=== PATIENT | male | born 1945 | race Caucasian/White ===

== ENCOUNTER → 2017-01-04 | Outpatient (CLI) | payer MEDICARE, OTHER ==
[~2017-01-04] MED LIST: ACLI400A IH; ALBU17AE3 IH; ALBU2.5V52 INH; ALBU5SOL10 IH; ALBU8.5H2 IH; ALFU10TA11 PO; ALFU10TA6 PO; AMLO10TA82 PO; ARFO15VI3 IH; ASP81CT PO; ASPI-587 PO; ASPI-875 PO; ASPI81TA19 GT; ATEN50TA PO; BUDE0.5A2 IH; BUDE0.5A5 IH; BUDE0.5A7 IH; BUPR150T20 PO; CETI10TA17 PO; CLOP75TA PO; FLUT1DIS26 IH; GABA-488 PO; GUAI400T51 PO; HYDR-3714 PO; HYDR1CAP2 PO; HYDR1TAB66 PO; IPRA3AMP IH; LEVO500T69 PO; LRT10T PO; METO-270 PO; MNTL10T PO; NF-ESOM40C PO; NITR0.4T SL; OFLO5DRO2 OD; OXYC-12 PO; PNT40TEC PO; PRD10T PO; PRD20T PO; PRED10TA PO; PRED5DRO2I OD; ROFL500T3 PO; ROSU10TA12 PO; RT-ALBUINH IH; SUCR1TAB36 PO; TIOT18CA IH; [UNRECOGNIZED DRUG - OTHER] OD
--- NOTE | 2017-01-04 15:45 | Diagnostic Imaging Report ---
PROCEDURE: US Carotid Duplex Bilateral. TECHNIQUE: Multiple real-time grayscale images were obtained over the carotid arteries in various projections bilaterally. Additional duplex Doppler and color Doppler images were also obtained. INDICATION: Hypertension. COMPARISON: There are no prior studies available for comparison. FINDINGS: There is fairly heavy hard and soft plaque formation in both carotid bifurcations. The flow velocities failed to show any sign of a hemodynamically significant stenosis. The flow velocities are as follows: Mid CCA right 63.9, left 79.7 Proximal ICA right 75, left 66.3 Mid ICA right 65.1, left 83.8 Distal ICA right 51.6, left 59.8. IC/CC ratio right 1.2, left 1.1 Both vertebral arteries were identified and there was antegrade flow bilaterally. IMPRESSION: There is fairly severe atherosclerotic disease involving both carotid bifurcations but there is no sign of a hemodynamically significant stenosis of the common or internal carotid arteries. Dictated by: Dictated on workstation # [id number]
== END ==
LOC: RAD 14:07
PROVIDERS: ATTEND Nurse Practitioner
DX: I10 Essential (primary) hypertension (principal); R42 Dizziness and giddiness; R51 Headache
CPT/HCPCS: 93880

== ENCOUNTER 2017-01-27 13:00 | Outpatient (RCR) | payer MEDICARE, OTHER | END 2017-02-06 | disposition home or self-care (01) | LOC: PULM 13:00 | PROVIDERS: ATTEND Internal Medicine Critical Care Medicine | DX: J96.20 Acute and chronic respiratory failure, unspecified whether with hypoxia or hypercapnia (principal); J43.8 Other emphysema | CPT/HCPCS: 99211 ==

== ENCOUNTER 2017-03-31 13:00 | Outpatient (RCR) | payer MEDICARE, OTHER | END 2017-05-11 | disposition home or self-care (01) | LOC: PULM 13:00 | PROVIDERS: ATTEND Internal Medicine Critical Care Medicine | DX: J96.20 Acute and chronic respiratory failure, unspecified whether with hypoxia or hypercapnia (principal); J43.8 Other emphysema ==

== ENCOUNTER → 2017-07-04 | Outpatient (CLI) | payer MEDICARE, OTHER ==
[2017-07-04 09:14] LABS: BASOPHILS % (AUTO) 1 % (0-10); EOSINOPHILS # (AUTO) 0.2 10^3/uL (0.0-0.3); EOSINOPHILS % (AUTO) 3 % (0-10); LYMPHOCYTES # (AUTO) 1.5 X 10^3 (1.0-4.0); LYMPHOCYTES % (AUTO) 19 % (12-44); MEAN CORPUSCULAR HEMOGLOBIN 31 PG (25-34); MEAN CORPUSCULAR HGB CONC 32 G/DL (32-36); MEAN CORPUSCULAR VOLUME 96 FL (80-99); MEAN PLATELET VOLUME 10.3 FL (7.4-10.4); MONOCYTES # (AUTO) 0.7 X 10^3 (0.0-1.0); MONOCYTES % (AUTO) 9 % (0-12); NEUTROPHILS # (AUTO) 5.7 X 10^3 (1.8-7.8); NEUTROPHILS % (AUTO) 69 % (42-75); PLATELET COUNT 191 10^3/uL (130-400); RED BLOOD COUNT 4.25 10^6/uL (4.35-5.85); RED CELL DISTRIBUTION WIDTH 13.3 % (10.0-14.5); WHITE BLOOD COUNT 8.2 10^3/uL (4.3-11.0)
[2017-07-04 09:36] LABS: ALANINE AMINOTRANSFERASE 17 U/L (0-55); ALBUMIN 3.8 GM/DL (3.2-4.5); ANION GAP 10 MMOL/L (5-14); ASPARTATE AMINO TRANSFERASE 14 U/L (5-34); BILIRUBIN,TOTAL 0.3 MG/DL (0.1-1.0); BLOOD UREA NITROGEN 18 MG/DL (7-18); BUN/CREATININE RATIO 22; CALCIUM 9.1 MG/DL (8.5-10.1); CARBON DIOXIDE 27 MMOL/L (21-32); CHLORIDE 105 MMOL/L (98-107); CHOLESTEROL 135 MG/DL (< 200); CREATININE SERUM 0.83 MG/DL (0.60-1.30); DIRECT LDL 54 MG/DL (1-129); GFR ESTIMATED > 60; GLUCOSE 93 MG/DL (70-105); POTASSIUM 4.2 MMOL/L (3.6-5.0); SODIUM 142 MMOL/L (135-145); TOTAL PROTEIN 6.3 GM/DL (6.4-8.2); TRIGLYCERIDES 102 MG/DL (<150); VLDL CHOLESTEROL 20 MG/DL (5-40)
[2017-07-04 09:58] LABS: THYROID STIMULATING HORMONE 0.92 UIU/ML (0.35-4.94)
== END ==
LOC: LAB 08:39
PROVIDERS: ATTEND Family Medicine
DX: R53.83 Other fatigue (principal); E78.5 Hyperlipidemia, unspecified; Z83.3 Family history of diabetes mellitus
CPT/HCPCS: 36415; 80053; 80061; 83036; 84439; 84443; 85025

== ENCOUNTER 2017-08-18 13:10 | Inpatient (IN) | payer MEDICARE, OTHER ==
[~2017-08-18] VITALS: Ht 170.2 cm; Wt 66.6 kg
[~2017-08-18 13:10] MED LIST changes: -ARFO15VI3 IH; +ARFO15VI3 NEB; -METO-270 PO; +METO-387 PO
[2017-08-18] MEDS ORDERED: RT-ALBUTEROL SULF 2.5 MG/3 ML PRE-MIX VIAL INH STA ×2 (13:23→13:47)
[2017-08-18] MEDS ORDERED: RT-ALBUTEROL/IPRATROPIUM 3 ML (DUONEB) VIAL INH ONE (13:30)
[2017-08-18 13:35] LABS: BASOPHILS % (AUTO) 0 % (0-10); EOSINOPHILS % (AUTO) 0 % (0-10); LYMPHOCYTES # (AUTO) 0.5 X 10^3 (1.0-4.0); LYMPHOCYTES % (AUTO) 3 % (12-44); MEAN CORPUSCULAR HEMOGLOBIN 31 PG (25-34); MEAN CORPUSCULAR HGB CONC 33 G/DL (32-36); MEAN CORPUSCULAR VOLUME 94 FL (80-99); MEAN PLATELET VOLUME 10.8 FL (7.4-10.4); MONOCYTES # (AUTO) 1.4 X 10^3 (0.0-1.0); MONOCYTES % (AUTO) 8 % (0-12); NEUTROPHILS # (AUTO) 15.9 X 10^3 (1.8-7.8); NEUTROPHILS % (AUTO) 89 % (42-75); PLATELET COUNT 195 10^3/uL (130-400); RED BLOOD COUNT 4.16 10^6/uL (4.35-5.85); RED CELL DISTRIBUTION WIDTH 13.2 % (10.0-14.5); WHITE BLOOD COUNT 17.8 10^3/uL (4.3-11.0)
--- NOTE | 2017-08-18 13:46 | Diagnostic Imaging Report ---
INDICATION: Shortness of breath EXAMINATION: Portable chest at 1:25 PM There are emphysematous changes in the lungs with large bullae at the left apex. There are no infiltrates, effusions or pneumothoraces. IMPRESSION: Severe COPD. No acute abnormalities and no change since 03/11/2016. Dictated by: Dictated on workstation # [id number]
--- NOTE | 2017-08-18 13:55 | ED Respiratory ---
General Chief Complaint: Respiratory Problems Stated Complaint: SOA Nursing Triage Note: PT REPORTS INCREASED SOA X A COUPLE OF DAYS. HE REPORTS HE HAS HAD PAIN TO HIS L LUNG. Source: patient Exam Limitations: no limitations History of Present Illness Time seen by provider: 13:14 Initial Comments Here with report of significant shortness of air that has worsened over the last 2-3 days. Complains of pain to the area of the left lung. Has significant COPD and has had to increase his oxygen. O2 sats 88 percent on 5 L on arrival. States that she has had similar episode several years ago of something like this and required hospitalization for COPD and pneumonia. Denies fevers chills or vomiting. Left chest is described as aching and tightness. Timing/Duration: getting worse, other (to 3 days) Severity: moderate, severe Prior Episodes/Possible Cause: occasional episodes Associated Symptoms: chest pain/soreness, cough, No fever/chills, shortness of breath, wheezing Allergies and Home Medications Allergies Coded Allergies: atorvastatin calcium (Verified Allergy, Mild, RASH, 11/27/12) Home Medications Albuterol Sulfate 8.5 Gm Aer.w.adap, 2 PUFF IH QID PRN for SHORTNESS OF BREATH, (Reported) Alfuzosin Hcl 10 Mg Tab.sr.24h, 10 MG PO DAILY, (Reported) Arformoterol Tartrate 15 Mcg/2 Ml Vial.neb, 15 MCG IH BID, (Reported) Aspirin 81 Mg Tablet.dr, 81 MG PO DAILY, (Reported) Budesonide 0.5 Mg/2 Ml Ampul.neb, 0.5 MG IH BID, (Reported) Bupropion Hcl 150 Mg Tablet.sa, 150 MG PO BID, (Reported) Cetirizine HCl 10 Mg Tablet, 10 MG PO DAILY, (Reported) Gabapentin 300 Mg Capsule, 300 MG PO TID, (Reported) Hydrocodone Bit/Acetaminophen 1 Tab Tablet, 1 TAB PO Q8H PRN for PAIN, (Reported ) Ipratropium/Albuterol Sulfate 3 Ml Ampul.neb, 3 ML IH Q4H PRN for WHEEZING, ( Reported) Metoprolol Succinate 25 Mg Tab.er.24h, 12.5 MG PO DAILY, (Reported) TAKES 1/2 OF A (25 MG) TABLET Montelukast Sodium 10 Mg Tablet, 10 MG PO HS, (Reported) Nitroglycerin 0.4 Mg Tab.subl, 0.4 MG SL UD PRN for CHEST PAIN, (Reported) PLACE 1 TABLET UNDER TONGUE EVERY 5 MINUTES X 3 DOSES NEEDED FOR CHEST PAIN Pantoprazole Sodium 40 Mg Tablet.dr, 40 MG PO DAILY, (Reported) Prednisone 10 Mg Tablet, 10 MG PO DAILY, (Reported) Rosuvastatin Calcium 10 Mg Tablet, 10 MG PO HS, (Reported) Constitutional: see HPI, chills, diaphoresis (sweaty on arrival), No fever EENTM: no symptoms reported Respiratory: see HPI, cough, short of breath Cardiovascular: see HPI, No palpitations Gastrointestinal: abdominal pain (chronic upper but not worse today.), No nausea, No vomiting Genitourinary: no symptoms reported Musculoskeletal: see HPI, muscle pain, No neck pain Skin: no symptoms reported Psychiatric/Neurological: No Symptoms Reported All Other Systems Reviewed Negative Unless Noted: Yes Past Iqamrfn-Jtwvny-Hjqwkh Hx Patient Social History Alcohol Use: Denies Use Recreational Drug Use: No Smoking Status: Former Smoker Type Used: Cigarettes 2nd Hand Smoke Exposure: No Recent Foreign Travel: No Contact w/Someone Who Travel: No Recent Infectious Disease Expo: No Physical Abuse: No Sexual Abuse: No Immunizations Up To Date Date of Pneumonia Vaccine: Sep 17, 2015 Date of Influenza Vaccine: Aug 06, 2016 Surgeries History of Surgeries: Yes (hernia) Respiratory History of Respiratory Disorde: Yes (oxygen dependent) Respiratory Disorders: Asthma, COPD Cardiovascular History of Cardiac Disorders: Yes (STENTS X2, HEART CATH IN JANUARY 2015) Cardiac Disorders: Hypertension Neurological History of Neurological Disord: No Reproductive System Hx Reproductive Disorders: No Gastrointestinal History of Gastrointestinal Di: Yes Gastrointestinal Disorders: Gastroesophageal Reflux Musculoskeletal History of Musculoskeletal Dis: No Musculoskeletal Disorders: Arthritis Endocrine History of Endocrine Disorders: No HEENT HEENT Disorders: Cataract Hearing Impairment: Hard of Hearing Cancer History of Cancer: No Psychosocial History of Psychiatric Problem: No Suicide Risk Score: 0 Integumentary History of Skin or Integumenta: No Blood Transfusions History of Blood Disorders: No Reviewed Nursing Assessment Reviewed/Agree w Nursing PMH: Yes Family Medical History Significant Family History: No Pertinent Family Hx Family Medial History: Congestive heart failure 03 MOTHER Family history: Cardiovascular disease 03 MOTHER History of - respiratory disease 03 FATHER (EMPHYSEMA) Kidney disease 03 MOTHER Physical Exam Vital Signs Vital Sign - Last 12Hours Capillary Refill : Less Than 3 Seconds General Appearance: WD/WN, no apparent distress HEENT: PERRL/EOMI, pharynx normal Neck: full range of motion, supple Respiratory: accessory muscle use, other (hyperresonant lung sounds on the left ) Cardiovascular: no murmur, tachycardia Gastrointestinal: non tender, soft Extremities: non-tender, normal inspection Neurologic/Psychiatric: alert, oriented x 3 Skin: normal color, warm/dry Focused Exam Evaluation Lactate Level Laboratory Tests 08/18/17 13:20: Lactic Acid Level 3.03*H Lactic Acid Level Laboratory Tests Test 08/18/17 13:20 Lactic Acid Level 3.03 MMOL/L (0.50-2.00) *H Progress/Results/Core Measures Suspected Sepsis Recent Fever Within 48 Hours: No Infection Criteria Present: Suspected New Infection New/Unexplained Altered Menta: No Sepsis Screen: Possible Sepsis Risk Sepsis Diagnosis: SIRS Temperature:97.8 Pulse: 108 Respiratory Rate: 30 Laboratory Tests 08/18/17 13:20: White Blood Count 17.8H Blood Pressure 153 /101 Mean: 118 Laboratory Tests 08/18/17 13:20: Lactic Acid Level 3.03*H Laboratory Tests 08/18/17 13:20: Creatinine 0.77, Platelet Count 195, Total Bilirubin 0.9 Results/Orders Lab Results Laboratory Tests Test 08/18/17 13:20 Range/Units White Blood Count 17.8 H 4.3-11.0 10^3/uL Red Blood Count 4.16 L 4.35-5.85 10^6/uL Hemoglobin 12.9 L 13.3-17.7 G/DL Hematocrit 39 L 40-54 % Mean Corpuscular Volume 94 80-99 FL Mean Corpuscular Hemoglobin 31 25-34 PG Mean Corpuscular Hemoglobin Concent 33 32-36 G/DL Red Cell Distribution Width 13.2 10.0-14.5 % Platelet Count 195 130-400 10^3/uL Mean Platelet Volume 10.8 H 7.4-10.4 FL Neutrophils (%) (Auto) 89 H 42-75 % Lymphocytes (%) (Auto) 3 L 12-44 % Monocytes (%) (Auto) 8 0-12 % Eosinophils (%) (Auto) 0 0-10 % Basophils (%) (Auto) 0 0-10 % Neutrophils # (Auto) 15.9 H 1.8-7.8 X 10^3 Lymphocytes # (Auto) 0.5 L 1.0-4.0 X 10^3 Monocytes # (Auto) 1.4 H 0.0-1.0 X 10^3 Eosinophils # (Auto) 0.0 0.0-0.3 10^3/uL Basophils # (Auto) 0.0 0.0-0.1 10^3/uL Neutrophils % (Manual) 88 % Lymphocytes % (Manual) 2 % Monocytes % (Manual) 9 % Band Neutrophils 1 % Toxic Granulation 1+ Blood Morphology Comment NORMAL Sodium Level 134 L 135-145 MMOL/L Potassium Level 3.8 3.6-5.0 MMOL/L Chloride Level 100 98-107 MMOL/L Carbon Dioxide Level 21 21-32 MMOL/L Anion Gap 13 5-14 MMOL/L Blood Urea Nitrogen 20 H 7-18 MG/DL Creatinine 0.77 0.60-1.30 MG/DL Estimat Glomerular Filtration Rate > 60 BUN/Creatinine Ratio 26 Glucose Level 160 H 70-105 MG/DL Lactic Acid Level 3.03 *H 0.50-2.00 MMOL/L Calcium Level 9.9 8.5-10.1 MG/DL Magnesium Level 2.0 1.8-2.4 MG/DL Total Bilirubin 0.9 0.1-1.0 MG/DL Aspartate Amino Transf (AST/SGOT) 12 5-34 U/L Alanine Aminotransferase (ALT/SGPT) 12 0-55 U/L Alkaline Phosphatase 92 40-136 U/L Troponin I < 0.30 <0.30 NG/ML C-Reactive Protein High Sensitivity 39.94 H 0.00-0.50 MG/DL Total Protein 7.0 6.4-8.2 GM/DL Albumin 3.6 3.2-4.5 GM/DL My Orders Orders - FANNIE ADEN MD Chest 1 View, Ap/Pa Only (08/18/17 13:17) Saline Lock/Iv-Start (08/18/17 13:17) Ekg Tracing (08/18/17 13:17) O2 (08/18/17 13:17) Monitor-Rhythm Ecg Trace Only (08/18/17 13:17) Cbc With Automated Diff (08/18/17 13:17) Comprehensive Metabolic Panel (08/18/17 13:17) Hs C Reactive Protein (08/18/17 13:17) Lactic Acid Analyzer (08/18/17 13:17) Magnesium (08/18/17 13:17) Troponin I (08/18/17 13:17) Blood Culture (08/18/17 13:17) Albuterol Pre-Mix Nebs (Rt) (Proventil P (08/18/17 13:23) Albuterol/Ipra Inhalation Soln (Duoneb I (08/18/17 13:30) Svn Sm Volume Nebulizer Rt-Rfs (08/18/17 13:23) Svn Sm Volume Nebulizer Rt-Rfs (08/18/17 13:23) Manual Differential (08/18/17 13:20) Albuterol Pre-Mix Nebs (Rt) (Proventil P (08/18/17 13:47) Svn Sm Volume Nebulizer Rt-Rfs (08/18/17 13:47) Methylprednisolone Sod Succ (Solu-Medrol (08/18/17 13:57) Ns Iv 1000 Ml (Sodium Chloride 0.9%) (08/18/17 14:14) Ceftriaxone Injection (Rocephin Injectio (08/18/17 14:15) Medications Given in ED Current Medications Medications Dose Ordered Sig/Ivana Route Start Time Stop Time Status Last Admin Dose Admin Albuterol/ Ipratropium 3 ml ONCE ONCE INH 08/18/17 13:30 08/18/17 13:31 DC 08/18/17 13:36 3 ML Vital Signs/I&O Vital Sign - Last 12Hours 08/18/17 08/18/17 08/18/17 08/18/17 13:15 13:15 13:36 13:53 Temp 97.8 Pulse 108 Resp 30 B/P (MAP) 153/101 Pulse Ox 87 98 98 98 O2 Delivery Nasal Cannula OxyMask OxyMask OxyMask O2 Flow Rate 2.00 10.00 10.00 10.00 Capillary Refill : Less Than 3 Seconds Blood Pressure Mean: 118 Progress Note : Progress Note Seen and evaluated. IV, labs, EKG, chest x-ray, blood cultures and lactic acid ordered. DuoNeb and albuterol nebulizer treatment ordered. This was repeated with 2 albuterol neb treatments. This did ultimately began to help out his breathing and he was able to be switched off a mask to his typical 5 L via nasal cannula with O2 sats remaining in the upper 90s and patient feeling much more comfortable. Lactic acid is elevated which I believe is related to the hypoxia and respiratory distress that he has been experiencing over the last 2 days. White count and CRP are also elevated. Patient does have chronic lung disease and there may be hidden pneumonia in the lungs on the left especially that is not noted on chest x-ray. We will treat subjectively and clinically as pneumonia. While patient does meet sepsis criteria, he does not meet requirement for high volume fluid resuscitation at this time. I did discuss the case with Dr. Izquierdo at 1411 and she accepts patient for admission, inpatient status. I will consult Dr. Cardenas. Solu-Medrol 125 mg IV initiated as well as Rocephin 1 g IV. ECG Initial ECG Impression Date: Aug 18, 2017 Initial ECG Impression Time: 14:07 Initial ECG Rate: 108 Initial ECG Rhythm: S.Tach Comment Sinus tachycardia with nonspecific intraventricular conduction delay. No evidence of ST elevation DC. Right axis deviation. Similar to previous of 09 December 2015 except rate is increased today. Interpreted by me. Diagnostic Imaging Diagonstic Imaging: Xray Plain Films/CT/US/NM/MRI: chest Comments NAME: YAYO DINH [facility] REC#: [id number] PT STATUS: REG ER : 1945 PHYSICIAN: FANNIE ADEN MD ADMIT DATE: 08/18/17/ER Draft Date of Exam:08/18/17 CHEST 1 VIEW, AP/PA ONLY INDICATION: Shortness of breath EXAMINATION: Portable chest at 1:25 PM There are emphysematous changes in the lungs with large bullae at the left apex. There are no infiltrates, effusions or pneumothoraces. IMPRESSION: Severe COPD. No acute abnormalities and no change since 03/11/2016. Dictated on workstation # [id number] Dict: 08/18/17 1343 Trans: 08/18/17 1346 [facility] [id number] Interpreted by: FANNIE BARNETT MD Electronically signed by: Departure Communication (Admissions) Time/Spoke to Admitting Phy: 14:11 Time/Spoke to Consulting Phy: 14:23 Impression Impression: Primary Impression: COPD with acute exacerbation Additional Impression: Pneumonia involving left lung Qualified Codes: J18.9 - Pneumonia, unspecified organism Disposition: ADMITTED INPATIENT Condition: Stable Admissions Decision to Admit Reason: Admit from ER (General) Decision to Admit/Date: Aug 18, 2017 Time/Decision to Admit Time: 14:11 Departure-Patient Inst. Referrals: VICKI IZQUIERDO DO (PCP/Family) Primary Care Physician FANNIE ADEN MD Aug 18, 2017 13:55
[2017-08-18 13:57] LABS: BAND NEUTROPHILS 1 %; NEUTROPHILS % (MANUAL) 88 %
[2017-08-18] MEDS ORDERED: methylPREDNISolone 125 MG (Solu-MEDROL) VIAL IV STA (13:57)
[2017-08-18 13:58] LABS: LYMPHOCYTES % (MANUAL) 2 %
[2017-08-18 14:05] LABS: ALANINE AMINOTRANSFERASE 12 U/L (0-55); ALBUMIN 3.6 GM/DL (3.2-4.5); ANION GAP 13 MMOL/L (5-14); ASPARTATE AMINO TRANSFERASE 12 U/L (5-34); BILIRUBIN,TOTAL 0.9 MG/DL (0.1-1.0); BLOOD UREA NITROGEN 20 MG/DL (7-18); BUN/CREATININE RATIO 26; CALCIUM 9.9 MG/DL (8.5-10.1); CARBON DIOXIDE 21 MMOL/L (21-32); CHLORIDE 100 MMOL/L (98-107); CREATININE SERUM 0.77 MG/DL (0.60-1.30); GFR ESTIMATED > 60; GLUCOSE 160 MG/DL (70-105); POTASSIUM 3.8 MMOL/L (3.6-5.0); SODIUM 134 MMOL/L (135-145); hs C REACTIVE PROTEIN 39.94 MG/DL (0.00-0.50)
[2017-08-18 14:07] LABS: TROPONIN I < 0.30 NG/ML (<0.30)
[2017-08-18] MEDS ORDERED: NS IV 1000 ML 1,000 ML IV ONE (14:14)
[2017-08-18] MEDS ORDERED: cefTRIAXone INJECTION 1,000 MG in NS (IVPB) 50 ML IV ONE (14:15)
[2017-08-18 15:39] VITALS: BP 170/85
[2017-08-18] MEDS ORDERED: ONDANSETRON 4 MG/2 ML (SDV) Z0FRAN IV PRN (15:45)
[2017-08-18] MEDS ORDERED: NS IV PRN (15:45)
[2017-08-18] MEDS ORDERED: CATHETER FLUSH 10 ML SYR IV PRN (15:45)
[2017-08-18] MEDS ORDERED: PRD10T PO (16:03)
[2017-08-18] MEDS ORDERED: HYDR-3816 PO (16:03)
[2017-08-18] MEDS ORDERED: AMLO10TA2 PO (16:03)
[2017-08-18] MEDS ORDERED: MONT10TA24 PO (16:09)
[2017-08-18] MEDS ORDERED: ALFU10TA11 PO (16:09)
[2017-08-18] MEDS ORDERED: NITR0.4T39 SL (16:09)
[2017-08-18] MEDS ORDERED: FEXO-46 PO (16:09)
[2017-08-18] MEDS ORDERED: ASPI-983 PO (16:09)
[2017-08-18] MEDS ORDERED: ALBU18HF2 IH (16:09)
[2017-08-18] MEDS ORDERED: ROSU10TA24 PO (16:09)
[2017-08-18] MEDS ORDERED: PANT40TA3 PO (16:09)
[2017-08-18] MEDS: NS IV 1000 ML 1,000 ML IV SCH ×2 (16:14→20:26)
[2017-08-18] MEDS: AZITHROMYCIN 500 MG/NS 250 ML IVPB IV SCH ×2 (16:14)
[2017-08-18 16:21] VITALS: BP 170/85
[2017-08-18] MEDS ORDERED: ATEN50TA PO (16:22)
[2017-08-18] MEDS ORDERED: ALBU2.5V4 NEB (16:22)
[2017-08-18] MEDS ORDERED: RT-ALBUTEROL SULF 2.5 MG/3 ML PRE-MIX VIAL IH PRN (16:30)
[2017-08-18] MEDS: HYDROcodone/APAP 5 MG/325 MG (LORTAB) TAB PO PRN (16:56)
[2017-08-18] MEDS: methylPREDNISolone 40 MG/ML (Solu-MEDROL) VIAL IV SCH (18:14)
[2017-08-18] MEDS: RT-ALBUTEROL SULF 2.5 MG/3 ML PRE-MIX VIAL IH SCH ×2 (18:39→22:17)
--- NOTE | 2017-08-18 19:11 | History & Physicial ---
History of Present Illness History of Present Illness Reason for visit/HPI This is a 71 year old male with severe oxygen requiring COPD who presented to the emergency room with worsening shortness of air and left lung pain for the past 3 days. He had also had sweats for the past 2 days. He had increased his oxygen to 5liters and his oxygen saturation was at 88% upon arrival in the emergency room. He was given back to back nebulizer treatments as well as IV solumedrol in the emergency room. His WBC count was elevated at 17.8 and his lactic acid was elevated at 3.03 with an elevated CRP of 39. His CXR has chronic changes but no obvious infiltrate was noted. He will be admitted for presumptive pneumonia with sepsis and exacerbation of COPD. Date of Admission Aug 18, 2017 at 14:25 Date Seen by Provider: Aug 18, 2017 Time Seen by Provider: 19:06 I consulted on this patient on 08/18/17 19:06 Attending Physician Dalia Izquierdo DO Admitting Physician Dalia Izquierdo DO Consult Allergies and Home Medications Allergies Coded Allergies: atorvastatin calcium (Verified Allergy, Mild, RASH, 11/27/12) Home Medications Albuterol Sulfate 18 Gm Hfa.aer.ad, 2 PUFF IH Q4H PRN for SHORTNESS OF BREATH, ( Reported) Albuterol Sulfate 2.5 Mg/3 Ml Vial.neb, 2.5 MG NEB Q4H PRN for SHORTNESS OF BREATH, (Reported) Alfuzosin HCl 10 Mg Tab.er.24h, 10 MG PO HS, (Reported) Amlodipine Besylate 10 Mg Tablet, 10 MG PO DAILY, (Reported) Arformoterol Tartrate 15 Mcg/2 Ml Vial.neb, 15 MCG NEB BID, (Reported) Aspirin 81 Mg Tablet.dr, 81 MG PO DAILY, (Reported) Atenolol 50 Mg Tablet, 50 MG PO DAILY PRN for BLOOD PRESSURE, (Reported) LAST FILLED #60 02-24-17 Fexofenadine HCl 180 Mg Tablet, 180 MG PO DAILY, (Reported) Hydrocodone/Acetaminophen 1 Each Tablet, 1 TAB PO TID PRN for PAIN-MODERATE, ( Reported) Montelukast Sodium 10 Mg Tablet, 10 MG PO HS, (Reported) Nitroglycerin 0.4 Mg Tab.subl, 0.4 MG SL UD PRN for CHEST PAIN, (Reported) Pantoprazole Sodium 40 Mg Tablet.dr, 40 MG PO DAILY, (Reported) Prednisone 10 Mg Tab, 10 MG PO DAILY, (Reported) Rosuvastatin Calcium 10 Mg Tablet, 10 MG PO HS, (Reported) Past Fxqfbom-Swoeka-Wtaspp Hx Patient Social History Alcohol Use: Denies Use Recreational Drug Use: No Smoking Status: Former Smoker Former Smoker, Quit: Aug 18, 2012 Type Used: Cigarettes 2nd Hand Smoke Exposure: No Physical Abuse Screen: No Sexual Abuse: No Recent Foreign Travel: No Contact w/other who traveled: No Recent Hopitalizations: No Recent Infectious Disease Expo: No Immunizations Up To Date Pediatric: Yes Date of Pneumonia Vaccine: Sep 17, 2015 Date of Influenza Vaccine: Aug 03, 2017 Seasonal Allergies Seasonal Allergies: No Surgeries Yes (hernia) Respiratory Yes (oxygen dependent) Currently Using CPAP: No Cardiovascular Yes (STENTS X2, HEART CATH IN JANUARY 2015) Hypertension Neurological No Reproductive System Hx Reproductive Disorders: No Genitourinary Yes Prostate Problems Gastrointestinal Yes Gastroesophageal Reflux Musculoskeletal No Arthritis Endocrine History of Endocrine Disorders: No HEENT HEENT Disorders: Cataract Hearing Impairment: Hard of Hearing Cancer No Psychosocial History of Psychiatric Problem: No Integumentary History of Skin or Integumenta: No Blood Transfusions History of Blood Disorders: No Reviewed Nursing Assessment Reviewed/Agree w Nursing PMH: Yes Family Medical History Significant Family History: No Pertinent Family Hx Family Hx: Congestive heart failure 03 MOTHER Family history: Cardiovascular disease 03 MOTHER History of - respiratory disease 03 FATHER (EMPHYSEMA) Kidney disease 03 MOTHER Constitutional: diaphoresis, weakness EENTM: No see HPI, No no symptoms reported, No ear discharge, No hearing loss, No ear pain, No blurred vision, No double vision, No eye pain, No tearing, No vision loss, No dental problems, No hoarseness, No mouth pain, No mouth swelling , No epistaxis, No nose congestion, No nose pain, No throat pain, No throat swelling, No other Respiratory: cough, dyspnea on exertion, short of breath, wheezing Cardiovascular: chest pain (left lung pain) Gastrointestinal: No RUQ, No LUQ, No RLQ, No LLQ, No no symptoms reported, No see HPI, No abdominal pain, No constipation, No diarrhea, No dysphagia, No hematemesis, No heartburn, No jaundice, No loss of appetite, No melena, No nausea, No vomiting, No other Genitourinary: No no symptoms reported, No see HPI, No decreased output, No discharge, No dysuria, No frequency, No hematuria, No hesitancy, No incontinence , No nocturia, No pain, No other Musculoskeletal: back pain, muscle weakness Skin: No no symptoms reported, No see HPI, No change in color, No change in hair/nails, No dryness, No hx of skin cancer, No lesions, No lumps, No pruritus , No rash, No other Psychiatric/Neurological: Weakness Physical Exam Vital Signs Vital Sign - Last 12Hours 08/18/17 16:21 FiO2 40 Capillary Refill : Less Than 3 Seconds General Appearance: Mild Distress (respiratory) HEENT: Pharyngeal Erythema Neck: Supple Respiratory: Accessory Muscle Use, Decreased Breath Sounds Cardiovascular: Systolic Murmur, Gallop/S4, Tachycardia Gastrointestinal: Normal Bowel Sounds, Non Tender, Soft Rectal: Deferred Back: No CVA Tenderness Extremity: Non Tender, No Calf Tenderness, No Pedal Edema Neurologic/Psychiatric: Alert, Oriented x3 Skin: Normal Color, Warm/Dry Lymphatic: No Adenopathy Comments Laboratory Tests 08/18/17 13:20: White Blood Count 17.8H, Red Blood Count 4.16L, Hemoglobin 12.9L, Hematocrit 39L , Mean Corpuscular Volume 94, Mean Corpuscular Hemoglobin 31, Mean Corpuscular Hemoglobin Concent 33, Red Cell Distribution Width 13.2, Platelet Count 195, Mean Platelet Volume 10.8H, Neutrophils (%) (Auto) 89H, Lymphocytes (%) (Auto) 3L, Monocytes (%) (Auto) 8, Eosinophils (%) (Auto) 0, Basophils (%) (Auto) 0, Neutrophils # (Auto) 15.9H, Lymphocytes # (Auto) 0.5L, Monocytes # (Auto) 1.4H, Eosinophils # (Auto) 0.0, Basophils # (Auto) 0.0, Neutrophils % (Manual) 88, Lymphocytes % (Manual) 2, Monocytes % (Manual) 9, Band Neutrophils 1, Toxic Granulation 1+, Blood Morphology Comment NORMAL, Sodium Level 134L, Potassium Level 3.8, Chloride Level 100, Carbon Dioxide Level 21, Anion Gap 13, Blood Urea Nitrogen 20H, Creatinine 0.77, Estimat Glomerular Filtration Rate > 60, BUN /Creatinine Ratio 26, Glucose Level 160H, Lactic Acid Level 3.03*H, Calcium Level 9.9, Magnesium Level 2.0, Total Bilirubin 0.9, Aspartate Amino Transf (AST /SGOT) 12, Alanine Aminotransferase (ALT/SGPT) 12, Alkaline Phosphatase 92, Troponin I < 0.30, C-Reactive Protein High Sensitivity 39.94H, Total Protein 7.0 , Albumin 3.6 08/18/17 15:35: Lactic Acid Level 3.33*H Microbiology 08/18/17 Blood Culture - Preliminary, Resulted No growth Assessment/Plan Assessment and Plan 1. Pneumonia with Sepsis--admit and start sepsis and pneumonia protocol 2. Exacerbation of COPD--oxygen, IV solumedrol and SVNS with duoneb 3. Hypertension--resume home meds 4. GERD--resume protonix 5. Elevated CRP--will check CT scan to rule out mass Problems: Clinical Quality Measures DVT/VTE Risk/Contraindication: Risk Factor Score Per Nursin RFS Level Per Nursing on Admit: 4+=Very High DALIA IZQUIERDO DO Aug 18, 2017 19:11
[2017-08-18 19:28] VITALS: BP 142/65
[2017-08-18] MEDS: ALFUZOSIN HCL 10 MG TAB (UROXATRAL) PO SCH (20:21)
[2017-08-18] MEDS: ROSUVASTATIN 5 MG (CRESTOR) TABLET PO SCH (20:21)
[2017-08-18] MEDS: MONTELUKAST 10 MG (SINGULAIR) TAB PO SCH (20:22)
[2017-08-18] MEDS: ENOXAPARIN 40 MG/0.4 ML (LOVENOX) SYR SC SCH (20:25)
[2017-08-18] MEDS: HYDROcodone/APAP 7.5 MG/325 MG (LORTAB, LORCET PLUS) TABLET PO PRN (22:23)
[2017-08-19] MEDS: NS IV 1000 ML 1,000 ML IV SCH ×4 (00:47→17:21)
[2017-08-19] MEDS: methylPREDNISolone 40 MG/ML (Solu-MEDROL) VIAL IV SCH ×5 (00:50→23:48)
[2017-08-19 00:55] VITALS: BP 135/63
[2017-08-19] MEDS: RT-ALBUTEROL SULF 2.5 MG/3 ML PRE-MIX VIAL IH SCH ×6 (02:42→21:40)
[2017-08-19 04:30] VITALS: BP 130/64
[2017-08-19 05:53] LABS: BASOPHILS % (AUTO) 0 % (0-10); EOSINOPHILS % (AUTO) 0 % (0-10); LYMPHOCYTES # (AUTO) 0.1 X 10^3 (1.0-4.0); LYMPHOCYTES % (AUTO) 2 % (12-44); MEAN CORPUSCULAR HEMOGLOBIN 31 PG (25-34); MEAN CORPUSCULAR HGB CONC 33 G/DL (32-36); MEAN CORPUSCULAR VOLUME 95 FL (80-99); MEAN PLATELET VOLUME 10.4 FL (7.4-10.4); MONOCYTES # (AUTO) 0.3 X 10^3 (0.0-1.0); MONOCYTES % (AUTO) 5 % (0-12); NEUTROPHILS # (AUTO) 5.3 X 10^3 (1.8-7.8); NEUTROPHILS % (AUTO) 93 % (42-75); PLATELET COUNT 165 10^3/uL (130-400); RED BLOOD COUNT 3.04 10^6/uL (4.35-5.85); RED CELL DISTRIBUTION WIDTH 12.8 % (10.0-14.5); WHITE BLOOD COUNT 5.7 10^3/uL (4.3-11.0)
[2017-08-19 06:14] LABS: ALANINE AMINOTRANSFERASE 13 U/L (0-55); ALBUMIN 2.7 GM/DL (3.2-4.5); ANION GAP 7 MMOL/L (5-14); ASPARTATE AMINO TRANSFERASE 14 U/L (5-34); BILIRUBIN,TOTAL 0.3 MG/DL (0.1-1.0); BLOOD UREA NITROGEN 16 MG/DL (7-18); BUN/CREATININE RATIO 25; CALCIUM 8.2 MG/DL (8.5-10.1); CARBON DIOXIDE 20 MMOL/L (21-32); CHLORIDE 109 MMOL/L (98-107); CREATININE SERUM 0.63 MG/DL (0.60-1.30); GFR ESTIMATED > 60; GLUCOSE 156 MG/DL (70-105); POTASSIUM 4.1 MMOL/L (3.6-5.0); SODIUM 136 MMOL/L (135-145); TOTAL PROTEIN 5.1 GM/DL (6.4-8.2)
[2017-08-19] MEDS: PANTOPRAZOLE 40 MG (PROTONIX) TAB PO SCH (06:14)
[2017-08-19] MEDS: HYDROcodone/APAP 7.5 MG/325 MG (LORTAB, LORCET PLUS) TABLET PO PRN ×2 (06:52→20:10)
--- NOTE | 2017-08-19 07:13 | Diagnostic Imaging Report ---
PROCEDURE: CT chest without contrast. TECHNIQUE: Multiple contiguous axial images were obtained through the chest without the use of intravenous contrast. INDICATION: Shortness of breath, cough, elevated CRP, COPD. FINDINGS: There are emphysematous changes in the lungs. There is some linear scarring in the left upper lobe. There are no consolidating alveolar infiltrates. There are no effusions or pneumothoraces. There is no hilar or mediastinal lymphadenopathy. There is coronary atherosclerosis. IMPRESSION: COPD with left upper lobe parenchymal scarring. No interval change since prior exam dated 04/16/2016. Dictated by: Dictated on workstation # [id number]
--- NOTE | 2017-08-19 07:27 | Pulmonary Consultation ---
History of Present Illness History of Present Illness Date of Consultation 08/19/17 07:21 Time Seen by Provider: 07:21 Date of Admission History of Present Illness 71yo with hx of severe oxygen dependent COPD known to my office presented to ED secondary to worsening SOB and left chest pain worsening over the last 3 days. He increased his oxygen to 5 liters and his SP02 was still 88%. He was given SVN txs and solumedrol in the ED which did help. CT scan shows chronic changes no acute infiltration. Allergies and Home Medications Allergies Coded Allergies: atorvastatin calcium (Verified Allergy, Mild, RASH, 11/27/12) Home Medications Albuterol Sulfate 18 Gm Hfa.aer.ad, 2 PUFF IH Q4H PRN for SHORTNESS OF BREATH, ( Reported) Albuterol Sulfate 2.5 Mg/3 Ml Vial.neb, 2.5 MG NEB Q4H PRN for SHORTNESS OF BREATH, (Reported) Alfuzosin HCl 10 Mg Tab.er.24h, 10 MG PO HS, (Reported) Amlodipine Besylate 10 Mg Tablet, 10 MG PO DAILY, (Reported) Arformoterol Tartrate 15 Mcg/2 Ml Vial.neb, 15 MCG NEB BID, (Reported) Aspirin 81 Mg Tablet.dr, 81 MG PO DAILY, (Reported) Atenolol 50 Mg Tablet, 50 MG PO DAILY PRN for BLOOD PRESSURE, (Reported) LAST FILLED #60 -- Fexofenadine HCl 180 Mg Tablet, 180 MG PO DAILY, (Reported) Hydrocodone/Acetaminophen 1 Each Tablet, 1 TAB PO TID PRN for PAIN-MODERATE, ( Reported) Montelukast Sodium 10 Mg Tablet, 10 MG PO HS, (Reported) Nitroglycerin 0.4 Mg Tab.subl, 0.4 MG SL UD PRN for CHEST PAIN, (Reported) Pantoprazole Sodium 40 Mg Tablet.dr, 40 MG PO DAILY, (Reported) Prednisone 10 Mg Tab, 10 MG PO DAILY, (Reported) Rosuvastatin Calcium 10 Mg Tablet, 10 MG PO HS, (Reported) Past Cbdchvr-Gdaspg-Huaalv Hx Patient Social History Alcohol Use: Denies Use Recreational Drug Use: No Smoking Status: Former Smoker Type Used: Cigarettes Former Smoker, Quit: Aug 18, 2012 2nd Hand Smoke Exposure: No Recent Foreign Travel: No Contact w/Someone Who Travel: No Recent Infectious Disease Expo: No Recent Hopitalizations: No Physical Abuse: No Sexual Abuse: No Immunizations Up To Date PED Vaccines UTD: Yes Date of Pneumonia Vaccine: Sep 17, 2015 Date of Influenza Vaccine: Aug 03, 2017 Seasonal Allergies Seasonal Allergies: No Surgeries History of Surgeries: Yes (hernia) Respiratory History of Respiratory Disorde: Yes (oxygen dependent) Respiratory Disorders: Asthma, COPD Currently Using CPAP: No Cardiovascular History of Cardiac Disorders: Yes (STENTS X2, HEART CATH IN JANUARY 2015) Cardiac Disorders: Hypertension Neurological History of Neurological Disord: No Reproductive System Hx Reproductive Disorders: No Genitourinary History of Genitourinary Disor: Yes Genitourinary Disorders: Prostate Problems Gastrointestinal History of Gastrointestinal Di: Yes Gastrointestinal Disorders: Gastroesophageal Reflux Musculoskeletal History of Musculoskeletal Dis: No Musculoskeletal Disorders: Arthritis Endocrine History of Endocrine Disorders: No HEENT HEENT Disorders: Cataract Hearing Impairment: Hard of Hearing Cancer History of Cancer: No Psychosocial History of Psychiatric Problem: No Suicide Risk Score: 0 Integumentary History of Skin or Integumenta: No Blood Transfusions History of Blood Disorders: No Reviewed Nursing Assessment Reviewed/Agree w Nursing PMH: Yes Family Medical History Significant Family History: No Pertinent Family Hx Family Medial History: Congestive heart failure 03 MOTHER Family history: Cardiovascular disease 03 MOTHER History of - respiratory disease 03 FATHER (EMPHYSEMA) Kidney disease 03 MOTHER Exam Exam Vital Signs Date Time Temp Pulse Resp B/P (MAP) Pulse Ox O2 Delivery O2 Flow Rate FiO2 08/19/17 06:46 94 Nasal Cannula 5.00 08/19/17 04:30 98.1 91 18 130/64 98 Nasal Cannula 5.00 08/19/17 02:42 94 Nasal Cannula 5.00 08/19/17 01:00 95 08/19/17 00:55 98.5 101 22 135/63 96 Nasal Cannula 5.00 08/18/17 22:18 95 Nasal Cannula 5.00 08/18/17 20:15 96 Nasal Cannula 5.00 08/18/17 19:28 98.6 96 22 142/65 98 Nasal Cannula 5.00 08/18/17 19:00 99 08/18/17 18:39 96 Nasal Cannula 5.00 08/18/17 17:25 95 08/18/17 16:21 109 99 40 08/18/17 15:39 99.1 109 30 170/85 99 Nasal Cannula 5.00 11/16/17 15:35 Nasal Cannula 5.00 08/18/17 15:20 98.9 122 25 98 Nasal Cannula 5.00 08/18/17 13:53 98 OxyMask 10.00 08/18/17 13:36 98 OxyMask 10.00 08/18/17 13:15 98 OxyMask 10.00 08/18/17 13:15 97.8 108 30 153/101 87 Nasal Cannula 2.00 General Appearance: Mild Distress (respiratory) HEENT: Pharyngeal Erythema Neck: Supple Respiratory: Accessory Muscle Use, Decreased Breath Sounds Cardiovascular: Systolic Murmur, Gallop/S4, Tachycardia Capillary Refill: Less Than 3 Seconds Gastrointestinal: non tender, soft Extremity: Non Tender, No Calf Tenderness, No Pedal Edema Neurologic/Psychiatric: Alert, Oriented x3 Skin: Normal Color, Warm/Dry Lymphatic: No Adenopathy Results Lab Laboratory Tests 08/18/17 13:20 08/19/17 05:40 Assessment/Plan Assessment/Plan Acute on chronic respiratory failure - doubt PNA -Check ABG to evaluate for vent to mask Severe COPD with AE -Solumedrol 40 IV Q6 -SVN txs -Titrate oxygen as tolerated. 254 Clinical Quality Measures DVT/VTE Risk/Contraindication: Risk Factor Score Per Nursin RFS Level Per Nursing on Admit: 4+=Very High LYNN AVILA DO Aug 19, 2017 07:26
[2017-08-19 08:00] VITALS: BP 144/81
[2017-08-19 08:13] LABS: ABG BASE EXCESS -5.2 MMOL/L (-2.5-2.5); ABG HCO3 20 MMOL/L (23-27); ABG OXYGEN SATURATION 97 % (94-100); ABG PCO2 36 MMHG (35-45); ABG PH 7.35 (7.37-7.43); ABG PO2 72 MMHG (79-93); ABG TCO2 20.9 MMOL/L (21.0-31.0); ALLENS TEST POSITIVE
[2017-08-19 08:14] LABS: PATIENT TEMP 96.4
[2017-08-19] MEDS: cefTRIAXone INJECTION 1,000 MG in NS (IVPB) 50 ML IV SCH (08:30)
[2017-08-19] MEDS: LORATADINE (CLARITIN) 10 MG TAB PO SCH (08:32)
[2017-08-19] MEDS: ASPIRIN E.C. 81 MG (ECOTRIN) TAB PO SCH (08:32)
[2017-08-19] MEDS: amLODIPine 10 MG (NORVASC) TAB PO SCH (08:32)
[2017-08-19] MEDS: AZITHROMYCIN 500 MG/NS 250 ML IVPB IV SCH ×2 (09:14)
[2017-08-19] MEDS: HYDROcodone/APAP 5 MG/325 MG (LORTAB) TAB PO PRN (10:54)
[2017-08-19] MEDS ORDERED: CARVEDILOL 3.125 MG (COREG) TABLET PO NR (11:15)
--- NOTE | 2017-08-19 11:25 | Progress Note (SOAP) ---
Subjective Date Seen by Provider: Aug 19, 2017 Time Seen by Provider: 11:20 Subjective/Events-last exam Fwup acute on chronic respiratory failure, sepsis, exacerbation of COPD, Hypertension. Nursing reports decrease in oxygen saturation and tachycardia when gets up. Had discussion with patient about DNR status and he does not want to be put on a ventilator or resuscitated if it comes to that--states just let me go. Objective Exam Vital Signs Date Time Temp Pulse Resp B/P (MAP) Pulse Ox O2 Delivery O2 Flow Rate FiO2 08/19/17 10:29 86 Nasal Cannula 5.00 08/19/17 08:00 98.6 90 22 144/81 97 Nasal Cannula 5.00 08/19/17 06:46 94 Nasal Cannula 5.00 08/19/17 04:30 98.1 91 18 130/64 98 Nasal Cannula 5.00 08/19/17 02:42 94 Nasal Cannula 5.00 08/19/17 01:00 95 08/19/17 00:55 98.5 101 22 135/63 96 Nasal Cannula 5.00 08/18/17 22:18 95 Nasal Cannula 5.00 08/18/17 20:15 96 Nasal Cannula 5.00 08/18/17 19:28 98.6 96 22 142/65 98 Nasal Cannula 5.00 08/18/17 19:00 99 08/18/17 18:39 96 Nasal Cannula 5.00 08/18/17 17:25 95 08/18/17 16:21 109 99 40 08/18/17 15:39 99.1 109 30 170/85 99 Nasal Cannula 5.00 08/18/17 15:35 Nasal Cannula 5.00 08/18/17 15:20 98.9 122 25 98 Nasal Cannula 5.00 08/18/17 13:53 98 OxyMask 10.00 08/18/17 13:36 98 OxyMask 10.00 08/18/17 13:15 98 OxyMask 10.00 08/18/17 13:15 97.8 108 30 153/101 87 Nasal Cannula 2.00 I & O 08/20/17 07:00 Intake Total 300 ml Balance 300 ml Capillary Refill : Less Than 3 Seconds General Appearance: Mild Distress (respiratory) Respiratory: Decreased Breath Sounds Cardiovascular: Gallop/S4, Tachycardia Gastrointestinal: normal bowel sounds, non tender, soft Extremity: Non Tender, No Calf Tenderness, No Pedal Edema Neurologic/Psychiatric: Alert, Oriented x3 Results Lab Laboratory Tests 08/18/17 13:20: White Blood Count 17.8H, Red Blood Count 4.16L, Hemoglobin 12.9L, Hematocrit 39L , Mean Corpuscular Volume 94, Mean Corpuscular Hemoglobin 31, Mean Corpuscular Hemoglobin Concent 33, Red Cell Distribution Width 13.2, Platelet Count 195, Mean Platelet Volume 10.8H, Neutrophils (%) (Auto) 89H, Lymphocytes (%) (Auto) 3L, Monocytes (%) (Auto) 8, Eosinophils (%) (Auto) 0, Basophils (%) (Auto) 0, Neutrophils # (Auto) 15.9H, Lymphocytes # (Auto) 0.5L, Monocytes # (Auto) 1.4H, Eosinophils # (Auto) 0.0, Basophils # (Auto) 0.0, Neutrophils % (Manual) 88, Lymphocytes % (Manual) 2, Monocytes % (Manual) 9, Band Neutrophils 1, Toxic Granulation 1+, Blood Morphology Comment NORMAL, Sodium Level 134L, Potassium Level 3.8, Chloride Level 100, Carbon Dioxide Level 21, Anion Gap 13, Blood Urea Nitrogen 20H, Creatinine 0.77, Estimat Glomerular Filtration Rate > 60, BUN /Creatinine Ratio 26, Glucose Level 160H, Lactic Acid Level 3.03*H, Calcium Level 9.9, Magnesium Level 2.0, Total Bilirubin 0.9, Aspartate Amino Transf (AST /SGOT) 12, Alanine Aminotransferase (ALT/SGPT) 12, Alkaline Phosphatase 92, Troponin I < 0.30, C-Reactive Protein High Sensitivity 39.94H, Total Protein 7.0 , Albumin 3.6 08/18/17 15:35: Lactic Acid Level 3.33*H 08/19/17 05:40: White Blood Count 5.7, Red Blood Count 3.04L, Hemoglobin 9.4#L, Hematocrit 29L, Mean Corpuscular Volume 95, Mean Corpuscular Hemoglobin 31, Mean Corpuscular Hemoglobin Concent 33, Red Cell Distribution Width 12.8, Platelet Count 165, Mean Platelet Volume 10.4, Neutrophils (%) (Auto) 93H, Lymphocytes (%) (Auto) 2L , Monocytes (%) (Auto) 5, Eosinophils (%) (Auto) 0, Basophils (%) (Auto) 0, Neutrophils # (Auto) 5.3, Lymphocytes # (Auto) 0.1L, Monocytes # (Auto) 0.3, Eosinophils # (Auto) 0.0, Basophils # (Auto) 0.0, Sodium Level 136, Potassium Level 4.1, Chloride Level 109H, Carbon Dioxide Level 20L, Anion Gap 7, Blood Urea Nitrogen 16, Creatinine 0.63, Estimat Glomerular Filtration Rate > 60, BUN/ Creatinine Ratio 25, Glucose Level 156H, Calcium Level 8.2L, Total Bilirubin 0.3 , Aspartate Amino Transf (AST/SGOT) 14, Alanine Aminotransferase (ALT/SGPT) 13, Alkaline Phosphatase 67, Total Protein 5.1L, Albumin 2.7L 08/19/17 08:05: Blood Gas Puncture Site LEFT BRACHIAL, Blood Gas Patient Temperature 96.4, Arterial Blood pH 7.35L, Arterial Blood Partial Pressure CO2 36, Arterial Blood Partial Pressure O2 72L, Arterial Blood HCO3 20L, Arterial Blood Total CO2 20.9L , Arterial Blood Oxygen Saturation 97, Arterial Blood Base Excess -5.2L, Oleg Test POSITIVE, Blood Gas Ventilator Setting NO, Blood Gas Inspired Oxygen 5 L Microbiology 08/18/17 Blood Culture - Preliminary, Resulted No growth Assessment/Plan Assessment/Plan Assess & Plan/Chief Complaint 1. Acute on Chronic Respiratory Failure--pulmonary checking ABG, patient wants DNR 2. Exacerbation of COPD--continue SVNS, solumedrol 3. Hypertension with Tachycardia--add low dose coreg 4. Sepsis--currently no source but will continue antibiotics until finals come back on cultures 5. Elevated CRP--could be from infection but also worry about underlying cancer --CT chest negative, will repeat CRP Clinical Quality Measures DVT/VTE Risk/Contraindication: Risk Factor Score Per Nursin RFS Level Per Nursing on Admit: 4+=Very High VICKI SOTO DO Aug 19, 2017 11:25
[2017-08-19] MEDS ORDERED: LORazepam INJ 2 MG/ML (ATIVAN) VIAL IVP PRN (11:30)
[2017-08-19 12:00] VITALS: BP 171/78
[2017-08-19 16:00] VITALS: BP 159/74
[2017-08-19] MEDS: ENOXAPARIN 40 MG/0.4 ML (LOVENOX) SYR SC SCH (19:24)
[2017-08-19] MEDS: ROSUVASTATIN 5 MG (CRESTOR) TABLET PO SCH (20:10)
[2017-08-19] MEDS: MONTELUKAST 10 MG (SINGULAIR) TAB PO SCH (20:10)
[2017-08-19] MEDS: CARVEDILOL 3.125 MG (COREG) TABLET PO SCH (20:10)
[2017-08-19] MEDS: ALFUZOSIN HCL 10 MG TAB (UROXATRAL) PO SCH (20:10)
[2017-08-19 20:11] VITALS: BP 173/84
[2017-08-20] VITALS: BP 152/67
[2017-08-20] MEDS: RT-ALBUTEROL SULF 2.5 MG/3 ML PRE-MIX VIAL IH SCH ×6 (01:56→22:34)
[2017-08-20 04:00] VITALS: BP 120/64
[2017-08-20 05:31] LABS: BASOPHILS % (AUTO) 0 % (0-10); EOSINOPHILS % (AUTO) 0 % (0-10); LYMPHOCYTES # (AUTO) 0.2 X 10^3 (1.0-4.0); LYMPHOCYTES % (AUTO) 2 % (12-44); MEAN CORPUSCULAR HEMOGLOBIN 31 PG (25-34); MEAN CORPUSCULAR HGB CONC 32 G/DL (32-36); MEAN CORPUSCULAR VOLUME 95 FL (80-99); MEAN PLATELET VOLUME 10.1 FL (7.4-10.4); MONOCYTES # (AUTO) 0.5 X 10^3 (0.0-1.0); MONOCYTES % (AUTO) 5 % (0-12); NEUTROPHILS # (AUTO) 10.2 X 10^3 (1.8-7.8); NEUTROPHILS % (AUTO) 93 % (42-75); PLATELET COUNT 198 10^3/uL (130-400); RED CELL DISTRIBUTION WIDTH 12.8 % (10.0-14.5); WHITE BLOOD COUNT 10.9 10^3/uL (4.3-11.0)
[2017-08-20 05:48] LABS: ALANINE AMINOTRANSFERASE 18 U/L (0-55); ALBUMIN 2.9 GM/DL (3.2-4.5); ANION GAP 10 MMOL/L (5-14); ASPARTATE AMINO TRANSFERASE 21 U/L (5-34); BILIRUBIN,TOTAL 0.3 MG/DL (0.1-1.0); BLOOD UREA NITROGEN 19 MG/DL (7-18); BUN/CREATININE RATIO 29; CALCIUM 8.6 MG/DL (8.5-10.1); CARBON DIOXIDE 23 MMOL/L (21-32); CHLORIDE 106 MMOL/L (98-107); CREATININE SERUM 0.66 MG/DL (0.60-1.30); GFR ESTIMATED > 60; GLUCOSE 111 MG/DL (70-105); POTASSIUM 4.2 MMOL/L (3.6-5.0); SODIUM 139 MMOL/L (135-145); TOTAL PROTEIN 5.5 GM/DL (6.4-8.2); hs C REACTIVE PROTEIN 12.73 MG/DL (0.00-0.50)
[2017-08-20] MEDS: methylPREDNISolone 40 MG/ML (Solu-MEDROL) VIAL IV SCH ×4 (06:14→23:48)
[2017-08-20] MEDS: NS IV 1000 ML 1,000 ML IV SCH ×2 (06:14→21:38)
[2017-08-20] MEDS: PANTOPRAZOLE 40 MG (PROTONIX) TAB PO SCH (06:14)
[2017-08-20 08:00] VITALS: BP 129/71
[2017-08-20] MEDS: cefTRIAXone INJECTION 1,000 MG in NS (IVPB) 50 ML IV SCH (08:53)
[2017-08-20] MEDS: LORATADINE (CLARITIN) 10 MG TAB PO SCH (08:54)
[2017-08-20] MEDS: CARVEDILOL 3.125 MG (COREG) TABLET PO SCH ×2 (08:54→20:38)
[2017-08-20] MEDS: ASPIRIN E.C. 81 MG (ECOTRIN) TAB PO SCH (08:54)
[2017-08-20] MEDS: amLODIPine 10 MG (NORVASC) TAB PO SCH (08:54)
[2017-08-20] MEDS: HYDROcodone/APAP 5 MG/325 MG (LORTAB) TAB PO PRN (08:54)
[2017-08-20] MEDS: AZITHROMYCIN 500 MG/NS 250 ML IVPB IV SCH ×2 (09:55)
[2017-08-20 12:00] VITALS: BP 149/78
--- NOTE | 2017-08-20 12:20 | Progress Note-Hospitalist ---
Standard Progress Note Progress Notes/Assess & Plan Date Seen 08/20/17 Time Seen by Provider: 12:16 Diagnosis The patient is a 71-year-old white male admitted for progressive respiratory insufficiency. He is in a rather grumpy mood. He complained of abdominal pain which is both pelvic and periumbilical. He reports that this has been present for some time. He had a small bowel movement yesterday. A Aguilar had to be placed last night because he was so too short of breath to get up repeatedly to the commode. Physical exam: He was dyspneic at rest. He was able to speak in short sentences. He was observed to use his abdomen extensively and the effort of respiration. Lungs were distant but clear. CV showed a rate in the low 100s. Abdomen was soft and protuberant. No masses or guarding were noted. The position and effort of lying on his back seemed to make him more short of breath. After completing my exam he was allowed to roll back on his side which he found to be more comfortable. Impression: End-stage respiratory disease with little improvement with hospitalization. Note: He finds the telemetry to be annoying and he will be discontinued. He has appropriately chosen a DO NOT RESUSCITATE/DO NOT INTUBATE status. Labs Laboratory Tests 08/18/17 13:20 08/19/17 05:40 08/20/17 04:56 JANIS DE JESUS MD Aug 20, 2017 12:20
[2017-08-20] MEDS: HYDROcodone/APAP 7.5 MG/325 MG (LORTAB, LORCET PLUS) TABLET PO PRN ×2 (12:21→21:38)
[2017-08-20 16:42] VITALS: BP 145/64
[2017-08-20] MEDS: ENOXAPARIN 40 MG/0.4 ML (LOVENOX) SYR SC SCH (18:47)
[2017-08-20 19:50] VITALS: BP 157/70
[2017-08-20] MEDS: POLYETHYLENE GLYCOL 17 GM (MIRALAX) PACK PO SCH (20:36)
[2017-08-20] MEDS: MONTELUKAST 10 MG (SINGULAIR) TAB PO SCH (20:38)
[2017-08-20] MEDS: ROSUVASTATIN 5 MG (CRESTOR) TABLET PO SCH (20:38)
[2017-08-20] MEDS: ALFUZOSIN HCL 10 MG TAB (UROXATRAL) PO SCH (20:38)
[2017-08-21] VITALS: BP 163/74
[2017-08-21] MEDS: RT-ALBUTEROL SULF 2.5 MG/3 ML PRE-MIX VIAL IH SCH ×2 (02:16→06:48)
[2017-08-21] MEDS: methylPREDNISolone 40 MG/ML (Solu-MEDROL) VIAL IV SCH ×4 (05:37→23:36)
[2017-08-21] MEDS: PANTOPRAZOLE 40 MG (PROTONIX) TAB PO SCH (05:37)
[2017-08-21] MEDS: HYDROcodone/APAP 7.5 MG/325 MG (LORTAB, LORCET PLUS) TABLET PO PRN ×2 (05:38→13:26)
[2017-08-21 08:00] VITALS: BP 159/74
[2017-08-21] MEDS: amLODIPine 10 MG (NORVASC) TAB PO SCH (08:48)
[2017-08-21] MEDS: CARVEDILOL 3.125 MG (COREG) TABLET PO SCH ×2 (08:48→21:16)
[2017-08-21] MEDS: ASPIRIN E.C. 81 MG (ECOTRIN) TAB PO SCH (08:48)
[2017-08-21] MEDS: cefTRIAXone INJECTION 1,000 MG in NS (IVPB) 50 ML IV SCH (08:48)
[2017-08-21] MEDS: LORATADINE (CLARITIN) 10 MG TAB PO SCH (08:48)
[2017-08-21] MEDS: AZITHROMYCIN 500 MG/NS 250 ML IVPB IV SCH ×2 (09:43)
[2017-08-21] MEDS: RT-ALBUTEROL/IPRATROPIUM 3 ML (DUONEB) VIAL INH SCH ×4 (10:27→22:08)
--- NOTE | 2017-08-21 12:27 | Progress Note-Hospitalist ---
Standard Progress Note Progress Notes/Assess & Plan Date Seen 08/21/17 Time Seen by Provider: 12:22 Assess & Plan/Chief Complaint The patient is sitting in a chair at bedside. His mood is not improved. He reports that had the reduction of his O2 from 5 L to 3 L lead to his dropping his O2 into the 80s.. He was informed that from a scientific principal O2 sat for him greater than 95 which his were could well lead to hypopnea and CO2 retention. He was unimpressed. He also states he cannot eat because he is too short of breath. Physical exam: Color is adequate. He speaks in full sentences. Lungs show distant breath sounds. The abdomen is employed in the effort of respiration. Impression: End-stage COPD with chronic O2 requirements Plan: Continue as at present Labs Laboratory Tests 08/20/17 04:56 JANIS DE JESUS MD Aug 21, 2017 12:27
[2017-08-21] MEDS: NS IV 1000 ML 1,000 ML IV SCH (12:55)
[2017-08-21 16:00] VITALS: BP 159/92
[2017-08-21] MEDS: ENOXAPARIN 40 MG/0.4 ML (LOVENOX) SYR SC SCH (17:26)
[2017-08-21] MEDS: ALFUZOSIN HCL 10 MG TAB (UROXATRAL) PO SCH (21:16)
[2017-08-21] MEDS: ROSUVASTATIN 5 MG (CRESTOR) TABLET PO SCH (21:16)
[2017-08-21] MEDS: MONTELUKAST 10 MG (SINGULAIR) TAB PO SCH (21:16)
[2017-08-21] MEDS: POLYETHYLENE GLYCOL 17 GM (MIRALAX) PACK PO SCH (21:17)
[2017-08-22] VITALS: BP 135/63
[2017-08-22] MEDS: RT-ALBUTEROL/IPRATROPIUM 3 ML (DUONEB) VIAL INH SCH ×3 (02:06→11:31)
[2017-08-22] MEDS: NS IV 1000 ML 1,000 ML IV SCH (02:21)
[2017-08-22] MEDS: methylPREDNISolone 40 MG/ML (Solu-MEDROL) VIAL IV SCH (05:27)
--- NOTE | 2017-08-22 05:33 | Pulmonary Progress Note ---
Subjective Time Seen by Provider: 05:43 Subjective/Events-last exam pt wants to go home. He is feeling better. No complications noted. Exam Exam Vital Signs Date Time Temp Pulse Resp B/P (MAP) Pulse Ox O2 Delivery O2 Flow Rate FiO2 08/22/17 02:06 97 Nasal Cannula 5.00 08/22/17 00:00 98.6 63 20 135/63 96 Nasal Cannula 3.00 08/21/17 22:09 97 Nasal Cannula 5.00 08/21/17 21:30 Nasal Cannula 5.00 08/21/17 18:52 96 Nasal Cannula 5.00 08/21/17 16:00 99.3 87 18 159/92 95 Nasal Cannula 3.00 08/21/17 14:36 98 Nasal Cannula 5.00 08/21/17 14:00 96.8 08/21/17 13:26 96.8 08/21/17 10:28 98 Nasal Cannula 5.00 08/21/17 08:00 96.8 91 18 159/74 90 Nasal Cannula 3.00 08/21/17 07:33 Nasal Cannula 3.00 08/21/17 06:48 94 Nasal Cannula 2.00 General Appearance: No Apparent Distress, Anxious HEENT: Pharyngeal Erythema Neck: Supple Respiratory: Decreased Breath Sounds Cardiovascular: Gallop/S4, Tachycardia Capillary Refill: Less Than 3 Seconds Gastrointestinal: normal bowel sounds, non tender, soft Extremity: Non Tender, No Calf Tenderness, No Pedal Edema Neurologic/Psychiatric: Alert, Oriented x3 Skin: Normal Color, Warm/Dry Lymphatic: No Adenopathy Assessment/Plan Assessment/Plan Acute on chronic respiratory failure - doubt PNA -D/C Abx Severe COPD with AE -Solumedrol 40 IV Q6-- change to prednisone -SVN txs -Titrate oxygen as tolerated. If repeat labs appear stable pt is ok for discharge from pulmonary standpoint. I will f/u with him in my office in 2-3 wks. 254 Clinical Quality Measures DVT/VTE Risk/Contraindication: Risk Factor Score Per Nursin RFS Level Per Nursing on Admit: 4+=Very High LYNN AVILA DO Aug 22, 2017 05:33
[2017-08-22] MEDS: PANTOPRAZOLE 40 MG (PROTONIX) TAB PO SCH (05:41)
[2017-08-22] MEDS: HYDROcodone/APAP 7.5 MG/325 MG (LORTAB, LORCET PLUS) TABLET PO PRN (05:45)
[2017-08-22 08:00] VITALS: BP 147/87
[2017-08-22] MEDS: CARVEDILOL 3.125 MG (COREG) TABLET PO SCH (08:41)
[2017-08-22] MEDS: ASPIRIN E.C. 81 MG (ECOTRIN) TAB PO SCH (08:41)
[2017-08-22] MEDS: amLODIPine 10 MG (NORVASC) TAB PO SCH (08:42)
[2017-08-22] MEDS: LORATADINE (CLARITIN) 10 MG TAB PO SCH (08:42)
--- NOTE | 2017-08-22 11:54 | Diagnostic Imaging Report ---
EXAMINATION: PA and lateral views of the chest. INDICATION: Shortness of breath. COMPARISON: 08/19/2017. FINDINGS: Emphysematous changes in the upper lobes are seen. The heart size is normal. No effusion or pneumothorax. The mediastinum and denzel appear unremarkable. There is a small right pleural effusion. The small right effusion has increased from the prior exam of 08/18/2017. IMPRESSION: Small right pleural effusion with minimal right basilar infiltrate or atelectasis. Dictated by: Dictated on workstation # [id number]
[2017-08-22] MEDS ORDERED: predniSONE 10 MG TAB PO SCH (12:00)
[2017-08-22] MEDS ORDERED: PRD10T PO ×2 (12:37)
--- NOTE | 2017-08-22 12:38 | Discharge Inst-Simple/Standard ---
Discharge Inst-Standard Discharge Medications New, Converted or Re-Newed RX: Transmitted to Pharmacy Patient Instructions/Follow Up Plan of Care/Instructions/FU: Fwup with Dr. Cardenas in 2 weeks and with me as scheduled Activity as Tolerated: Yes Discharge Diet: Cardiac Diet VICKI SOTO DO Aug 22, 2017 12:38
[2017-08-22 13:38] VITALS: BP 147/87
--- NOTE | 2017-08-23 11:05 | Physician Query-Sepsis ---
Physician Query-Sepsis Query to Physician: The documentation in this patient's medical record requires additional clarification to accurately capture the patient's diagnosis (es), treatment, acuity, and/or severity of illness per CMS guidelines. Criteria, any TWO of the following with an infectious OR noninfectious etiology: * Temp= <96.8 or >100.4 * HR= >90 bpm * RR= >20/min or PaCO2<32 mmHG * WBC= <4000 or >12,000; or >10% bands * * * * * H&P AND 08/19 PN STATE SEPSIS WITH NO FURTHER MENTION IN RECORD. PATIENT DATA: DATE/TIME: 08/18 1320 TEMP: 97.8 PULSE: 108 RESP: 30 B/P: 153/101 WBC: 17.8 LACTIC ACID: 3.03 OTHER: Blood Culture Organism: (Negative or inconclusive blood cultures do not preclude a diagnosis of septicemia or Sepsis in patients with clinical evidence of the condition.) Choose one of the below Dx: Sepsis=2 or more SIRS criteria with an identified source or suspected source of infection Severe Sepsis=Sepsis associated with organ dysfunction, hypoperfusion or hypotension. (Manifestations may include lactic acidosis, oliguria, and acute alteration in mental status.) Septic Shock=Acute circulatory failure unexplained by other cause: SBP <90 or MAP <65 or reduction in SBP 40 mmHg from baseline despite adequate volume resuscitation or Lactate Level >=4 mmol/L. Patients who require inotropic or vasopressor support despite adequate fluid replacement are in septic shock. Septicemia=Systemic disease associated with the presence of pathological microorganisms or toxins in the blood. Bacteremia=Per ICD-9 guidelines, Bacteremia indicates the presence of bacteria in the blood, but DOES NOT infer the bacterium are pathological or has resulted in any systemic illness needing treatment Please indicate if no sepsis, none of the above, not correct physician/provider. PHYSICIAN RESPONSE: Choose one of the diagnosis: Sepsis SIRS (systemic response to): Process: unknown/process Physician Note: If you have questions please contact: Vegetable Vendor: Ext: Thank you for your time and cooperation. Clinical Database Management Specialist/Vegetable Vendor This is a permanent part of the medical record HERACLIO TIDWELL Aug 23, 2017 11:04 VICKI SOTO DO Aug 31, 2017 17:42
--- NOTE | 2017-08-23 11:22 | Physician Query Clarification ---
PQ-Uncertain Diagnosis Admission/Discharge Admission Date: Aug 18, 2017 at 14:25 Discharge Date: Aug 22, 2017 at 13:49 The medical record reflects the following clinical scenario: History/Risk Factors: COPD, SOB Clinical Findings: WBC 17.8, SOB Treatment: ANTIBIOTICS Question: Is [PNEUMONIA] a clinically valid diagnosis? [PNEUMONIA] was documented in the [ED AND H&P] with no further documentation in the medical record. Please document a response below. PHYSICIAN RESPONSE Diagnosis clinically valid: Undetermined In responding to this query, please exercise your independent professional judgment. The purpose of this communication is to more accurately reflect the complexity of your patients condition. The fact that a question is asked does not imply that any particular answer is desired or expected. Thank you for your timely response to this clarification. Requestors name: [ ] Phone # [ ] THIS PHYSICIAN QUERY FORM IS A PERMANENT PART OF THE MEDICAL RECORD HERACLIO TIDWELL Aug 23, 2017 11:22 VICKI SOOT DO Aug 31, 2017 17:43
== END 2017-08-22 13:49 | disposition home or self-care (01) | DRG 871 ==
LOC: EDUNIT# 13:10 → ER 13:13 → 4TH 14:25
PROVIDERS: ADMIT Family Medicine; ATTEND Family Medicine
DX: A41.9 Sepsis, unspecified organism (principal); J96.20 Acute and chronic respiratory failure, unspecified whether with hypoxia or hypercapnia; J44.1 Chronic obstructive pulmonary disease with (acute) exacerbation; I10 Essential (primary) hypertension; K21.9 Gastro-esophageal reflux disease without esophagitis; Z87.891 Personal history of nicotine dependence; Z66 Do not resuscitate; Z99.81 Dependence on supplemental oxygen; Z95.5 Presence of coronary angioplasty implant and graft
CPT/HCPCS: 36415; 71010; 71020; 71250; 80053; 82805; 83605; 83735; 84484; 85007; 85025; 85027; 86141; 87040; 93005; 93041; 94640; 94664; 94760; 96361; 96365; 96375

== ENCOUNTER → 2017-11-08 | Outpatient (CLI) | payer MEDICARE, OTHER ==
[~2017-11-08] MED LIST changes: +ALBU18HF2 IH; +ALBU2.5V4 NEB; +AMLO10TA2 PO; +ASPI-983 PO; +FEXO-46 PO; +HYDR-34 PO; +MONT10TA24 PO; +NITR0.4T39 SL; +PANT40TA3 PO; +ROSU10TA26 PO
[2017-11-08 11:54] LABS: BASOPHILS % (AUTO) 0 % (0-10); EOSINOPHILS # (AUTO) 0.3 10^3/uL (0.0-0.3); EOSINOPHILS % (AUTO) 3 % (0-10); HEMATOCRIT 39 % (40-54); HEMOGLOBIN 13.2 G/DL (13.3-17.7); LYMPHOCYTES # (AUTO) 1.7 X 10^3 (1.0-4.0); LYMPHOCYTES % (AUTO) 15 % (12-44); MEAN CORPUSCULAR HEMOGLOBIN 32 PG (25-34); MEAN CORPUSCULAR HGB CONC 34 G/DL (32-36); MEAN CORPUSCULAR VOLUME 94 FL (80-99); MEAN PLATELET VOLUME 10.1 FL (7.4-10.4); MONOCYTES % (AUTO) 9 % (0-12); NEUTROPHILS # (AUTO) 8.1 X 10^3 (1.8-7.8); NEUTROPHILS % (AUTO) 73 % (42-75); PLATELET COUNT 192 10^3/uL (130-400); RED BLOOD COUNT 4.16 10^6/uL (4.35-5.85); RED CELL DISTRIBUTION WIDTH 14.1 % (10.0-14.5); WHITE BLOOD COUNT 11.1 10^3/uL (4.3-11.0)
[2017-11-08 12:18] LABS: ALANINE AMINOTRANSFERASE 16 U/L (0-55); ALKALINE PHOSPHATASE 67 U/L (40-136); BILIRUBIN,TOTAL 0.4 MG/DL (0.1-1.0); BUN/CREATININE RATIO 13; CALCIUM 9.2 MG/DL (8.5-10.1); CARBON DIOXIDE 25 MMOL/L (21-32); CHLORIDE 103 MMOL/L (98-107); CREATININE SERUM 0.78 MG/DL (0.60-1.30); GFR ESTIMATED > 60; GLUCOSE 82 MG/DL (70-105); POTASSIUM 3.8 MMOL/L (3.6-5.0); SODIUM 137 MMOL/L (135-145); TOTAL PROTEIN 6.4 GM/DL (6.4-8.2)
[2017-11-08 12:19] LABS: SMEAR SCAN COMMENT YES
== END ==
LOC: LAB 10:14
PROVIDERS: ATTEND Family Medicine
DX: I10 Essential (primary) hypertension (principal); D64.9 Anemia, unspecified; J44.9 Chronic obstructive pulmonary disease, unspecified; R53.83 Other fatigue; R79.82 Elevated C-reactive protein (CRP)
CPT/HCPCS: 36415; 80053; 85025; 86141

== ENCOUNTER → 2018-04-03 | Outpatient (CLI) | payer MEDICARE, OTHER ==
[~2018-04-03] MED LIST changes: +IPRA3AMP31 IH; -ROSU10TA26 PO; +ROSU10TA27 PO
== END ==
LOC: CARD 07:33
PROVIDERS: ATTEND Nurse Practitioner Family
DX: R07.89 Other chest pain (principal); I25.10 Atherosclerotic heart disease of native coronary artery without angina pectoris; I10 Essential (primary) hypertension; E78.5 Hyperlipidemia, unspecified; R00.2 Palpitations; R06.02 Shortness of breath
CPT/HCPCS: 93225; 93226

== ENCOUNTER → 2018-06-02 | Outpatient (CLI) | payer MEDICARE, OTHER ==
[~2018-06-02] MED LIST changes: -AMLO10TA2 PO; +AMLO10TA6 PO
[2018-06-02 09:04] LABS: BASOPHILS % (AUTO) 0 % (0-10); EOSINOPHILS # (AUTO) 0.1 10^3/uL (0.0-0.3); EOSINOPHILS % (AUTO) 1 % (0-10); HEMATOCRIT 38 % (40-54); HEMOGLOBIN 12.6 G/DL (13.3-17.7); LYMPHOCYTES % (AUTO) 12 % (12-44); MEAN CORPUSCULAR HEMOGLOBIN 32 PG (25-34); MEAN CORPUSCULAR HGB CONC 34 G/DL (32-36); MEAN CORPUSCULAR VOLUME 94 FL (80-99); MEAN PLATELET VOLUME 9.1 FL (7.4-10.4); MONOCYTES # (AUTO) 0.8 X 10^3 (0.0-1.0); MONOCYTES % (AUTO) 10 % (0-12); NEUTROPHILS # (AUTO) 6.6 X 10^3 (1.8-7.8); NEUTROPHILS % (AUTO) 77 % (42-75); PLATELET COUNT 181 10^3/uL (130-400); RED CELL DISTRIBUTION WIDTH 13.3 % (10.0-14.5); WHITE BLOOD COUNT 8.6 10^3/uL (4.3-11.0)
[2018-06-02 09:18] LABS: ALANINE AMINOTRANSFERASE 15 U/L (0-55); ALBUMIN 3.9 GM/DL (3.2-4.5); ALKALINE PHOSPHATASE 67 U/L (40-136); BILIRUBIN,TOTAL 0.3 MG/DL (0.1-1.0); BUN/CREATININE RATIO 15; CALCIUM 9.2 MG/DL (8.5-10.1); CARBON DIOXIDE 28 MMOL/L (21-32); CHLORIDE 102 MMOL/L (98-107); CHOLESTEROL 133 MG/DL (< 200); CREATININE SERUM 0.75 MG/DL (0.60-1.30); GFR ESTIMATED > 60; GLUCOSE 109 MG/DL (70-105); HDL CHOLESTEROL 60 MG/DL (40-60); POTASSIUM 4.3 MMOL/L (3.6-5.0); SODIUM 137 MMOL/L (135-145); TOTAL PROTEIN 6.2 GM/DL (6.4-8.2); TRIGLYCERIDES 102 MG/DL (<150); VLDL CHOLESTEROL 20 MG/DL (5-40)
[2018-06-02 09:38] LABS: FREE T4 (FREE THYROXINE) 1.18 NG/DL (0.70-1.48)
== END ==
LOC: LAB 08:44
PROVIDERS: ATTEND Family Medicine
DX: E78.5 Hyperlipidemia, unspecified (principal); R53.83 Other fatigue
CPT/HCPCS: 36415; 80053; 80061; 84439; 84443; 85025

== ENCOUNTER → 2018-06-13 | Outpatient (CLI) | payer MEDICARE, OTHER ==
[~2018-06-13] VITALS: Ht 170.2 cm; Wt 65.8 kg
[~2018-06-13] MED LIST changes: +CATHETER FLUSH 10 ML SYR IV PRN; +REGADENOSON 0.4 MG/5 ML SYR (LEXISCAN) IV ONE
[2018-06-13 12:36] VITALS: BP 113/69
[2018-06-13] MEDS: REGADENOSON 0.4 MG/5 ML SYR (LEXISCAN) IV ONE ×2 (12:36→12:47)
[2018-06-13 12:40] VITALS: BP 150/79
[2018-06-13 12:49] VITALS: BP 164/100
[2018-06-13 12:53] VITALS: BP 157/91
--- NOTE | 2018-06-15 10:25 | STRESS TEST ---
DATE OF SERVICE: 06/13/2018 RESTING AND POST REGADENOSON TECHNETIUM-99M TETROFOSMIN SPECT CT IMAGING ORDERING PHYSICIAN: Sylvie Obrien APRN. PRIMARY PHYSICIAN: Dalia Izquierdo DO. CLINICAL DIAGNOSIS: Chest discomfort. Baseline images were carried out after injection of 10.8 mCi of technetium-99m Tetrofosmin. This was followed by 0.4 mg regadenoson and 30.2 mCi of technetium-99m Tetrofosmin for stress imaging. The electrocardiogram showed sinus rhythm with isolated premature ventricular contractions and subtle nonspecific ST abnormality. The electrocardiogram did not change significantly with the regadenoson infusion. He noted some chest pressure and shortness of breath following regadenoson infusion, which resolved shortly thereafter. Overall, he tolerated the procedure well. Review of images at rest and following stress does not indicate any distinct perfusion defects consistent with significant myocardial ischemia or infarction. Gated images show normal global left ventricular systolic function and normal regional wall motion. Left ventricular ejection fraction is calculated to be 67%. Left ventricular end-diastolic volume is 48 mL. TID is absent (0.97). CONCLUSIONS: 1. No evidence of any significant myocardial ischemia or infarction on this study. 2. Normal regional wall motion. 3. Normal global left ventricular systolic function with a calculated ejection fraction of 67%. Job ID: [id number] DocumentID: [id number] Dictated Date: 06/15/2018 09:58:41 Tool Keeper Date: 06/15/2018 10:24:35 Dictated By: MATT FERREIRA MD, MA, FACP, FACC,
== END ==
LOC: CARD 11:00
PROVIDERS: ATTEND Nurse Practitioner Family
DX: R07.9 Chest pain, unspecified (principal); I10 Essential (primary) hypertension; I25.10 Atherosclerotic heart disease of native coronary artery without angina pectoris
CPT/HCPCS: 78452; 93017

== ENCOUNTER → 2018-09-27 | Outpatient (CLI) | payer MEDICARE, OTHER ==
[~2018-09-27] MED LIST changes: -CATHETER FLUSH 10 ML SYR IV PRN; -REGADENOSON 0.4 MG/5 ML SYR (LEXISCAN) IV ONE
--- NOTE | 2018-09-27 15:15 | Diagnostic Imaging Report ---
INDICATION: Respiratory failure. PA and lateral chest. FINDINGS: There are severe bullous emphysematous changes in the lungs. These are unchanged compared to 01/31/2018. There are no infiltrates, effusions or pneumothoraces. There is some scarring in the left lung that appear stable from prior studies. IMPRESSION: Severe COPD. No acute abnormality is seen. Dictated by: Dictated on workstation # [id number]
== END ==
LOC: RAD 14:28
PROVIDERS: ATTEND Nurse Practitioner Family
DX: J96.20 Acute and chronic respiratory failure, unspecified whether with hypoxia or hypercapnia (principal); J44.9 Chronic obstructive pulmonary disease, unspecified; J30.2 Other seasonal allergic rhinitis; J96.11 Chronic respiratory failure with hypoxia
CPT/HCPCS: 71046

== ENCOUNTER 2018-12-07 10:27 | Inpatient (IN) | payer MEDICARE, OTHER ==
[~2018-12-07] VITALS: Ht 157.5 cm; Wt 64.0 kg
[~2018-12-07 10:27] MED LIST changes: -AMLO10TA6 PO; +AMLO10TA7 PO; +PIPERACILLIN/TAZO 4.5 GM/NS 100 ML IV SCH
[2018-12-07] MEDS ORDERED: RT-ALBUTEROL/IPRATROPIUM 3 ML (DUONEB) VIAL ONE (11:08)
--- NOTE | 2018-12-07 11:12 | Diagnostic Imaging Report ---
INDICATION: Dyspnea. PA and lateral views of the chest are obtained with comparison made study of 09/27/2018. FINDINGS: Extensive bullous emphysema is again seen with an upper lobe predominance. There has been increase in interstitial markings particularly in the left upper lobe. No pneumothorax is identified. There is no significant pleural fluid. IMPRESSION: Increasing density left upper lobe may be related to developing pneumonitis or possible superinfection of prominent bulla. Dictated by: Dictated on workstation # [id number]
[2018-12-07] MEDS ORDERED: RT-ALBUTEROL/IPRATROPIUM 3 ML (DUONEB) VIAL INH ONE (11:15)
[2018-12-07] MEDS ORDERED: RT-ALBUTEROL SULF 2.5 MG/3 ML PRE-MIX VIAL INH STA (11:23)
[2018-12-07 11:31] LABS: BASOPHILS % (AUTO) 0 % (0-10); EOSINOPHILS % (AUTO) 0 % (0-10); HEMATOCRIT 39 % (40-54); HEMOGLOBIN 12.4 G/DL (13.3-17.7); LYMPHOCYTES # (AUTO) 0.4 X 10^3 (1.0-4.0); LYMPHOCYTES % (AUTO) 3 % (12-44); MEAN CORPUSCULAR HEMOGLOBIN 31 PG (25-34); MEAN CORPUSCULAR HGB CONC 32 G/DL (32-36); MEAN CORPUSCULAR VOLUME 97 FL (80-99); MEAN PLATELET VOLUME 9.1 FL (7.4-10.4); MONOCYTES # (AUTO) 0.7 X 10^3 (0.0-1.0); MONOCYTES % (AUTO) 4 % (0-12); NEUTROPHILS # (AUTO) 14.7 X 10^3 (1.8-7.8); NEUTROPHILS % (AUTO) 93 % (42-75); PLATELET COUNT 317 10^3/uL (130-400); RED CELL DISTRIBUTION WIDTH 13.5 % (10.0-14.5); WHITE BLOOD COUNT 15.8 10^3/uL (4.3-11.0)
[2018-12-07 11:41] LABS: ABG BASE EXCESS 7.2 MMOL/L (-2.5-2.5); ABG OXYGEN SATURATION 100 % (94-100); ABG PCO2 45 MMHG (35-45); ABG PH 7.46 (7.37-7.43); ABG PO2 139 MMHG (79-93); ABG TCO2 32.8 MMOL/L (21.0-31.0)
[2018-12-07 11:43] LABS: ALLENS TEST POSITIVE; INSPIRED O2 40%; PATIENT TEMP 97.7; VENTILATOR NO
[2018-12-07 11:49] LABS: ALANINE AMINOTRANSFERASE 48 U/L (0-55); ALBUMIN 3.6 GM/DL (3.2-4.5); ALKALINE PHOSPHATASE 114 U/L (40-136); BILIRUBIN,TOTAL 0.4 MG/DL (0.1-1.0); BUN/CREATININE RATIO 26; CALCIUM 9.4 MG/DL (8.5-10.1); CARBON DIOXIDE 30 MMOL/L (21-32); CHLORIDE 95 MMOL/L (98-107); CREATININE SERUM 0.74 MG/DL (0.60-1.30); GFR ESTIMATED > 60; GLUCOSE 140 MG/DL (70-105); POTASSIUM 4.5 MMOL/L (3.6-5.0); SODIUM 136 MMOL/L (135-145); TOTAL PROTEIN 7.1 GM/DL (6.4-8.2)
[2018-12-07 11:52] VITALS: BP 130/74
[2018-12-07 12:13] LABS: BASOPHILS % (MANUAL) 0 %; EOSINOPHILS % (MANUAL) 0 %; LYMPHOCYTES % (MANUAL) 2 %; MONOCYTES % (MANUAL) 4 %; NEUTROPHILS % (MANUAL) 94 %
[2018-12-07 12:14] LABS: RBC MORPH NORMAL
[2018-12-07 12:23] LABS: PROTHROMBIN TIME PATIENT 13.4 SEC (12.2-14.7)
[2018-12-07] MEDS ORDERED: methylPREDNISolone 40 MG/ML (Solu-MEDROL) VIAL IV ONE (12:45)
[2018-12-07] MEDS ORDERED: VANCOMYCIN INJECTION 1,000 MG in NS (IVPB) 250 ML IV SCH (12:45)
[2018-12-07] MEDS ORDERED: PIPERACILLIN/TAZOBACTAM (BULK) 4.5 GM in NS (IVPB) 100 ML IV ONE (12:45)
[2018-12-07] MEDS ORDERED: LORazepam INJ 2 MG/ML (ATIVAN) VIAL IVP ONE (13:15)
--- NOTE | 2018-12-07 13:22 | ED Respiratory ---
General Chief Complaint: Respiratory Problems Stated Complaint: TROUBLE BREATHING;CONGESTION Nursing Triage Note: PT AMB TO RM 3 WITH COMPLAINT OF CONGESTION AND SOA FOR THE LAST WEEK. PT STATES HE WEARS 5L NC O2 ALL TIME. Source: patient, family Exam Limitations: no limitations History of Present Illness Date Seen by Provider: Dec 07, 2018 Time Seen by Provider: 11:00 Initial Comments This 73-year-old gentleman presents to the emergency room with significant dyspnea to the extent that he can barely talk. He has severe COPD and has been on long-term steroid treatment. About one month ago Dr. Cardenas increased his prednisone dose to 20 mg daily and he has been tapering down since then. Patient also finished a course of antibiotics about one month ago. He has been ill now for more than a week. states he has been resistant to seeing a doctor. He has had subjective fever at home for 3 or 4 days. On exam he has deep subcostal and intercostal retractions. Allergies and Home Medications Allergies Coded Allergies: atorvastatin calcium (Verified Allergy, Mild, RASH, 11/27/12) Home Medications Albuterol Sulfate 2.5 Mg/3 Ml Vial.neb, 2.5 MG NEB Q4H PRN for SHORTNESS OF BREATH, (Reported) UNKNOWN LAST FILL DATE Albuterol Sulfate 1 Puff Puff, 2 PUFF INH Q4H PRN for SHORTNESS OF BREATH, ( Reported) Alfuzosin HCl 10 Mg Tab.er.24h, 10 MG PO HS, (Reported) LAST FILLED #90 18 Arformoterol Tartrate 15 Mcg/2 Ml Vial.neb, 15 MCG NEB BID, (Reported) LAST FILLED #360 18 Aspirin 81 Mg Tablet.dr, 81 MG PO DAILY, (Reported) Bupropion HCl 150 Mg Tablet.er, 150 MG PO BID, (Reported) Cetirizine HCl 10 Mg Tablet, 10 MG PO DAILY, (Reported) Doxazosin Mesylate 2 Mg Tablet, 2 MG PO DAILY, (Reported) Hydrocodone/Acetaminophen 1 Each Tablet, 1 TAB PO TID PRN for PAIN-MODERATE, ( Reported) Metoprolol Succinate 200 Mg Tab, 200 MG PO DAILY, (Reported) Montelukast Sodium 10 Mg Tablet, 10 MG PO HS, (Reported) Nitroglycerin 0.4 Mg Tab.subl, 0.4 MG SL UD PRN for CHEST PAIN, (Reported) Pantoprazole Sodium 40 Mg Tablet.dr, 40 MG PO DAILY PRN for HEARTBURN, (Reported ) Prednisone 10 Mg Tab, 10 MG PO DAILY, (Reported) Rosuvastatin Calcium 10 Mg Tablet, 10 MG PO HS, (Reported) LAST FILLED #90 03-17-18 Patient Home Medication List Home Medication List Reviewed: Yes Review of Systems Review of Systems Constitutional: no symptoms reported EENTM: no symptoms reported Respiratory: see HPI Cardiovascular: no symptoms reported Gastrointestinal: no symptoms reported Genitourinary: no symptoms reported Musculoskeletal: no symptoms reported Skin: no symptoms reported Psychiatric/Neurological: No Symptoms Reported Hematologic/Lymphatic: No Symptoms Reported Immunological/Allergic: no symptoms reported Past Kjpshtj-Cfknwl-Bgjigz Hx Past Med/Social Hx: Reviewed Nursing Past Med/Soc Hx Patient Social History Alcohol Use: Denies Use Recreational Drug Use: No Smoking Status: Former Smoker Type Used: Cigarettes Former Smoker, Quit: Aug 18, 2012 2nd Hand Smoke Exposure: No Recent Foreign Travel: No Contact w/Someone Who Travel: No Recent Infectious Disease Expo: No Recent Hopitalizations: No Immunizations Up To Date PED Vaccines UTD: Yes Date of Pneumonia Vaccine: Sep 17, 2015 Date of Influenza Vaccine: Aug 03, 2017 Seasonal Allergies Seasonal Allergies: No Past Medical History Surgeries: Yes (hernia) Respiratory: Yes (oxygen dependent) Asthma, COPD Currently Using CPAP: No Cardiac: Yes (STENTS X2, HEART CATH IN JANUARY 2015) Hypertension Neurological: No Reproductive Disorders: No Genitourinary: Yes Prostate Problems Gastrointestinal: Yes Gastroesophageal Reflux Musculoskeletal: No Arthritis Endocrine: No Cataract Hearing Impairment: Hard of Hearing Cancer: No Psychosocial: No Integumentary: No Blood Disorders: No Family Medical History Congestive heart failure 03 MOTHER Family history: Cardiovascular disease 03 MOTHER History of - respiratory disease 03 FATHER (EMPHYSEMA) Kidney disease 03 MOTHER No Pertinent Family Hx Physical Exam Vital Signs - First Documented 12/07/18 10:38 Temp 97.7 Pulse 90 Resp 20 B/P (MAP) 177/92 (120) Pulse Ox 92 O2 Delivery Nasal Cannula O2 Flow Rate 5.00 Capillary Refill : Less Than 3 Seconds Height: 5'7.00" Weight: 145lbs. 0.0oz. 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, no motor/sensory deficits, alert, normal mood/affect, oriented x 3 Skin: normal color, warm/dry Focused Exam Lactate Level 12/07/18 11:21: Lactic Acid Level 2.00 Lactic Acid Level Laboratory Tests Test 12/07/18 11:21 Lactic Acid Level 2.00 MMOL/L (0.50-2.00) Progress/Results/Core Measures Suspected Sepsis Recent Fever Within 48 Hours: No Infection Criteria Present: None New/Unexplained Altered Menta: No Sepsis Screen: No Definite Risk SIRS Temperature:97.7 Pulse: 72 Respiratory Rate: 16 Laboratory Tests 12/07/18 11:21: White Blood Count 15.8H Blood Pressure 130 /74 Mean: 120 12/07/18 11:21: Lactic Acid Level 2.00 Laboratory Tests 12/07/18 11:21: Creatinine 0.74, Platelet Count 317, Total Bilirubin 0.4 12/07/18 12:04: INR Comment 1.0 Results/Orders Lab Results Laboratory Tests Test 12/07/18 11:21 12/07/18 11:34 12/07/18 12:04 Range/Units White Blood Count 15.8 H 4.3-11.0 10^3/uL Red Blood Count 4.03 L 4.35-5.85 10^6/uL Hemoglobin 12.4 L 13.3-17.7 G/DL Hematocrit 39 L 40-54 % Mean Corpuscular Volume 97 80-99 FL Mean Corpuscular Hemoglobin 31 25-34 PG Mean Corpuscular Hemoglobin Concent 32 32-36 G/DL Red Cell Distribution Width 13.5 10.0-14.5 % Platelet Count 317 130-400 10^3/uL Mean Platelet Volume 9.1 7.4-10.4 FL Neutrophils (%) (Auto) 93 H 42-75 % Lymphocytes (%) (Auto) 3 L 12-44 % Monocytes (%) (Auto) 4 0-12 % Eosinophils (%) (Auto) 0 0-10 % Basophils (%) (Auto) 0 0-10 % Neutrophils # (Auto) 14.7 H 1.8-7.8 X 10^3 Lymphocytes # (Auto) 0.4 L 1.0-4.0 X 10^3 Monocytes # (Auto) 0.7 0.0-1.0 X 10^3 Eosinophils # (Auto) 0.0 0.0-0.3 10^3/uL Basophils # (Auto) 0.0 0.0-0.1 10^3/uL Neutrophils % (Manual) 94 % Lymphocytes % (Manual) 2 % Monocytes % (Manual) 4 % Eosinophils % (Manual) 0 % Basophils % (Manual) 0 % Blood Morphology Comment NORMAL Sodium Level 136 135-145 MMOL/L Potassium Level 4.5 3.6-5.0 MMOL/L Chloride Level 95 L 98-107 MMOL/L Carbon Dioxide Level 30 21-32 MMOL/L Anion Gap 11 5-14 MMOL/L Blood Urea Nitrogen 19 H 7-18 MG/DL Creatinine 0.74 0.60-1.30 MG/DL Estimat Glomerular Filtration Rate > 60 BUN/Creatinine Ratio 26 Glucose Level 140 H 70-105 MG/DL Lactic Acid Level 2.00 0.50-2.00 MMOL/L Calcium Level 9.4 8.5-10.1 MG/DL Corrected Calcium 9.7 8.5-10.1 MG/DL Total Bilirubin 0.4 0.1-1.0 MG/DL Aspartate Amino Transf (AST/SGOT) 23 5-34 U/L Alanine Aminotransferase (ALT/SGPT) 48 0-55 U/L Alkaline Phosphatase 114 40-136 U/L C-Reactive Protein High Sensitivity 3.22 H 0.00-0.50 MG/DL B-Type Natriuretic Peptide 212.8 H <100.0 PG/ML Total Protein 7.1 6.4-8.2 GM/DL Albumin 3.6 3.2-4.5 GM/DL Blood Gas Puncture Site LEFT RADIAL Blood Gas Patient Temperature 97.7 Arterial Blood pH 7.46 H 7.37-7.43 Arterial Blood Partial Pressure CO2 45 35-45 MMHG Arterial Blood Partial Pressure O2 139 H 79-93 MMHG Arterial Blood HCO3 31 H 23-27 MMOL/L Arterial Blood Total CO2 32.8 H 21.0-31.0 MMOL/L Arterial Blood Oxygen Saturation 100 94-100 % Arterial Blood Base Excess 7.2 H -2.5-2.5 MMOL/L Oleg Test POSITIVE Blood Gas Ventilator Setting NO Blood Gas Inspired Oxygen 40% Prothrombin Time 13.4 12.2-14.7 SEC INR Comment 1.0 0.8-1.4 Activated Partial Thromboplast Time 25 24-35 SEC Micro Results Microbiology 12/07/18 Influenza Types A,B Antigen (NEETU) - Final, Complete My Orders Orders - JEAN CLAUDE COHN MD Cbc With Automated Diff (12/07/18 10:37) Comprehensive Metabolic Panel (12/07/18 10:37) Hs C Reactive Protein (12/07/18 10:37) Influenza A And B Antigens (12/07/18 10:37) Chest Pa/Lat (2 View) (12/07/18 10:37) Albuterol/Ipra Inhalation Soln (Duoneb I (12/07/18 11:15) Svn Small Volume Nebulizer (12/07/18 11:07) Albuterol/Ipra Inhalation Soln (Duoneb I (12/07/18 11:08) Blood Culture (12/07/18 11:11) Sputum Culture (12/07/18 11:11) Urinalysis (12/07/18 11:11) Urine Culture (12/07/18 11:11) Protime With Inr (12/07/18 11:11) Partial Thromboplastin Time (12/07/18 11:11) Vital Signs Adult Sepsis Patie Q15M (12/07/18 11:11) O2 (12/07/18 11:11) Remove Rings In Anticipation O (12/07/18 11:11) Lactic Acid Analyzer (12/07/18 11:11) BNP (12/07/18 11:11) Albuterol Pre-Mix Nebs (Rt) (Proventil (12/07/18 11:23) Svn Small Volume Nebulizer (12/07/18 11:23) Arterial Blood Gas (12/07/18 11:23) Bipap (Bilevel) Set Up (12/07/18 11:25) Manual Differential (12/07/18 11:21) Methylprednisolone Sod Succ (Solu-Medrol (12/07/18 12:45) Vancomycin Injection (Vancomycin Injecti (12/07/18 12:45) Piperacillin/Tazobactam (Bulk) (Zosyn In (12/07/18 12:45) Arterial Blood Draw (12/07/18 ) Lorazepam Injection (Ativan Injection) (12/07/18 13:15) Medications Given in ED Current Medications Medications Dose Ordered Sig/Ivana Route Start Time Stop Time Status Last Admin Dose Admin Albuterol/ Ipratropium 3 ml ONCE ONCE INH 12/07/18 11:15 12/07/18 11:16 DC 12/07/18 11:09 3 ML Methylprednisolone Sodium Succinate 40 mg ONCE ONCE IV 12/07/18 12:45 12/07/18 12:46 DC 12/07/18 13:04 40 MG Piperacillin Sod/ Tazobactam Sod 4.5 gm/Sodium Chloride 120 ml @ 240 mls/hr ONCE ONCE IV 12/07/18 12:45 12/07/18 13:14 DC 12/07/18 13:04 240 MLS/HR Vital Signs/I&O 12/07/18 12/07/18 12/07/18 10:38 11:09 11:52 Temp 97.7 Pulse 90 72 Resp 20 16 B/P (MAP) 177/92 (120) Pulse Ox 92 100 99 O2 Delivery Nasal Cannula Nasal Cannula O2 Flow Rate 5.00 5.00 50.00 Capillary Refill : Less Than 3 Seconds Blood Pressure Mean: 120 Progress Note : Progress Note Patient was given an hour-long nebulizer treatment along with BiPAP therapy. Respiratory distress resolved with BiPAP therapy. Patient felt agitated with the BiPAP mask on and was given Ativan to help him relax. Influenza screen was negative. There was question of possible infectious etiology seen on chest x- ray. Anabiotic therapy was initiated as a result a discussion with Dr. Cardenas. Septic workup was pursued. Influenza screen was negative. Scheduled Solu- Medrol and nebulizer treatments were also ordered at admission. Diagnostic Imaging Diagonstic Imaging: Xray Plain Films/CT/US/NM/MRI: chest Comments Chest x-ray viewed by me and report reviewed. See report below: NAME: YAYO DINH [facility] REC#: [id number] PT STATUS: ADM IN : 1945 PHYSICIAN: JEAN CLAUDE COHN MD ADMIT DATE: 12/07/18/ Signed Date of Exam: 12/07/18 CHEST PA/LAT (2 VIEW) INDICATION: Dyspnea. PA and lateral views of the chest are obtained with comparison made study of 09/27/2018. FINDINGS: Extensive bullous emphysema is again seen with an upper lobe predominance. There has been increase in interstitial markings particularly in the left upper lobe. No pneumothorax is identified. There is no significant pleural fluid. IMPRESSION: Increasing density left upper lobe may be related to developing pneumonitis or possible superinfection of prominent bulla. Dictated by: Dictated on workstation # [id number] Dict: 12/07/18 1107 Trans: 12/07/18 1346 Interpreted by: FORREST ORTEZ MD Electronically signed by: FORREST ORTEZ MD 12/07/18 1346 Departure Communication (Admissions) Time/Spoke to Admitting Phy: 12:25 Dr. SOTO Time/Spoke to Consulting Phy: 12:25 Dr. Cardenas Impression Primary Impression: Respiratory distress Additional Impressions: COPD exacerbation Pneumonitis Disposition: ADMITTED INPATIENT Condition: Improved Admissions Decision to Admit Reason: Admit from ER (General) Decision to Admit/Date: Dec 07, 2018 Time/Decision to Admit Time: 11:00 Departure-Patient Inst. Referrals: VICKI SOTO DO (PCP/Family) Primary Care Physician JEAN CLAUDE COHN MD Dec 07, 2018 13:22
--- OUTSIDE RECORDS SUMMARY | 2018-12-07 13:45 | XMS REPORT | Continuity of Care Document ---
Author Author [facility] Organization [facility] Address Unknown Phone Unavailable Allergies Active Description Code Type Severity Reaction Onset Reported/Identified Relationship to Patient Clinical Status Yes atorvastatin calcium [id number] Drug Allergy Mild RASH 11/27/2012 Medications There is no data. Problems Date Dx Coded Attending Type Code Diagnosis Diagnosed By 11/28/2012 Ot 305.1 TOBACCO USE DISORDER 11/28/2012 Ot 401.9 HYPERTENSION NOS 11/28/2012 Ot 414.01 CORONARY ATHEROSCLEROSIS OF [place] CORON 11/28/2012 Ot 424.0 MITRAL VALVE DISORDER 11/28/2012 Ot 440.20 ATHEROSCLEROSIS [place] ARTERIES EXTREMIT 11/28/2012 Ot 496 CHR AIRWAY OBSTRUCT NEC 11/28/2012 Ot 786.50 CHEST PAIN NOS 11/28/2012 Ot V45.82 PERCUTANEOUS TRANSLUM CORON ANGIOPLASTY 11/28/2012 Ot V46.2 SUPPLEMENTAL OXYGEN 11/28/2012 Ot V58.66 LONG-TERM ( CURRENT) USE OF ASPIRIN 11/28/2012 Ot V58.69 OTH MED,LT, CURRENT USE 11/30/2012 Ot 272.4 HYPERLIPIDEMIA NEC/NOS 11/30/2012 Ot 305.1 TOBACCO USE DISORDER 11/30/2012 Ot 414.01 CORONARY ATHEROSCLEROSIS OF [place] CORON 11/30/2012 Ot 491.21 OBSTR CHRONIC BRONCHITIS, W (ACUTE) EXAC 11/30/2012 Ot 530.81 ESOPHAGEAL REFLUX 11/30/2012 Ot 785.1 PALPITATIONS 11/30/2012 Ot 786.59 CHEST PAIN NEC 11/30/2012 Ot V45.82 PERCUTANEOUS TRANSLUM CORON ANGIOPLASTY 11/30/2012 Ot V58.63 LONG-TERM( CURRENT)USE OF ANTIPLATELET/AN 11/30/2012 Ot V58.69 OTH MED,LT, CURRENT USE 02/09/2013 DONG SHI MD Ot V45.82 PERCUTANEOUS TRANSLUM CORON ANGIOPLASTY 02/09/2013 DONG SHI MD Ot V57.89 REHABILITATION PROC NEC 05/08/2013 JHON COREAS FACC, ALI FACP CCDS Ot 272.4 HYPERLIPIDEMIA NEC/NOS 05/08/2013 JHON REYES, ALI FACP CCDS Ot 414.01 CORONARY ATHEROSCLEROSIS OF [place] CORON 05/08/2013 JHON COREAS FACC, ALI FACP CCDS Ot 414.4 CORONARY ATHEROSCLEROSIS DUE TO [place] 05/08/2013 JHON COREAS FACC, ALI FACP CCDS Ot 440.20 ATHEROSCLEROSIS [place] ARTERIES EXTREMIT 05/08/2013 JHON COREAS FACC, ALI FACP CCDS Ot 496 CHR AIRWAY OBSTRUCT NEC 05/08/2013 JHON REYESC, ALI FACP CCDS Ot 530.81 ESOPHAGEAL REFLUX 05/08/2013 JHON REYESC, ALI FACP CCDS Ot 786.59 CHEST PAIN NEC 05/08/2013 JHON COREAS FACC, ALI FACP CCDS Ot V15.82 HISTORY OF TOBACCO USE 05/08/2013 JHON COREAS FACC, ALI FACP CCDS Ot V45.82 PERCUTANEOUS TRANSLUM CORON ANGIOPLASTY 05/08/2013 JHON COREAS FACC, ALI FACP CCDS Ot V58.63 LONG-TERM(CURRENT)USE OF ANTIPLATELET/AN 05/08/2013 JHON REYES, ALI FACP CCDS Ot V58.66 LONG-TERM (CURRENT) USE OF ASPIRIN 05/08/2013 JHON REYES, ALI FACP CCDS Ot V58.69 OT MED,LT,CURRENT USE 08/01/2013 JENNIFER COREAS, IMANI A Ot 496 CHR AIRWAY OBSTRUCT NEC 08/01/2013 JENNIFER COREAS, IMANI A Ot 510.9 EMPYEMA W/O FISTULA 08/01/2013 JENNIFER COREAS, IMANI A Ot 519.11 ACUTE BRONCHOSPASM 11/12/2013 JENNIFER COREAS, IMANI A Ot 496 CHR AIRWAY OBSTRUCT NEC 11/12/2013 JENNIFER COREAS, IMANI A Ot 510.9 EMPYEMA W/O FISTULA 11/12/2013 JENNIFER COREAS, IMANI A Ot 519.11 ACUTE BRONCHOSPASM 11/12/2013 JENNIFER COREAS, IMANI A Ot 496 CHR AIRWAY OBSTRUCT NEC 11/12/2013 JENINFER COREAS, IMANI A Ot 519.11 ACUTE BRONCHOSPASM 01/11/2014 LYNN AVILA DO Ot 038.9 SEPTICEMIA NOS 01/11/2014 LYNN AVILA DO Ot 276.51 DEHYDRATION 01/11/2014 LYNN AVILA DO Ot 285.9 ANEMIA NOS 01/11/2014 LYNN AVILA DO Ot 389.9 HEARING LOSS NOS 01/11/2014 LYNN AVILA DO Ot 414.00 CORON ATHEROSCLER NOS TYPE VESSEL, NATIV 01/11/2014 LYNN AVILA DO Ot 486 PNEUMONIA, ORGANISM NOS 01/11/2014 LYNN AVILA DO Ot 493.20 CHRONIC OBSTRUCTIVE ASTHMA, NOS 01/11/2014 LYNN AVILA DO Ot 530.81 ESOPHAGEAL REFLUX 01/11/2014 LYNN AVILA DO Ot 716.90 ARTHROPATHY NOS-UNSPEC 01/11/2014 LYNN AVILA DO Ot 788.20 RETENTION OF URINE NOS 01/11/2014 LYNN AVILA DO Ot 995.91 SEPSIS 01/11/2014 LYNN AVILA DO Ot V15.82 HISTORY OF TOBACCO USE 01/11/2014 LYNN AVILA DO Ot V45.81 AORTOCORONARY BYPASS 01/11/2014 LYNN AVILA DO Ot V45.82 PERCUTANEOUS TRANSLUM CORON ANGIOPLASTY 01/11/2014 LYNN AVILA DO Ot V46.2 SUPPLEMENTAL OXYGEN 01/16/2014 LYNN AVILA DO Ot 515 POSTINFLAM PULM FIBROSIS 01/16/2014 LYNN AVILA DO Ot 788.20 RETENTION OF URINE NOS 05/23/2014 JOE MAYS GEOGRAPHY FACULTY MEMBER Ot 272.4 HYPERLIPIDEMIA NEC/NOS 05/23/2014 JOE MAYS L GEOGRAPHY FACULTY MEMBER Ot 414.00 CORON ATHEROSCLER NOS TYPE VESSEL, NATIV 05/23/2014 BERLIN MAYSHER L GEOGRAPHY FACULTY MEMBER Ot 496 CHR AIRWAY OBSTRUCT NEC 05/23/2014 JOE MAYS L GEOGRAPHY FACULTY MEMBER Ot 785.1 PALPITATIONS 10/02/2014 LYNN AVILA DO Ot 486 10/02/2014 LYNN AVILA DO Ot 496 10/02/2014 LYNN AVILA DO Ot 518.83 10/11/2014 LYNN AVILA DO Ot 486 10/11/2014 LYNN AVILA DO Ot 496 10/11/2014 LYNN AVILA DO Ot 518.83 10/31/2014 Ot 496 10/31/2014 Ot 786.09 10/31/2014 Ot 786.2 10/31/2014 JHON COREAS FAC, [facility] CCDS Ot 424.1 10/31/2014 JHON COREAS FAC, ALI [facility] CCDS Ot 786.09 10/31/2014 BISHOP MANUEL Ot 496 10/31/2014 BISHOP MANUEL Ot 786.50 10/31/2014 Ot 496 10/31/2014 Ot 510.9 10/31/2014 Ot 519.11 10/31/2014 Ot 496 10/31/2014 Ot 519.11 10/31/2014 AUSTIN DO, LYNN M Ot V72.84 10/31/2014 AUSTIN DO, LYNN M Ot 272.4 10/31/2014 AUSTIN DO, LYNN M Ot 414.00 10/31/2014 AUSTIN DO, LYNN M Ot 492.8 10/31/2014 AUSTIN DO, LYNN M Ot 530.81 10/31/2014 AUSTIN DO, LYNN M Ot 793.11 10/31/2014 BISHOP MANUEL Ot 496 10/31/2014 BISHOP MANUEL Ot 715.90 10/31/2014 BISHOP MANUEL Ot 786.50 10/31/2014 BISHOP MANUEL Ot V04.81 10/31/2014 AUSTIN DO, LYNN M Ot 486 10/31/2014 AUSTIN DO, LYNN M Ot 496 10/31/2014 AUSTIN DO, LYNN M Ot 518.83 10/31/2014 Ot 272.4 10/31/2014 Ot 414.00 10/31/2014 Ot 496 10/31/2014 Ot 785.1 11/01/2014 AUSTIN DO, LYNN M Ot V72.84 11/01/2014 AUSTIN DO, LYNN M Ot 272.4 11/01/2014 AUSTIN DO, LYNN M Ot 414.00 11/01/2014 AUSTIN DO, LYNN M Ot 492.8 11/01/2014 AUSTIN DO, LYNN M Ot 530.81 11/01/2014 AUSTIN DO, LYNN M Ot 793.11 11/01/2014 BISHOP MANUEL Ot 496 11/01/2014 ANA VALADEZ, BISHOP K Ot 715.90 11/01/2014 ANA VALADEZ, BISHOP K Ot 786.50 11/01/2014 ANA VALADEZ, BISHOP K Ot V04.81 11/01/2014 LYNN AVILA DO M Ot 486 11/01/2014 AUSTIN DOLYNN M Ot 496 11/01/2014 AUSTIN DO, LYNN M Ot 518.83 11/01/2014 Ot 272.4 11/01/2014 Ot 414.00 11/01/2014 Ot 496 11/01/2014 Ot 785.1 11/01/2014 LYNN AVILA DO M Ot 486 11/01/2014 AUSTIN HEATON, LYNN M Ot 496 11/01/2014 AUSTIN HEATON, LYNN M Ot 486 11/01/2014 AUSTIN DO, LYNN M Ot 496 11/21/2014 AUSTIN DO, LYNN M Ot 486 11/21/2014 LYNN AVILA DO M Ot 496 01/07/2015 JHON COREAS FAC, ALI FACP CCDS Ot 305.1 TOBACCO USE DISORDER 01/07/2015 JHON COREAS FACC, ALI FACP CCDS Ot 996.72 OTH COMPLICATIONS DUE TO OTH CARD DEVICE 02/21/2015 ANA VALADEZ, BISHOP Sherif Ot 272.4 02/21/2015 ANA VALADEZ, BISHOP Sherif Ot 305.1 02/21/2015 ANA VALADZE, BISHOP K Ot 414.00 02/21/2015 ANA VALADEZ, BISHOP K Ot 477.9 02/21/2015 ANA VALADEZ, BISHOP K Ot 496 02/21/2015 ANA VALADEZ, BISHOP K Ot 530.81 02/21/2015 ANA VALADEZ, BISHOP K Ot 535.50 02/21/2015 ANA VALADEZ, BISHOP K Ot 553.3 02/21/2015 ANA VALADEZ, BISHOP K Ot 600.00 02/21/2015 ANA VALADEZ, BISHOP K Ot 715.90 02/21/2015 ANA VALADEZ, BISHOP K Ot 789.00 03/20/2015 BERTA COREAS, LAMONT Ot 553.21 03/20/2015 BERTA COREAS, LAMONT Ot V72.63 03/20/2015 BERTA COERAS, LAMONT Ot V74.8 03/22/2015 BERTA COREAS, LAMONT Ot 272.0 PURE HYPERCHOLESTEROLEM 03/22/2015 BERTA COREAS, LAMONT Ot 401.9 HYPERTENSION NOS 03/22/2015 BERTA COREAS, LAMONT Ot 414.01 CORONARY ATHEROSCLEROSIS OF [place] CORON 03/22/2015 BERTA COREAS, LAMONT Ot 530.81 ESOPHAGEAL REFLUX 03/22/2015 BERTA COREAS, LAMONT Ot 553.21 INCISIONAL HERNIA 03/22/2015 BERTA COREAS, LAMONT Ot V45.82 PERCUTANEOUS TRANSLUM CORON ANGIOPLASTY 03/27/2015 BAIMA, JOE L GEOGRAPHY FACULTY MEMBER Ot 272.4 03/27/2015 BAIMA, JOE L GEOGRAPHY FACULTY MEMBER Ot 305.1 03/27/2015 BAIMA, JOE L GEOGRAPHY FACULTY MEMBER Ot 414.9 03/27/2015 BAIMA, JOE L GEOGRAPHY FACULTY MEMBER Ot 447.9 03/27/2015 BAIMA, JOE L GEOGRAPHY FACULTY MEMBER Ot 496 03/27/2015 BAIMA, JOE L GEOGRAPHY FACULTY MEMBER Ot 789.09 03/29/2015 BAIMA, JOE L GEOGRAPHY FACULTY MEMBER Ot 272.4 03/29/2015 BAIMA, JOE L GEOGRAPHY FACULTY MEMBER Ot 305.1 03/29/2015 BAIMA, JOE L GEOGRAPHY FACULTY MEMBER Ot 414.9 03/29/2015 BAIMA, JOE L GEOGRAPHY FACULTY MEMBER Ot 447.9 03/29/2015 BAIMA, JOE L GEOGRAPHY FACULTY MEMBER Ot 496 03/29/2015 BAIMA, JOE L GEOGRAPHY FACULTY MEMBER Ot 789.09 04/07/2015 BERTA COREAS, LAMONT Ot 553.21 04/07/2015 BERTA COREAS, LAMONT Ot V72.63 04/07/2015 BERTA COREAS, LAMONT Ot V74.8 05/23/2015 AUSTIN DO, LYNN M Ot 486 05/23/2015 AUSTIN DO, LYNN M Ot 496 06/12/2015 AUSTIN DO, LYNN M Ot 486 06/12/2015 AUSTIN DO, LYNN M Ot 496 08/11/2015 AUSTIN DO, LYNN M Ot 486 08/11/2015 AUSTIN HEATON, LYNN M Ot 496 08/11/2015 BERTA COREAS, LAMONT Ot 553.21 08/11/2015 BERTA COREAS, LAMONT Ot V72.63 08/11/2015 LAMONT HAMPTON MD Ot V74.8 08/11/2015 BAIJOE HOWELL GEOGRAPHY FACULTY MEMBER Ot E78.5 08/11/2015 BAIJOE HOWELL GEOGRAPHY FACULTY MEMBER Ot I25.10 08/11/2015 BAIJOE HOWELL GEOGRAPHY FACULTY MEMBER Ot I77.9 08/11/2015 BAIJOE HOWELL GEOGRAPHY FACULTY MEMBER Ot J44.9 08/14/2015 LUCIUS HERR CLINICAL STUDIES SPECIALIST Ot J18.9 08/14/2015 CARMENZALUCIUS MERLOS CLINICAL STUDIES SPECIALIST Ot J44.9 08/14/2015 LUCIUS HERR CLINICAL STUDIES SPECIALIST Ot J96.11 09/01/2015 BAIJOE HOWELL GEOGRAPHY FACULTY MEMBER Ot E78.5 09/01/2015 BAIJOE HOWELL GEOGRAPHY FACULTY MEMBER Ot I25.10 09/01/2015 BAIJOE HOWELL GEOGRAPHY FACULTY MEMBER Ot I77.9 09/01/2015 BAIJOE HOWELL GEOGRAPHY FACULTY MEMBER Ot J44.9 09/03/2015 LUCIUS HERR CLINICAL STUDIES SPECIALIST Ot J18.9 09/03/2015 LUCIUS HERR CLINICAL STUDIES SPECIALIST Ot J44.9 09/03/2015 LUCIUS HERR CLINICAL STUDIES SPECIALIST Ot J96.11 09/12/2015 Ot 496 09/12/2015 Ot 786.09 09/12/2015 Ot 786.2 09/12/2015 JHON COREAS FAC, [facility] CCDS Ot 424.1 09/12/2015 JHON COREAS FAC, [facility] FACP CCDS Ot 786.09 09/12/2015 BISHOP MANUEL Ot 496 09/12/2015 BISHOP MANUEL Ot 786.50 09/12/2015 Ot 496 09/12/2015 Ot 510.9 09/12/2015 Ot 519.11 09/12/2015 Ot 496 09/12/2015 Ot 519.11 09/12/2015 LYNN AVILA DO Ot V72.84 09/12/2015 LYNN AVILA DO Ot 272.4 09/12/2015 LYNN AVILA DO Ot 414.00 09/12/2015 LYNN AVILA DO Ot 492.8 09/12/2015 LYNN AVILA DO Ot 530.81 09/12/2015 LYNN AVILA DO Ot 793.11 09/12/2015 ANA VALADEZ, BISHOP K Ot 496 09/12/2015 ANA VALADEZ, BISHOP K Ot 715.90 09/12/2015 ANA VALADEZ, BISHOP K Ot 786.50 09/12/2015 ANA VALADEZ, BISHOP K Ot V04.81 09/12/2015 AUSTIN DO, LYNN M Ot 486 09/12/2015 AUSTIN DO, LYNN M Ot 496 09/12/2015 AUSTIN DO, LYNN M Ot 518.83 09/12/2015 Ot 272.4 09/12/2015 Ot 414.00 09/12/2015 Ot 496 09/12/2015 Ot 785.1 09/12/2015 AUSTIN DO, LYNN M Ot 486 09/12/2015 AUSTIN DO, LYNN M Ot 496 09/12/2015 AUSTIN DO, LYNN M Ot 486 09/12/2015 AUSTIN DO, LYNN M Ot 496 09/12/2015 ANA VALADEZ, BISHOP K Ot 272.4 09/12/2015 ANA VALADEZ, BISHOP K Ot 305.1 09/12/2015 ANA VALADEZ, BISHOP K Ot 414.00 09/12/2015 ANA VALADEZ, BISHOP K Ot 477.9 09/12/2015 ANA VALADEZ, BISHOP K Ot 496 09/12/2015 ANA VALADEZ, BISHOP K Ot 530.81 09/12/2015 ANA VALADEZ, BISHOP K Ot 535.50 09/12/2015 ANA VALADEZ, BISHOP K Ot 553.3 09/12/2015 ANA VALADEZ, BISHOP K Ot 600.00 09/12/2015 ANA VALADEZ, BISHOP K Ot 715.90 09/12/2015 ANA VALADEZ, BISHOP K Ot 789.00 09/12/2015 NAVARROMA, JOE L GEOGRAPHY FACULTY MEMBER Ot 272.4 09/12/2015 BAIMA, JOE L GEOGRAPHY FACULTY MEMBER Ot 305.1 09/12/2015 BAIMA, JOE L GEOGRAPHY FACULTY MEMBER Ot 414.9 09/12/2015 BAIMA, JOE L GEOGRAPHY FACULTY MEMBER Ot 447.9 09/12/2015 BAIMA, JOE L GEOGRAPHY FACULTY MEMBER Ot 496 09/12/2015 BAIMA, JOE L GEOGRAPHY FACULTY MEMBER Ot 789.09 09/12/2015 LAMONT HAMPTON MD Ot 553.21 09/12/2015 BERTA COREAS, LAMONT Ot V72.63 09/12/2015 BERTA COREAS, LAMONT Ot V74.8 09/12/2015 JOE MAYS GEOGRAPHY FACULTY MEMBER Ot E78.5 09/12/2015 JOE MAYS GEOGRAPHY FACULTY MEMBER Ot I25.10 09/12/2015 JOE MAYS GEOGRAPHY FACULTY MEMBER Ot I77.9 09/12/2015 NAVARROJOE HOWELL GEOGRAPHY FACULTY MEMBER Ot J44.9 09/12/2015 LUCIUS HERR CLINICAL STUDIES SPECIALIST Ot J18.9 09/12/2015 LUCIUS HERR CLINICAL STUDIES SPECIALIST Ot J44.9 09/12/2015 LUCIUS HERR CLINICAL STUDIES SPECIALIST Ot J96.11 09/12/2015 BRANDEE BOSS DO Ot K21.9 09/12/2015 BRANDEE BOSS DO Ot Z01.818 09/12/2015 BRANDEE BOSS DO Ot K21.0 GASTRO-ESOPHAGEAL REFLUX DISEASE WITH ES 09/12/2015 BRANDEE BOSS DO Ot K29.70 GASTRITIS, UNSPECIFIED, WITHOUT BLEEDING 09/12/2015 BRANDEE BOSS DO Ot K44.9 DIAPHRAGMATIC HERNIA WITHOUT OBSTRUCTION 09/16/2015 LUCIUS HERR CLINICAL STUDIES SPECIALIST Ot J18.9 09/16/2015 LUCIUS HERR CLINICAL STUDIES SPECIALIST Ot J44.9 09/16/2015 LUCIUS HERR CLINICAL STUDIES SPECIALIST Ot J96.11 11/11/2015 LUCIUS HERR CLINICAL STUDIES SPECIALIST Ot J39.9 11/11/2015 LUCIUS HERR CLINICAL STUDIES SPECIALIST Ot J43.8 11/11/2015 LUCIUS HERR CLINICAL STUDIES SPECIALIST Ot J96.11 12/05/2015 LUCIUS HERR CLINICAL STUDIES SPECIALIST Ot J30.2 12/05/2015 LUCIUS HERR CLINICAL STUDIES SPECIALIST Ot J43.8 12/05/2015 LUCIUS HERR CLINICAL STUDIES SPECIALIST Ot J96.11 12/05/2015 LUCIUS HERR CLINICAL STUDIES SPECIALIST Ot J96.20 12/05/2015 LUCIUS HERR CLINICAL STUDIES SPECIALIST Ot Z72.0 12/05/2015 LUCIUS HERR CLINICAL STUDIES SPECIALIST Ot Z99.81 12/09/2015 JHON COREAS FAC, ALI FACP CCDS Ot D64.9 ANEMIA, UNSPECIFIED 12/09/2015 JHON REYESC, ALI FACP CCDS Ot E78.5 HYPERLIPIDEMIA, UNSPECIFIED 12/09/2015 JHON COREAS FACC, ALI FACP CCDS Ot E87.1 HYPO-OSMOLALITY AND HYPONATREMIA 12/09/2015 JHON COREAS FACC, ALI FACP CCDS Ot I25.10 ATHSCL HEART DISEASE OF [place] CORONARY 12/09/2015 JHON COREAS FACC, ALI FACP CCDS Ot I25.84 CORONARY ATHEROSCLEROSIS DUE TO CALCIFIE 12/09/2015 JHON COREAS FACC, ALI FACP CCDS Ot I70.201 UNSP ATHSCL [place] ARTERIES OF EXTREMITI 12/09/2015 JHON COREAS FACC, MATT FACP CCDS Ot J44.9 CHRONIC OBSTRUCTIVE PULMONARY DISEASE, U 12/09/2015 JHON COREAS FACC, ALI FACP CCDS Ot R00.0 TACHYCARDIA, UNSPECIFIED 12/09/2015 JHON COREAS FACC, ALI FACP CCDS Ot R07.89 OTHER CHEST PAIN 12/09/2015 JHON COREAS FACC, ALI FACP CCDS Ot Z79.899 OTHER SENIOR LIVING (CURRENT) DRUG THERAPY 12/09/2015 JHON COREAS FACC, ALI FACP CCDS Ot Z87.891 PERSONAL HISTORY OF NICOTINE DEPENDENCE 12/09/2015 JHON COREAS FACC, ALI FACP CCDS Ot Z95.5 PRESENCE OF CORONARY ANGIOPLASTY IMPLANT 12/15/2015 JHON COREAS FACC, ALI FACP CCDS Ot E78.4 12/15/2015 JHON COREAS FACC, ALI FACP CCDS Ot I25.10 12/15/2015 JHON COREAS FACC, ALI FACP CCDS Ot I65.23 12/15/2015 JHON COREAS FACC, ALI FACP CCDS Ot K21.9 12/15/2015 JHON COREAS FACC, ALI FACP CCDS Ot R00.2 12/15/2015 JHON COREAS FACC, ALI FACP CCDS Ot R06.02 12/15/2015 JHON COREAS FACC, ALI FACP CCDS Ot Z72.0 12/17/2015 JOE MAYS GEOGRAPHY FACULTY MEMBER Ot I47.2 12/17/2015 JOE MAYS GEOGRAPHY FACULTY MEMBER Ot R00.1 12/23/2015 JHON COREAS FACC, ALI FACP CCDS Ot E78.4 12/23/2015 JHON MD [facility], ALI FACP CCDS Ot I25.10 12/23/2015 JHON MD [facility], ALI FACP CCDS Ot I65.23 12/23/2015 JHON MD [facility], ALI FACP CCDS Ot K21.9 12/23/2015 [facility], ALI FACP CCDS Ot R00.2 12/23/2015 [facility], ALI FACP CCDS Ot R06.02 12/23/2015 [facility], ALI FACP CCDS Ot Z72.0 12/23/2015 LUCIUS HERR CLINICAL STUDIES SPECIALIST Ot J30.2 12/23/2015 LUCIUS HERR CLINICAL STUDIES SPECIALIST Ot J43.8 12/23/2015 LUCIUS HERR CLINICAL STUDIES SPECIALIST Ot J96.11 12/23/2015 LUCIUS HERR CLINICAL STUDIES SPECIALIST Ot J96.20 12/23/2015 LUCIUS HERR CLINICAL STUDIES SPECIALIST Ot Z72.0 12/23/2015 LUCIUS HERR CLINICAL STUDIES SPECIALIST Ot Z99.81 01/06/2016 JOE MAYS L GEOGRAPHY FACULTY MEMBER Ot I47.2 01/06/2016 JOE MAYS GEOGRAPHY FACULTY MEMBER Ot R00.1 01/21/2016 LUCIUS HERR CLINICAL STUDIES SPECIALIST Ot J39.9 DISEASE OF UPPER RESPIRATORY TRACT, [facility] 01/21/2016 LUCIUS HERR CLINICAL STUDIES SPECIALIST Ot J43.8 OTHER EMPHYSEMA 01/21/2016 LUCIUS HERR CLINICAL STUDIES SPECIALIST Ot J96.11 CHRONIC RESPIRATORY FAILURE WITH HYPOXIA 01/21/2016 BAIMAJOE GEOGRAPHY FACULTY MEMBER Ot I47.2 VENTRICULAR TACHYCARDIA 01/21/2016 JOE MAYS GEOGRAPHY FACULTY MEMBER Ot R00.1 BRADYCARDIA, UNSPECIFIED 01/29/2016 LUCIUS HERR CLINICAL STUDIES SPECIALIST Ot J39.9 DISEASE OF UPPER RESPIRATORY TRACT, [facility] 01/29/2016 LUCIUS HERR CLINICAL STUDIES SPECIALIST Ot J43.8 OTHER EMPHYSEMA 01/29/2016 LUCIUS HERR CLINICAL STUDIES SPECIALIST Ot J96.11 CHRONIC RESPIRATORY FAILURE WITH HYPOXIA 01/30/2016 LUCIUS HERR CLINICAL STUDIES SPECIALIST Ot J39.9 DISEASE OF UPPER RESPIRATORY TRACT, [facility] 01/30/2016 LUCIUS HERR CLINICAL STUDIES SPECIALIST Ot J43.8 OTHER EMPHYSEMA 01/30/2016 LUCIUS HERR CLINICAL STUDIES SPECIALIST Ot J96.11 CHRONIC RESPIRATORY FAILURE WITH HYPOXIA 03/11/2016 Ot 496 CHR AIRWAY OBSTRUCT NEC 03/11/2016 Ot 786.09 RESPIRATORY ABNORM NEC 03/11/2016 Ot 786.2 COUGH 03/11/2016 JHON COREAS FACC, ALI [facility] CCDS Ot 424.1 AORTIC VALVE DISORDER 03/11/2016 JHON COREAS FACC, ALI [facility] CCDS Ot 786.09 RESPIRATORY ABNORM NEC 03/11/2016 BISHOP MANUEL Ot 496 CHR AIRWAY OBSTRUCT NEC 03/11/2016 BISHOP MANUEL Ot 786.50 CHEST PAIN NOS 03/11/2016 Ot 496 CHR AIRWAY OBSTRUCT NEC 03/11/2016 Ot 510.9 EMPYEMA W/O FISTULA 03/11/2016 Ot 519.11 ACUTE BRONCHOSPASM 03/11/2016 Ot 496 CHR AIRWAY OBSTRUCT NEC 03/11/2016 Ot 519.11 ACUTE BRONCHOSPASM 03/11/2016 LYNN AVILA DO Ot V72.84 EXAM PRE-OPERATIVE NOS 03/11/2016 LYNN AVILA DO Ot 272.4 HYPERLIPIDEMIA NEC/NOS 03/11/2016 LYNN AVILA DO Ot 414.00 CORON ATHEROSCLER NOS TYPE VESSEL, NATIV 03/11/2016 LYNN AVILA DO Ot 492.8 EMPHYSEMA NEC 03/11/2016 LYNN AVILA DO Ot 530.81 ESOPHAGEAL REFLUX 03/11/2016 LYNN AVILA DO Ot 793.11 SOLITARY PULMONARY NODULE 03/11/2016 BISHOP MANUEL Ot 496 CHR AIRWAY OBSTRUCT NEC 03/11/2016 BISHOP MANUEL Ot 715.90 OSTEOARTHROS NOS-UNSPEC 03/11/2016 BISHOP MANUEL Ot 786.50 CHEST PAIN NOS 03/11/2016 BISHOP MANUEL Ot V04.81 ND FOR PROPHYLACTIC VACCIN AND INOCULATI 03/11/2016 LYNN AVILA DO Ot 486 PNEUMONIA, ORGANISM NOS 03/11/2016 LYNN AVILA DO Ot 496 CHR AIRWAY OBSTRUCT NEC 03/11/2016 LYNN AVILA DO Ot 518.83 CHRONIC RESPIRATORY FAILURE 03/11/2016 Ot 272.4 HYPERLIPIDEMIA NEC/NOS 03/11/2016 Ot 414.00 CORON ATHEROSCLER NOS TYPE VESSEL, NATIV 03/11/2016 Ot 496 CHR AIRWAY OBSTRUCT NEC 03/11/2016 Ot 785.1 PALPITATIONS 03/11/2016 AUSTINLYNN QUIROZ DO Ot 486 PNEUMONIA, ORGANISM NOS 03/11/2016 LYNN AVILA DO Ot 496 CHR AIRWAY OBSTRUCT NEC 03/11/2016 LYNN AVILA DO Ot 486 PNEUMONIA, ORGANISM NOS 03/11/2016 AUSTINLYNN QUIROZ DO Ot 496 CHR AIRWAY OBSTRUCT NEC 03/11/2016 BISHOP MANUEL Ot 272.4 HYPERLIPIDEMIA NEC/NOS 03/11/2016 BISHOP MANUEL Ot 305.1 TOBACCO USE DISORDER 03/11/2016 BISHOP MANUEL Ot 414.00 CORON ATHEROSCLER NOS TYPE VESSEL, NATIV 03/11/2016 BISHOP MANUEL Ot 477.9 ALLERGIC RHINITIS NOS 03/11/2016 BISHOP MANUEL Ot 496 CHR AIRWAY OBSTRUCT NEC 03/11/2016 BISHOP MANUEL Ot 530.81 ESOPHAGEAL REFLUX 03/11/2016 BISHOP MANUEL Ot 535.50 UNSP GASTRITIS GASTRODUODENITIS W/O ME 03/11/2016 BISHOP MANUEL Ot 553.3 DIAPHRAGMATIC HERNIA 03/11/2016 BISHOP MANUEL Ot 600.00 HYPERTROPHY (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 URI 03/11/2016 BISHOP MANUEL Ot 715.90 OSTEOARTHROS NOS-UNSPEC 03/11/2016 BISHOP MANUEL Ot 789.00 ABDOMINAL PAIN, UNSPECIFIED SITE 03/11/2016 JOE MAYS GEOGRAPHY FACULTY MEMBER Ot 272.4 HYPERLIPIDEMIA NEC/NOS 03/11/2016 JOE MAYS L GEOGRAPHY FACULTY MEMBER Ot 305.1 TOBACCO USE DISORDER 03/11/2016 BAIJOE HOWELL L GEOGRAPHY FACULTY MEMBER Ot 414.9 CHR ISCHEMIC HRT DIS NOS 03/11/2016 TABATHA JOE L GEOGRAPHY FACULTY MEMBER Ot 447.9 ARTERIAL DISEASE NOS 03/11/2016 BAIMA JOE L GEOGRAPHY FACULTY MEMBER Ot 496 CHR AIRWAY OBSTRUCT NEC 03/11/2016 BERLIN MAYSHER L GEOGRAPHY FACULTY MEMBER Ot 789.09 ABDOMINAL PAIN, OTHER SPECIFIED SITE 03/11/2016 BERTA COREAS, LAMONT Ot 553.21 INCISIONAL HERNIA 03/11/2016 BERTA COREAS, LAMONT Ot V72.63 PRE-PROCEDURAL LABORATORY EXAMINATION 03/11/2016 BERTA COREAS, LAMONT Ot V74.8 SCREEN-BACTERIAL DIS NEC 03/11/2016 TABATHA JOE Becky GEOGRAPHY FACULTY MEMBER Ot E78.5 HYPERLIPIDEMIA, UNSPECIFIED 03/11/2016 TABATHA JOE L GEOGRAPHY FACULTY MEMBER Ot I25.10 ATHSCL HEART DISEASE OF [place] CORONARY 03/11/2016 JOE MAYS GEOGRAPHY FACULTY MEMBER Ot I77.9 DISORDER OF ARTERIES AND ARTERIOLES, UNS 03/11/2016 JOE MAYS GEOGRAPHY FACULTY MEMBER Ot J44.9 CHRONIC OBSTRUCTIVE PULMONARY DISEASE, U 03/11/2016 LUCIUS HERR APRN Ot J18.9 PNEUMONIA, UNSPECIFIED ORGANISM 03/11/2016 LUCIUS HERR APRN Ot J44.9 CHRONIC OBSTRUCTIVE PULMONARY DISEASE, U 03/11/2016 LUCIUS HERR APRN Ot J96.11 CHRONIC RESPIRATORY FAILURE WITH HYPOXIA 03/11/2016 BRANDEE BOSS DO Ot K21.9 GASTRO-ESOPHAGEAL REFLUX DISEASE WITHOUT 03/11/2016 BRANDEE BOSS DO Ot Z01.818 ENCOUNTER FOR OTHER PREPROCEDURAL EXAMIN 03/11/2016 JHON COREAS FACC, MATT FACP CCDS Ot E78.4 OTHER HYPERLIPIDEMIA 03/11/2016 JHON COREAS FACC, MATT FACP CCDS Ot I25.10 ATHSCL HEART DISEASE OF [place] CORONARY 03/11/2016 JHON COREAS FACC, MATT FACP CCDS Ot I65.23 OCCLUSION AND STENOSIS OF BILATERAL [place] 03/11/2016 JHON COREAS FACC, MATT FACP CCDS Ot K21.9 GASTRO-ESOPHAGEAL REFLUX DISEASE WITHOUT 03/11/2016 JHON COREAS FACC, MATT FACP CCDS Ot R00.2 PALPITATIONS 03/11/2016 JHON COREAS FACC, MATT REYESP CCDS Ot R06.02 SHORTNESS OF BREATH 03/11/2016 MATT FERREIRA MD, FACC FACP CCDS Ot Z72.0 TOBACCO USE 03/11/2016 LUCIUS HERR APRN Ot J30.2 OTHER SEASONAL ALLERGIC RHINITIS 03/11/2016 LUCIUS HERR APRN Ot J43.8 OTHER EMPHYSEMA 03/11/2016 CARMENZA, LUCIUS E CLINICAL STUDIES SPECIALIST Ot J96.11 CHRONIC RESPIRATORY FAILURE WITH HYPOXIA 03/11/2016 EVELINA HERRINE Kenneth CLINICAL STUDIES SPECIALIST Ot J96.20 ACUTE AND CHR RESP FAILURE, [facility] W HYPOX 03/11/2016 LUCIUS HERR CLINICAL STUDIES SPECIALIST Ot Z72.0 TOBACCO USE 03/11/2016 LUCIUS HERR CLINICAL STUDIES SPECIALIST Ot Z99.81 DEPENDENCE ON SUPPLEMENTAL OXYGEN 03/11/2016 JOE MAYS GEOGRAPHY FACULTY MEMBER Ot I47.2 VENTRICULAR TACHYCARDIA 03/11/2016 BAIJOE HOWELL GEOGRAPHY FACULTY MEMBER Ot R00.1 BRADYCARDIA, UNSPECIFIED 03/11/2016 LUCIUS HERR CLINICAL STUDIES SPECIALIST Ot J39.9 DISEASE OF UPPER RESPIRATORY TRACT, [facility] 03/11/2016 LUCIUS HERR CLINICAL STUDIES SPECIALIST Ot J43.8 OTHER EMPHYSEMA 03/11/2016 CARMENZAEVELINA MERLOSINE Kenneth CLINICAL STUDIES SPECIALIST Ot J96.11 CHRONIC RESPIRATORY FAILURE WITH HYPOXIA 03/17/2016 LUCIUS HERR CLINICAL STUDIES SPECIALIST Ot J43.8 OTHER EMPHYSEMA 03/17/2016 LUCIUS HERR CLINICAL STUDIES SPECIALIST Ot J96.11 CHRONIC RESPIRATORY FAILURE WITH HYPOXIA 03/17/2016 LUCIUS HERR CLINICAL STUDIES SPECIALIST Ot J96.20 ACUTE AND CHR RESP FAILURE, [facility] W HYPOX 03/17/2016 LUCIUS HERR CLINICAL STUDIES SPECIALIST Ot R06.02 SHORTNESS OF BREATH 04/07/2016 LUCIUS HERR CLINICAL STUDIES SPECIALIST Ot J43.8 OTHER EMPHYSEMA 04/07/2016 EVELINA HERRINE Kenneth CLINICAL STUDIES SPECIALIST Ot J96.11 CHRONIC RESPIRATORY FAILURE WITH HYPOXIA 04/07/2016 LUCIUS HERR CLINICAL STUDIES SPECIALIST Ot J96.20 ACUTE AND CHR RESP FAILURE, [facility] W HYPOX 04/07/2016 LUCIUS HERR CLINICAL STUDIES SPECIALIST Ot R06.02 SHORTNESS OF BREATH 04/16/2016 LUCIUS HERR CLINICAL STUDIES SPECIALIST Ot J18.9 PNEUMONIA, UNSPECIFIED ORGANISM 04/19/2016 LUCIUS HERR CLINICAL STUDIES SPECIALIST Ot J18.9 PNEUMONIA, UNSPECIFIED ORGANISM 04/19/2016 LUCIUS HERR CLINICAL STUDIES SPECIALIST Ot J43.8 OTHER EMPHYSEMA 05/07/2016 CARMENZAEVELINA MERLOSINE Kenneth CLINICAL STUDIES SPECIALIST Ot J43.8 OTHER EMPHYSEMA 05/07/2016 CARMENZAEVELINA MERLOSINE Kenneth CLINICAL STUDIES SPECIALIST Ot J96.11 CHRONIC RESPIRATORY FAILURE WITH HYPOXIA 05/07/2016 EVELINA HERRINE E CLINICAL STUDIES SPECIALIST Ot J96.20 ACUTE AND CHR RESP FAILURE, UNSP W HYPOX 05/07/2016 LUCIUS HERR CLINICAL STUDIES SPECIALIST Ot R06.02 SHORTNESS OF BREATH 05/13/2016 LUCIUS HERR CLINICAL STUDIES SPECIALIST Ot J18.9 PNEUMONIA, UNSPECIFIED ORGANISM 05/13/2016 LUCIUS HERR CLINICAL STUDIES SPECIALIST Ot J43.8 OTHER EMPHYSEMA 06/04/2016 LUCUIS HERR CLINICAL STUDIES SPECIALIST Ot J18.9 PNEUMONIA, UNSPECIFIED ORGANISM 06/04/2016 LUCIUS HERR CLINICAL STUDIES SPECIALIST Ot J43.8 OTHER EMPHYSEMA 09/28/2016 Ot 496 CHR AIRWAY OBSTRUCT NEC 09/28/2016 Ot 786.09 RESPIRATORY ABNORM NEC 09/28/2016 Ot 786.2 COUGH 09/28/2016 JHON COREAS FAC, ALI FACP CCDS Ot 424.1 AORTIC VALVE DISORDER 09/28/2016 JHON COREAS FAC, ALI FACP CCDS Ot 786.09 RESPIRATORY ABNORM NEC 09/28/2016 BISHOP MANUEL Ot 496 CHR AIRWAY OBSTRUCT NEC 09/28/2016 BISHOP MANUEL Ot 786.50 CHEST PAIN NOS 09/28/2016 Ot 496 CHR AIRWAY OBSTRUCT NEC 09/28/2016 Ot 510.9 EMPYEMA W/O FISTULA 09/28/2016 Ot 519.11 ACUTE BRONCHOSPASM 09/28/2016 Ot 496 CHR AIRWAY OBSTRUCT NEC 09/28/2016 Ot 519.11 ACUTE BRONCHOSPASM 09/28/2016 LYNN AVILA DO Ot V72.84 EXAM PRE-OPERATIVE NOS 09/28/2016 LYNN AVILA DO Ot 272.4 HYPERLIPIDEMIA NEC/NOS 09/28/2016 LYNN AVILA DO Ot 414.00 CORON ATHEROSCLER NOS TYPE VESSEL, NATIV 09/28/2016 LYNN AVILA DO Ot 492.8 EMPHYSEMA NEC 09/28/2016 LYNN AVILA DO Ot 530.81 ESOPHAGEAL REFLUX 09/28/2016 LYNN AVILA DO Ot 793.11 SOLITARY PULMONARY NODULE 09/28/2016 BISHOP MANUEL Ot 496 CHR AIRWAY OBSTRUCT NEC 09/28/2016 BISHOP MANUEL Ot 715.90 OSTEOARTHROS NOS-UNSPEC 09/28/2016 BISHOP MANUEL Ot 786.50 CHEST PAIN NOS 09/28/2016 BISHOP MANUEL Ot V04.81 ND FOR PROPHYLACTIC VACCIN AND INOCULATI 09/28/2016 AUSTIN LYNN HEATON Ot 486 PNEUMONIA, ORGANISM NOS 09/28/2016 AUSTINLYNN QUIROZ DO Ot 496 CHR AIRWAY OBSTRUCT NEC 09/28/2016 AUSTINLYNN QUIROZ DO Ot 518.83 CHRONIC RESPIRATORY FAILURE 09/28/2016 Ot 272.4 HYPERLIPIDEMIA NEC/NOS 09/28/2016 Ot 414.00 CORON ATHEROSCLER NOS TYPE VESSEL, NATIV 09/28/2016 Ot 496 CHR AIRWAY OBSTRUCT NEC 09/28/2016 Ot 785.1 PALPITATIONS 09/28/2016 AUSTIN HEATONLYNN Ot 486 PNEUMONIA, ORGANISM NOS 09/28/2016 AUSTIN LYNN HEATON Ot 496 CHR AIRWAY OBSTRUCT NEC 09/28/2016 AUSTIN HEATONLYNN Ot 486 PNEUMONIA, ORGANISM NOS 09/28/2016 AUSTIN HEATONLYNN Ot 496 CHR AIRWAY OBSTRUCT NEC 09/28/2016 BISHOP MANUEL Ot 272.4 HYPERLIPIDEMIA NEC/NOS 09/28/2016 BISHOP MANUEL Ot 305.1 TOBACCO USE DISORDER 09/28/2016 BISHOP MANUEL Ot 414.00 CORON ATHEROSCLER NOS TYPE VESSEL, NATIV 09/28/2016 BISHOP MANUEL Ot 477.9 ALLERGIC RHINITIS NOS 09/28/2016 BISHOP MANUEL Ot 496 CHR AIRWAY OBSTRUCT NEC 09/28/2016 BISHOP MANUEL Ot 530.81 ESOPHAGEAL REFLUX 09/28/2016 BISHOP MANUEL Ot 535.50 UNSP GASTRITIS GASTRODUODENITIS W/O ME 09/28/2016 BISHOP MANUEL Ot 553.3 DIAPHRAGMATIC HERNIA 09/28/2016 BISHOP MANUEL Ot 600.00 HYPERTROPHY (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 URI 09/28/2016 BISHOP MANUEL Ot 715.90 OSTEOARTHROS NOS-UNSPEC 09/28/2016 BISHOP MANUEL Ot 789.00 ABDOMINAL PAIN, UNSPECIFIED SITE 09/28/2016 JOE MAYS GEOGRAPHY FACULTY MEMBER Ot 272.4 HYPERLIPIDEMIA NEC/NOS 09/28/2016 JOE MAYS GEOGRAPHY FACULTY MEMBER Ot 305.1 TOBACCO USE DISORDER 09/28/2016 JOE MAYS GEOGRAPHY FACULTY MEMBER Ot 414.9 CHR ISCHEMIC HRT DIS NOS 09/28/2016 NAVARROJOE HOWELL GEOGRAPHY FACULTY MEMBER Ot 447.9 ARTERIAL DISEASE NOS 09/28/2016 JOE MAYS GEOGRAPHY FACULTY MEMBER Ot 496 CHR AIRWAY OBSTRUCT NEC 09/28/2016 JOE MAYS GEOGRAPHY FACULTY MEMBER Ot 789.09 ABDOMINAL PAIN, OTHER SPECIFIED SITE 09/28/2016 LAMONT HAMPTON MD Ot 553.21 INCISIONAL HERNIA 09/28/2016 LAMONT HAMPTON MD Ot V72.63 PRE-PROCEDURAL LABORATORY EXAMINATION 09/28/2016 LAMONT HAMPTON MD Ot V74.8 SCREEN-BACTERIAL DIS NEC 09/28/2016 NAVARROJOE HOWELL Becky GEOGRAPHY FACULTY MEMBER Ot E78.5 HYPERLIPIDEMIA, UNSPECIFIED 09/28/2016 JOE MAYS GEOGRAPHY FACULTY MEMBER Ot I25.10 ATHSCL HEART DISEASE OF [place] CORONARY 09/28/2016 TABATHAJOE Becky GEOGRAPHY FACULTY MEMBER Ot I77.9 DISORDER OF ARTERIES AND ARTERIOLES, UNS 09/28/2016 TABATHA JOE Becky GEOGRAPHY FACULTY MEMBER Ot J44.9 CHRONIC OBSTRUCTIVE PULMONARY DISEASE, U 09/28/2016 LUCIUS HERR APRN Ot J18.9 PNEUMONIA, UNSPECIFIED ORGANISM 09/28/2016 LUCIUS HERR APRN Ot J44.9 CHRONIC OBSTRUCTIVE PULMONARY DISEASE, U 09/28/2016 LUCIUS HERR APRN Ot J96.11 CHRONIC RESPIRATORY FAILURE WITH HYPOXIA 09/28/2016 BRANDEE BOSS DO Ot K21.9 GASTRO-ESOPHAGEAL REFLUX DISEASE WITHOUT 09/28/2016 BRANDEE BOSS DO Ot Z01.818 ENCOUNTER FOR OTHER PREPROCEDURAL EXAMIN 09/28/2016 JHON COREAS FACC, MATT FACP CCDS Ot E78.4 OTHER HYPERLIPIDEMIA 09/28/2016 JHON COREAS FACC, MATT FACP CCDS Ot I25.10 ATHSCL HEART DISEASE OF [place] CORONARY 09/28/2016 JHON COREAS FACC, MATT FACP CCDS Ot I65.23 OCCLUSION AND STENOSIS OF BILATERAL [place]AK[place] 09/28/2016 JHON COREAS FACC, MATT FACP CCDS Ot K21.9 GASTRO-ESOPHAGEAL REFLUX DISEASE WITHOUT 09/28/2016 JHON COREAS FACC, MATT FACP CCDS Ot R00.2 PALPITATIONS 09/28/2016 JHON COREAS FACC, ALI FACP CCDS Ot R06.02 SHORTNESS OF BREATH 09/28/2016 JHON REYES, ALI FACP CCDS Ot Z72.0 TOBACCO USE 09/28/2016 LUCIUS HERR CLINICAL STUDIES SPECIALIST Ot J30.2 OTHER SEASONAL ALLERGIC RHINITIS 09/28/2016 LUCIUS HERR CLINICAL STUDIES SPECIALIST Ot J43.8 OTHER EMPHYSEMA 09/28/2016 CARMENZALUCIUS MERLOS CLINICAL STUDIES SPECIALIST Ot J96.11 CHRONIC RESPIRATORY FAILURE WITH HYPOXIA 09/28/2016 LUCIUS HERR CLINICAL STUDIES SPECIALIST Ot J96.20 ACUTE AND CHR RESP FAILURE, UNSP W HYPOX 09/28/2016 LUCIUS HERR CLINICAL STUDIES SPECIALIST Ot Z72.0 TOBACCO USE 09/28/2016 LUCIUS HERR CLINICAL STUDIES SPECIALIST Ot Z99.81 DEPENDENCE ON SUPPLEMENTAL OXYGEN 09/28/2016 JOE MAYS GEOGRAPHY FACULTY MEMBER Ot I47.2 VENTRICULAR TACHYCARDIA 09/28/2016 JOE MAYS GEOGRAPHY FACULTY MEMBER Ot R00.1 BRADYCARDIA, UNSPECIFIED 09/28/2016 LUCIUS HERR CLINICAL STUDIES SPECIALIST Ot J39.9 DISEASE OF UPPER RESPIRATORY TRACT, UNSP 09/28/2016 LUCIUS HERR CLINICAL STUDIES SPECIALIST Ot J43.8 OTHER EMPHYSEMA 09/28/2016 LUCIUS HERR CLINICAL STUDIES SPECIALIST Ot J96.11 CHRONIC RESPIRATORY FAILURE WITH HYPOXIA 09/28/2016 LUCIUS HERR CLINICAL STUDIES SPECIALIST Ot J43.8 OTHER EMPHYSEMA 09/28/2016 LUCIUS HERR CLINICAL STUDIES SPECIALIST Ot J96.11 CHRONIC RESPIRATORY FAILURE WITH HYPOXIA 09/28/2016 LUCIUS HERR CLINICAL STUDIES SPECIALIST Ot J96.20 ACUTE AND CHR RESP FAILURE, UNSP W HYPOX 09/28/2016 LUCIUS HERR CLINICAL STUDIES SPECIALIST Ot R06.02 SHORTNESS OF BREATH 09/28/2016 LUCIUS HERR CLINICAL STUDIES SPECIALIST Ot J18.9 PNEUMONIA, UNSPECIFIED ORGANISM 09/28/2016 LUCIUS HERR CLINICAL STUDIES SPECIALIST Ot J43.8 OTHER EMPHYSEMA 09/28/2016 JHON COREAS FACC, MATT FACP CCDS Ot I77.1 STRICTURE OF ARTERY 09/28/2016 JHON COREAS FACC, MATT FACP CCDS Ot I77.1 STRICTURE OF ARTERY 09/28/2016 JHON COREAS FACC, MATT FACP CCDS Ot I77.1 STRICTURE OF ARTERY 09/28/2016 JHON MD FACC, ALI FACP CCDS Ot I77.1 STRICTURE OF ARTERY 09/28/2016 JHON COREAS FACC, ALI FACP CCDS Ot I77.1 STRICTURE OF ARTERY 09/29/2016 JHON COREAS FACC, ALI FACP CCDS Ot I77.1 STRICTURE OF ARTERY 09/29/2016 JHON COREAS FACC, ALI FACP CCDS Ot E78.4 OTHER HYPERLIPIDEMIA 09/29/2016 JHON COREAS FACC, ALI FACP CCDS Ot I10 ESSENTIAL (PRIMARY) HYPERTENSION 09/29/2016 JHON REYESC, ALI FACP CCDS Ot I25.10 ATHSCL HEART DISEASE OF [place] CORONARY 09/29/2016 JHON COREAS FACC, ALI FACP CCDS Ot I73.9 PERIPHERAL VASCULAR DISEASE, UNSPECIFIED 09/29/2016 JHON COREAS FACC, ALI FACP CCDS Ot I77.1 STRICTURE OF ARTERY 10/22/2016 JHON COREAS FACC, ALI FACP CCDS Ot E78.4 OTHER HYPERLIPIDEMIA 10/22/2016 JHON COREAS FACC, ALI FACP CCDS Ot I10 ESSENTIAL (PRIMARY) HYPERTENSION 10/22/2016 JHON REYES, ALI FACP CCDS Ot I25.10 ATHSCL HEART DISEASE OF [place] CORONARY 10/22/2016 JHON COREAS FACC, ALI FACP CCDS Ot I73.9 PERIPHERAL VASCULAR DISEASE, UNSPECIFIED 10/22/2016 JHON COREAS FACC, ALI FACP CCDS Ot I77.1 STRICTURE OF ARTERY 11/02/2016 JHON COREAS FACC, ALI FACP CCDS Ot E78.4 OTHER HYPERLIPIDEMIA 11/02/2016 JHON COREAS FACC, ALI FACP CCDS Ot I10 ESSENTIAL (PRIMARY) HYPERTENSION 11/02/2016 JHON REYES, ALI FACP CCDS Ot I25.10 ATHSCL HEART DISEASE OF [place] CORONARY 11/02/2016 JHON REYES, ALI FACP CCDS Ot I73.9 PERIPHERAL VASCULAR DISEASE, UNSPECIFIED 11/02/2016 JHON COREAS FACC, ALI FACP CCDS Ot I77.1 STRICTURE OF ARTERY 12/23/2016 LYNN AVILA DO Ot J43.8 OTHER EMPHYSEMA 12/23/2016 LYNN AVILA DO Ot J96.20 ACUTE AND CHR RESP FAILURE, UNSP W HYPOX 01/04/2017 EVERT, OMAR N CLINICAL STUDIES SPECIALIST Ot R42 DIZZINESS AND GIDDINESS 01/04/2017 OMAR LOYD CLINICAL STUDIES SPECIALIST Ot R42 DIZZINESS AND GIDDINESS 01/04/2017 OMAR LOYD CLINICAL STUDIES SPECIALIST Ot R42 DIZZINESS AND GIDDINESS 01/05/2017 OMAR LOYD CLINICAL STUDIES SPECIALIST Ot I10 ESSENTIAL (PRIMARY) HYPERTENSION 01/05/2017 OMAR LOYD CLINICAL STUDIES SPECIALIST Ot R42 DIZZINESS AND GIDDINESS 01/05/2017 OMAR LOYD CLINICAL STUDIES SPECIALIST Ot R51 HEADACHE 01/10/2017 OMAR LOYD CLINICAL STUDIES SPECIALIST Ot I10 ESSENTIAL (PRIMARY) HYPERTENSION 01/10/2017 OMAR LOYD CLINICAL STUDIES SPECIALIST Ot R42 DIZZINESS AND GIDDINESS 01/10/2017 OMAR LOYD CLINICAL STUDIES SPECIALIST Ot R51 HEADACHE 01/13/2017 LYNN AVILA DO Ot J43.8 OTHER EMPHYSEMA 01/13/2017 LYNN AVILA DO Ot J96.20 ACUTE AND CHR RESP FAILURE, UNSP W HYPOX 02/06/2017 LYNN AVILA DO Ot J43.8 OTHER EMPHYSEMA 02/06/2017 AUSTINLYNN QUIROZ DO Ot J96.20 ACUTE AND CHR RESP FAILURE, UNSP W HYPOX 02/07/2017 OMAR LOYD CLINICAL STUDIES SPECIALIST Ot I10 ESSENTIAL (PRIMARY) HYPERTENSION 02/07/2017 OMAR LOYD CLINICAL STUDIES SPECIALIST Ot R42 DIZZINESS AND GIDDINESS 02/07/2017 OMAR LOYD CLINICAL STUDIES SPECIALIST Ot R51 HEADACHE 02/10/2017 LYNN AVILA DO M Ot J43.8 OTHER EMPHYSEMA 02/10/2017 LYNN AVILA DO Ot J96.20 ACUTE AND CHR RESP FAILURE, UNSP W HYPOX 02/11/2017 LYNN AVILA DO M Ot J43.8 OTHER EMPHYSEMA 02/11/2017 AUSTINKIRIT QUIROZ DOSON M Ot J96.20 ACUTE AND CHR RESP FAILURE, UNSP W HYPOX 02/11/2017 LYNN AVILA DO M Ot J43.8 OTHER EMPHYSEMA 02/11/2017 AUSTINKIRIT QUIROZ DOSON M Ot J96.20 ACUTE AND CHR RESP FAILURE, UNSP W HYPOX 02/12/2017 LYNN AVILA DO M Ot J43.8 OTHER EMPHYSEMA 02/12/2017 AUSTINLYNN QUIROZ DO M Ot J96.20 ACUTE AND CHR RESP FAILURE, UNSP W HYPOX 02/23/2017 OMAR LOYD CLINICAL STUDIES SPECIALIST Ot I10 ESSENTIAL (PRIMARY) HYPERTENSION 02/23/2017 OMAR LOYD CLINICAL STUDIES SPECIALIST Ot R42 DIZZINESS AND GIDDINESS 02/23/2017 OMAR LOYD CLINICAL STUDIES SPECIALIST Ot R51 HEADACHE 04/19/2017 LYNN AVILA DO Ot J43.8 OTHER EMPHYSEMA 04/19/2017 LYNN AVILA DO Ot J96.20 ACUTE AND CHR RESP FAILURE, UNSP W HYPOX 04/25/2017 LYNN AVILA DO Ot J43.8 OTHER EMPHYSEMA 04/25/2017 LYNN AVILA DO Ot J96.20 ACUTE AND CHR RESP FAILURE, UNSP W HYPOX 05/11/2017 LYNN AVILA DO Ot J43.8 OTHER EMPHYSEMA 05/11/2017 LYNN AVILA DO Ot J96.20 ACUTE AND CHR RESP FAILURE, UNSP W HYPOX 07/27/2017 DALIA IZQUIERDO DO S Ot E78.5 HYPERLIPIDEMIA, UNSPECIFIED 07/27/2017 DALIA IZQUIERDO DO S Ot R53.83 OTHER FATIGUE 07/27/2017 XI IZQUIERDO DOLINE S Ot Z83.3 FAMILY HISTORY OF DIABETES MELLITUS 08/18/2017 Ot 496 CHR AIRWAY OBSTRUCT NEC 08/18/2017 Ot 786.09 RESPIRATORY ABNORM NEC 08/18/2017 Ot 786.2 COUGH 08/18/2017 JHON COREAS FAC, ALI FACP CCDS Ot 424.1 AORTIC VALVE DISORDER 08/18/2017 JHON COREAS FAC, ALI FACP CCDS Ot 786.09 RESPIRATORY ABNORM NEC 08/18/2017 BISHOP MANUEL Ot 496 CHR AIRWAY OBSTRUCT NEC 08/18/2017 BISHOP MANUEL Ot 786.50 CHEST PAIN NOS 08/18/2017 Ot 496 CHR AIRWAY OBSTRUCT NEC 08/18/2017 Ot 510.9 EMPYEMA W/O FISTULA 08/18/2017 Ot 519.11 ACUTE BRONCHOSPASM 08/18/2017 Ot 496 CHR AIRWAY OBSTRUCT NEC 08/18/2017 Ot 519.11 ACUTE BRONCHOSPASM 08/18/2017 LYNN AVILA DO Ot V72.84 EXAM PRE-OPERATIVE NOS 08/18/2017 LYNN AVILA DO Ot 272.4 HYPERLIPIDEMIA NEC/NOS 08/18/2017 LYNN AVILA DO Ot 414.00 CORON ATHEROSCLER NOS TYPE VESSEL, NATIV 08/18/2017 LYNN AVILA DO Ot 492.8 EMPHYSEMA NEC 08/18/2017 LYNN AVILA DO Ot 530.81 ESOPHAGEAL REFLUX 08/18/2017 LYNN AVILA DO Ot 793.11 SOLITARY PULMONARY NODULE 08/18/2017 BISHOP MANUEL Ot 496 CHR AIRWAY OBSTRUCT NEC 08/18/2017 BISHOP MANUEL Ot 715.90 OSTEOARTHROS NOS-UNSPEC 08/18/2017 BISHOP MANUEL Ot 786.50 CHEST PAIN NOS 08/18/2017 BISHOP MANUEL Ot V04.81 ND FOR PROPHYLACTIC VACCIN AND INOCULATI 08/18/2017 LYNN AVILA DO Ot 486 PNEUMONIA, ORGANISM NOS 08/18/2017 LYNN AVILA DO Ot 496 CHR AIRWAY OBSTRUCT NEC 08/18/2017 LYNN AVILA DO Ot 518.83 CHRONIC RESPIRATORY FAILURE 08/18/2017 Ot 272.4 HYPERLIPIDEMIA NEC/NOS 08/18/2017 Ot 414.00 CORON ATHEROSCLER NOS TYPE VESSEL, NATIV 08/18/2017 Ot 496 CHR AIRWAY OBSTRUCT NEC 08/18/2017 Ot 785.1 PALPITATIONS 08/18/2017 LYNN AVILA DO Ot 486 PNEUMONIA, ORGANISM NOS 08/18/2017 LYNN AVILA DO Ot 496 CHR AIRWAY OBSTRUCT NEC 08/18/2017 LYNN AVILA DO Ot 486 PNEUMONIA, ORGANISM NOS 08/18/2017 LYNN AVILA DO Ot 496 CHR AIRWAY OBSTRUCT NEC 08/18/2017 BISHOP MANUEL Ot 272.4 HYPERLIPIDEMIA NEC/NOS 08/18/2017 BISHOP MANUEL Ot 305.1 TOBACCO USE DISORDER 08/18/2017 BISHOP MANUEL Ot 414.00 CORON ATHEROSCLER NOS TYPE VESSEL, NATIV 08/18/2017 BISHOP MANUEL Ot 477.9 ALLERGIC RHINITIS NOS 08/18/2017 BISHOP MANUEL Ot 496 CHR AIRWAY OBSTRUCT NEC 08/18/2017 BISHOP MANUEL Ot 530.81 ESOPHAGEAL REFLUX 08/18/2017 BISHOP MANUEL Ot 535.50 UNSP GASTRITIS GASTRODUODENITIS W/O ME 08/18/2017 BISHOP MANUEL Ot 553.3 DIAPHRAGMATIC HERNIA 08/18/2017 BISHOP MANUEL Ot 600.00 HYPERTROPHY (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 URI 08/18/2017 BISHOP MANUEL Ot 715.90 OSTEOARTHROS NOS-UNSPEC 08/18/2017 BISHOP MANUEL Ot 789.00 ABDOMINAL PAIN, UNSPECIFIED SITE 08/18/2017 JOE MAYS GEOGRAPHY FACULTY MEMBER Ot 272.4 HYPERLIPIDEMIA NEC/NOS 08/18/2017 TABATHA JOE L GEOGRAPHY FACULTY MEMBER Ot 305.1 TOBACCO USE DISORDER 08/18/2017 JOE MAYS L GEOGRAPHY FACULTY MEMBER Ot 414.9 CHR ISCHEMIC HRT DIS NOS 08/18/2017 JOE MAYS L GEOGRAPHY FACULTY MEMBER Ot 447.9 ARTERIAL DISEASE NOS 08/18/2017 JOE MAYS L GEOGRAPHY FACULTY MEMBER Ot 496 CHR AIRWAY OBSTRUCT NEC 08/18/2017 BERLIN MAYSHER L GEOGRAPHY FACULTY MEMBER Ot 789.09 ABDOMINAL PAIN, OTHER SPECIFIED SITE 08/18/2017 BERTA COREAS, LAMONT Ot 553.21 INCISIONAL HERNIA 08/18/2017 BERTA COREAS, LAMONT Ot V72.63 PRE-PROCEDURAL LABORATORY EXAMINATION 08/18/2017 LAMONT HAMPTON MD Ot V74.8 SCREEN-BACTERIAL DIS NEC 08/18/2017 JOE MAYS GEOGRAPHY FACULTY MEMBER Ot E78.5 HYPERLIPIDEMIA, UNSPECIFIED 08/18/2017 JOE MAYS L GEOGRAPHY FACULTY MEMBER Ot I25.10 ATHSCL HEART DISEASE OF [place] CORONARY 08/18/2017 JOE MAYS GEOGRAPHY FACULTY MEMBER Ot I77.9 DISORDER OF ARTERIES AND ARTERIOLES, UNS 08/18/2017 JOE MAYS GEOGRAPHY FACULTY MEMBER Ot J44.9 CHRONIC OBSTRUCTIVE PULMONARY DISEASE, U 08/18/2017 LUCIUS HERR APRN Ot J18.9 PNEUMONIA, UNSPECIFIED ORGANISM 08/18/2017 LUCIUS HERR APRN Ot J44.9 CHRONIC OBSTRUCTIVE PULMONARY DISEASE, U 08/18/2017 LUCIUS HERR APRN Ot J96.11 CHRONIC RESPIRATORY FAILURE WITH HYPOXIA 08/18/2017 BRANDEE BOSS DO Ot K21.9 GASTRO-ESOPHAGEAL REFLUX DISEASE WITHOUT 08/18/2017 BRANDEE BOSS DO Ot Z01.818 ENCOUNTER FOR OTHER PREPROCEDURAL EXAMIN 08/18/2017 JHON COREAS FACC, ALI FACP CCDS Ot E78.4 OTHER HYPERLIPIDEMIA 08/18/2017 JHON COREAS FACC, ALI FACP CCDS Ot I25.10 ATHSCL HEART DISEASE OF [place] CORONARY 08/18/2017 JHON COREAS FACC, ALI FACP CCDS Ot I65.23 OCCLUSION AND STENOSIS OF BILATERAL [place] 08/18/2017 JHON COREAS FACC, ALI FACP CCDS Ot K21.9 GASTRO-ESOPHAGEAL REFLUX DISEASE WITHOUT 08/18/2017 JHON REYES, ALI FACP CCDS Ot R00.2 PALPITATIONS 08/18/2017 JHON REYES, ALI FACP CCDS Ot R06.02 SHORTNESS OF BREATH 08/18/2017 JHON COREAS FACC, ALI FACP CCDS Ot Z72.0 TOBACCO USE 08/18/2017 LUCIUS HERR CLINICAL STUDIES SPECIALIST Ot J30.2 OTHER SEASONAL ALLERGIC RHINITIS 08/18/2017 LUCIUS HERR CLINICAL STUDIES SPECIALIST Ot J43.8 OTHER EMPHYSEMA 08/18/2017 LUCIUS HERR CLINICAL STUDIES SPECIALIST Ot J96.11 CHRONIC RESPIRATORY FAILURE WITH HYPOXIA 08/18/2017 LUCIUS HERR CLINICAL STUDIES SPECIALIST Ot J96.20 ACUTE AND CHR RESP FAILURE, UNSP W HYPOX 08/18/2017 LUCIUS HERR CLINICAL STUDIES SPECIALIST Ot Z72.0 TOBACCO USE 08/18/2017 LUCIUS HERR CLINICAL STUDIES SPECIALIST Ot Z99.81 DEPENDENCE ON SUPPLEMENTAL OXYGEN 08/18/2017 JOE MAYS L GEOGRAPHY FACULTY MEMBER Ot I47.2 VENTRICULAR TACHYCARDIA 08/18/2017 JOE MAYS L GEOGRAPHY FACULTY MEMBER Ot R00.1 BRADYCARDIA, UNSPECIFIED 08/18/2017 LUCIUS HERR CLINICAL STUDIES SPECIALIST Ot J39.9 DISEASE OF UPPER RESPIRATORY TRACT, UNSP 08/18/2017 LUCIUS HERR CLINICAL STUDIES SPECIALIST Ot J43.8 OTHER EMPHYSEMA 08/18/2017 LUCIUS HERR CLINICAL STUDIES SPECIALIST Ot J96.11 CHRONIC RESPIRATORY FAILURE WITH HYPOXIA 08/18/2017 LUCIUS HERR CLINICAL STUDIES SPECIALIST Ot J43.8 OTHER EMPHYSEMA 08/18/2017 LUCIUS HERR CLINICAL STUDIES SPECIALIST Ot J96.11 CHRONIC RESPIRATORY FAILURE WITH HYPOXIA 08/18/2017 LUCIUS HERR CLINICAL STUDIES SPECIALIST Ot J96.20 ACUTE AND CHR RESP FAILURE, UNSP W HYPOX 08/18/2017 LUCIUS HERR CLINICAL STUDIES SPECIALIST Ot R06.02 SHORTNESS OF BREATH 08/18/2017 LUCIUS HERR CLINICAL STUDIES SPECIALIST Ot J18.9 PNEUMONIA, UNSPECIFIED ORGANISM 08/18/2017 LUCIUS HERR CLINICAL STUDIES SPECIALIST Ot J43.8 OTHER EMPHYSEMA 08/18/2017 JHON COREAS FACC, ALI FACP CCDS Ot E78.4 OTHER HYPERLIPIDEMIA 08/18/2017 JHON COREAS FACC, ALI FACP CCDS Ot I10 ESSENTIAL (PRIMARY) HYPERTENSION 08/18/2017 JHON REYES, ALI FACP CCDS Ot I25.10 ATHSCL HEART DISEASE OF [place] CORONARY 08/18/2017 JHON COREAS [facility], ALI FACP CCDS Ot I73.9 PERIPHERAL VASCULAR DISEASE, UNSPECIFIED 08/18/2017 JHON REYES, ALI FACP CCDS Ot I77.1 STRICTURE OF ARTERY 08/18/2017 OMAR LOYD CLINICAL STUDIES SPECIALIST Ot I10 ESSENTIAL (PRIMARY) HYPERTENSION 08/18/2017 OMAR LOYD CLINICAL STUDIES SPECIALIST Ot R42 DIZZINESS AND GIDDINESS 08/18/2017 OMAR LOYD CLINICAL STUDIES SPECIALIST Ot R51 HEADACHE 08/18/2017 KIRIT AVILA DOSON M Ot J43.8 OTHER EMPHYSEMA 08/18/2017 AUSTINKIRIT QUIROZ DOSON M Ot J96.20 ACUTE AND CHR RESP FAILURE, UNSP W HYPOX 08/18/2017 ORENDER DO, DALIA S Ot E78.5 HYPERLIPIDEMIA, UNSPECIFIED 08/18/2017 ORENDER DO, DALIA S Ot R53.83 OTHER FATIGUE 08/18/2017 ORENDER DO, DALIA S Ot Z83.3 FAMILY HISTORY OF DIABETES MELLITUS 08/22/2017 ORENDER DO, DALIA S Ot A41.9 SEPSIS, UNSPECIFIED ORGANISM 08/22/2017 ORENDER DO, DALIA S Ot I10 ESSENTIAL (PRIMARY) HYPERTENSION 08/22/2017 ORENDER DO, DALIA S Ot J44.1 CHRONIC OBSTRUCTIVE PULMONARY DISEASE W 08/22/2017 ORENDER DO, DALIA S Ot J96.20 ACUTE AND CHR RESP FAILURE, UNSP W HYPOX 08/22/2017 ORENDER DO, DLAIA S Ot K21.9 GASTRO-ESOPHAGEAL REFLUX DISEASE WITHOUT 08/22/2017 ORENDER DO, DALIA S Ot Z66 DO NOT RESUSCITATE 08/22/2017 DALIA IZQUIERDO DO Ot Z87.891 PERSONAL HISTORY OF NICOTINE DEPENDENCE 08/22/2017 DALIA IZQUIERDO DO Ot Z95.5 PRESENCE OF CORONARY ANGIOPLASTY IMPLANT 08/22/2017 DALIA IZQUIERDO DO Ot Z99.81 DEPENDENCE ON SUPPLEMENTAL OXYGEN 11/09/2017 DALIA IZQUIERDO DO Ot D64.9 ANEMIA, UNSPECIFIED 11/09/2017 DALIA IZQUIERDO DO Ot I10 ESSENTIAL (PRIMARY) HYPERTENSION 11/09/2017 DALIA IZQUIERDO DO Ot J44.9 CHRONIC OBSTRUCTIVE PULMONARY DISEASE, U 11/09/2017 DALIA IZQUIERDO DO Ot R53.83 OTHER FATIGUE 11/09/2017 DALIA IZQUIERDO DO Ot R79.82 ELEVATED C-REACTIVE PROTEIN (CRP) 12/01/2017 DALIA IZQUIERDO DO Ot D64.9 ANEMIA, UNSPECIFIED 12/01/2017 DALIA IZQUIERDO DO Ot I10 ESSENTIAL (PRIMARY) HYPERTENSION 12/01/2017 DALIA IZQUIERDO DO Ot J44.9 CHRONIC OBSTRUCTIVE PULMONARY DISEASE, U 12/01/2017 DALIA IZQUIERDO DO Ot R53.83 OTHER FATIGUE 12/01/2017 DALIA IZQUIERDO DO Ot R79.82 ELEVATED C-REACTIVE PROTEIN (CRP) 01/31/2018 Ot 496 CHR AIRWAY OBSTRUCT NEC 01/31/2018 Ot 786.09 RESPIRATORY ABNORM NEC 01/31/2018 Ot 786.2 COUGH 01/31/2018 JHON COREAS FACC, ALI FACP CCDS Ot 424.1 AORTIC VALVE DISORDER 01/31/2018 JHON COREAS FACC, ALI FACP CCDS Ot 786.09 RESPIRATORY ABNORM NEC 01/31/2018 BISHOP MANUEL Ot 496 CHR AIRWAY OBSTRUCT NEC 01/31/2018 BISHOP MANUEL Ot 786.50 CHEST PAIN NOS 01/31/2018 Ot 496 CHR AIRWAY OBSTRUCT NEC 01/31/2018 Ot 510.9 EMPYEMA W/O FISTULA 01/31/2018 Ot 519.11 ACUTE BRONCHOSPASM 01/31/2018 Ot 496 CHR AIRWAY OBSTRUCT NEC 01/31/2018 Ot 519.11 ACUTE BRONCHOSPASM 01/31/2018 LYNN AVILA DO Ot V72.84 EXAM PRE-OPERATIVE NOS 01/31/2018 LYNN AVILA DO Ot 272.4 HYPERLIPIDEMIA NEC/NOS 01/31/2018 LYNN AVILA DO Ot 414.00 CORON ATHEROSCLER NOS TYPE VESSEL, NATIV 01/31/2018 LYNN AVILA DO Ot 492.8 EMPHYSEMA NEC 01/31/2018 LYNN AVILA DO Ot 530.81 ESOPHAGEAL REFLUX 01/31/2018 LYNN AVILA DO Ot 793.11 SOLITARY PULMONARY NODULE 01/31/2018 BISHOP MANUEL Ot 496 CHR AIRWAY OBSTRUCT NEC 01/31/2018 BISHOP MANUEL Ot 715.90 OSTEOARTHROS NOS-UNSPEC 01/31/2018 BISHOP MANUEL Ot 786.50 CHEST PAIN NOS 01/31/2018 BISHOP MANUEL Ot V04.81 ND FOR PROPHYLACTIC VACCIN AND INOCULATI 01/31/2018 LYNN AVILA DO Ot 486 PNEUMONIA, ORGANISM NOS 01/31/2018 LYNN AVILA DO Ot 496 CHR AIRWAY OBSTRUCT NEC 01/31/2018 LYNN AVILA DO Ot 518.83 CHRONIC RESPIRATORY FAILURE 01/31/2018 Ot 272.4 HYPERLIPIDEMIA NEC/NOS 01/31/2018 Ot 414.00 CORON ATHEROSCLER NOS TYPE VESSEL, NATIV 01/31/2018 Ot 496 CHR AIRWAY OBSTRUCT NEC 01/31/2018 Ot 785.1 PALPITATIONS 01/31/2018 LYNN AVILA DO Ot 486 PNEUMONIA, ORGANISM NOS 01/31/2018 LYNN AVILA DO Ot 496 CHR AIRWAY OBSTRUCT NEC 01/31/2018 LYNN AVILA DO Ot 486 PNEUMONIA, ORGANISM NOS 01/31/2018 LYNN AVILA DO Ot 496 CHR AIRWAY OBSTRUCT NEC 01/31/2018 BISHOP MANUEL Ot 272.4 HYPERLIPIDEMIA NEC/NOS 01/31/2018 BISHOP MANUEL Ot 305.1 TOBACCO USE DISORDER 01/31/2018 BISHOP MANUEL Ot 414.00 CORON ATHEROSCLER NOS TYPE VESSEL, NATIV 01/31/2018 BISHOP MANUEL Ot 477.9 ALLERGIC RHINITIS NOS 01/31/2018 BISHOP MANUEL Ot 496 CHR AIRWAY OBSTRUCT NEC 01/31/2018 BISHOP MANUEL Ot 530.81 ESOPHAGEAL REFLUX 01/31/2018 BISHOP MANUEL Ot 535.50 UNSP GASTRITIS GASTRODUODENITIS W/O ME 01/31/2018 BISHOP MANUEL Ot 553.3 DIAPHRAGMATIC HERNIA 01/31/2018 BISHOP MANUEL Ot 600.00 HYPERTROPHY (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 URI 01/31/2018 BISHOP MANUEL Ot 715.90 OSTEOARTHROS NOS-UNSPEC 01/31/2018 BISHOP MANUEL Ot 789.00 ABDOMINAL PAIN, UNSPECIFIED SITE 01/31/2018 JOE MAYS GEOGRAPHY FACULTY MEMBER Ot 272.4 HYPERLIPIDEMIA NEC/NOS 01/31/2018 JOE MAYS GEOGRAPHY FACULTY MEMBER Ot 305.1 TOBACCO USE DISORDER 01/31/2018 JOE MAYS L GEOGRAPHY FACULTY MEMBER Ot 414.9 CHR ISCHEMIC HRT DIS NOS 01/31/2018 JOE MAYS GEOGRAPHY FACULTY MEMBER Ot 447.9 ARTERIAL DISEASE NOS 01/31/2018 JOE MAYS GEOGRAPHY FACULTY MEMBER Ot 496 CHR AIRWAY OBSTRUCT NEC 01/31/2018 JOE MAYS GEOGRAPHY FACULTY MEMBER Ot 789.09 ABDOMINAL PAIN, OTHER SPECIFIED SITE 01/31/2018 BERTA COREAS, LAMONT Ot 553.21 INCISIONAL HERNIA 01/31/2018 LAMONT HAMPTON MD Ot V72.63 PRE-PROCEDURAL LABORATORY EXAMINATION 01/31/2018 LAMONT HAMPTON MD Ot V74.8 SCREEN-BACTERIAL DIS NEC 01/31/2018 JOE MAYS GEOGRAPHY FACULTY MEMBER Ot E78.5 HYPERLIPIDEMIA, UNSPECIFIED 01/31/2018 JOE MAYS GEOGRAPHY FACULTY MEMBER Ot I25.10 ATHSCL HEART DISEASE OF [place] CORONARY 01/31/2018 JOE MAYS GEOGRAPHY FACULTY MEMBER Ot I77.9 DISORDER OF ARTERIES AND ARTERIOLES, UNS 01/31/2018 JOE MAYS GEOGRAPHY FACULTY MEMBER Ot J44.9 CHRONIC OBSTRUCTIVE PULMONARY DISEASE, U 01/31/2018 LUCIUS HERR APRN Ot J18.9 PNEUMONIA, UNSPECIFIED ORGANISM 01/31/2018 LUCIUS HERR APRN Ot J44.9 CHRONIC OBSTRUCTIVE PULMONARY DISEASE, U 01/31/2018 LUCIUS HERR APRN Ot J96.11 CHRONIC RESPIRATORY FAILURE WITH HYPOXIA 01/31/2018 BRANDEE BOSS DO Ot K21.9 GASTRO-ESOPHAGEAL REFLUX DISEASE WITHOUT 01/31/2018 BRANDEE BOSS DO Ot Z01.818 ENCOUNTER FOR OTHER PREPROCEDURAL EXAMIN 01/31/2018 JHON COREAS FACC, ALI FACP CCDS Ot E78.4 OTHER HYPERLIPIDEMIA 01/31/2018 JHON COREAS FACC, ALI FACP CCDS Ot I25.10 ATHSCL HEART DISEASE OF [place] CORONARY 01/31/2018 JHON COREAS FACC, ALI FACP CCDS Ot I65.23 OCCLUSION AND STENOSIS OF BILATERAL [place] 01/31/2018 JHON COREAS FACC, ALI FACP CCDS Ot K21.9 GASTRO-ESOPHAGEAL REFLUX DISEASE WITHOUT 01/31/2018 JHON COREAS FACC, ALI FACP CCDS Ot R00.2 PALPITATIONS 01/31/2018 JHON COREAS FACC, ALI FACP CCDS Ot R06.02 SHORTNESS OF BREATH 01/31/2018 JHON COREAS FACC, ALI FACP CCDS Ot Z72.0 TOBACCO USE 01/31/2018 LUCIUS HERR CLINICAL STUDIES SPECIALIST Ot J30.2 OTHER SEASONAL ALLERGIC RHINITIS 01/31/2018 LUCIUS HERR CLINICAL STUDIES SPECIALIST Ot J43.8 OTHER EMPHYSEMA 01/31/2018 LUCIUS HERR CLINICAL STUDIES SPECIALIST Ot J96.11 CHRONIC RESPIRATORY FAILURE WITH HYPOXIA 01/31/2018 LUCIUS HERR CLINICAL STUDIES SPECIALIST Ot J96.20 ACUTE AND CHR RESP FAILURE, [facility] W HYPOX 01/31/2018 LUCIUS HERR CLINICAL STUDIES SPECIALIST Ot Z72.0 TOBACCO USE 01/31/2018 LUCIUS HERR CLINICAL STUDIES SPECIALIST Ot Z99.81 DEPENDENCE ON SUPPLEMENTAL OXYGEN 01/31/2018 JOE MAYS GEOGRAPHY FACULTY MEMBER Ot I47.2 VENTRICULAR TACHYCARDIA 01/31/2018 JOE MAYS L GEOGRAPHY FACULTY MEMBER Ot R00.1 BRADYCARDIA, UNSPECIFIED 01/31/2018 LUCIUS HERR CLINICAL STUDIES SPECIALIST Ot J39.9 DISEASE OF UPPER RESPIRATORY TRACT, UNSP 01/31/2018 LUCIUS HERR CLINICAL STUDIES SPECIALIST Ot J43.8 OTHER EMPHYSEMA 01/31/2018 LUCIUS HERR CLINICAL STUDIES SPECIALIST Ot J96.11 CHRONIC RESPIRATORY FAILURE WITH HYPOXIA 01/31/2018 LUICUS HERR CLINICAL STUDIES SPECIALIST Ot J43.8 OTHER EMPHYSEMA 01/31/2018 LUCIUS HERR CLINICAL STUDIES SPECIALIST Ot J96.11 CHRONIC RESPIRATORY FAILURE WITH HYPOXIA 01/31/2018 LUCIUS HERR CLINICAL STUDIES SPECIALIST Ot J96.20 ACUTE AND CHR RESP FAILURE, UNSP W HYPOX 01/31/2018 LUCIUS HERR CLINICAL STUDIES SPECIALIST Ot R06.02 SHORTNESS OF BREATH 01/31/2018 LUCIUS HERR CLINICAL STUDIES SPECIALIST Ot J18.9 PNEUMONIA, UNSPECIFIED ORGANISM 01/31/2018 LUCIUS HERR CLINICAL STUDIES SPECIALIST Ot J43.8 OTHER EMPHYSEMA 01/31/2018 JHON REYES, ALI FACP CCDS Ot E78.4 OTHER HYPERLIPIDEMIA 01/31/2018 JHON COREAS FACC, ALI FACP CCDS Ot I10 ESSENTIAL (PRIMARY) HYPERTENSION 01/31/2018 JHON COREAS FACC, ALI FACP CCDS Ot I25.10 ATHSCL HEART DISEASE OF [place] CORONARY 01/31/2018 JHON COREAS FACC, ALI FACP CCDS Ot I73.9 PERIPHERAL VASCULAR DISEASE, UNSPECIFIED 01/31/2018 JHON COREAS FACC, ALI FACP CCDS Ot I77.1 STRICTURE OF ARTERY 01/31/2018 OMAR LOYD CLINICAL STUDIES SPECIALIST Ot I10 ESSENTIAL (PRIMARY) HYPERTENSION 01/31/2018 OMAR LOYD CLINICAL STUDIES SPECIALIST Ot R42 DIZZINESS AND GIDDINESS 01/31/2018 OMAR LOYD CLINICAL STUDIES SPECIALIST Ot R51 HEADACHE 01/31/2018 LYNN AVILA DO Ot J43.8 OTHER EMPHYSEMA 01/31/2018 LYNN AVILA DO Ot J96.20 ACUTE AND CHR RESP FAILURE, UNSP W HYPOX 01/31/2018 ORENDER DO, DALIA S Ot E78.5 HYPERLIPIDEMIA, UNSPECIFIED 01/31/2018 ORENDER DO, DALIA S Ot R53.83 OTHER FATIGUE 01/31/2018 ORENDER DO, DALIA S Ot Z83.3 FAMILY HISTORY OF DIABETES MELLITUS 01/31/2018 ORENDER DO, DALIA S Ot D64.9 ANEMIA, UNSPECIFIED 01/31/2018 ORENDER DO, DALIA S Ot I10 ESSENTIAL (PRIMARY) HYPERTENSION 01/31/2018 ORENDER DO, DALIA S Ot J44.9 CHRONIC OBSTRUCTIVE PULMONARY DISEASE, U 01/31/2018 ORENDER DO, DALIA S Ot R53.83 OTHER FATIGUE 01/31/2018 DALIA IZQUIERDO DO Ot R79.82 ELEVATED C-REACTIVE PROTEIN (CRP) 02/21/2018 LUCIUS HERR APRN Ot J43.9 EMPHYSEMA, UNSPECIFIED 02/21/2018 LUCIUS HERR APRN Ot J96.11 CHRONIC RESPIRATORY FAILURE WITH HYPOXIA 03/06/2018 Ot 496 CHR AIRWAY OBSTRUCT NEC 03/06/2018 Ot 786.09 RESPIRATORY ABNORM NEC 03/06/2018 Ot 786.2 COUGH 03/06/2018 JHON COREAS FACC, ALI FACP CCDS Ot 424.1 AORTIC VALVE DISORDER 03/06/2018 JHON COREAS FACC, ALI FACP CCDS Ot 786.09 RESPIRATORY ABNORM NEC 03/06/2018 BISHOP MANUEL Ot 496 CHR AIRWAY OBSTRUCT NEC 03/06/2018 BISHOP MANUEL Ot 786.50 CHEST PAIN NOS 03/06/2018 Ot 496 CHR AIRWAY OBSTRUCT NEC 03/06/2018 Ot 510.9 EMPYEMA W/O FISTULA 03/06/2018 Ot 519.11 ACUTE BRONCHOSPASM 03/06/2018 Ot 496 CHR AIRWAY OBSTRUCT NEC 03/06/2018 Ot 519.11 ACUTE BRONCHOSPASM 03/06/2018 LYNN AVILA DO Ot V72.84 EXAM PRE-OPERATIVE NOS 03/06/2018 LYNN AVILA DO Ot 272.4 HYPERLIPIDEMIA NEC/NOS 03/06/2018 LYNN AVILA DO Ot 414.00 CORON ATHEROSCLER NOS TYPE VESSEL, NATIV 03/06/2018 LYNN AVILA DO Ot 492.8 EMPHYSEMA NEC 03/06/2018 LYNN AVILA DO Ot 530.81 ESOPHAGEAL REFLUX 03/06/2018 LYNN AVILA DO Ot 793.11 SOLITARY PULMONARY NODULE 03/06/2018 BISHOP MANUEL Ot 496 CHR AIRWAY OBSTRUCT NEC 03/06/2018 BISHOP MANUEL Ot 715.90 OSTEOARTHROS NOS-UNSPEC 03/06/2018 BISHOP MANUEL Ot 786.50 CHEST PAIN NOS 03/06/2018 BISHOP MANUEL Ot V04.81 ND FOR PROPHYLACTIC VACCIN AND INOCULATI 03/06/2018 LYNN AVILA DO Ot 486 PNEUMONIA, ORGANISM NOS 03/06/2018 LYNN AVILA DO Ot 496 CHR AIRWAY OBSTRUCT NEC 03/06/2018 AUSTIN LYNN HEATON Ot 518.83 CHRONIC RESPIRATORY FAILURE 03/06/2018 Ot 272.4 HYPERLIPIDEMIA NEC/NOS 03/06/2018 Ot 414.00 CORON ATHEROSCLER NOS TYPE VESSEL, NATIV 03/06/2018 Ot 496 CHR AIRWAY OBSTRUCT NEC 03/06/2018 Ot 785.1 PALPITATIONS 03/06/2018 AUSTIN HEATONLYNN Ot 486 PNEUMONIA, ORGANISM NOS 03/06/2018 AUSTIN LYNN HEATON Ot 496 CHR AIRWAY OBSTRUCT NEC 03/06/2018 AUSTIN HEATONLYNN Ot 486 PNEUMONIA, ORGANISM NOS 03/06/2018 AUSTIN HEATONLYNN Ot 496 CHR AIRWAY OBSTRUCT NEC 03/06/2018 BISHOP MANUEL Ot 272.4 HYPERLIPIDEMIA NEC/NOS 03/06/2018 BISHOP MANUEL Ot 305.1 TOBACCO USE DISORDER 03/06/2018 BISHOP MANUEL Ot 414.00 CORON ATHEROSCLER NOS TYPE VESSEL, NATIV 03/06/2018 BISHOP MANUEL Ot 477.9 ALLERGIC RHINITIS NOS 03/06/2018 BISHOP MANUEL Ot 496 CHR AIRWAY OBSTRUCT NEC 03/06/2018 BISHOP MANUEL Ot 530.81 ESOPHAGEAL REFLUX 03/06/2018 BISHOP MANUEL Ot 535.50 UNSP GASTRITIS GASTRODUODENITIS W/O ME 03/06/2018 BISHOP MANUEL Ot 553.3 DIAPHRAGMATIC HERNIA 03/06/2018 BISHOP MANUEL Ot 600.00 HYPERTROPHY (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 URI 03/06/2018 BISHOP MANUEL Ot 715.90 OSTEOARTHROS NOS-UNSPEC 03/06/2018 BISHOP MANUEL Ot 789.00 ABDOMINAL PAIN, UNSPECIFIED SITE 03/06/2018 JOE MAYS GEOGRAPHY FACULTY MEMBER Ot 272.4 HYPERLIPIDEMIA NEC/NOS 03/06/2018 JOE MAYS L GEOGRAPHY FACULTY MEMBER Ot 305.1 TOBACCO USE DISORDER 03/06/2018 BERLIN MAYSHER L GEOGRAPHY FACULTY MEMBER Ot 414.9 CHR ISCHEMIC HRT DIS NOS 03/06/2018 JOE MAYS L GEOGRAPHY FACULTY MEMBER Ot 447.9 ARTERIAL DISEASE NOS 03/06/2018 JOE MAYS L GEOGRAPHY FACULTY MEMBER Ot 496 CHR AIRWAY OBSTRUCT NEC 03/06/2018 TABATHA JOE Becky GEOGRAPHY FACULTY MEMBER Ot 789.09 ABDOMINAL PAIN, OTHER SPECIFIED SITE 03/06/2018 BERTA COREAS, LAMONT Ot 553.21 INCISIONAL HERNIA 03/06/2018 LAMONT HAMPTON MD Ot V72.63 PRE-PROCEDURAL LABORATORY EXAMINATION 03/06/2018 LAMONT HAMPTON MD Ot V74.8 SCREEN-BACTERIAL DIS NEC 03/06/2018 JOE MAYS GEOGRAPHY FACULTY MEMBER Ot E78.5 HYPERLIPIDEMIA, UNSPECIFIED 03/06/2018 TABATHA JOE L GEOGRAPHY FACULTY MEMBER Ot I25.10 ATHSCL HEART DISEASE OF [place] CORONARY 03/06/2018 JOE MAYS GEOGRAPHY FACULTY MEMBER Ot I77.9 DISORDER OF ARTERIES AND ARTERIOLES, UNS 03/06/2018 JOE MAYS GEOGRAPHY FACULTY MEMBER Ot J44.9 CHRONIC OBSTRUCTIVE PULMONARY DISEASE, U 03/06/2018 LUCIUS HERR APRN Ot J18.9 PNEUMONIA, UNSPECIFIED ORGANISM 03/06/2018 LUCIUS HERR APRN Ot J44.9 CHRONIC OBSTRUCTIVE PULMONARY DISEASE, U 03/06/2018 LUCIUS HERR APRN Ot J96.11 CHRONIC RESPIRATORY FAILURE WITH HYPOXIA 03/06/2018 BRANDEE BOSS DO Ot K21.9 GASTRO-ESOPHAGEAL REFLUX DISEASE WITHOUT 03/06/2018 BRANDEE BOSS DO Ot Z01.818 ENCOUNTER FOR OTHER PREPROCEDURAL EXAMIN 03/06/2018 JHON COREAS FACC, MATT FACP CCDS Ot E78.4 OTHER HYPERLIPIDEMIA 03/06/2018 JHON COREAS FACC, MATT FACP CCDS Ot I25.10 ATHSCL HEART DISEASE OF [place] CORONARY 03/06/2018 JHON COREAS FACC, ALI FACP CCDS Ot I65.23 OCCLUSION AND STENOSIS OF BILATERAL [place] 03/06/2018 JHON COREAS FACC, ALI FACP CCDS Ot K21.9 GASTRO-ESOPHAGEAL REFLUX DISEASE WITHOUT 03/06/2018 JHON COREAS FACC, ALI FACP CCDS Ot R00.2 PALPITATIONS 03/06/2018 JHON COREAS FACC, ALI FACP CCDS Ot R06.02 SHORTNESS OF BREATH 03/06/2018 JHON COREAS FACC, ALI FACP CCDS Ot Z72.0 TOBACCO USE 03/06/2018 CARMENZA, LUCIUS E CLINICAL STUDIES SPECIALIST Ot J30.2 OTHER SEASONAL ALLERGIC RHINITIS 03/06/2018 LUCIUS HERR CLINICAL STUDIES SPECIALIST Ot J43.8 OTHER EMPHYSEMA 03/06/2018 LUCIUS HERR CLINICAL STUDIES SPECIALIST Ot J96.11 CHRONIC RESPIRATORY FAILURE WITH HYPOXIA 03/06/2018 LUCIUS HERR CLINICAL STUDIES SPECIALIST Ot J96.20 ACUTE AND CHR RESP FAILURE, UNSP W HYPOX 03/06/2018 LUCIUS HERR CLINICAL STUDIES SPECIALIST Ot Z72.0 TOBACCO USE 03/06/2018 LUCIUS HERR CLINICAL STUDIES SPECIALIST Ot Z99.81 DEPENDENCE ON SUPPLEMENTAL OXYGEN 03/06/2018 NAVARROJOE HOWELL L GEOGRAPHY FACULTY MEMBER Ot I47.2 VENTRICULAR TACHYCARDIA 03/06/2018 BAILYNDAJOE L GEOGRAPHY FACULTY MEMBER Ot R00.1 BRADYCARDIA, UNSPECIFIED 03/06/2018 LUCIUS HERR CLINICAL STUDIES SPECIALIST Ot J39.9 DISEASE OF UPPER RESPIRATORY TRACT, UNSP 03/06/2018 LUCIUS HERR CLINICAL STUDIES SPECIALIST Ot J43.8 OTHER EMPHYSEMA 03/06/2018 LUCIUS HERR CLINICAL STUDIES SPECIALIST Ot J96.11 CHRONIC RESPIRATORY FAILURE WITH HYPOXIA 03/06/2018 LUCIUS HERR CLINICAL STUDIES SPECIALIST Ot J43.8 OTHER EMPHYSEMA 03/06/2018 LUCIUS HERR CLINICAL STUDIES SPECIALIST Ot J96.11 CHRONIC RESPIRATORY FAILURE WITH HYPOXIA 03/06/2018 LUCIUS HERR CLINICAL STUDIES SPECIALIST Ot J96.20 ACUTE AND CHR RESP FAILURE, UNSP W HYPOX 03/06/2018 LUCIUS HERR CLINICAL STUDIES SPECIALIST Ot R06.02 SHORTNESS OF BREATH 03/06/2018 LUCIUS HERR CLINICAL STUDIES SPECIALIST Ot J18.9 PNEUMONIA, UNSPECIFIED ORGANISM 03/06/2018 LUCIUS HERR CLINICAL STUDIES SPECIALIST Ot J43.8 OTHER EMPHYSEMA 03/06/2018 JHON COREAS FACC, ALI FACP CCDS Ot E78.4 OTHER HYPERLIPIDEMIA 03/06/2018 JHON COREAS FACC, ALI FACP CCDS Ot I10 ESSENTIAL (PRIMARY) HYPERTENSION 03/06/2018 JHON COREAS FACC, ALI FACP CCDS Ot I25.10 ATHSCL HEART DISEASE OF [place] CORONARY 03/06/2018 JHON COREAS FACC, ALI FACP CCDS Ot I73.9 PERIPHERAL VASCULAR DISEASE, UNSPECIFIED 03/06/2018 JHON COREAS FACC, ALI FACP CCDS Ot I77.1 STRICTURE OF ARTERY 03/06/2018 EVERT, OMAR N CLINICAL STUDIES SPECIALIST Ot I10 ESSENTIAL (PRIMARY) HYPERTENSION 03/06/2018 OMAR LOYD CLINICAL STUDIES SPECIALIST Ot R42 DIZZINESS AND GIDDINESS 03/06/2018 OMAR LOYD CLINICAL STUDIES SPECIALIST Ot R51 HEADACHE 03/06/2018 LYNN AVILA DO Ot J43.8 OTHER EMPHYSEMA 03/06/2018 LYNN AVILA DO Ot J96.20 ACUTE AND CHR RESP FAILURE, UNSP W HYPOX 03/06/2018 ORENDER DO, DALIA S Ot E78.5 HYPERLIPIDEMIA, UNSPECIFIED 03/06/2018 ORENDER DO, DALIA S Ot R53.83 OTHER FATIGUE 03/06/2018 ORENDER DO, DALIA S Ot Z83.3 FAMILY HISTORY OF DIABETES MELLITUS 03/06/2018 ORENDER DO, DALIA S Ot D64.9 ANEMIA, UNSPECIFIED 03/06/2018 ORENDER DO, DALIA S Ot I10 ESSENTIAL (PRIMARY) HYPERTENSION 03/06/2018 ORENDER DO, DALIA S Ot J44.9 CHRONIC OBSTRUCTIVE PULMONARY DISEASE, U 03/06/2018 ORENDER DO, DALIA S Ot R53.83 OTHER FATIGUE 03/06/2018 ORENDER DO, DALIA S Ot R79.82 ELEVATED C-REACTIVE PROTEIN (CRP) 03/06/2018 LUCIUS HERR APRN Ot J43.9 EMPHYSEMA, UNSPECIFIED 03/06/2018 LUCIUS HERR APRN Ot J96.11 CHRONIC RESPIRATORY FAILURE WITH HYPOXIA 04/25/2018 BAIMA, JOE L GEOGRAPHY FACULTY MEMBER Ot E78.5 HYPERLIPIDEMIA, UNSPECIFIED 04/25/2018 BAIMA, JOE L GEOGRAPHY FACULTY MEMBER Ot I10 ESSENTIAL (PRIMARY) HYPERTENSION 04/25/2018 BAIMA, JOE L GEOGRAPHY FACULTY MEMBER Ot I25.10 ATHSCL HEART DISEASE OF [place] CORONARY 04/25/2018 BAIMA, JOE L GEOGRAPHY FACULTY MEMBER Ot R00.2 PALPITATIONS 04/25/2018 BAIMA, JOE L GEOGRAPHY FACULTY MEMBER Ot R06.02 SHORTNESS OF BREATH 04/25/2018 BAIMA, JOE L GEOGRAPHY FACULTY MEMBER Ot R07.89 OTHER CHEST PAIN 06/02/2018 Ot 496 CHR AIRWAY OBSTRUCT NEC 06/02/2018 Ot 786.09 RESPIRATORY ABNORM NEC 06/02/2018 Ot 786.2 COUGH 06/02/2018 JHON COREAS FACC, ALI [facility] CCD[facility] Ot 424.1 AORTIC VALVE DISORDER 06/02/2018 JHON COREAS FACC, ALI [facility] CCDS Ot 786.09 RESPIRATORY ABNORM NEC 06/02/2018 BISHOP MANUEL Ot 496 CHR AIRWAY OBSTRUCT NEC 06/02/2018 BISHOP MANUEL Ot 786.50 CHEST PAIN NOS 06/02/2018 Ot 496 CHR AIRWAY OBSTRUCT NEC 06/02/2018 Ot 510.9 EMPYEMA W/O FISTULA 06/02/2018 Ot 519.11 ACUTE BRONCHOSPASM 06/02/2018 Ot 496 CHR AIRWAY OBSTRUCT NEC 06/02/2018 Ot 519.11 ACUTE BRONCHOSPASM 06/02/2018 LYNN AVILA DO Ot V72.84 EXAM PRE-OPERATIVE NOS 06/02/2018 LYNN AVILA DO Ot 272.4 HYPERLIPIDEMIA NEC/NOS 06/02/2018 LYNN AVILA DO Ot 414.00 CORON ATHEROSCLER NOS TYPE VESSEL, NATIV 06/02/2018 LYNN AVILA DO Ot 492.8 EMPHYSEMA NEC 06/02/2018 LYNN AVILA DO Ot 530.81 ESOPHAGEAL REFLUX 06/02/2018 LYNN AVILA DO Ot 793.11 SOLITARY PULMONARY NODULE 06/02/2018 BISHOP MANUEL Ot 496 CHR AIRWAY OBSTRUCT NEC 06/02/2018 BISHOP MANUEL Ot 715.90 OSTEOARTHROS NOS-UNSPEC 06/02/2018 BISHOP MANUEL Ot 786.50 CHEST PAIN NOS 06/02/2018 BISHOP MANUEL Ot V04.81 ND FOR PROPHYLACTIC VACCIN AND INOCULATI 06/02/2018 LYNN AVILA DO Ot 486 PNEUMONIA, ORGANISM NOS 06/02/2018 LYNN AVILA DO Ot 496 CHR AIRWAY OBSTRUCT NEC 06/02/2018 LYNN AVLIA DO Ot 518.83 CHRONIC RESPIRATORY FAILURE 06/02/2018 Ot 272.4 HYPERLIPIDEMIA NEC/NOS 06/02/2018 Ot 414.00 CORON ATHEROSCLER NOS TYPE VESSEL, NATIV 06/02/2018 Ot 496 CHR AIRWAY OBSTRUCT NEC 06/02/2018 Ot 785.1 PALPITATIONS 06/02/2018 LYNN AVILA DO Ot 486 PNEUMONIA, ORGANISM NOS 06/02/2018 LYNN AVILA DO Ot 496 CHR AIRWAY OBSTRUCT NEC 06/02/2018 AUSTIN LYNN Donald Ot 486 PNEUMONIA, ORGANISM NOS 06/02/2018 KIRIT AVILA DOCATARINO Bennett Ot 496 CHR AIRWAY OBSTRUCT NEC 06/02/2018 BISHOP MANUEL Ot 272.4 HYPERLIPIDEMIA NEC/NOS 06/02/2018 BISHOP MANUEL Ot 305.1 TOBACCO USE DISORDER 06/02/2018 BISHOP MANUEL Ot 414.00 CORON ATHEROSCLER NOS TYPE VESSEL, NATIV 06/02/2018 BISHOP MANUEL Ot 477.9 ALLERGIC RHINITIS NOS 06/02/2018 BISHOP MANUEL Ot 496 CHR AIRWAY OBSTRUCT NEC 06/02/2018 BISHOP MANUEL Ot 530.81 ESOPHAGEAL REFLUX 06/02/2018 BISHOP MANUEL Ot 535.50 UNSP GASTRITIS GASTRODUODENITIS W/O ME 06/02/2018 BISHOP MANUEL Ot 553.3 DIAPHRAGMATIC HERNIA 06/02/2018 BISHOP MANUEL Ot 600.00 HYPERTROPHY (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 URI 06/02/2018 BISHOP MANUEL Ot 715.90 OSTEOARTHROS NOS-UNSPEC 06/02/2018 BISHOP MANUEL Ot 789.00 ABDOMINAL PAIN, UNSPECIFIED SITE 06/02/2018 JOE MAYS GEOGRAPHY FACULTY MEMBER Ot 272.4 HYPERLIPIDEMIA NEC/NOS 06/02/2018 BERLIN MAYSHER L GEOGRAPHY FACULTY MEMBER Ot 305.1 TOBACCO USE DISORDER 06/02/2018 BERLIN MAYSHER L GEOGRAPHY FACULTY MEMBER Ot 414.9 CHR ISCHEMIC HRT DIS NOS 06/02/2018 TABATHA JOE L GEOGRAPHY FACULTY MEMBER Ot 447.9 ARTERIAL DISEASE NOS 06/02/2018 TABATHA JOE L GEOGRAPHY FACULTY MEMBER Ot 496 CHR AIRWAY OBSTRUCT NEC 06/02/2018 TABATHA JOE L GEOGRAPHY FACULTY MEMBER Ot 789.09 ABDOMINAL PAIN, OTHER SPECIFIED SITE 06/02/2018 LAMONT HAMPTON MD Ot 553.21 INCISIONAL HERNIA 06/02/2018 LAMONT HAMPTON MD Ot V72.63 PRE-PROCEDURAL LABORATORY EXAMINATION 06/02/2018 LAMONT HAMPTON MD Ot V74.8 SCREEN-BACTERIAL DIS NEC 06/02/2018 BERLIN MAYSHER L GEOGRAPHY FACULTY MEMBER Ot E78.5 HYPERLIPIDEMIA, UNSPECIFIED 06/02/2018 NAVARROJOE HOWELL Becky GEOGRAPHY FACULTY MEMBER Ot I25.10 ATHSCL HEART DISEASE OF [place] CORONARY 06/02/2018 NAVARROJOE HOWELL Becky GEOGRAPHY FACULTY MEMBER Ot I77.9 DISORDER OF ARTERIES AND ARTERIOLES, UNS 06/02/2018 TABATAH JOE Pena GEOGRAPHY FACULTY MEMBER Ot J44.9 CHRONIC OBSTRUCTIVE PULMONARY DISEASE, U 06/02/2018 LUCIUS HERR CLINICAL STUDIES SPECIALIST Ot J18.9 PNEUMONIA, UNSPECIFIED ORGANISM 06/02/2018 LUCIUS HERR CLINICAL STUDIES SPECIALIST Ot J44.9 CHRONIC OBSTRUCTIVE PULMONARY DISEASE, U 06/02/2018 LUCIUS HERR CLINICAL STUDIES SPECIALIST Ot J96.11 CHRONIC RESPIRATORY FAILURE WITH HYPOXIA 06/02/2018 BRANDEE BOSS DO Ot K21.9 GASTRO-ESOPHAGEAL REFLUX DISEASE WITHOUT 06/02/2018 BRANDEE BOSS DO Ot Z01.818 ENCOUNTER FOR OTHER PREPROCEDURAL EXAMIN 06/02/2018 JHON COREAS FACC, ALI FACP CCDS Ot E78.4 OTHER HYPERLIPIDEMIA 06/02/2018 JHON COREAS FACIris, ALI FACP CCDS Ot I25.10 ATHSCL HEART DISEASE OF [place] CORONARY 06/02/2018 JHON COREAS FACC, ALI FACP CCDS Ot I65.23 OCCLUSION AND STENOSIS OF BILATERAL [place] 06/02/2018 JHON COREAS FACIris, ALI FACP CCDS Ot K21.9 GASTRO-ESOPHAGEAL REFLUX DISEASE WITHOUT 06/02/2018 JHON COREAS FACC, ALI FACP CCDS Ot R00.2 PALPITATIONS 06/02/2018 JHON COREAS FACC, ALI FACP CCDS Ot R06.02 SHORTNESS OF BREATH 06/02/2018 JHON COREAS FACC, ALI FACP CCDS Ot Z72.0 TOBACCO USE 06/02/2018 LUCIUS HERR CLINICAL STUDIES SPECIALIST Ot J30.2 OTHER SEASONAL ALLERGIC RHINITIS 06/02/2018 LUCIUS HERR CLINICAL STUDIES SPECIALIST Ot J43.8 OTHER EMPHYSEMA 06/02/2018 LUCIUS HERR CLINICAL STUDIES SPECIALIST Ot J96.11 CHRONIC RESPIRATORY FAILURE WITH HYPOXIA 06/02/2018 LUCIUS HERR CLINICAL STUDIES SPECIALIST Ot J96.20 ACUTE AND CHR RESP FAILURE, UNSP W HYPOX 06/02/2018 LUCIUS HERR CLINICAL STUDIES SPECIALIST Ot Z72.0 TOBACCO USE 06/02/2018 LUCIUS HERR CLINICAL STUDIES SPECIALIST Ot Z99.81 DEPENDENCE ON SUPPLEMENTAL OXYGEN 06/02/2018 JOE MAYS GEOGRAPHY FACULTY MEMBER Ot I47.2 VENTRICULAR TACHYCARDIA 06/02/2018 NAVARROJOE HOWELL GEOGRAPHY FACULTY MEMBER Ot R00.1 BRADYCARDIA, UNSPECIFIED 06/02/2018 LUCIUS HERR CLINICAL STUDIES SPECIALIST Ot J39.9 DISEASE OF UPPER RESPIRATORY TRACT, UNSP 06/02/2018 LUCIUS HERR CLINICAL STUDIES SPECIALIST Ot J43.8 OTHER EMPHYSEMA 06/02/2018 LUCIUS HERR CLINICAL STUDIES SPECIALIST Ot J96.11 CHRONIC RESPIRATORY FAILURE WITH HYPOXIA 06/02/2018 LUCIUS HERR CLINICAL STUDIES SPECIALIST Ot J43.8 OTHER EMPHYSEMA 06/02/2018 CARMENZALUCIUS MERLOS CLINICAL STUDIES SPECIALIST Ot J96.11 CHRONIC RESPIRATORY FAILURE WITH HYPOXIA 06/02/2018 LUCIUS HERR CLINICAL STUDIES SPECIALIST Ot J96.20 ACUTE AND CHR RESP FAILURE, UNSP W HYPOX 06/02/2018 LUCIUS HERR CLINICAL STUDIES SPECIALIST Ot R06.02 SHORTNESS OF BREATH 06/02/2018 LUCIUS HERR CLINICAL STUDIES SPECIALIST Ot J18.9 PNEUMONIA, UNSPECIFIED ORGANISM 06/02/2018 LUCIUS HERR CLINICAL STUDIES SPECIALIST Ot J43.8 OTHER EMPHYSEMA 06/02/2018 JHON COREAS FAC, ALI FACP CCDS Ot E78.4 OTHER HYPERLIPIDEMIA 06/02/2018 JHON COREAS FAC, ALI FACP CCDS Ot I10 ESSENTIAL (PRIMARY) HYPERTENSION 06/02/2018 JHON COREAS FAC, ALI FACP CCDS Ot I25.10 ATHSCL HEART DISEASE OF [place] CORONARY 06/02/2018 JHON REYES, ALI FACP CCDS Ot I73.9 PERIPHERAL VASCULAR DISEASE, UNSPECIFIED 06/02/2018 JHON REYES, ALI FACP CCDS Ot I77.1 STRICTURE OF ARTERY 06/02/2018 OMAR LOYD CLINICAL STUDIES SPECIALIST Ot I10 ESSENTIAL (PRIMARY) HYPERTENSION 06/02/2018 OMAR LOYD CLINICAL STUDIES SPECIALIST Ot R42 DIZZINESS AND GIDDINESS 06/02/2018 OMAR LOYD CLINICAL STUDIES SPECIALIST Ot R51 HEADACHE 06/02/2018 LYNN AVILA DO Ot J43.8 OTHER EMPHYSEMA 06/02/2018 LYNN AVILA DO Ot J96.20 ACUTE AND CHR RESP FAILURE, UNSP W HYPOX 06/02/2018 ORENDER DO, DALIA S Ot E78.5 HYPERLIPIDEMIA, UNSPECIFIED 06/02/2018 JAMELNDER DO, DALIA S Ot R53.83 OTHER FATIGUE 06/02/2018 JAMELNDER , DALIA S Ot Z83.3 FAMILY HISTORY OF DIABETES MELLITUS 06/02/2018 JAMELNDER , DALIA S Ot D64.9 ANEMIA, UNSPECIFIED 06/02/2018 ORENDER DO, DALIA S Ot I10 ESSENTIAL (PRIMARY) HYPERTENSION 06/02/2018 JAMELNDER , DALIA S Ot J44.9 CHRONIC OBSTRUCTIVE PULMONARY DISEASE, U 06/02/2018 TIFFANIEER , DALIA S Ot R53.83 OTHER FATIGUE 06/02/2018 JAMELNDER , DALIA S Ot R79.82 ELEVATED C-REACTIVE PROTEIN (CRP) 06/02/2018 LUCIUS HERR APRN Ot J43.9 EMPHYSEMA, UNSPECIFIED 06/02/2018 LUCIUS HERR APRN Ot J96.11 CHRONIC RESPIRATORY FAILURE WITH HYPOXIA 06/02/2018 BAIMA, JOE L GEOGRAPHY FACULTY MEMBER Ot E78.5 HYPERLIPIDEMIA, UNSPECIFIED 06/02/2018 BAIMA, JOE L GEOGRAPHY FACULTY MEMBER Ot I10 ESSENTIAL (PRIMARY) HYPERTENSION 06/02/2018 BAIMA, JOE L GEOGRAPHY FACULTY MEMBER Ot I25.10 ATHSCL HEART DISEASE OF [place] CORONARY 06/02/2018 BAIMA, JOE L GEOGRAPHY FACULTY MEMBER Ot R00.2 PALPITATIONS 06/02/2018 BAIMA, JOE L GEOGRAPHY FACULTY MEMBER Ot R06.02 SHORTNESS OF BREATH 06/02/2018 BAIMA, JOE L GEOGRAPHY FACULTY MEMBER Ot R07.89 OTHER CHEST PAIN 06/08/2018 TIFFANIEER , DALIA S Ot E78.5 HYPERLIPIDEMIA, UNSPECIFIED 06/08/2018 TIFFANIEER , DALIA S Ot R53.83 OTHER FATIGUE 06/14/2018 BAIMA, JOE L GEOGRAPHY FACULTY MEMBER Ot I10 ESSENTIAL (PRIMARY) HYPERTENSION 06/14/2018 BAIMA, JOE L GEOGRAPHY FACULTY MEMBER Ot I25.10 ATHSCL HEART DISEASE OF [place] CORONARY 06/14/2018 BAIMA, JOE L GEOGRAPHY FACULTY MEMBER Ot R07.9 CHEST PAIN, UNSPECIFIED 06/14/2018 BAIMA, JOE L GEOGRAPHY FACULTY MEMBER Ot I10 ESSENTIAL (PRIMARY) HYPERTENSION 06/14/2018 BAIMA, JOE L GEOGRAPHY FACULTY MEMBER Ot I25.10 ATHSCL HEART DISEASE OF [place] CORONARY 06/14/2018 JOE MAYS GEOGRAPHY FACULTY MEMBER Ot R07.9 CHEST PAIN, UNSPECIFIED 06/28/2018 JAMELNDER , DALIA S Ot D64.9 ANEMIA, UNSPECIFIED 06/28/2018 ORENDER DO, DALIA S Ot I10 ESSENTIAL (PRIMARY) HYPERTENSION 06/28/2018 ORENDER DO, DALIA S Ot J44.9 CHRONIC OBSTRUCTIVE PULMONARY DISEASE, U 06/28/2018 ORENDER DO, DALIA S Ot R53.83 OTHER FATIGUE 06/28/2018 ORENDER DO, DALIA S Ot R79.82 ELEVATED C-REACTIVE PROTEIN (CRP) 07/24/2018 JOE MAYS GEOGRAPHY FACULTY MEMBER Ot I10 ESSENTIAL (PRIMARY) HYPERTENSION 07/24/2018 JOE MAYS GEOGRAPHY FACULTY MEMBER Ot I25.10 ATHSCL HEART DISEASE OF [place] CORONARY 07/24/2018 JOE MAYS GEOGRAPHY FACULTY MEMBER Ot R07.9 CHEST PAIN, UNSPECIFIED 09/28/2018 LUCIUS HERR CLINICAL STUDIES SPECIALIST Ot J30.2 OTHER SEASONAL ALLERGIC RHINITIS 09/28/2018 LUCIUS HERR CLINICAL STUDIES SPECIALIST Ot J44.9 CHRONIC OBSTRUCTIVE PULMONARY DISEASE, U 09/28/2018 LUCIUS HERR CLINICAL STUDIES SPECIALIST Ot J96.11 CHRONIC RESPIRATORY FAILURE WITH HYPOXIA 09/28/2018 LUCIUS HERR CLINICAL STUDIES SPECIALIST Ot J96.20 ACUTE AND CHR RESP FAILURE, UNSP W HYPOX 10/17/2018 LUCIUS HERR CLINICAL STUDIES SPECIALIST Ot J30.2 OTHER SEASONAL ALLERGIC RHINITIS 10/17/2018 LUCIUS HERR CLINICAL STUDIES SPECIALIST Ot J44.9 CHRONIC OBSTRUCTIVE PULMONARY DISEASE, U 10/17/2018 LUCIUS HERR CLINICAL STUDIES SPECIALIST Ot J96.11 CHRONIC RESPIRATORY FAILURE WITH HYPOXIA 10/17/2018 LUCIUS HERR CLINICAL STUDIES SPECIALIST Ot J96.20 ACUTE AND CHR RESP FAILURE, UNSP W HYPOX Procedures Code Description Performed By Performed On 53.61 OTHER OPEN INCISIONAL HERNIA REPAIR WITH 03/20/2015 Results Test Result Range Complete blood count (CBC) with automated white blood cell (WBC) differential - 07/04/17 08:57 Blood leukocytes automated count (number/volume) 8.2 10*3/uL 4.3-11.0 Blood erythrocytes automated count (number/volume) 4.25 10*6/uL 4.35-5.85 Venous blood hemoglobin measurement (mass/volume) 13.1 g/dL 13.3-17.7 Blood hematocrit (volume fraction) 41 % 40-54 Automated erythrocyte mean corpuscular volume 96 [foz_us] 80-99 Automated erythrocyte mean corpuscular hemoglobin (mass per erythrocyte) 31 pg 25-34 Automated erythrocyte mean corpuscular hemoglobin concentration measurement ( mass/volume) 32 g/dL 32-36 Automated erythrocyte distribution width ratio 13.3 % 10.0-14.5 Automated blood platelet count (count/volume) 191 10*3/uL 130-400 Automated blood platelet mean volume measurement 10.3 [foz_us] 7.4-10.4 Automated blood neutrophils/100 leukocytes 69 % 42-75 Automated blood lymphocytes/100 leukocytes 19 % 12-44 Blood monocytes/100 leukocytes 9 % 0-12 Automated blood eosinophils/100 leukocytes 3 % 0-10 Automated blood basophils/100 leukocytes 1 % 0-10 Blood neutrophils automated count (number/volume) 5.7 10*3 1.8-7.8 Blood lymphocytes automated count (number/volume) 1.5 10*3 1.0-4.0 Blood monocytes automated count (number/volume) 0.7 10*3 0.0-1.0 Automated eosinophil count 0.2 10*3/uL 0.0-0.3 Automated blood basophil count (count/volume) 0.0 10*3/uL 0.0-0.1 Comprehensive metabolic panel - 07/04/17 08:57 Serum or plasma sodium measurement (moles/volume) 142 mmol/L 135-145 Serum or plasma potassium measurement (moles/volume) 4.2 mmol/L 3.6-5.0 Serum or plasma chloride measurement (moles/volume) 105 mmol/L 98-107 Carbon dioxide 27 mmol/L 21-32 Serum or plasma anion gap determination (moles/volume) 10 mmol/L 5-14 Serum or plasma urea nitrogen measurement (mass/volume) 18 mg/dL 7-18 Serum or plasma creatinine measurement (mass/volume) 0.83 mg/dL 0.60-1.30 Serum or plasma urea nitrogen/creatinine mass ratio 22 NRG Serum or plasma creatinine measurement with calculation of estimated glomerular filtration rate > NRG Serum or plasma glucose measurement (mass/volume) 93 mg/dL 70-105 Serum or plasma calcium measurement (mass/volume) 9.1 mg/dL 8.5-10.1 Serum or plasma total bilirubin measurement (mass/volume) 0.3 mg/dL 0.1-1.0 Serum or plasma alkaline phosphatase measurement (enzymatic activity/volume) 79 U/L 40-136 Serum or plasma aspartate aminotransferase measurement (enzymatic activity/ volume) 14 U/L 5-34 Serum or plasma alanine aminotransferase measurement (enzymatic activity/volume ) 17 U/L 0-55 Serum or plasma protein measurement (mass/volume) 6.3 g/dL 6.4-8.2 Serum or plasma albumin measurement (mass/volume) 3.8 g/dL 3.2-4.5 Lipid 1996 panel - 07/04/17 08:57 Serum or plasma triglyceride measurement (mass/volume) 102 mg/dL <150 Serum or plasma cholesterol measurement (mass/volume) 135 mg/dL < 200 Serum or plasma cholesterol in HDL measurement (mass/volume) 51 mg/ dL 40-60 Cholesterol in LDL [mass/volume] in serum or plasma by direct assay 54 mg/dL 1-129 Serum or plasma cholesterol in VLDL measurement (mass/volume) 20 mg/ dL 5-40 THYROID STIMULATING HORMONE - 07/04/17 08:57 THYROID STIMULATING HORMONE 0.92 u[iU]/mL 0.35-4.94 Serum or plasma thyroxine (T4) free measurement (mass/volume) - 07/04/17 08:57 Serum or plasma thyroxine (T4) free measurement (mass/volume) 0.98 ng/dL 0.70-1.48 Hemoglobin A1c - 07/04/17 08:57 Hemoglobin A1c 5.6 % 4.5-6.2 Complete blood count (CBC) with automated white blood cell (WBC) differential - 08/18/17 13:20 Blood leukocytes automated count (number/volume) 17.8 10*3/uL 4.3-11.0 Blood erythrocytes automated count (number/volume) 4.16 10*6/uL 4.35-5.85 Venous blood hemoglobin measurement (mass/volume) 12.9 g/dL 13.3-17.7 Blood hematocrit (volume fraction) 39 % 40-54 Automated erythrocyte mean corpuscular volume 94 [foz_us] 80-99 Automated erythrocyte mean corpuscular hemoglobin (mass per erythrocyte) 31 pg 25-34 Automated erythrocyte mean corpuscular hemoglobin concentration measurement ( mass/volume) 33 g/dL 32-36 Automated erythrocyte distribution width ratio 13.2 % 10.0-14.5 Automated blood platelet count (count/volume) 195 10*3/uL 130-400 Automated blood platelet mean volume measurement 10.8 [foz_us] 7.4-10.4 Automated blood neutrophils/100 leukocytes 89 % 42-75 Automated blood lymphocytes/100 leukocytes 3 % 12-44 Blood monocytes/100 leukocytes 8 % 0-12 Automated blood eosinophils/100 leukocytes 0 % 0-10 Automated blood basophils/100 leukocytes 0 % 0-10 Blood neutrophils automated count (number/volume) 15.9 10*3 1.8-7.8 Blood lymphocytes automated count (number/volume) 0.5 10*3 1.0-4.0 Blood monocytes automated count (number/volume) 1.4 10*3 0.0-1.0 Automated eosinophil count 0.0 10*3/uL 0.0-0.3 Automated blood basophil count (count/volume) 0.0 10*3/uL 0.0-0.1 Blood lactic acid measurement (moles/volume) - 08/18/17 13:20 Blood lactic acid measurement (moles/volume) 3.03 mmol/L 0.50-2.00 Blood manual differential performed detection - 08/18/17 13:20 Blood monocytes/100 leukocytes 9 % NRG Manual blood segmented neutrophils/100 leukocytes 88 % NRG Blood band neutrophils/100 leukocytes 1 % NRG Manual blood lymphocytes/100 leukocytes 2 % NRG Blood erythrocyte morphology finding identification NORMAL NRG Blood toxic granules detection by light microscopy 1+ NRG Comprehensive metabolic panel - 08/18/17 13:20 Serum or plasma sodium measurement (moles/volume) 134 mmol/L 135-145 Serum or plasma potassium measurement (moles/volume) 3.8 mmol/L 3.6-5.0 Serum or plasma chloride measurement (moles/volume) 100 mmol/L 98-107 Carbon dioxide 21 mmol/L 21-32 Serum or plasma anion gap determination (moles/volume) 13 mmol/L 5-14 Serum or plasma urea nitrogen measurement (mass/volume) 20 mg/dL 7-18 Serum or plasma creatinine measurement (mass/volume) 0.77 mg/dL 0.60-1.30 Serum or plasma urea nitrogen/creatinine mass ratio 26 NRG Serum or plasma creatinine measurement with calculation of estimated glomerular filtration rate > NRG Serum or plasma glucose measurement (mass/volume) 160 mg/dL 70-105 Serum or plasma calcium measurement (mass/volume) 9.9 mg/dL 8.5-10.1 Serum or plasma total bilirubin measurement (mass/volume) 0.9 mg/dL 0.1-1.0 Serum or plasma alkaline phosphatase measurement (enzymatic activity/volume) 92 U/L 40-136 Serum or plasma aspartate aminotransferase measurement (enzymatic activity/ volume) 12 U/L 5-34 Serum or plasma alanine aminotransferase measurement (enzymatic activity/volume ) 12 U/L 0-55 Serum or plasma protein measurement (mass/volume) 7.0 g/dL 6.4-8.2 Serum or plasma albumin measurement (mass/volume) 3.6 g/dL 3.2-4.5 Magnesium - 08/18/17 13:20 Magnesium 2.0 mg/dL 1.8-2.4 Serum or plasma troponin i.cardiac measurement (mass/volume) - 08/18/17 13:20 Serum or plasma troponin i.cardiac measurement (mass/volume) < ng/ mL <0.30 Serum or plasma C reactive protein measurement (mass/volume) - 08/18/17 13:20 Serum or plasma C reactive protein measurement (mass/volume) 39.94 mg/dL 0.00-0.50 Bacterial blood culture - 08/18/17 13:20 Bacterial blood culture NG NRG Bacterial blood culture - 08/18/17 14:30 Bacterial blood culture NG NRG Serum or plasma lactate measurement (moles/volume) - 08/18/17 15:35 Serum or plasma lactate measurement (moles/volume) 3.33 mmol/L 0.50-2.00 Complete blood count (CBC) with automated white blood cell (WBC) differential - 08/19/17 05:40 Blood leukocytes automated count (number/volume) 5.7 10*3/uL 4.3-11.0 Blood erythrocytes automated count (number/volume) 3.04 10*6/uL 4.35-5.85 Venous blood hemoglobin measurement (mass/volume) 9.4 g/dL 13.3-17.7 Blood hematocrit (volume fraction) 29 % 40-54 Automated erythrocyte mean corpuscular volume 95 [foz_us] 80-99 Automated erythrocyte mean corpuscular hemoglobin (mass per erythrocyte) 31 pg 25-34 Automated erythrocyte mean corpuscular hemoglobin concentration measurement ( mass/volume) 33 g/dL 32-36 Automated erythrocyte distribution width ratio 12.8 % 10.0-14.5 Automated blood platelet count (count/volume) 165 10*3/uL 130-400 Automated blood platelet mean volume measurement 10.4 [foz_us] 7.4-10.4 Automated blood neutrophils/100 leukocytes 93 % 42-75 Automated blood lymphocytes/100 leukocytes 2 % 12-44 Blood monocytes/100 leukocytes 5 % 0-12 Automated blood eosinophils/100 leukocytes 0 % 0-10 Automated blood basophils/100 leukocytes 0 % 0-10 Blood neutrophils automated count (number/volume) 5.3 10*3 1.8-7.8 Blood lymphocytes automated count (number/volume) 0.1 10*3 1.0-4.0 Blood monocytes automated count (number/volume) 0.3 10*3 0.0-1.0 Automated eosinophil count 0.0 10*3/uL 0.0-0.3 Automated blood basophil count (count/volume) 0.0 10*3/uL 0.0-0.1 Comprehensive metabolic panel - 08/19/17 05:40 Serum or plasma sodium measurement (moles/volume) 136 mmol/L 135-145 Serum or plasma potassium measurement (moles/volume) 4.1 mmol/L 3.6-5.0 Serum or plasma chloride measurement (moles/volume) 109 mmol/L 98-107 Carbon dioxide 20 mmol/L 21-32 Serum or plasma anion gap determination (moles/volume) 7 mmol/L 5-14 Serum or plasma urea nitrogen measurement (mass/volume) 16 mg/dL 7-18 Serum or plasma creatinine measurement (mass/volume) 0.63 mg/dL 0.60-1.30 Serum or plasma urea nitrogen/creatinine mass ratio 25 NRG Serum or plasma creatinine measurement with calculation of estimated glomerular filtration rate > NRG Serum or plasma glucose measurement (mass/volume) 156 mg/dL 70-105 Serum or plasma calcium measurement (mass/volume) 8.2 mg/dL 8.5-10.1 Serum or plasma total bilirubin measurement (mass/volume) 0.3 mg/dL 0.1-1.0 Serum or plasma alkaline phosphatase measurement (enzymatic activity/volume) 67 U/L 40-136 Serum or plasma aspartate aminotransferase measurement (enzymatic activity/ volume) 14 U/L 5-34 Serum or plasma alanine aminotransferase measurement (enzymatic activity/volume ) 13 U/L 0-55 Serum or plasma protein measurement (mass/volume) 5.1 g/dL 6.4-8.2 Serum or plasma albumin measurement (mass/volume) 2.7 g/dL 3.2-4.5 Serum or plasma troponin i.cardiac measurement (mass/volume) - 08/19/17 05:40 Serum or plasma troponin i.cardiac measurement (mass/volume) < ng/ mL <0.30 Arterial blood gas measurement - 08/19/17 08:05 Blood pCO2 36 mm[Hg] 35-45 Blood pO2 72 mm[Hg] 79-93 Arterial blood bicarbonate measurement (moles/volume) 20 mmol/L 23-27 Arterial blood base excess by calculation -5.2 mmol/L - 2.5-2.5 Arterial blood oxygen saturation measurement 97 % 94-100 * Inhaled oxygen flow rate 5 L NRG Arterial blood pH measurement with patient temperature correction 7.35 7.37-7.43 Arterial blood carbon dioxide, total measurement (moles/volume) 20.9 mmol/L 21.0-31.0 Body site LEFT BRACHIAL NRG Assessment of wrist artery patency prior to arterial puncture POSITIVE NRG Setting of ventilation mode NO NRG Measurement of body temperature 96.4 NRG Complete blood count (CBC) with automated white blood cell (WBC) differential - 08/20/17 04:56 Blood leukocytes automated count (number/volume) 10.9 10*3/uL 4.3-11.0 Blood erythrocytes automated count (number/volume) 3.20 10*6/uL 4.35-5.85 Venous blood hemoglobin measurement (mass/volume) 9.8 g/dL 13.3-17.7 Blood hematocrit (volume fraction) 30 % 40-54 Automated erythrocyte mean corpuscular volume 95 [foz_us] 80-99 Automated erythrocyte mean corpuscular hemoglobin (mass per erythrocyte) 31 pg 25-34 Automated erythrocyte mean corpuscular hemoglobin concentration measurement ( mass/volume) 32 g/dL 32-36 Automated erythrocyte distribution width ratio 12.8 % 10.0-14.5 Automated blood platelet count (count/volume) 198 10*3/uL 130-400 Automated blood platelet mean volume measurement 10.1 [foz_us] 7.4-10.4 Automated blood neutrophils/100 leukocytes 93 % 42-75 Automated blood lymphocytes/100 leukocytes 2 % 12-44 Blood monocytes/100 leukocytes 5 % 0-12 Automated blood eosinophils/100 leukocytes 0 % 0-10 Automated blood basophils/100 leukocytes 0 % 0-10 Blood neutrophils automated count (number/volume) 10.2 10*3 1.8-7.8 Blood lymphocytes automated count (number/volume) 0.2 10*3 1.0-4.0 Blood monocytes automated count (number/volume) 0.5 10*3 0.0-1.0 Automated eosinophil count 0.0 10*3/uL 0.0-0.3 Automated blood basophil count (count/volume) 0.0 10*3/uL 0.0-0.1 Comprehensive metabolic panel - 08/20/17 04:56 Serum or plasma sodium measurement (moles/volume) 139 mmol/L 135-145 Serum or plasma potassium measurement (moles/volume) 4.2 mmol/L 3.6-5.0 Serum or plasma chloride measurement (moles/volume) 106 mmol/L 98-107 Carbon dioxide 23 mmol/L 21-32 Serum or plasma anion gap determination (moles/volume) 10 mmol/L 5-14 Serum or plasma urea nitrogen measurement (mass/volume) 19 mg/dL 7-18 Serum or plasma creatinine measurement (mass/volume) 0.66 mg/dL 0.60-1.30 Serum or plasma urea nitrogen/creatinine mass ratio 29 NRG Serum or plasma creatinine measurement with calculation of estimated glomerular filtration rate > NRG Serum or plasma glucose measurement (mass/volume) 111 mg/dL 70-105 Serum or plasma calcium measurement (mass/volume) 8.6 mg/dL 8.5-10.1 Serum or plasma total bilirubin measurement (mass/volume) 0.3 mg/dL 0.1-1.0 Serum or plasma alkaline phosphatase measurement (enzymatic activity/volume) 71 U/L 40-136 Serum or plasma aspartate aminotransferase measurement (enzymatic activity/ volume) 21 U/L 5-34 Serum or plasma alanine aminotransferase measurement (enzymatic activity/volume ) 18 U/L 0-55 Serum or plasma protein measurement (mass/volume) 5.5 g/dL 6.4-8.2 Serum or plasma albumin measurement (mass/volume) 2.9 g/dL 3.2-4.5 Serum or plasma C reactive protein measurement (mass/volume) - 08/20/17 04:56 Serum or plasma C reactive protein measurement (mass/volume) 12.73 mg/dL 0.00-0.50 Complete blood count (CBC) with automated white blood cell (WBC) differential - 11/08/17 11:50 Blood leukocytes automated count (number/volume) 11.1 10*3/uL 4.3-11.0 Blood erythrocytes automated count (number/volume) 4.16 10*6/uL 4.35-5.85 Venous blood hemoglobin measurement (mass/volume) 13.2 g/dL 13.3-17.7 Blood hematocrit (volume fraction) 39 % 40-54 Automated erythrocyte mean corpuscular volume 94 [foz_us] 80-99 Automated erythrocyte mean corpuscular hemoglobin (mass per erythrocyte) 32 pg 25-34 Automated erythrocyte mean corpuscular hemoglobin concentration measurement ( mass/volume) 34 g/dL 32-36 Automated erythrocyte distribution width ratio 14.1 % 10.0-14.5 Automated blood platelet count (count/volume) 192 10*3/uL 130-400 Automated blood platelet mean volume measurement 10.1 [foz_us] 7.4-10.4 Automated blood neutrophils/100 leukocytes 73 % 42-75 Automated blood lymphocytes/100 leukocytes 15 % 12-44 Blood monocytes/100 leukocytes 9 % 0-12 Automated blood eosinophils/100 leukocytes 3 % 0-10 Automated blood basophils/100 leukocytes 0 % 0-10 Blood neutrophils automated count (number/volume) 8.1 10*3 1.8-7.8 Blood lymphocytes automated count (number/volume) 1.7 10*3 1.0-4.0 Blood monocytes automated count (number/volume) 1.0 10*3 0.0-1.0 Automated eosinophil count 0.3 10*3/uL 0.0-0.3 Automated blood basophil count (count/volume) 0.0 10*3/uL 0.0-0.1 Blood blood smear finding identification by light microscopy [facility] Comprehensive metabolic panel - 11/08/17 11:50 Serum or plasma sodium measurement (moles/volume) 137 mmol/L 135-145 Serum or plasma potassium measurement (moles/volume) 3.8 mmol/L 3.6-5.0 Serum or plasma chloride measurement (moles/volume) 103 mmol/L 98-107 Carbon dioxide 25 mmol/L 21-32 Serum or plasma anion gap determination (moles/volume) 9 mmol/L 5-14 Serum or plasma urea nitrogen measurement (mass/volume) 10 mg/dL 7-18 Serum or plasma creatinine measurement (mass/volume) 0.78 mg/dL 0.60-1.30 Serum or plasma urea nitrogen/creatinine mass ratio 13 NRG Serum or plasma creatinine measurement with calculation of estimated glomerular filtration rate > NRG Serum or plasma glucose measurement (mass/volume) 82 mg/dL 70-105 Serum or plasma calcium measurement (mass/volume) 9.2 mg/dL 8.5-10.1 Serum or plasma total bilirubin measurement (mass/volume) 0.4 mg/dL 0.1-1.0 Serum or plasma alkaline phosphatase measurement (enzymatic activity/volume) 67 U/L 40-136 Serum or plasma aspartate aminotransferase measurement (enzymatic activity/ volume) 15 U/L 5-34 Serum or plasma alanine aminotransferase measurement (enzymatic activity/volume ) 16 U/L 0-55 Serum or plasma protein measurement (mass/volume) 6.4 g/dL 6.4-8.2 Serum or plasma albumin measurement (mass/volume) 4.0 g/dL 3.2-4.5 Serum or plasma C reactive protein measurement (mass/volume) - 11/08/17 11:50 Serum or plasma C reactive protein measurement (mass/volume) 0.66 mg /dL 0.00-0.50 Complete blood count (CBC) with automated white blood cell (WBC) differential - 06/02/18 08:56 Blood leukocytes automated count (number/volume) 8.6 10*3/uL 4.3-11.0 Blood erythrocytes automated count (number/volume) 4.00 10*6/uL 4.35-5.85 Venous blood hemoglobin measurement (mass/volume) 12.6 g/dL 13.3-17.7 Blood hematocrit (volume fraction) 38 % 40-54 Automated erythrocyte mean corpuscular volume 94 [foz_us] 80-99 Automated erythrocyte mean corpuscular hemoglobin (mass per erythrocyte) 32 pg 25-34 Automated erythrocyte mean corpuscular hemoglobin concentration measurement ( mass/volume) 34 g/dL 32-36 Automated erythrocyte distribution width ratio 13.3 % 10.0-14.5 Automated blood platelet count (count/volume) 181 10*3/uL 130-400 Automated blood platelet mean volume measurement 9.1 [foz_us] 7.4-10.4 Automated blood neutrophils/100 leukocytes 77 % 42-75 Automated blood lymphocytes/100 leukocytes 12 % 12-44 Blood monocytes/100 leukocytes 10 % 0-12 Automated blood eosinophils/100 leukocytes 1 % 0-10 Automated blood basophils/100 leukocytes 0 % 0-10 Blood neutrophils automated count (number/volume) 6.6 10*3 1.8-7.8 Blood lymphocytes automated count (number/volume) 1.0 10*3 1.0-4.0 Blood monocytes automated count (number/volume) 0.8 10*3 0.0-1.0 Automated eosinophil count 0.1 10*3/uL 0.0-0.3 Automated blood basophil count (count/volume) 0.0 10*3/uL 0.0-0.1 Comprehensive metabolic panel - 06/02/18 08:56 Serum or plasma sodium measurement (moles/volume) 137 mmol/L 135-145 Serum or plasma potassium measurement (moles/volume) 4.3 mmol/L 3.6-5.0 Serum or plasma chloride measurement (moles/volume) 102 mmol/L 98-107 Carbon dioxide 28 mmol/L 21-32 Serum or plasma anion gap determination (moles/volume) 7 mmol/L 5-14 Serum or plasma urea nitrogen measurement (mass/volume) 11 mg/dL 7-18 Serum or plasma creatinine measurement (mass/volume) 0.75 mg/dL 0.60-1.30 Serum or plasma urea nitrogen/creatinine mass ratio 15 NRG Serum or plasma creatinine measurement with calculation of estimated glomerular filtration rate > NRG Serum or plasma glucose measurement (mass/volume) 109 mg/dL 70-105 Serum or plasma calcium measurement (mass/volume) 9.2 mg/dL 8.5-10.1 Serum or plasma total bilirubin measurement (mass/volume) 0.3 mg/dL 0.1-1.0 Serum or plasma alkaline phosphatase measurement (enzymatic activity/volume) 67 U/L 40-136 Serum or plasma aspartate aminotransferase measurement (enzymatic activity/ volume) 14 U/L 5-34 Serum or plasma alanine aminotransferase measurement (enzymatic activity/volume ) 15 U/L 0-55 Serum or plasma protein measurement (mass/volume) 6.2 g/dL 6.4-8.2 Serum or plasma albumin measurement (mass/volume) 3.9 g/dL 3.2-4.5 CALCIUM CORRECTED 9.3 mg/dL 8.5-10.1 Lipid 1996 panel - 06/02/18 08:56 Serum or plasma triglyceride measurement (mass/volume) 102 mg/dL <150 Serum or plasma cholesterol measurement (mass/volume) 133 mg/dL < 200 Serum or plasma cholesterol in HDL measurement (mass/volume) 60 mg/ dL 40-60 Cholesterol in LDL [mass/volume] in serum or plasma by direct assay 49 mg/dL 1-129 Serum or plasma cholesterol in VLDL measurement (mass/volume) 20 mg/ dL 5-40 THYROID STIMULATING HORMONE - 06/02/18 08:56 THYROID STIMULATING HORMONE 0.81 u[iU]/mL 0.35-4.94 Serum or plasma thyroxine (T4) free measurement (mass/volume) - 06/02/18 08:56 Serum or plasma thyroxine (T4) free measurement (mass/volume) 1.18 ng/dL 0.70-1.48 Influenza virus A and B antigen detection - 12/07/18 11:05 FLU RESULT NEGATIVE FOR INFLUENZA A AND B ANTIGENS BY [facility] Complete blood count (CBC) with automated white blood cell (WBC) differential - 12/07/18 11:21 Blood leukocytes automated count (number/volume) 15.8 10*3/uL 4.3-11.0 Blood erythrocytes automated count (number/volume) 4.03 10*6/uL 4.35-5.85 Venous blood hemoglobin measurement (mass/volume) 12.4 g/dL 13.3-17.7 Blood hematocrit (volume fraction) 39 % 40-54 Automated erythrocyte mean corpuscular volume 97 [foz_us] 80-99 Automated erythrocyte mean corpuscular hemoglobin (mass per erythrocyte) 31 pg 25-34 Automated erythrocyte mean corpuscular hemoglobin concentration measurement ( mass/volume) 32 g/dL 32-36 Automated erythrocyte distribution width ratio 13.5 % 10.0-14.5 Automated blood platelet count (count/volume) 317 10*3/uL 130-400 Automated blood platelet mean volume measurement 9.1 [foz_us] 7.4-10.4 Automated blood neutrophils/100 leukocytes 93 % 42-75 Automated blood lymphocytes/100 leukocytes 3 % 12-44 Blood monocytes/100 leukocytes 4 % 0-12 Automated blood eosinophils/100 leukocytes 0 % 0-10 Automated blood basophils/100 leukocytes 0 % 0-10 Blood neutrophils automated count (number/volume) 14.7 10*3 1.8-7.8 Blood lymphocytes automated count (number/volume) 0.4 10*3 1.0-4.0 Blood monocytes automated count (number/volume) 0.7 10*3 0.0-1.0 Automated eosinophil count 0.0 10*3/uL 0.0-0.3 Automated blood basophil count (count/volume) 0.0 10*3/uL 0.0-0.1 Blood lactic acid measurement (moles/volume) - 12/07/18 11:21 Blood lactic acid measurement (moles/volume) 2.00 mmol/L 0.50-2.00 Comprehensive metabolic panel - 12/07/18 11:21 Serum or plasma sodium measurement (moles/volume) 136 mmol/L 135-145 Serum or plasma potassium measurement (moles/volume) 4.5 mmol/L 3.6-5.0 Serum or plasma chloride measurement (moles/volume) 95 mmol/L 98-107 Carbon dioxide 30 mmol/L 21-32 Serum or plasma anion gap determination (moles/volume) 11 mmol/L 5-14 Serum or plasma urea nitrogen measurement (mass/volume) 19 mg/dL 7-18 Serum or plasma creatinine measurement (mass/volume) 0.74 mg/dL 0.60-1.30 Serum or plasma urea nitrogen/creatinine mass ratio 26 NRG Serum or plasma creatinine measurement with calculation of estimated glomerular filtration rate > NRG Serum or plasma glucose measurement (mass/volume) 140 mg/dL 70-105 Serum or plasma calcium measurement (mass/volume) 9.4 mg/dL 8.5-10.1 Serum or plasma total bilirubin measurement (mass/volume) 0.4 mg/dL 0.1-1.0 Serum or plasma alkaline phosphatase measurement (enzymatic activity/volume) 114 U/L 40-136 Serum or plasma aspartate aminotransferase measurement (enzymatic activity/ volume) 23 U/L 5-34 Serum or plasma alanine aminotransferase measurement (enzymatic activity/volume ) 48 U/L 0-55 Serum or plasma protein measurement (mass/volume) 7.1 g/dL 6.4-8.2 Serum or plasma albumin measurement (mass/volume) 3.6 g/dL 3.2-4.5 CALCIUM CORRECTED 9.7 mg/dL 8.5-10.1 Serum or plasma C reactive protein measurement (mass/volume) - 12/07/18 11:21 Serum or plasma C reactive protein measurement (mass/volume) 3.22 mg /dL 0.00-0.50 Blood manual differential performed detection - 12/07/18 11:21 Blood monocytes/100 leukocytes 4 % NRG Manual blood segmented neutrophils/100 leukocytes 94 % NRG Manual blood lymphocytes/100 leukocytes 2 % NRG Manual eosinophils/100 leukocytes in nose 0 % NRG Manual blood basophils/100 leukocytes 0 % NRG Blood erythrocyte morphology finding identification NORMAL NRG Serum or plasma lithium measurement (moles/volume) - 12/07/18 11:21 BNP level 212.8 pg/mL <100.0 Arterial blood gas measurement - 12/07/18 11:34 Blood pCO2 45 mm[Hg] 35-45 Blood pO2 139 mm[Hg] 79-93 Arterial blood bicarbonate measurement (moles/volume) 31 mmol/L 23-27 Arterial blood base excess by calculation 7.2 mmol/L -2.5 -2.5 Arterial blood oxygen saturation measurement 100 % 94- 100 * Inhaled oxygen flow rate 40% NRG Arterial blood pH measurement with patient temperature correction 7.46 7.37-7.43 Arterial blood carbon dioxide, total measurement (moles/volume) 32.8 mmol/L 21.0-31.0 Body site LEFT RADIAL NRG Assessment of wrist artery patency prior to arterial puncture POSITIVE NRG Setting of ventilation mode NO NRG Measurement of body temperature 97.7 NRG PT panel in platelet poor plasma by coagulation assay - 12/07/18 12:04 Prothrombin time (PT) in platelet poor plasma by coagulation assay 13.4 s 12.2-14.7 INR in platelet poor plasma or blood by coagulation assay 1.0 0.8-1.4 Activated partial thromboplastin time (aPTT) in platelet poor plasma bycoagulation assay - 12/07/18 12:04 Activated partial thromboplastin time (aPTT) in platelet poor plasma bycoagulation assay 25 s 24-35 Encounters ACCT No. Visit Date/Time Discharge Status Pt. Type Provider Facility Loc./Unit Complaint [id number] 09/27/2018 14:28:00 09/27/2018 23:59:59 CLS Outpatient LUCIUS HERR APRN [facility] RAD J96.20,J43.8 [id number] 06/13/2018 11:00:00 06/13/2018 23:59:59 CLS Outpatient TABATHA JOE L GEOGRAPHY FACULTY MEMBER [facility] CARD OTHER CHEST PAIN [id number] 06/02/2018 08:44:00 06/02/2018 23:59:59 CLS Outpatient OREELMIRAER DO DALIA S [facility] LAB HYPERLIPIDEMIA [id number] 04/03/2018 07:33:00 04/03/2018 23:59:59 CLS Outpatient BAILYNDA JOE L GEOGRAPHY FACULTY MEMBER [facility] CARD CHEST PAIN IN EXERTION [id number] 03/07/2018 07:45:00 03/07/2018 23:59:59 CLS Preadmit TABATHA JOE L GEOGRAPHY FACULTY MEMBER [facility] CARD OTHER CHEST PAIN, UNCONTROLLED HYPERTENSION [id number] 01/31/2018 10:32:00 01/31/2018 23:59:59 CLS Outpatient LUCIUS HERR APRN [facility] RAD J43.8,J96.11 [id number] 11/08/2017 10:14:00 11/08/2017 23:59:59 CLS Outpatient CHARLES HEATON DALIA S [facility] LAB HTN,ANEMIA, INCREASED CRP,COPD FATIGUE [id number] 08/18/2017 14:25:00 08/22/2017 13:49:00 DIS Inpatient CHARLES HEATON DALIA S [facility] 4TH PNEUMONIA (CAP) LEFT LUNG,COPD ACUTE EXACERBATION [id number] 07/04/2017 08:39:00 07/04/2017 23:59:59 CLS Outpatient CHARLES HEATON DALIA S [facility] LAB FATIGUE [id number] 05/12/2017 15:00:00 05/12/2017 23:59:59 CLS Preadmit LYNN AVILA DO [facility] PULM COPD,SOB [id number] 03/31/2017 13:00:00 05/11/2017 00:01:00 DIS Outpatient LYNN AVILA DO [facility] PULM COPD,SOB [id number] 01/27/2017 13:00:00 02/06/2017 00:01:00 DIS Outpatient AUSTIN HEATONLYNN [facility] PULM COPD,SOB [id number] 01/04/2017 14:07:00 01/04/2017 23:59:59 CLS Outpatient EVERT OMAR N CLINICAL STUDIES SPECIALIST [facility] RAD HTN,HEADACHE, DIZZINESS [id number] 09/28/2016 12:42:00 09/28/2016 23:59:59 CLS Outpatient JHON COREAS FACC, MATT VALENTINE CCDS [facility] RAD CAD [id number] 04/16/2016 10:06:00 04/16/2016 23:59:59 CLS Outpatient LUCIUS HERR CLINICAL STUDIES SPECIALIST [facility] RAD PNEUMONIA,COPD [id number] 03/11/2016 11:53:00 03/11/2016 23:59:59 CLS Outpatient LUCIUS HERR CLINICAL STUDIES SPECIALIST [facility] RAD COPD,CHRONIC RESPIRATIORY FAILURE [id number] 01/30/2016 00:08:00 01/30/2016 23:59:59 CLS Preadmit LUCIUS HERR CLINICAL STUDIES SPECIALIST [facility] LAB UPPER RESPIRATORY DISEASE, CHRONIC RESPIRATORY F [id number] 11/07/2015 13:00:00 01/29/2016 00:01:00 DIS Outpatient LUCIUS HERR CLINICAL STUDIES SPECIALIST [facility] LAB UPPER RESPIRATORY DISEASE, CHRONIC RESPIRATORY F [id number] 12/16/2015 10:30:00 12/16/2015 23:59:59 CLS Outpatient JOE MAYS [facility] CARD BRADYCARDIA [id number] 12/09/2015 07:46:00 12/09/2015 16:00:00 DIS Outpatient MATT FERREIRA MD, FACC, FACP CCDS [facility] CATH WIDE COMPLEX TACHYCARDIA, CAD, DYSPNEA, CP [id number] 11/17/2015 12:51:00 11/17/2015 23:59:59 CLS Outpatient JHON COREAS FACCMATT FACP CCDS [facility] CARD PALPITATIONS, SOA [id number] 11/13/2015 14:14:00 11/13/2015 23:59:59 CLS Outpatient LUCIUS HERR APRN [facility] RAD COPD [id number] 09/12/2015 11:08:00 09/12/2015 13:25:00 DIS Outpatient BRANDEE BOSS DO [facility] SDC GERD [id number] 09/10/2015 05:42:00 09/10/2015 23:59:59 CLS Outpatient BRANDEE BOSS DO [facility] PREOP EGD [id number] 08/11/2015 13:20:00 08/11/2015 23:59:59 CLS Outpatient LUCIUS HERR APRN [facility] RAD COPD,PNEUMONIA, CHRONIC RESPIRATORY FAILURE W/HYPOX [id number] 08/06/2015 08:32:00 08/06/2015 23:59:59 CLS Outpatient JOE MAYS [facility] LAB CAD,CAROTID ARTERIAL DI,HLP,COPD [id number] 05/02/2015 09:06:00 05/02/2015 23:59:59 CLS Outpatient LYNN AVILA DO [facility] RAD COPD PNEUMONIA [id number] 03/21/2015 16:40:00 03/22/2015 10:46:00 DIS Inpatient LAMONT HAMPTON MD [facility] SURGICAL VENTRAL AND INCISIONAL HERNIAS [id number] 03/14/2015 13:25:00 03/14/2015 23:59:59 CLS Outpatient LAMONT HAMPTON MD [facility] PREOP VENTRAL AND INCISIONAL HERNIAS [id number] 02/20/2015 14:34:00 02/20/2015 23:59:59 CLS Outpatient JOE MAYS [facility] RAD RT GROIN PAIN [id number] 01/07/2015 10:57:00 01/07/2015 18:10:00 DIS Outpatient JHON COREAS FACC, MATT VALENTINE CCDS [facility] CATH ANGINA SOB FATIGUE [id number] 12/23/2014 11:39:00 12/23/2014 23:59:59 CLS Outpatient BISHOP MANUEL [facility] LAB ABD PAIN,DJD,HERNIA, CAD,COPD,HYPERLIPIDEMIA,GERD,B [id number] 10/31/2014 12:29:00 10/31/2014 23:59:59 CLS Outpatient LYNN AVILA DO [facility] RAD COPD, PNUEMONIA [id number] 09/10/2014 08:11:00 09/10/2014 23:59:59 CLS Outpatient LYNN AVILA DO [facility] RAD COPD CHRONIC RESPIRATORY FAILURE HYPOXIA PNEUMONIA [id number] 03/18/2014 06:54:00 05/23/2014 00:01:00 DIS Outpatient JOE MAYS [facility] CARD PALPITATIONS [id number] 03/14/2014 08:28:00 03/14/2014 23:59:59 CLS Outpatient BISHOP MANUEL [facility] LAB COPD, [id number] 03/11/2014 08:06:00 03/11/2014 23:59:59 CLS Outpatient LYNN AVILA DO [facility] RAD COPD [id number] 01/16/2014 07:08:00 01/16/2014 14:50:00 DIS Outpatient LYNN AVILA DO [facility] SDC LUNG MASS [id number] 01/11/2014 08:27:00 01/11/2014 23:59:59 CLS Outpatient LYNN AVILA DO [facility] PREOP LUNG MASS [id number] 01/03/2014 16:17:00 01/11/2014 12:00:00 DIS Inpatient LYNN AVILA DO [facility] 4TH L PERILULAR PNEUMONIA/ PLEURISM [id number] 09/18/2013 10:00:00 11/12/2013 00:01:00 DIS Outpatient IMANI RODRIGUEZ MD [facility] PULM ACUTE BRONCHOSPASM,COPD, EMPYEMA [id number] 08/21/2013 09:43:00 11/12/2013 00:01:00 DIS Outpatient IMANI RODRIGUEZ MD [facility] LAB COPD,BROCHOSPASM [id number] 08/07/2013 11:39:00 08/07/2013 23:59:59 CLS Outpatient BISHOP MANUEL [facility] RAD RIB PAIN [id number] 06/28/2013 10:00:00 08/01/2013 00:01:00 DIS Outpatient IMANI RODRIGUEZ MD [facility] PULM COPD [id number] 05/08/2013 09:32:00 05/08/2013 17:10:00 DIS Outpatient JHON COREAS FACC, ALI FACP CCDS [facility] CATH ANGINA,SOB, HYPERLIPIDEMIA,FATIGUE,BILAT LEG CLAUDI [id number] 05/07/2013 12:50:00 05/07/2013 23:59:59 CLS Outpatient JHON COREAS FACC, ALI FACP CCDS [facility] CARD DYSPNEA, VALVULAR HEART DISEASE [id number] 02/09/2013 10:30:00 02/09/2013 12:05:00 DIS Outpatient DONG SHI MD [facility] CR PTCA INSTENT RESTENOSIS [id number] 12/07/2018 11:33:00 Document Registration [id number] 05/24/2014 10:00:00 Document Registration [id number] 11/13/2013 08:00:00 Document Registration [id number] 11/13/2013 00:00:00 Document Registration [id number] 12/13/2012 12:56:00 Document Registration [id number] 11/29/2012 15:23:00 Document Registration [id number] 11/27/2012 07:22:00 Document Registration [email or web address] 05/03/2015 03:28:43 ACT Document Registration 01/201809/04/2018 09:14:26 09/04/2018 23:59:59 CLS Outpatient Dalia Izquierdo
[2018-12-07 13:53] LABS: BILIRUBIN,URINE NEGATIVE (NEGATIVE); CLARITY,URINE CLEAR; COLOR,URINE YELLOW; GLUCOSE, URINE (UA) 1+ (NEGATIVE); KETONES,URINE NEGATIVE (NEGATIVE); LEUKOCYTE ESTERASE ,URINE 1+ (NEGATIVE); NITRITE,URINE NEGATIVE (NEGATIVE); PH,URINE 7 (5-9); PROTEIN,URINE 1+ (NEGATIVE); UROBILINOGEN,URINE 1 MG/DL (NORMAL)
[2018-12-07 14:12] LABS: BACTERIA,URINE NEGATIVE /HPF; SQUAMOUS EPITHELIAL CELL,UR RARE /HPF; WBC,URINE 0-2 /HPF
--- NOTE | 2018-12-07 15:30 | NUR ---
YAYO DINH admitted to room 431-1, with an admitting diagnosis of COPD,Pneumonitis on 12/07/18 from ED via [facility], accompanied by staff and family.YAYO DINH introduced to surroundings, call light, bed controls, phone, TV, temperature control, lights, meal times, smoking policy, visitor policy, side rail policy, bathrooms and showers. Patient Rights given to patient in the handbook. YAYO DINH verbalizes understanding that [facility] is not responsible for the loss or damage to any personal effects or valuables that are kept in the patients posession during their hospitalization. The following Patient Care Plans were discussed with the patient: Discharge Planning, Ineffective Breathing,Anxiety, and Knowledge. YAYO DINH verbalizes understanding of Interdisciplinary Patient Education.
[2018-12-07 15:57] VITALS: BP_SYST 116; BP_SYST 154; BP_DIAS 72; BP_DIAS 90
--- NOTE | 2018-12-07 16:03 | Pulmonary Consultation ---
History of Present Illness History of Present Illness Date of Consultation 12/07/18 16:02 Date of Admission Allergies and Home Medications Allergies Coded Allergies: atorvastatin calcium (Verified Allergy, Mild, RASH, 11/27/12) Home Medications Albuterol Sulfate 2.5 Mg/3 Ml Vial.neb, 2.5 MG NEB Q4H PRN for SHORTNESS OF BREATH, (Reported) UNKNOWN LAST FILL DATE Albuterol Sulfate 1 Puff Puff, 2 PUFF INH Q4H PRN for SHORTNESS OF BREATH, ( Reported) Alfuzosin HCl 10 Mg Tab.er.24h, 10 MG PO HS, (Reported) LAST FILLED #90 03-12-18 Arformoterol Tartrate 15 Mcg/2 Ml Vial.neb, 15 MCG NEB BID, (Reported) LAST FILLED #360 04-07-18 Aspirin 81 Mg Tablet.dr, 81 MG PO DAILY, (Reported) Bupropion HCl 150 Mg Tablet.er, 150 MG PO BID, (Reported) Cetirizine HCl 10 Mg Tablet, 10 MG PO DAILY, (Reported) Doxazosin Mesylate 2 Mg Tablet, 2 MG PO DAILY, (Reported) Hydrocodone/Acetaminophen 1 Each Tablet, 1 TAB PO TID PRN for PAIN-MODERATE, ( Reported) Metoprolol Succinate 200 Mg Tab, 200 MG PO DAILY, (Reported) Montelukast Sodium 10 Mg Tablet, 10 MG PO HS, (Reported) Nitroglycerin 0.4 Mg Tab.subl, 0.4 MG SL UD PRN for CHEST PAIN, (Reported) Pantoprazole Sodium 40 Mg Tablet.dr, 40 MG PO DAILY PRN for HEARTBURN, (Reported ) Prednisone 10 Mg Tab, 10 MG PO DAILY, (Reported) Rosuvastatin Calcium 10 Mg Tablet, 10 MG PO HS, (Reported) LAST FILLED #90 18 Past Zvifbru-Zvtdby-Cnydcg Hx Patient Social History Alcohol Use: Denies Use Recreational Drug Use: No Smoking Status: Former Smoker Type Used: Cigarettes Former Smoker, Quit: Aug 18, 2012 2nd Hand Smoke Exposure: No Recent Foreign Travel: No Contact w/Someone Who Travel: No Recent Infectious Disease Expo: No Recent Hopitalizations: No Immunizations Up To Date PED Vaccines UTD: Yes Date of Pneumonia Vaccine: Sep 17, 2015 Date of Influenza Vaccine: Aug 03, 2017 Seasonal Allergies Seasonal Allergies: No Past Medical History Surgeries: Yes (hernia) Respiratory: Yes (oxygen dependent) Asthma, COPD Currently Using CPAP: No Cardiac: Yes (STENTS X2, HEART CATH IN JANUARY 2015) Hypertension Neurological: No Reproductive Disorders: No Genitourinary: Yes Prostate Problems Gastrointestinal: Yes Gastroesophageal Reflux Musculoskeletal: No Arthritis Endocrine: No Cataract Hearing Impairment: Hard of Hearing Cancer: No Psychosocial: No Integumentary: No Blood Disorders: No Family Medical History Congestive heart failure 03 MOTHER Family history: Cardiovascular disease 03 MOTHER History of - respiratory disease 03 FATHER (EMPHYSEMA) Kidney disease 03 MOTHER No Pertinent Family Hx Sepsis Event Evaluation Height, Weight, BMI Height: 5'7.00" Weight: 145lbs. 0.0oz. 65.261593hq; 22.7 BMI Method:Stated Exam Exam Vital Signs Date Time Temp Pulse Resp B/P (MAP) Pulse Ox O2 Delivery O2 Flow Rate FiO2 12/07/18 14:40 79 20 112/73 (86) 96 NIV Bilevel 12/07/18 11:52 72 16 99 50.00 12/07/18 11:09 100 Nasal Cannula 5.00 12/07/18 10:38 97.7 90 20 177/92 (120) 92 Nasal Cannula 5.00 12/07/18 10:38 Nasal Cannula 5.00 Height & Weight Height: 5'7.00" Weight: 145lbs. 0.0oz. 65.276798ec; 22.7 BMI Method:Stated Capillary Refill: Less Than 3 Seconds Results Lab Laboratory Tests 12/07/18 11:21 LYNN AVILA DO Dec 07, 2018 16:03
[2018-12-07] MEDS ORDERED: PRED10TA22 PO (16:17)
[2018-12-07] MEDS ORDERED: DOXA2TAB2 PO (16:17)
[2018-12-07] MEDS ORDERED: HYDR-3816 PO (16:17)
[2018-12-07] MEDS ORDERED: CETI10TA17 PO (16:17)
[2018-12-07] MEDS ORDERED: NF-MET200T PO (16:17)
[2018-12-07] MEDS ORDERED: RT-ALBUINH INH (16:26)
[2018-12-07] MEDS ORDERED: PRD10T PO (16:26)
[2018-12-07] MEDS ORDERED: BUPR150T14 PO (16:26)
[2018-12-07] MEDS ORDERED: RT-ALBUTEROL/IPRATROPIUM 3 ML (DUONEB) VIAL INH PRN (16:30)
[2018-12-07] MEDS ORDERED: NS IV 1000 ML 1,000 ML ONE (16:37)
--- NOTE | 2018-12-07 16:45 | NUR ---
SPOKE WITH THE PATIENT ABOUT HIS MEDICATIONS. WE WENT OVER THE EXT MED HX TOGETHER AND HE VERIFIED HOW HE TAKES THEM. HE IS PAST DUE FOR REFILLS ON SEVERAL MEDICATIONS HOWEVER HE STATES HE USES THE [facility] AND THEY FILL THEM BEFORE HE IS OUT SOMETIMES. HE STATES HE IS TAKING THE FOLLOWING MEDICATIONS DESPITE THEIR PAST DUE FILL DATE: 04-07-18 BROVANA BID #360 03-17-18 CRESTOR 10MG #90 03-12-18 ALFUZOSIN #90 ALBUTEROL NEBULIZER SOLUTION (UNKNOWN LAST FILL DATE) HE TAKES ASPIRIN 81MG DAILY OTC AND STATES HE HAS NITROGLYCERIN NEEDED.
[2018-12-07] MEDS: methylPREDNISolone 40 MG/ML (Solu-MEDROL) VIAL IV SCH ×2 (16:56→22:07)
--- NOTE | 2018-12-07 16:58 | NUR ---
Dr. Cardenas in to see patient and ordered Q4 vital signs due to vital signs being stable.
[2018-12-07 17:02] VITALS: BP 147/83
[2018-12-07] MEDS ORDERED: PIPERACILLIN/TAZO 4.5 GM/NS 100 ML IV NR ×2 (17:45)
[2018-12-07] MEDS ORDERED: CATHETER FLUSH 10 ML SYR IV PRN (17:45)
[2018-12-07] MEDS ORDERED: LORazepam INJ 2 MG/ML (ATIVAN) VIAL IV PRN (17:45)
[2018-12-07] MEDS ORDERED: VANCOMYCIN 1500 MG/NS 500 ML IVPB IV NR ×2 (17:47)
--- NOTE | 2018-12-07 17:59 | NUR ---
PHARMACY TO DOSE VANCOMYCIN: BASED ON ACT BW 65.8 & SCr OF 1, EST CrCl 62 LOADING DOSE: 1,500 MG MAIN DOSE: 1,000 MG IV Q12HRS VANCOMYCIN TROUGH ORDERED FOR 12/09/17 05:00 IF TROUGH IS GREATER THAN 20 HOLD 12/09/17 06:00 DOSE
[2018-12-07 18:00] VITALS: BP 154/80
[2018-12-07 18:02] VITALS: BP 147/83
[2018-12-07 19:00] VITALS: BP 151/88
[2018-12-07] MEDS: NS IV 1000 ML 1,000 ML IV SCH (19:34)
--- NOTE | 2018-12-07 20:25 | History & Physicial ---
History of Present Illness History of Present Illness Reason for visit/HPI This is a 73 year old male with severe COPD who presented to the emergency room with worsening shortness of air. He was found to be in acute respiratory distress and was placed on BIPAP. His CXR revealed an infiltrate. Date of Admission Dec 07, 2018 at 13:36 Date Seen by a Provider: Dec 07, 2018 Time Seen by a Provider: 20:20 I consulted on this patient on 12/07/18 20:20 Attending Physician Dalia Izquierdo DO Admitting Physician Dalia Izquierdo DO Consult Allergies and Home Medications Allergies Coded Allergies: atorvastatin calcium (Verified Allergy, Mild, RASH, 11/27/12) Home Medications Albuterol Sulfate 2.5 Mg/3 Ml Vial.neb, 2.5 MG NEB Q4H PRN for SHORTNESS OF BREATH, (Reported) UNKNOWN LAST FILL DATE Albuterol Sulfate 1 Puff Puff, 2 PUFF INH Q4H PRN for SHORTNESS OF BREATH, ( Reported) Alfuzosin HCl 10 Mg Tab.er.24h, 10 MG PO HS, (Reported) LAST FILLED #90 18 Arformoterol Tartrate 15 Mcg/2 Ml Vial.neb, 15 MCG NEB BID, (Reported) LAST FILLED #360 04-07-18 Aspirin 81 Mg Tablet.dr, 81 MG PO DAILY, (Reported) Bupropion HCl 150 Mg Tablet.er, 150 MG PO BID, (Reported) Cetirizine HCl 10 Mg Tablet, 10 MG PO DAILY, (Reported) Doxazosin Mesylate 2 Mg Tablet, 2 MG PO DAILY, (Reported) Hydrocodone/Acetaminophen 1 Each Tablet, 1 TAB PO TID PRN for PAIN-MODERATE, ( Reported) Metoprolol Succinate 200 Mg Tab, 200 MG PO DAILY, (Reported) Montelukast Sodium 10 Mg Tablet, 10 MG PO HS, (Reported) Nitroglycerin 0.4 Mg Tab.subl, 0.4 MG SL UD PRN for CHEST PAIN, (Reported) Pantoprazole Sodium 40 Mg Tablet.dr, 40 MG PO DAILY PRN for HEARTBURN, (Reported ) Prednisone 10 Mg Tab, 10 MG PO DAILY, (Reported) Rosuvastatin Calcium 10 Mg Tablet, 10 MG PO HS, (Reported) LAST FILLED #90 18 Patient Home Medication List Home Medication List Reviewed: Yes Past Uukgmsn-Vlpxzd-Jhownv Hx Patient Social History Alcohol Use: Denies Use Recreational Drug Use: No Smoking Status: Former Smoker Former Smoker, Quit: Aug 18, 2012 Type Used: Cigarettes 2nd Hand Smoke Exposure: No Recent Foreign Travel: No Contact w/other who traveled: No Recent Hopitalizations: No Recent Infectious Disease Expo: No Immunizations Up To Date Pediatric: Yes Date of Pneumonia Vaccine: Sep 17, 2015 Date of Influenza Vaccine: Nov 09, 2018 Seasonal Allergies Seasonal Allergies: No Surgeries Yes (hernia) Respiratory Yes (oxygen dependent) Currently Using CPAP: No Cardiovascular Yes (STENTS X2, HEART CATH IN JANUARY 2015) Hypertension Neurological No Reproductive System Hx Reproductive Disorders: No Genitourinary Yes Prostate Problems Gastrointestinal Yes Gastroesophageal Reflux Musculoskeletal No Arthritis Endocrine History of Endocrine Disorders: No HEENT HEENT Disorders: Cataract Hearing Impairment: Hard of Hearing Cancer No Psychosocial History of Psychiatric Problem: No Integumentary History of Skin or Integumenta: No Blood Transfusions History of Blood Disorders: No Family Medical History Significant Family History: No Pertinent Family Hx Family Hx: Congestive heart failure 03 MOTHER Family history: Cardiovascular disease 03 MOTHER History of - respiratory disease 03 FATHER (EMPHYSEMA) Kidney disease 03 MOTHER Review of Systems Constitutional: weakness EENTM: nose congestion Respiratory: cough, dyspnea on exertion, orthopnea, short of breath, wheezing Cardiovascular: palpitations Gastrointestinal: No RUQ, No LUQ, No RLQ, No LLQ, No no symptoms reported, No see HPI, No abdominal pain, No constipation, No diarrhea, No dysphagia, No hematemesis, No heartburn, No jaundice, No loss of appetite, No melena, No nausea, No vomiting, No other Genitourinary: No no symptoms reported, No see HPI, No decreased output, No discharge, No dysuria, No frequency, No hematuria, No hesitancy, No incontinence , No nocturia, No pain, No other Musculoskeletal: back pain, muscle weakness Skin: No no symptoms reported, No see HPI, No change in color, No change in hair/nails, No dryness, No hx of skin cancer, No lesions, No lumps, No pruritus , No rash, No other Psychiatric/Neurological: Weakness Physical Exam Vital Signs Vital Signs - First Documented 12/07/18 10:38 Temp 97.7 Pulse 90 Resp 20 B/P (MAP) 177/92 (120) Pulse Ox 92 O2 Delivery Nasal Cannula O2 Flow Rate 5.00 Capillary Refill : NONELess Than 3 Seconds Height, Weight, BMI Height: 5'2.00" Weight: 144lbs. 5.0oz. 65.313502nx; 26.4 BMI Method:Stated General Appearance: Mild Distress HEENT: Pharynx Normal Neck: Supple Respiratory: Crackles, Decreased Breath Sounds, Respiratory Distress Cardiovascular: Regular Rate, Rhythm Gastrointestinal: Normal Bowel Sounds, Non Tender, Soft Rectal: Deferred Back: No CVA Tenderness Extremity: Non Tender, No Calf Tenderness, No Pedal Edema Neurologic/Psychiatric: Alert, Oriented x3 Skin: Warm/Dry Comments Laboratory Tests 12/07/18 11:21: White Blood Count 15.8H, Red Blood Count 4.03L, Hemoglobin 12.4L, Hematocrit 39L , Mean Corpuscular Volume 97, Mean Corpuscular Hemoglobin 31, Mean Corpuscular Hemoglobin Concent 32, Red Cell Distribution Width 13.5, Platelet Count 317, Mean Platelet Volume 9.1, Neutrophils (%) (Auto) 93H, Lymphocytes (%) (Auto) 3L , Monocytes (%) (Auto) 4, Eosinophils (%) (Auto) 0, Basophils (%) (Auto) 0, Neutrophils # (Auto) 14.7H, Lymphocytes # (Auto) 0.4L, Monocytes # (Auto) 0.7, Eosinophils # (Auto) 0.0, Basophils # (Auto) 0.0, Neutrophils % (Manual) 94, Lymphocytes % (Manual) 2, Monocytes % (Manual) 4, Eosinophils % (Manual) 0, Basophils % (Manual) 0, Blood Morphology Comment NORMAL, Sodium Level 136, Potassium Level 4.5, Chloride Level 95L, Carbon Dioxide Level 30, Anion Gap 11, Blood Urea Nitrogen 19H, Creatinine 0.74, Estimat Glomerular Filtration Rate > 60, BUN/Creatinine Ratio 26, Glucose Level 140H, Lactic Acid Level 2.00, Calcium Level 9.4, Corrected Calcium 9.7, Total Bilirubin 0.4, Aspartate Amino Transf (AST/SGOT) 23, Alanine Aminotransferase (ALT/SGPT) 48, Alkaline Phosphatase 114, C-Reactive Protein High Sensitivity 3.22H, B-Type Natriuretic Peptide 212.8H, Total Protein 7.1, Albumin 3.6 12/07/18 11:34: Blood Gas Puncture Site LEFT RADIAL, Blood Gas Patient Temperature 97.7, Arterial Blood pH 7.46H, Arterial Blood Partial Pressure CO2 45, Arterial Blood Partial Pressure O2 139H, Arterial Blood HCO3 31H, Arterial Blood Total CO2 32.8H, Arterial Blood Oxygen Saturation 100, Arterial Blood Base Excess 7.2H, Oleg Test POSITIVE, Blood Gas Ventilator Setting NO, Blood Gas Inspired Oxygen 40% 12/07/18 12:04: Prothrombin Time 13.4, INR Comment 1.0, Activated Partial Thromboplast Time 25 12/07/18 13:44: Urine Color YELLOW, Urine Clarity CLEAR, Urine pH 7, Urine Specific [place] 1.010L, Urine Protein 1+H, Urine Glucose (UA) 1+H, Urine Ketones NEGATIVE, Urine Nitrite NEGATIVE, Urine Bilirubin NEGATIVE, Urine Urobilinogen 1, Urine Leukocyte Esterase 1+H, Urine RBC (Auto) NEGATIVE, Urine RBC NONE, Urine WBC 0-2 , Urine Squamous Epithelial Cells RARE, Urine Crystals NONE, Urine Bacteria NEGATIVE, Urine Casts NONE, Urine Mucus SMALLH, Urine Culture Indicated CULTURE PENDING Microbiology 12/07/18 Influenza Types A,B Antigen (NEETU) - Final, Complete Assessment/Plan Assessment and Plan 1. Acute on Chronic Respiratory Failure--admit on BIPAP 2. Acute Exacerbation of COPD--SVNS, IV solumedrol 3. Acute Pneumonia--cover with zosyn and Vancomycin 4. Generalized Debility--start PT/OT once dyspnea improving 5. Hypertension--resume home meds Admission Diagnosis Admission Status: Inpatient Order (span 2 midnights) Reason for Inpatient Admission: Will need at least 2 days of antibiotics as well as IV steroids Clinical Quality Measures DVT/VTE Risk/Contraindication: Risk Factor Score Per Nursin RFS Level Per Nursing on Admit: 4+=Very High DALIA IZQUIERDO DO Dec 07, 2018 20:25
[2018-12-07] MEDS ORDERED: PANTOPRAZOLE 40 MG (PROTONIX) TAB PO PRN (20:30)
[2018-12-07] MEDS: VANCOMYCIN 1 GM/NS 250 ML IVPB IV SCH ×2 (20:35)
[2018-12-07] MEDS: buPROPion SR 150 MG (WELLBUTRIN SR) TAB PO SCH (20:42)
[2018-12-07] MEDS: ROSUVASTATIN 10 MG (CRESTOR) TABLET PO SCH (20:42)
[2018-12-07] MEDS: MONTELUKAST 10 MG (SINGULAIR) TAB PO SCH (20:42)
[2018-12-07] MEDS ORDERED: HYDROcodone/APAP 7.5 MG/325 MG (LORTAB, LORCET PLUS) TABLET PO PRN (20:45)
[2018-12-07] MEDS: PIPERACILLIN/TAZO 4.5 GM/NS 100 ML IV SCH ×2 (22:03)
[2018-12-07] MEDS: RT-ALBUTEROL/IPRATROPIUM 3 ML (DUONEB) VIAL INH SCH (22:09)
[2018-12-08 00:31] VITALS: BP 150/85
[2018-12-08] MEDS: RT-ALBUTEROL/IPRATROPIUM 3 ML (DUONEB) VIAL INH SCH ×6 (02:47→21:27)
[2018-12-08] MEDS: methylPREDNISolone 40 MG/ML (Solu-MEDROL) VIAL IV SCH ×4 (03:49→22:44)
[2018-12-08 04:04] VITALS: BP 163/91
[2018-12-08] MEDS: PIPERACILLIN/TAZO 4.5 GM/NS 100 ML IV SCH ×6 (04:27→20:04)
[2018-12-08] MEDS ORDERED: VANCOMYCIN 1 GM/NS 250 ML IVPB IV SCH ×2 (06:00)
[2018-12-08 06:07] LABS: BASOPHILS % (AUTO) 0 % (0-10); EOSINOPHILS % (AUTO) 0 % (0-10); HEMATOCRIT 31 % (40-54); HEMOGLOBIN 9.8 G/DL (13.3-17.7); LYMPHOCYTES # (AUTO) 0.2 X 10^3 (1.0-4.0); LYMPHOCYTES % (AUTO) 3 % (12-44); MEAN CORPUSCULAR HEMOGLOBIN 31 PG (25-34); MEAN CORPUSCULAR HGB CONC 32 G/DL (32-36); MEAN CORPUSCULAR VOLUME 97 FL (80-99); MEAN PLATELET VOLUME 9.3 FL (7.4-10.4); MONOCYTES # (AUTO) 0.2 X 10^3 (0.0-1.0); MONOCYTES % (AUTO) 2 % (0-12); NEUTROPHILS # (AUTO) 8.8 X 10^3 (1.8-7.8); NEUTROPHILS % (AUTO) 95 % (42-75); PLATELET COUNT 267 10^3/uL (130-400); RED CELL DISTRIBUTION WIDTH 13.2 % (10.0-14.5); WHITE BLOOD COUNT 9.3 10^3/uL (4.3-11.0)
--- NOTE | 2018-12-08 06:29 | Pulmonary Progress Note ---
Subjective Time Seen by a Provider: 09:17 Subjective/Events-last exam Pt is feeling better but not back to baseline yet. Sepsis Event Evaluation Height, Weight, BMI Height: 5'2.00" Weight: 144lbs. 5.0oz. 65.416346py; 26.4 BMI Method:Stated Focused Exam Lactate Level 12/07/18 11:21: Lactic Acid Level 2.00 Exam Exam Vital Signs Date Time Temp Pulse Resp B/P (MAP) Pulse Ox O2 Delivery O2 Flow Rate FiO2 12/08/18 04:04 98.4 83 18 163/91 (115) 96 Nasal Cannula 4.00 12/08/18 02:47 96 Nasal Cannula 5.00 12/08/18 01:00 86 12/08/18 00:31 98.0 77 19 150/85 (106) 98 Nasal Cannula 4.00 12/07/18 22:07 97 Nasal Cannula 5.00 12/07/18 20:00 Nasal Cannula 5.00 12/07/18 19:00 97.7 96 20 151/88 (109) 98 Nasal Cannula 4.00 12/07/18 19:00 108 12/07/18 18:02 97.2 68 20 147/83 95 Nasal Cannula 4.00 4.00 12/07/18 18:00 97.5 85 20 154/80 (104) 94 Nasal Cannula 4.00 12/07/18 17:02 97.2 68 20 147/83 (104) 95 Nasal Cannula 4.00 12/07/18 16:46 77 12/07/18 16:45 95 Nasal Cannula 5.00 12/07/18 16:06 Nasal Cannula 5.00 12/07/18 15:57 97.1 77 20 154/90 (111) 98 Nasal Cannula 4.00 12/07/18 14:40 79 20 112/73 (86) 96 NIV Bilevel 12/07/18 11:52 72 16 99 50.00 12/07/18 11:09 100 Nasal Cannula 5.00 12/07/18 10:38 97.7 90 20 177/92 (120) 92 Nasal Cannula 5.00 12/07/18 10:38 Nasal Cannula 5.00 I & O 12/08/18 07:00 Intake Total 1880 ml Output Total 900 ml Balance 980 ml Height & Weight Height: 5'2.00" Weight: 144lbs. 5.0oz. 65.281215fo; 26.4 BMI Method:Stated General Appearance: No Apparent Distress, Anxious, Chronically ill, Thin HEENT: Pharynx Normal Neck: Supple Respiratory: Crackles, Decreased Breath Sounds, Respiratory Distress Cardiovascular: Regular Rate, Rhythm Capillary Refill: Less Than 3 Seconds Gastrointestinal: normal bowel sounds, non tender, soft Extremity: Non Tender, No Calf Tenderness, No Pedal Edema Neurologic/Psychiatric: Alert, Oriented x3 Skin: Warm/Dry Results Lab Laboratory Tests 12/07/18 11:21 12/08/18 05:38 Assessment/Plan Assessment/Plan COPDAE with hypoxia -Solumedrol -SVNS add advair -Oxygen Pneumonia -Vanco/ZOsyn -Marina cultures pending LYNN AVILA DO Dec 08, 2018 06:29
[2018-12-08 06:30] LABS: ALANINE AMINOTRANSFERASE 31 U/L (0-55); ALKALINE PHOSPHATASE 83 U/L (40-136); BILIRUBIN,TOTAL 0.4 MG/DL (0.1-1.0); BUN/CREATININE RATIO 23; CALCIUM 8.5 MG/DL (8.5-10.1); CARBON DIOXIDE 26 MMOL/L (21-32); CHLORIDE 99 MMOL/L (98-107); CREATININE SERUM 0.69 MG/DL (0.60-1.30); GFR ESTIMATED > 60; GLUCOSE 157 MG/DL (70-105); POTASSIUM 4.1 MMOL/L (3.6-5.0); SODIUM 133 MMOL/L (135-145); TOTAL PROTEIN 5.6 GM/DL (6.4-8.2)
[2018-12-08] MEDS: NS IV 1000 ML 1,000 ML IV SCH (06:44)
[2018-12-08 08:00] VITALS: BP 168/84
[2018-12-08] MEDS: LORATADINE (CLARITIN) 10 MG TAB PO SCH (08:52)
[2018-12-08] MEDS: meTOprolol SUCCINATE 100 MG (TOPROL XL) TAB PO SCH (08:52)
[2018-12-08] MEDS: VANCOMYCIN 1 GM/NS 250 ML IVPB IV SCH ×4 (08:52→20:48)
[2018-12-08] MEDS: ASPIRIN E.C. 81 MG (ECOTRIN) TAB PO SCH (08:52)
[2018-12-08] MEDS: buPROPion SR 150 MG (WELLBUTRIN SR) TAB PO SCH ×2 (08:55→20:04)
[2018-12-08] MEDS ORDERED: doxAzosin 2 MG (CARDURA) TAB PO SCH (09:00)
[2018-12-08] MEDS: doxAzosin 2 MG (CARDURA) TAB PO SCH (11:54)
[2018-12-08 12:00] VITALS: BP 180/82
--- NOTE | 2018-12-08 13:07 | Progress Note (SOAP) ---
Subjective Date Seen by a Provider: Dec 08, 2018 Time Seen by a Provider: 11:10 Subjective/Events-last exam Fwup Acute on Chronic Respiratory Failure, Severe COPD with acute exacerbation, Pneumonia, Debility, HTN. Feeling much better. Back on NC. Eating well. Focused Exam Lactate Level 12/07/18 11:21: Lactic Acid Level 2.00 Objective Exam Vital Signs Date Time Temp Pulse Resp B/P (MAP) Pulse Ox O2 Delivery O2 Flow Rate FiO2 12/08/18 12:00 98.6 79 18 180/82 (114) 98 Nasal Cannula 4.00 12/08/18 11:51 98 Nasal Cannula 4.00 12/08/18 08:00 98.6 98 18 168/84 (112) 97 Nasal Cannula 4.00 12/08/18 08:00 Nasal Cannula 5.00 12/08/18 07:17 93 Nasal Cannula 4.00 12/08/18 07:02 79 12/08/18 04:04 98.4 83 18 163/91 (115) 96 Nasal Cannula 4.00 12/08/18 02:47 96 Nasal Cannula 5.00 12/08/18 01:00 86 12/08/18 00:31 98.0 77 19 150/85 (106) 98 Nasal Cannula 4.00 12/07/18 22:07 97 Nasal Cannula 5.00 12/07/18 20:00 Nasal Cannula 5.00 12/07/18 19:00 97.7 96 20 151/88 (109) 98 Nasal Cannula 4.00 12/07/18 19:00 108 12/07/18 18:02 97.2 68 20 147/83 95 Nasal Cannula 4.00 4.00 12/07/18 18:00 97.5 85 20 154/80 (104) 94 Nasal Cannula 4.00 12/07/18 17:02 97.2 68 20 147/83 (104) 95 Nasal Cannula 4.00 12/07/18 16:46 77 12/07/18 16:45 95 Nasal Cannula 5.00 12/07/18 16:06 Nasal Cannula 5.00 12/07/18 15:57 97.1 77 20 154/90 (111) 98 Nasal Cannula 4.00 12/07/18 14:40 79 20 112/73 (86) 96 NIV Bilevel I & O 12/08/18 06:59 Intake Total 2880 ml Output Total 900 ml Balance 1980 ml Capillary Refill : NONELess Than 3 Seconds General Appearance: No Apparent Distress Neck: Supple Respiratory: Lungs Clear, Decreased Breath Sounds Cardiovascular: Regular Rate, Rhythm Gastrointestinal: normal bowel sounds, non tender, soft Extremity: Non Tender, No Calf Tenderness Neurologic/Psychiatric: Alert, Oriented x3 Skin: Warm/Dry Results Lab Laboratory Tests 12/07/18 13:44: Urine Color YELLOW, Urine Clarity CLEAR, Urine pH 7, Urine Specific [place] 1.010L, Urine Protein 1+H, Urine Glucose (UA) 1+H, Urine Ketones NEGATIVE, Urine Nitrite NEGATIVE, Urine Bilirubin NEGATIVE, Urine Urobilinogen 1, Urine Leukocyte Esterase 1+H, Urine RBC (Auto) NEGATIVE, Urine RBC NONE, Urine WBC 0-2 , Urine Squamous Epithelial Cells RARE, Urine Crystals NONE, Urine Bacteria NEGATIVE, Urine Casts NONE, Urine Mucus SMALLH, Urine Culture Indicated CULTURE PENDING 12/08/18 05:38: White Blood Count 9.3, Red Blood Count 3.20L, Hemoglobin 9.8#L, Hematocrit 31L, Mean Corpuscular Volume 97, Mean Corpuscular Hemoglobin 31, Mean Corpuscular Hemoglobin Concent 32, Red Cell Distribution Width 13.2, Platelet Count 267, Mean Platelet Volume 9.3, Neutrophils (%) (Auto) 95H, Lymphocytes (%) (Auto) 3L , Monocytes (%) (Auto) 2, Eosinophils (%) (Auto) 0, Basophils (%) (Auto) 0, Neutrophils # (Auto) 8.8H, Lymphocytes # (Auto) 0.2L, Monocytes # (Auto) 0.2, Eosinophils # (Auto) 0.0, Basophils # (Auto) 0.0, Sodium Level 133L, Potassium Level 4.1, Chloride Level 99, Carbon Dioxide Level 26, Anion Gap 8, Blood Urea Nitrogen 16, Creatinine 0.69, Estimat Glomerular Filtration Rate > 60, BUN/ Creatinine Ratio 23, Glucose Level 157H, Calcium Level 8.5, Corrected Calcium 9.3, Total Bilirubin 0.4, Aspartate Amino Transf (AST/SGOT) 20, Alanine Aminotransferase (ALT/SGPT) 31, Alkaline Phosphatase 83, Total Protein 5.6L, Albumin 3.0L Microbiology 12/07/18 Influenza Types A,B Antigen (NEETU) - Final, Complete 12/07/18 Urine Culture - Final, Complete NO GROWTH Assessment/Plan Assessment/Plan Assess & Plan/Chief Complaint 1. Acute on Chronic Respiratory Failure--back on NC 2. Severe COPD with acute exacerbation--on SVNS and IV solumedrol 3. Acute Pneumonia--on zosyn/vancomycin, WBC down to 9.3 today 4. Hypertension--back on home meds 5. Debility--start PT Clinical Quality Measures Admission Status Admission Dx 1. Acute on Chronic Respiratory Failure--admit on BIPAP 2. Acute Exacerbation of COPD--SVNS, IV solumedrol 3. Acute Pneumonia--cover with zosyn and Vancomycin 4. Generalized Debility--start PT/OT once dyspnea improving 5. Hypertension--resume home meds DVT/VTE Risk/Contraindication: Risk Factor Score Per Nursin RFS Level Per Nursing on Admit: 4+=Very High VICKI SOTO DO Dec 08, 2018 13:07
--- NOTE | 2018-12-08 13:46 | Physician Query Clarification ---
PQ-Intro New Diagnosis Admission/Discharge Admission Date: Dec 07, 2018 at 13:36 Discharge Date: The medical record reflects the following clinical scenario: History/Risk Factors: Acute on chronic resp failure/distress Pneumonia Clinical Findings: Chest xray 12/07/18- Extensive bullous emphysema is again seen with an upper lobe prominance. Blood gases- pH 7.46, PCO2 45, PO2 139, HC03 31. 02 Sat 100. Base Excess 7.2. T97.7, pulse 90, resp 20, BP 177/92, Pulse Ox 92. Treatment: Supplemental oxygen at 5L, Albuterol treatments, IV Solu Medrol 40mg. Question: What condition best reflects the above clinical scenario? Please document below. 1. Emphysema. 2. No diagnosis of emphysema. 3. Other, with explanation of the clinical findings. 4. Clinically undetermined, no explanation for the clinical findings. PHYSICIAN RESPONSE What condition reflects above: 1 In responding to this query, please exercise your independent professional judgment. The purpose of this communication is to more accurately reflect the complexity of your patients condition. The fact that a question is asked does not imply that any particular answer is desired or expected. Thank you for your timely response to this clarification. Requestors name: Rose Marie Camacho [facility] Phone # ext [phone] or [phone] THIS PHYSICIAN QUERY FORM IS A PERMANENT PART OF THE MEDICAL RECORD ROSE MARIE CAMACHO Dec 08, 2018 13:46 VICKI SOTO DO Dec 11, 2018 18:21
--- NOTE | 2018-12-08 13:56 | Physician Query Clarification ---
PQ-Further Specificity Admission/Discharge Admission Date: Dec 07, 2018 at 13:36 Discharge Date: The medical record reflects the following clinical scenario: History/Risk Factors: Pneumonia COPD exacerbation Clinical Findings: T97.7, pulse 90, resp 20, BP 177/92, Pulse Ox 92, Blood gases: pH 7.46, PCO2 45 , PO2 139, HCO3 31, Pulse Ox 92, Base excess 7.2. Labored respiratory effort, SOA at rest. Treatment: Nasal cannula Oxygen flow rate 5L, NIV Bilevel Your H&P documents acute respiratory distress and acute on chronic respiratory failure. Question: Can you further specify respiratory diagnosis per the clinical indicators above? Please document below. 1. Acute on chronic respiratory failure. 2. Acute respiratory distress. 3. Other, with explanation of the clinical findings. 4. Clinically undetermined, no explanation for the clinical findings. PHYSICIAN RESPONSE Can you specify per above: 1 In responding to this query, please exercise your independent professional judgment. The purpose of this communication is to more accurately reflect the complexity of your patients condition. The fact that a question is asked does not imply that any particular answer is desired or expected. Thank you for your timely response to this clarification. Requestors name: Rose Marie Camacho [facility] Phone # ext [phone] or [phone] THIS PHYSICIAN QUERY FORM IS A PERMANENT PART OF THE MEDICAL RECORD ROSE MARIE CAMACHO Dec 08, 2018 13:56 VICKI SOTO DO Dec 11, 2018 18:22
--- NOTE | 2018-12-08 14:21 | Physical Therapy Evaluation ---
PT Evaluation-General Medical Diagnosis Admission Date Dec 07, 2018 at 13:36 Medical Diagnosis: weakness Onset Date: Dec 15, 2018 Therapy Diagnosis Therapy Diagnosis: impaired mobility, endurance Height/Weight Height (Feet): 5 Height (Inches): 2.00 Weight (Pounds): 144 Weight (Ounces): 5.0 Precautions Precautions/Isolations: Standard Precautions Referral Physician: Dalia Izquierdo DO Reason for Referral: Evaluation/Treatment Medical History Pertinent Medical History: Arthritis, GERD Additional Medical History former smoker, O2 dependent, prostate problems, [place], surg (hernia, stents x2, heart cath in January 2015) Current History went to ER with worsening SOA Reviewed History: Yes Social History Home: Single Level Entry Into Home: Ramp Prior/Core FIM Prior Level of Function Therapy Code Descriptions/Definitions Functional [place] Measure: 0=Not Assessed/NA 4=Minimal Assistance 1=Total Assistance 5=Supervision or Setup 2=Maximal Assistance 6=Modified [place] 3=Moderate Assistance 7=Complete [place] Therapy Quality Codes: 6 Independent with activity with or without an assistive device 5 Patient requires set up or clean up by helper. Patient completes activity by themselves 4 Supervision or touching assist (CGA). [place] provide cues , steadying assist 3 The helper provides less than half the effort to complete the activity 2 The helper provides more than half the effort to complete the activity 1 Dependent. The helper does all the effort to complete an activity 7 Patient refused to complete or attempt activity 9 The patient did not perform the activity before the current illness or injury 88 Not attempted due to Medical conditions or safety concerns Functional Abilities and Goals: Independent: Patient completed the activities by him/herself, with or without an assistive device, with no assistance from a helper. Needed Some Help: Patient needed partial assistance from another person to complete activities. Dependent: A helper completed the activities for the patient. Unknown: Not Applicable: Bed Mobility: 7 Gait: 7 Indoor Mobility (Ambulation): Independent Stairs: Independent PT Evaluation-Current Subjective Patient sitting EOB pre tx, agrees reluctantly to PT, no complaints of pain. Patient is very agitated seemingly about being bothered. He is not forthcoming with info about home or past mobility. He agrees to ambulate, jumps up immediately and starts to walk before PT has disconnected IV, doesn't give time for strength or sensation testing. Pt/Family Goals none stated Objective Patient Orientation: Person, Unable to Assess Attachments: Oxygen, IV Sensory Vision: Functional Hearing: Impaired Transfers Therapy Code Descriptions/Definitions Functional [place] Measure: 0=Not Assessed/NA 4=Minimal Assistance 1=Total Assistance 5=Supervision or Setup 2=Maximal Assistance 6=Modified [place] 3=Moderate Assistance 7=Complete [place] Transfers (B, C, W/C) (FIM): 5 Sit to/from Stand: 5 Gait Mode of Locomotion: Walk Anticipated Mode of Locomotion: Walk Gait (FIM): 5 Distance: 150' Gait Level of Assist: 5 Gait Persons Needed: 1 Gait Assistive Device: None Comments/Gait Description Patient ambulates briskly, steady ambulation, cues for purse lip breathing. Balance Sitting Static: Normal Sitting Dynamic: Normal Standing Static: Normal Standing Dynamic: Normal Assessment/Needs Patient has impaired endurance, steady ambulation Rehab Potential: Fair PT Short Term Goals Short Term Goals Time Frame: Dec 15, 2018 Transfers (B,C,W/C) (FIM): 7 Gait (FIM): 7 Gait Distance Comment: 200' Gait Assistive Device: None PT Plan Problem List Problem List: Activity Tolerance, Functional Strength, Safety, Balance, Gait, Transfer Treatment/Plan Treatment Plan: Continue Plan of Care Treatment Plan: Bed Mobility, Education, Functional Activity Sophie, Functional Strength, Gait, Safety, Therapeutic Exercise, Transfers Treatment Duration: Dec 15, 2018 Frequency: 6 times per week Estimated Hrs Per Day: .25 hour per day (15-30') Patient and/or Family Agrees t: Yes Safety Risks/Education Patient Education: Gait Training, Transfer Techniques, Correct Positioning, Safety Issues Teaching Recipient: Patient Teaching Methods: Demonstration, Discussion Response to Teaching: Reinforcement Needed Discharge Recommendations Plan Patient will perform transfer training, balance and endurance training, functional strengthening, stair training, gait training, and education, to improve functional mobility and independence at home. Therapy D/C Recommendations: Home w/ Family Support Time/GCodes Time In: 1410 Time Out: 1420 Total Billed Treatment Time: 10 Total Billed Treatment 1 visit CLAYTON WONG PT Dec 08, 2018 14:21
[2018-12-08 15:50] VITALS: BP 157/79
[2018-12-08] MEDS ORDERED: TROUGH ORDER-PHARMACY XX NR (19:00)
[2018-12-08 20:00] VITALS: BP 158/86
[2018-12-08] MEDS: ROSUVASTATIN 10 MG (CRESTOR) TABLET PO SCH (20:04)
[2018-12-08] MEDS: MONTELUKAST 10 MG (SINGULAIR) TAB PO SCH (20:04)
--- NOTE | 2018-12-08 20:15 | NUR ---
VANCOMYCIN TROUGH = 11.8 NO CHANGES, CONTINUE CURRENT REGIMEN
[2018-12-08] MEDS ORDERED: TAMSULOSIN 0.4 MG (FLOMAX) CAP PO SCH (21:00)
[2018-12-08] MEDS: RT-ADVAIR HFA 115/21 MCG PER PUFF IH SCH ×2 (21:20→21:26)
[2018-12-09] VITALS: BP 152/84
[2018-12-09] MEDS: RT-ALBUTEROL/IPRATROPIUM 3 ML (DUONEB) VIAL INH SCH ×3 (01:50→10:12)
[2018-12-09 04:00] VITALS: BP 159/85
[2018-12-09] MEDS: methylPREDNISolone 40 MG/ML (Solu-MEDROL) VIAL IV SCH (04:00)
[2018-12-09] MEDS: PIPERACILLIN/TAZO 4.5 GM/NS 100 ML IV SCH ×2 (04:01)
[2018-12-09] MEDS ORDERED: TROUGH ORDER-PHARMACY XX NR (05:00)
--- NOTE | 2018-12-09 07:49 | Pulmonary Progress Note ---
Subjective Time Seen by a Provider: 07:49 Subjective/Events-last exam Pt appears to be doing better. Sepsis Event Evaluation Height, Weight, BMI Height: 5'2.00" Weight: 141lbs. 5.0oz. 63.068653yv; 26.4 BMI Method:Stated Focused Exam Lactate Level 12/07/18 11:21: Lactic Acid Level 2.00 Exam Exam Vital Signs Date Time Temp Pulse Resp B/P (MAP) Pulse Ox O2 Delivery O2 Flow Rate FiO2 12/09/18 07:20 Nasal Cannula 4.00 12/09/18 07:00 75 12/09/18 04:00 99.1 60 18 159/85 (109) 97 Nasal Cannula 5.00 12/09/18 01:50 99 Nasal Cannula 4.00 12/09/18 01:00 53 12/09/18 00:00 98.4 64 18 152/84 (106) 97 Nasal Cannula 5.00 12/08/18 21:35 99 Nasal Cannula 4.50 12/08/18 21:27 98 Nasal Cannula 5.00 12/08/18 20:00 98.8 66 20 158/86 (110) 97 Nasal Cannula 5.00 12/08/18 20:00 Nasal Cannula 5.00 12/08/18 19:00 90 12/08/18 15:50 98.5 65 20 157/79 (105) 96 Nasal Cannula 5.00 12/08/18 13:01 72 12/08/18 12:00 98.6 79 18 180/82 (114) 98 Nasal Cannula 4.00 12/08/18 11:51 98 Nasal Cannula 4.00 12/08/18 08:00 98.6 98 18 168/84 (112) 97 Nasal Cannula 4.00 12/08/18 08:00 Nasal Cannula 5.00 I & O 12/09/18 07:00 Intake Total 2250 ml Output Total 2500 ml Balance -250 ml Height & Weight Height: 5'2.00" Weight: 141lbs. 5.0oz. 63.762824ih; 26.4 BMI Method:Stated General Appearance: No Apparent Distress HEENT: Pharynx Normal Neck: Supple Respiratory: Lungs Clear, Decreased Breath Sounds Cardiovascular: Regular Rate, Rhythm Capillary Refill: Less Than 3 Seconds Gastrointestinal: normal bowel sounds, non tender, soft Extremity: Non Tender, No Calf Tenderness Neurologic/Psychiatric: Alert, Oriented x3 Skin: Warm/Dry Results Lab Laboratory Tests 12/07/18 11:21 12/08/18 05:38 Assessment/Plan Assessment/Plan COPDAE with hypoxia -Solumedrol -- change to Prednisone -SVNS add advair -Oxygen Pneumonia -Vanco/ZOsyn - change to Omnicef -Marina cultures pending Pt is ok for discharge from pulmonary standpoint on prednisone taper, and omnicef x 5 days. I will f/u with him in 2 wks. LYNN AVILA DO Dec 09, 2018 07:49
[2018-12-09 08:00] VITALS: BP 129/62
[2018-12-09] MEDS: doxAzosin 2 MG (CARDURA) TAB PO SCH (08:29)
[2018-12-09] MEDS: meTOprolol SUCCINATE 100 MG (TOPROL XL) TAB PO SCH (08:29)
[2018-12-09] MEDS: buPROPion SR 150 MG (WELLBUTRIN SR) TAB PO SCH (08:29)
[2018-12-09] MEDS: LORATADINE (CLARITIN) 10 MG TAB PO SCH (08:29)
[2018-12-09] MEDS: ASPIRIN E.C. 81 MG (ECOTRIN) TAB PO SCH (08:30)
[2018-12-09] MEDS ORDERED: CEFDINIR 300 MG (OMNICEF) CAP PO SCH (09:00)
[2018-12-09] MEDS ORDERED: predniSONE 10 MG TAB PO SCH (09:00)
[2018-12-09] MEDS: RT-ADVAIR HFA 115/21 MCG PER PUFF IH SCH (10:16)
--- NOTE | 2018-12-09 10:53 | Physical Therapy Daily Note ---
PT Daily Note-Current Subjective Pt reluctantly agreeable to PT treatment Pain Numeric Pain Scale: 0-No Pain Appearance Pt supine in bed upon arrival Pt sitting EOB at end of session with call light, phone and bedside table within reach Transfers Therapy Code Descriptions/Definitions Functional [place] Measure: 0=Not Assessed/NA 4=Minimal Assistance 1=Total Assistance 5=Supervision or Setup 2=Maximal Assistance 6=Modified [place] 3=Moderate Assistance 7=Complete [place] Therapy Quality Codes: 6 Independent with activity with or without an assistive device 5 Patient requires set up or clean up by helper. Patient completes activity by themselves 4 Supervision or touching assist (CGA). [place] provide cues , steadying assist 3 The helper provides less than half the effort to complete the activity 2 The helper provides more than half the effort to complete the activity 1 Dependent. The helper does all the effort to complete an activity 7 Patient refused to complete or attempt activity 9 The patient did not perform the activity before the current illness or injury 88 Not attempted due to Medical conditions or safety concerns Transfers (B, C, W/C) (FIM): 6 Scootin Rollin Supine to/from Sit: 6 Sit to/from Stand: 6 Pt demo quick but steady transfers Gait Training Distance (FIM): 3=150 ft Distance: 250 Gait Level of Assist: 5 Gait Persons Needed: 1 Gait Assistive Device: None step through with good pace, step length and height. Occasional unsteadiness self corrected with wall. Treatments Gait transfer safety training Assessment Current Status: Good Progress occasional unsteadiness noted during gait, but self corrected with use of wall. Pt states he does not and will not use a walker. Noted impulsiveness with activities PT Short Term Goals Short Term Goals Time Frame: Dec 15, 2018 Transfers (B,C,W/C) (FIM): 7 Gait (FIM): 7 Gait Distance Comment: 200' Gait Assistive Device: None PT Plan Treatment/Plan Treatment Plan: Continue Plan of Care Treatment Plan: Bed Mobility, Education, Functional Activity Sophie, Functional Strength, Gait, Safety, Therapeutic Exercise, Transfers Treatment Duration: Dec 15, 2018 Frequency: 6 times per week Estimated Hrs Per Day: .25 hour per day (15-30') Patient and/or Family Agrees t: Yes Safety Risks/Education Patient Education: Gait Training, Transfer Techniques, Safety Issues Teaching Recipient: Patient Teaching Methods: Discussion Response to Teaching: Verbalize Understanding Time/GCodes Time In: 930 Time Out: 942 Total Billed Treatment Time: 12 Total Billed Treatment 1 visit, GT x 1 unit LUIS SORIA PTA Dec 09, 2018 10:52
[2018-12-09 12:00] VITALS: BP 135/72
[2018-12-09] MEDS ORDERED: PRED10TA22 PO (12:46)
[2018-12-09] MEDS ORDERED: CEFD300C3 PO (12:46)
[2018-12-09] MEDS ORDERED: ALPR0.5T PO (12:46)
[2018-12-09] MEDS ORDERED: PRD10T PO (12:46)
--- NOTE | 2018-12-09 12:47 | Discharge Summary-Hospitalist ---
Diagnosis/Chief Complaint Date of Admission Dec 07, 2018 at 13:36 Date of Discharge Discharge Date: Dec 09, 2018 Discharge Diagnosis AECOPD with hypoxia Pneumonia Anxiety (1) Respiratory insufficiency Status: Resolved (2) Pneumonia Status: Acute (3) Anxiety Status: Acute (4) COPD exacerbation Status: Acute (5) Oxygen dependent Status: Chronic Discharge Summary Discharge Physical Exam Allergies: Coded Allergies: atorvastatin calcium (Verified Allergy, Mild, RASH, 11/27/12) Vitals & I&Os Vital Signs Date Time Temp Pulse Resp B/P (MAP) Pulse Ox O2 Delivery O2 Flow Rate FiO2 12/09/18 12:32 65 12/09/18 12:00 97.5 18 135/72 (93) 94 Nasal Cannula 5.00 General Appearance: No Apparent Distress, WD/WN Respiratory: Chest Non Tender, Lungs Clear, Normal Breath Sounds, No Accessory Muscle Use, No Respiratory Distress, Decreased Breath Sounds Cardiovascular: Regular Rate, Rhythm, No Edema, No Gallop, No JVD, No Murmur, Normal Peripheral Pulses Neurologic/Psychiatric: Alert, Oriented x3, No Motor/Sensory Deficits, Normal Mood/Affect Hospital Course Was the Problem List Reviewed?: Yes Hospital course: Patient was admitted in respiratory distress due to exacerbation of COPD and pneumonitis. Dr. Cardenas was consulted. Patient recovered quickly after IV steroids and IV antibiotics and oxygen supplementation along with nebulizer treatments. Anxiolytic was given which helped a great deal and a small supply was sent home with him at 's request. Patient overall felt good was walking around eating and drinking and bowel function was normal along with bladder function and he was deemed stable for discharge as approved by Dr. Cardenas. Labs (last 24 hrs) Laboratory Tests 12/08/18 19:41: Vancomycin Level Trough 11.8 Microbiology 12/07/18 Blood Culture - Preliminary, Resulted No growth 12/07/18 Influenza Types A,B Antigen (NEETU) - Final, Complete 12/07/18 Urine Culture - Final, Complete NO GROWTH Patient resulted labs reviewed. Discussion & Recommendations Discharge Planning: <30 minutes discharge planning Discharge Home Medications: Active Scripts Active Xanax (Alprazolam) 0.5 Mg Tablet 0.5 Mg PO BID PRN Prednisone 10 Mg Tab.ds.pk 10 Mg PO DAILY Take 6 tabs(60mg)daily,decrease by 1 tab(10MG)daily. Cefdinir 300 Mg Capsule 300 Mg PO BID Prednisone 10 Mg Tab 10 Mg PO DAILY 6 Days Restart Prednisone 10mg daily after new script of Prednisone is completed Reported Bupropion HCl Sr (Bupropion HCl) 150 Mg Tablet.er 150 Mg PO BID Proair Hfa (Albuterol Sulfate) 1 Puff Puff 2 Puff INH Q4H PRN Toprol Xl (Metoprolol Succinate) 200 Mg Tab 200 Mg PO DAILY Doxazosin Mesylate 2 Mg Tablet 2 Mg PO DAILY Cetirizine HCl 10 Mg Tablet 10 Mg PO DAILY Hydrocodone-Acetamin 7.5-325 (Hydrocodone/Acetaminophen) 1 Each Tablet 1 Tab PO TID PRN Albuterol Sulfate 2.5 Mg/3 Ml Vial.neb 2.5 Mg NEB Q4H PRN UNKNOWN LAST FILL DATE Nitroglycerin 0.4 Mg Tab.subl 0.4 Mg SL UD PRN Rosuvastatin Calcium 10 Mg Tablet 10 Mg PO HS LAST FILLED #90 18 Montelukast Sodium 10 Mg Tablet 10 Mg PO HS Alfuzosin HCl ER (Alfuzosin HCl) 10 Mg Tab.er.24h 10 Mg PO HS LAST FILLED #90 18 Pantoprazole Sodium 40 Mg Tablet.dr 40 Mg PO DAILY PRN Aspirin EC (Aspirin) 81 Mg Tablet.dr 81 Mg PO DAILY Brovana (Arformoterol Tartrate) 15 Mcg/2 Ml Vial.neb 15 Mcg NEB BID LAST FILLED #360 04-07-18 Instructions to patient/family Please see electronic discharge instructions given to patient. Clinical Quality Measures DVT/VTE Risk/Contraindication: Risk Factor Score Per Nursin RFS Level Per Nursing on Admit: 4+=Very High Problem Qualifiers (1) Pneumonia: Pneumonia type: due to unspecified organism Laterality: unspecified laterality Lung location: unspecified part of lung Qualified Codes: J18.9 - Pneumonia, unspecified organism SUREKHA ALBERT DO Dec 09, 2018 12:47
[2018-12-09 13:00] VITALS: BP 135/72
--- NOTE | 2018-12-09 13:00 | NUR ---
YAYO DINH demonstrates understanding of discharge instructions and accurately returns instructions upon questioning. Copy of Post-Discharge Instructions given to PT. YAYO DINH is able to manage continuing needs after discharge. Patients belongings returned to PT. Patient discharged from 431-1 on 12/09/18 at 1300. YAYO DINH left floor via W/C, accompanied by STAFF AND PER AUTO.
--- NOTE | 2018-12-13 11:10 | Physician Query Clarification ---
PQ-Conflicting Diagnosis Admission/Discharge Admission Date: Dec 07, 2018 at 13:36 Discharge Date: Dec 09, 2018 at 13:00 The medical record reflects the following clinical scenario: History/Risk Factors: Pneumonia Emphysema Clinical Findings: T97.7, pulse 90, Resp 20, BP 177/92. Blood gases: pH 7.46, PCO2 45, PO2 139, HCO # 31, O2 sat 100, Base excess 7.2. Treatment: Nasal Cannula O2 flow rate 5L, NIV Bilevel, IV Solu Medrol. Dr. Izquierdo was queried earlier as to whether patient was admitted with acute respiratory distress or acute on chronic respiratory failure. She gave the answer of acute on chronic respiratory failure. Discharge summary dictation does not document acute on chronic respiratory failure. Please clarify below. Question: Do you agree with the impression of the Acute on chronic respiratory failure per Dr. Izquierdo? Please document a response below. PHYSICIAN RESPONSE Do you agree w/Consulting Dx?: Yes In responding to this query, please exercise your independent professional judgment. The purpose of this communication is to more accurately reflect the complexity of your patients condition. The fact that a question is asked does not imply that any particular answer is desired or expected. Thank you for your timely response to this clarification. Requestors name: Rose Marie Camacho [facility] Phone # ext [phone] or [phone] THIS PHYSICIAN QUERY FORM IS A PERMANENT PART OF THE MEDICAL RECORD ROSE MARIE CAMACHO Dec 13, 2018 11:10 SUREKHA ALBERT DO Dec 13, 2018 13:51
== END 2018-12-09 13:00 | disposition home or self-care (01) | DRG 193 ==
LOC: EDUNIT# 10:27 → ER 10:28 → UNDOADMIN 13:36 → 4TH 13:36
PROVIDERS: ADMIT Family Medicine; ATTEND Family Medicine
DX: J18.9 Pneumonia, unspecified organism (principal); J43.9 Emphysema, unspecified; J96.20 Acute and chronic respiratory failure, unspecified whether with hypoxia or hypercapnia; I10 Essential (primary) hypertension; F41.9 Anxiety disorder, unspecified; R53.81 Other malaise; K21.9 Gastro-esophageal reflux disease without esophagitis; N42.9 Disorder of prostate, unspecified; Z66 Do not resuscitate; M19.91 Primary osteoarthritis, unspecified site; M54.9 Dorsalgia, unspecified; Z99.81 Dependence on supplemental oxygen; Z79.52 Long term (current) use of systemic steroids; Z87.891 Personal history of nicotine dependence; Z95.5 Presence of coronary angioplasty implant and graft
CPT/HCPCS: 36415; 36600; 71046; 80053; 80202; 81000; 82805; 83605; 83880; 85007; 85025; 85027; 85610; 85730; 86141; 87040; 87088; 87804; 94640; 94760; 96365; 96367; 96375

== ENCOUNTER → 2018-12-26 | Outpatient (CLI) | payer MEDICARE, OTHER ==
[~2018-12-26] MED LIST changes: +ALPR0.5T PO; +BUPR150T14 PO; +CEFD300C3 PO; +DOXA2TAB2 PO; +HOLD METFORMIN - RECEIVED CONTRAST 20 ML VIAL IV SCH; +HYDR-3816 PO; +IOHEXOL 350 MG/ML 150 ML (OMNIPAQUE 350) VIAL IV ONE; +NF-MET200T PO; -PIPERACILLIN/TAZO 4.5 GM/NS 100 ML IV SCH; +PRED10TA22 PO; +RT-ALBUINH INH
--- NOTE | 2018-12-26 13:34 | Diagnostic Imaging Report ---
PROCEDURE: US Venous Lower Ext [place]. TECHNIQUE: Multiple real-time grayscale images were obtained over the lower extremities in various projections, bilaterally. Additional duplex Doppler and color Doppler images were also obtained. INDICATION: Bilateral lower extremity swelling. FINDINGS: There is no evidence of right or left lower extremity DVT. Both lower extremity deep venous systems demonstrate normal compressibility with normal response to augmentation and Valsalva. No fluid collection or mass is seen. IMPRESSION: No evidence of right or left lower extremity DVT. Dictated by: Dictated on workstation # [id number]
[2018-12-26 13:43] LABS: ABG BASE EXCESS 5.8 MMOL/L (-2.5-2.5); ABG OXYGEN SATURATION 99 % (94-100); ABG PCO2 46 MMHG (35-45); ABG PH 7.43 (7.37-7.43); ABG PO2 120 MMHG (79-93); ABG TCO2 31.8 MMOL/L (21.0-31.0)
[2018-12-26 13:44] LABS: ALLENS TEST YES-POS; INSPIRED O2 5; PATIENT TEMP 96.7; VENTILATOR NO
--- NOTE | 2018-12-26 14:07 | Diagnostic Imaging Report ---
PROCEDURE: CT angiography of the chest with contrast. TECHNIQUE: Multiple contiguous axial images were obtained through the chest after uneventful bolus administration of intravenous contrast. 2D reconstructed CTA MIP acquisitions were also performed. Auto Exposure Controls were utilized during the CT exam to meet ALARA standards for radiation dose reduction. INDICATION: COPD, pneumonia. COMPARISON: Exam compared to 08/19/2017. FINDINGS: There are no intraluminal pulmonary arterial filling defects. There is no pulmonary arterial embolus. The thoracic aorta is patent and nonaneurysmal. There is no pleural or pericardial effusion. There are chronic changes of COPD present with bullous disease greatest in the left upper lobe where there is anupama-fissural and pericystic zones of linear scarring as a chronic finding. There is no pneumothorax. No soft tissue density lung mass. No thoracic adenopathy. The upper abdomen is nonacute. IMPRESSION: Extensive changes of centrilobular emphysema with cystic disease, bronchiectasis, and scarring, greatest at the left upper lobe, chronic. Negative for PE or acute aortic disease. No mass or adenopathy. No acute-appearing infiltrate. Dictated by: Dictated on workstation # [id number]
== END ==
LOC: RAD 11:43
PROVIDERS: ATTEND Internal Medicine Critical Care Medicine
DX: J43.2 Centrilobular emphysema (principal); J98.4 Other disorders of lung; J47.9 Bronchiectasis, uncomplicated; M79.89 Other specified soft tissue disorders; J96.20 Acute and chronic respiratory failure, unspecified whether with hypoxia or hypercapnia; J96.11 Chronic respiratory failure with hypoxia; J18.9 Pneumonia, unspecified organism; J30.9 Allergic rhinitis, unspecified; Z72.0 Tobacco use
CPT/HCPCS: 36600; 71275; 82805; 93970

== ENCOUNTER 2019-06-20 09:03 | Inpatient (IN) | payer MEDICARE, OTHER ==
[~2019-06-20] VITALS: Ht 170.2 cm; Wt 69.2 kg
[~2019-06-20 09:03] MED LIST changes: -HOLD METFORMIN - RECEIVED CONTRAST 20 ML VIAL IV SCH; -IOHEXOL 350 MG/ML 150 ML (OMNIPAQUE 350) VIAL IV ONE; -ROSU10TA27 PO; +ROSU10TA28 PO; +RT-ALBUTEROL SULF 2.5 MG/3 ML PRE-MIX VIAL ONE; +RT-ALBUTEROL/IPRATROPIUM 3 ML (DUONEB) VIAL ONE
[2019-06-20] MEDS ORDERED: RT-ALBUTEROL SULF 2.5 MG/3 ML PRE-MIX VIAL INH STA ×2 (09:10→09:23)
[2019-06-20] MEDS ORDERED: RT-ALBUTEROL/IPRATROPIUM 3 ML (DUONEB) VIAL INH ONE (09:15)
[2019-06-20] MEDS ORDERED: RT-IPRATROPIUM (ATROVENT) 0.5MG/2.5ML AMP IH ONE ×2 (09:17→09:30)
[2019-06-20 09:23] LABS: BASOPHILS % (AUTO) 0 % (0-10); EOSINOPHILS # (AUTO) 0.1 10^3/uL (0.0-0.3); EOSINOPHILS % (AUTO) 0 % (0-10); HEMATOCRIT 38 % (40-54); HEMOGLOBIN 11.9 G/DL (13.3-17.7); LYMPHOCYTES # (AUTO) 0.9 X 10^3 (1.0-4.0); LYMPHOCYTES % (AUTO) 4 % (12-44); MEAN CORPUSCULAR HEMOGLOBIN 30 PG (25-34); MEAN CORPUSCULAR HGB CONC 32 G/DL (32-36); MEAN CORPUSCULAR VOLUME 95 FL (80-99); MEAN PLATELET VOLUME 9.5 FL (7.4-10.4); MONOCYTES # (AUTO) 1.3 X 10^3 (0.0-1.0); MONOCYTES % (AUTO) 7 % (0-12); NEUTROPHILS # (AUTO) 16.9 X 10^3 (1.8-7.8); NEUTROPHILS % (AUTO) 88 % (42-75); PLATELET COUNT 291 10^3/uL (130-400); RED CELL DISTRIBUTION WIDTH 13.1 % (10.0-14.5); WHITE BLOOD COUNT 19.2 10^3/uL (4.3-11.0)
[2019-06-20] MEDS ORDERED: methylPREDNISolone 125 MG (Solu-MEDROL) VIAL IV STA (09:23)
[2019-06-20 09:48] LABS: ALANINE AMINOTRANSFERASE 17 U/L (0-55); ALBUMIN 3.8 GM/DL (3.2-4.5); ALKALINE PHOSPHATASE 85 U/L (40-136); BILIRUBIN,TOTAL 0.7 MG/DL (0.1-1.0); BUN/CREATININE RATIO 24; CALCIUM 9.8 MG/DL (8.5-10.1); CARBON DIOXIDE 27 MMOL/L (21-32); CHLORIDE 96 MMOL/L (98-107); GFR ESTIMATED > 60; GLUCOSE 140 MG/DL (70-105); POTASSIUM 3.9 MMOL/L (3.6-5.0); SODIUM 135 MMOL/L (135-145); TOTAL PROTEIN 7.3 GM/DL (6.4-8.2)
[2019-06-20 09:51] LABS: INR 1.1 (0.8-1.4); PROTHROMBIN TIME PATIENT 14.8 SEC (12.2-14.7)
--- NOTE | 2019-06-20 09:54 | Diagnostic Imaging Report ---
INDICATION: Shortness of air, COPD. COMPARISON: 12/07/2018. TECHNIQUE: A single radiograph of the chest is dated 06/20/2019. FINDINGS: The cardiac silhouette is within normal limits in size. No significant pulmonary vascular congestion. Severe background emphysematous changes are again noted; however, significantly increasing density and opacification of the left upper lung are noted. Increasing bibasilar reticular opacities. No significant pleural effusion. No pneumothorax. No acute osseous abnormality. IMPRESSION: Significantly increasing density of the left upper lung. Although this could relate to developing infiltrate or fluid within emphysematous changes, a mass lesion/neoplasm needs to be excluded; therefore, recommend a CT of the chest, preferably with contrast, for further evaluation. Severe background chronic obstructive pulmonary disease with worsening fibrosis and/or developing pneumonitis. Called to Dr. Valdez at 9:51 a.m. by cvb. Dictated by: Dictated on workstation # [id number]
[2019-06-20 10:00] LABS: LYMPHOCYTES % (MANUAL) 3 %; MONOCYTES % (MANUAL) 6 %; NEUTROPHILS % (MANUAL) 91 %; RBC MORPH NORMAL
[2019-06-20] MEDS ORDERED: NS IV 1000 ML 1,000 ML IV ONE (10:24)
[2019-06-20] MEDS ORDERED: IOHEXOL 350 MG/ML 100 ML (OMNIPAQUE 350) VIAL IV ONE (10:30)
[2019-06-20] MEDS ORDERED: HOLD METFORMIN - RECEIVED CONTRAST 20 ML VIAL IV SCH (10:30)
[2019-06-20] MEDS ORDERED: NS 100 ML (IVPB) BAG IV ONE (10:30)
--- NOTE | 2019-06-20 10:30 | ED General ---
General Chief Complaint: Chest Pain Stated Complaint: CHEST PAIN;SOA Nursing Triage Note: AMB TO ROOM WITH [address] HAS BEEN SOA FOR LAST SEVERAL WEEKS WITH CHEST PAIN INCREASING GETTING WORSE 89% ON HIS 02 OF 2 L PLACED ON NC AT 5 LITERS 02 UP Nursing Sepsis Screen: No Definite Risk Source of Information: Patient Exam Limitations: No Limitations History of Present Illness Date Seen by Provider: Jun 20, 2019 Time Seen by Provider: 09:11 Initial Comments Here with report of significant respiratory distress that is worse over the last few days. Ongoing over the last couple of weeks. He is currently on steroids and has increased from his basal dose of 10 mg daily to 20 mg daily. He just did 2 albuterol treatments prior to arrival and that has not helped. He arrives quite dyspneic and in some distress. He is normally on O2 at 2 L. Initial O2 sat in the 80s which did improve after being placed on 5 L. Patient is very dyspneic. Denies fever or chills. Complains of chest tightness. Denies nausea, vomiting or diarrhea. Timing/Duration: 1 Week, Getting Worse Severity: Moderate, Severe Associated Systoms: Cough; No Fever/Chills, No Nausea/Vomiting; Shortness of Air, Weakness Allergies and Home Medications Allergies Coded Allergies: atorvastatin calcium (Verified Allergy, Mild, RASH, 11/27/12) Home Medications Albuterol Sulfate 2.5 Mg/3 Ml Vial.neb, 2.5 MG NEB Q4H PRN for SHORTNESS OF BREATH, (Reported) UNKNOWN LAST FILL DATE Albuterol Sulfate 1 Puff Puff, 2 PUFF INH Q4H PRN for SHORTNESS OF BREATH, (Reported) Alfuzosin HCl 10 Mg Tab.er.24h, 10 MG PO HS, (Reported) LAST FILLED #90 03-12-18 Alprazolam 0.5 Mg Tablet, 0.5 MG PO BID PRN for ANXIETY Prescribed by: SUREKHA ALBERT on 12/09/18 1246 Arformoterol Tartrate 15 Mcg/2 Ml Vial.neb, 15 MCG NEB BID, (Reported) LAST FILLED #360 04-07-18 Aspirin 81 Mg Tablet.dr, 81 MG PO DAILY, (Reported) Bupropion HCl 150 Mg Tablet.er, 150 MG PO BID, (Reported) Cefdinir 300 Mg Capsule, 300 MG PO BID Prescribed by: SUREKHA ALBERT on 12/09/18 1246 Cetirizine HCl 10 Mg Tablet, 10 MG PO DAILY, (Reported) Doxazosin Mesylate 2 Mg Tablet, 2 MG PO DAILY, (Reported) Hydrocodone/Acetaminophen 1 Each Tablet, 1 TAB PO TID PRN for PAIN-MODERATE, (Reported) Metoprolol Succinate 200 Mg Tab, 200 MG PO DAILY, (Reported) Montelukast Sodium 10 Mg Tablet, 10 MG PO HS, (Reported) Nitroglycerin 0.4 Mg Tab.subl, 0.4 MG SL UD PRN for CHEST PAIN, (Reported) Pantoprazole Sodium 40 Mg Tablet.dr, 40 MG PO DAILY PRN for HEARTBURN, (Reported) Prednisone 10 Mg Tab, 10 MG PO DAILY Restart Prednisone 10mg daily after new script of Prednisone is completed Prescribed by: SUREKHA ALBERT on 12/09/18 1246 Prednisone 10 Mg Tab.ds.pk, 10 MG PO DAILY Take 6 tabs(60mg)daily,decrease by 1 tab(10MG)daily. Prescribed by: SUREKHA ALBERT on 12/09/18 1246 Rosuvastatin Calcium 10 Mg Tablet, 10 MG PO HS, (Reported) LAST FILLED #90 03-17-18 Patient Home Medication List Home Medication List Reviewed: Yes Review of Systems Review of Systems Constitutional: see HPI; No chills, No fever; weakness EENTM: nose congestion; No throat pain Respiratory: cough, short of breath, wheezing Cardiovascular: see HPI; No edema, No syncope Gastrointestinal: No abdominal pain, No nausea, No vomiting Genitourinary: no symptoms reported Musculoskeletal: no symptoms reported All Other Systems Reviewed Negative Unless Noted: Yes Past Mdnbpqx-Kgapuh-Twevsw Hx Past Med/Social Hx: Reviewed Nursing Past Med/Soc Hx Patient Social History Alcohol Use: Denies Use Recreational Drug Use: No Smoking Status: Current Everyday Smoker Type Used: Cigarettes Former Smoker, Quit: Aug 18, 2012 2nd Hand Smoke Exposure: No Recent Foreign Travel: No Contact w/Someone Who Travel: No Recent Infectious Disease Expo: No Recent Hopitalizations: No Immunizations Up To Date PED Vaccines UTD: Yes Date of Pneumonia Vaccine: Sep 17, 2015 Date of Influenza Vaccine: Nov 09, 2018 Seasonal Allergies Seasonal Allergies: No Past Medical History Surgeries: Yes (hernia) Respiratory: Yes (oxygen dependent) Asthma, COPD Currently Using CPAP: No Cardiac: Yes (STENTS X2, HEART CATH IN JANUARY 2015) Hypertension Neurological: No Reproductive Disorders: No Genitourinary: Yes Prostate Problems Gastrointestinal: Yes Gastroesophageal Reflux Musculoskeletal: No Arthritis Endocrine: No Cataract Hearing Impairment: Hard of Hearing Cancer: No Psychosocial: No Integumentary: No Blood Disorders: No Family Medical History Reviewed Nursing Family Hx Congestive heart failure 03 MOTHER Family history: Cardiovascular disease 03 MOTHER History of - respiratory disease 03 FATHER (EMPHYSEMA) Kidney disease 03 MOTHER No Pertinent Family Hx Physical Exam-Suspected Sepsis Physical Exam Vital Signs Vital Signs - First Documented 06/20/19 09:03 Temp 37.8 Pulse 134 Resp 38 B/P (MAP) 137/79 (98) Pulse Ox 95 O2 Delivery Nasal Cannula Capillary Refill : Less Than 3 Seconds Blood Pressure Mean: 98 Height, Weight, BMI Height: 5'2.00" Weight: 141lbs. 5.0oz. 63.706178og; 22.00 BMI Method:Stated General Appearance: WD/WN, Moderate Distress HEENT: PERRL/EOMI, Pharynx Normal Neck: Non Tender, Supple Respiratory: Decreased Breath Sounds, Wheezing Cardiovascular: No Murmur, Tachycardia Gastrointestinal: Non Tender, Soft Back: Normal Inspection, No CVA Tenderness, No Vertebral Tenderness Extremity: Normal Range of Motion, Non Tender Neurologic/Psychiatric: Alert, Oriented x3 Skin: normal color, warm/dry Focused Exam Lactate Level 06/20/19 09:26: Lactic Acid Level 1.96 Lactic Acid Level Laboratory Tests Test 06/20/19 09:26 Lactic Acid Level 1.96 MMOL/L (0.50-2.00) Progress/Results/Core Measures Suspected Sepsis Recent Fever Within 48 Hours: No Infection Criteria Present: None New/Unexplained Altered Menta: No Sepsis Screen: No Definite Risk SIRS Temperature: Pulse: 134 Respiratory Rate: 38 Laboratory Tests 06/20/19 09:04: White Blood Count 19.2H Blood Pressure 137 /79 Mean: 98 06/20/19 09:26: Lactic Acid Level 1.96 Laboratory Tests 06/20/19 09:04: Creatinine 0.80, INR Comment 1.1, Platelet Count 291, Total Bilirubin 0.7 Results/Orders Lab Results Laboratory Tests Test 06/20/19 09:04 06/20/19 09:26 Range/Units White Blood Count 19.2 H 4.3-11.0 10^3/uL Red Blood Count 3.97 L 4.35-5.85 10^6/uL Hemoglobin 11.9 L 13.3-17.7 G/DL Hematocrit 38 L 40-54 % Mean Corpuscular Volume 95 80-99 FL Mean Corpuscular Hemoglobin 30 25-34 PG Mean Corpuscular Hemoglobin Concent 32 32-36 G/DL Red Cell Distribution Width 13.1 10.0-14.5 % Platelet Count 291 130-400 10^3/uL Mean Platelet Volume 9.5 7.4-10.4 FL Neutrophils (%) (Auto) 88 H 42-75 % Lymphocytes (%) (Auto) 4 L 12-44 % Monocytes (%) (Auto) 7 0-12 % Eosinophils (%) (Auto) 0 0-10 % Basophils (%) (Auto) 0 0-10 % Neutrophils # (Auto) 16.9 H 1.8-7.8 X 10^3 Lymphocytes # (Auto) 0.9 L 1.0-4.0 X 10^3 Monocytes # (Auto) 1.3 H 0.0-1.0 X 10^3 Eosinophils # (Auto) 0.1 0.0-0.3 10^3/uL Basophils # (Auto) 0.0 0.0-0.1 10^3/uL Neutrophils % (Manual) 91 % Lymphocytes % (Manual) 3 % Monocytes % (Manual) 6 % Blood Morphology Comment NORMAL Prothrombin Time 14.8 H 12.2-14.7 SEC INR Comment 1.1 0.8-1.4 Activated Partial Thromboplast Time 29 24-35 SEC Sodium Level 135 135-145 MMOL/L Potassium Level 3.9 3.6-5.0 MMOL/L Chloride Level 96 L 98-107 MMOL/L Carbon Dioxide Level 27 21-32 MMOL/L Anion Gap 12 5-14 MMOL/L Blood Urea Nitrogen 19 H 7-18 MG/DL Creatinine 0.80 0.60-1.30 MG/DL Estimat Glomerular Filtration Rate > 60 BUN/Creatinine Ratio 24 Glucose Level 140 H 70-105 MG/DL Calcium Level 9.8 8.5-10.1 MG/DL Corrected Calcium 10.0 8.5-10.1 MG/DL Total Bilirubin 0.7 0.1-1.0 MG/DL Aspartate Amino Transf (AST/SGOT) 11 5-34 U/L Alanine Aminotransferase (ALT/SGPT) 17 0-55 U/L Alkaline Phosphatase 85 40-136 U/L Troponin I < 0.028 <0.028 NG/ML Total Protein 7.3 6.4-8.2 GM/DL Albumin 3.8 3.2-4.5 GM/DL Lactic Acid Level 1.96 0.50-2.00 MMOL/L My Orders Orders - FANNIE ADEN MD Albuterol Pre-Mix Nebs (Rt) (Proventil (06/20/19 09:02) Cbc With Automated Diff (06/20/19 09:10) Comprehensive Metabolic Panel (06/20/19 09:10) Blood Culture (06/20/19 09:10) Sputum Culture (06/20/19 09:10) Urinalysis (06/20/19 09:10) Urine Culture (06/20/19 09:10) Protime With Inr (06/20/19 09:10) Partial Thromboplastin Time (06/20/19 09:10) Chest 1 View, Ap/Pa Only (06/20/19 09:10) Ed Iv/Invasive Line Start (06/20/19 09:10) Vital Signs Adult Sepsis Patie Q15M (06/20/19 09:10) O2 (06/20/19 09:10) Remove Rings In Anticipation O (06/20/19 09:10) Lactic Acid Analyzer (06/20/19 09:10) Albuterol Pre-Mix Nebs (Rt) (Proventil (06/20/19 09:10) Albuterol/Ipra Inhalation Soln (Duoneb I (06/20/19 09:15) Svn Small Volume Nebulizer (06/20/19 09:10) Svn Small Volume Nebulizer (06/20/19 09:10) Albuterol/Ipra Inhalation Soln (Duoneb I (06/20/19 09:03) Methylprednisolone Sod Succ (Solu-Medrol (06/20/19 09:23) Albuterol Pre-Mix Nebs (Rt) (Proventil (06/20/19 09:23) Ipratropium 0.02% Neb Solution (Atrovent (06/20/19 09:30) Svn Small Volume Nebulizer (06/20/19 09:23) Svn Small Volume Nebulizer (06/20/19 09:23) Manual Differential (06/20/19 09:04) Ipratropium 0.02% Neb Solution (Atrovent (06/20/19 09:17) Ekg Tracing (06/20/19 09:35) Ct Chest W (06/20/19 10:23) Ed Iv/Invasive Line Start (06/20/19 10:24) Ns Iv 1000 Ml (Sodium Chloride 0.9%) (06/20/19 10:24) Iohexol Injection (Omnipaque 350 Mg/Ml 1 (06/20/19 10:30) Received Contrast (Hold Metformin- Contr (06/20/19 10:30) Ns (Ivpb) (Sodium Chloride 0.9% Ivpb Bag (06/20/19 10:30) Troponin I (06/20/19 10:42) Medications Given in ED Current Medications Medications Dose Ordered Sig/Ivana Route Start Time Stop Time Status Last Admin Dose Admin Iohexol 75 ml ONCE ONCE IV 06/20/19 10:30 06/20/19 10:31 DC 06/20/19 10:48 74 ML Ipratropium Eland 0.5 mg STK-MED ONCE IH 06/20/19 09:17 06/20/19 09:26 DC 06/20/19 09:22 0.5 MG Sodium Chloride 100 ml ONCE ONCE IV 06/20/19 10:30 06/20/19 10:31 DC 06/20/19 10:48 80 ML Vital Signs/I&O 06/20/19 09:03 Temp 37.8 Pulse 134 Resp 38 B/P (MAP) 137/79 (98) Pulse Ox 95 O2 Delivery Nasal Cannula Capillary Refill : Less Than 3 Seconds Blood Pressure Mean: 98 Progress Note : Progress Note Seen and evaluated. IV, labs, EKG, albuterol neb 2 and do a neb 1 ordered. Patient placed on nasal cannula at 5 L. Monitor patient. Not improving significantly. Continuous hour-long treatment initiated. Sepsis protocol has been initiated. Monitor patient. 1025: Doing better. Radiology concerned about possible mass in the left upper lobe. We will get CT chest with contrast per the recommendation. Normal saline 1 L bolus. Patient did receive Solu-Medrol 125 mg IV. Monitor patient. 1114: I did discuss the case with Dr. Cardenas. We will initiate Zosyn with additional vancomycin after admission. This is due to CT findings. I did discuss the case with Dr. Izquierdo 1127. She accepts patient for admission, inpatient status. Patient does meet sepsis criteria but not severe sepsis or septic shock requiring high-volume fluid resuscitation at this point. Lactic acid is less than 2 and he is not hypotensive. Admit, inpatient status. Patient is DO NOT RESUSCITATE. ECG Initial ECG Impression Date: Jun 20, 2019 Initial ECG Impression Time: 09:12 Initial ECG Rate: 132 Initial ECG Rhythm: S.Tach Comment Sinus tachycardia with right axis deviation. No evidence of ST elevation [place]. PVC noted. Similar to previous of 08/18/17. Interpreted by me. Diagnostic Imaging Diagonstic Imaging: Xray Plain Films/CT/US/NM/MRI: chest Comments [facility] [place] [place] NAME: YAYO DINH [facility] REC#: [id number] PT STATUS: REG ER : 1945 PHYSICIAN: FANNIE ADEN MD ADMIT DATE: 06/20/19/ER Draft Date of Exam:06/20/19 CHEST 1 VIEW, AP/PA ONLY INDICATION: Shortness of air, COPD. COMPARISON: 12/07/2018. TECHNIQUE: A single radiograph of the chest is dated 06/20/2019. FINDINGS: The cardiac silhouette is within normal limits in size. No significant pulmonary vascular congestion. Severe background emphysematous changes are again noted; however, significantly increasing density and opacification of the left upper lung are noted. Increasing bibasilar reticular opacities. No significant pleural effusion. No pneumothorax. No acute osseous abnormality. IMPRESSION: Significantly increasing density of the left upper lung. Although this could relate to developing infiltrate or fluid within emphysematous changes, a mass lesion/neoplasm needs to be excluded; therefore, recommend a CT of the chest, preferably with contrast, for further evaluation. Severe background chronic obstructive pulmonary disease with worsening fibrosis and/or developing pneumonitis. Called to Dr. Aden at 9:51 a.m. by cvb. Dictated on workstation # [id number] Dict: 06/20/19 0939 Trans: 06/20/19 0953 [facility] [id number] Interpreted by: MICKY CHEUNG MD Electronically signed by: Diagonstic Imaging: CT Plain Films/CT/US/NM/MRI: chest Comments [facility] [place] [place] NAME: YAYO DINH REC#: [id number] PT STATUS: REG ER : 1945 PHYSICIAN: FANNIE ADEN MD ADMIT DATE: 06/20/19/ER Draft Date of Exam:06/20/19 CT CHEST W EXAMINATION: CT Chest with intravenous contrast. TECHNIQUE: Multiple contiguous axial images were obtained through the chest after the uneventful administration of intravenous contrast. All CT scans use one or more of the following dose optimizing techniques: automated exposure control, MA and/or KvP adjustment based on a patient size and exam type, or iterative reconstruction. HISTORY: Low oxygen and irregular heart rate. COMPARISON: 12/26/2018. FINDINGS: The lungs are severely emphysematous. Large left apical bulla is again seen. There is now an air/fluid level within this bulla and the periphery has increased in thickness. Linear high attenuation in the left apex may represent a prior wedge resection versus pleural calcifications. There is no pleural effusion or pneumothorax. The heart size is normal without pericardial effusion. The aorta is normal in caliber. There is no central pulmonary embolism. No axillary, supraclavicular, or mediastinal lymphadenopathy. There are moderate coronary artery calcifications. Limited views of the upper abdomen reveal changes of cholecystectomy. There is an unchanged soft tissue nodule in the anterior abdominal wall compared to a prior study dated 08/19/2017. There are no suspicious osseous lesions. IMPRESSION: The left apical bulla now contains an air/fluid level and has a thick wall, concerning for an infected bulla in the appropriate clinical setting. Dictated on workstation # [id number] Dict: 06/20/19 1054 Trans: 06/20/19 1104 [id number] Interpreted by: GENARO TONEY MD Electronically signed by: Departure Communication (Admissions) Time/Spoke to Admitting Phy: 11:27 Time/Spoke to Consulting Phy: 11:14 Impression Primary Impression: Left upper lobe pneumonia Qualified Codes: J18.1 - Lobar pneumonia, unspecified organism Additional Impression: COPD with acute exacerbation Disposition: ADMITTED INPATIENT Condition: Stable Admissions Decision to Admit Reason: Admit from ER (General) Decision to Admit/Date: Jun 20, 2019 Time/Decision to Admit Time: 11:14 Departure-Patient Inst. Referrals: VICKI IZQUIERDO DO (PCP/Family) Primary Care Physician FANNIE ADEN MD Jun 20, 2019 10:30
--- NOTE | 2019-06-20 11:04 | Diagnostic Imaging Report ---
EXAMINATION: CT Chest with intravenous contrast. TECHNIQUE: Multiple contiguous axial images were obtained through the chest after the uneventful administration of intravenous contrast. All CT scans use one or more of the following dose optimizing techniques: automated exposure control, MA and/or KvP adjustment based on a patient size and exam type, or iterative reconstruction. HISTORY: Low oxygen and irregular heart rate. COMPARISON: 12/26/2018. FINDINGS: The lungs are severely emphysematous. Large left apical bulla is again seen. There is now an air/fluid level within this bulla and the periphery has increased in thickness. Linear high attenuation in the left apex may represent a prior wedge resection versus pleural calcifications. There is no pleural effusion or pneumothorax. The heart size is normal without pericardial effusion. The aorta is normal in caliber. There is no central pulmonary embolism. No axillary, supraclavicular, or mediastinal lymphadenopathy. There are moderate coronary artery calcifications. Limited views of the upper abdomen reveal changes of cholecystectomy. There is an unchanged soft tissue nodule in the anterior abdominal wall compared to a prior study dated 08/19/2017. There are no suspicious osseous lesions. IMPRESSION: The left apical bulla now contains an air/fluid level and has a thick wall, concerning for an infected bulla in the appropriate clinical setting. Dictated by: Dictated on workstation # [id number]
[2019-06-20] MEDS ORDERED: PIPERACILLIN SODIUM/TAZOBACTAM 4.5 GM in NS (IVPB) 100 ML IV ONE (11:45)
--- NOTE | 2019-06-20 12:06 | NUR ---
YAYO DINH admitted to room 419-1, with an admitting diagnosis of COPD EXACERBATION AND LEFT LOWER LOBE PNA, on 06/20/19 from ED via W/C, accompanied by ROOMMATE AND DAUGHTER. YAYO DINH introduced to surroundings, call light, bed controls, phone, TV, temperature control, lights, meal times, smoking policy, visitor policy, side rail policy, bathrooms and showers. Patient Rights given to patient in the handbook. YAYO DINH verbalizes understanding that [facility] is not responsible for the loss or damage to any personal effects or valuables that are kept in the patients possession during their hospitalization.
[2019-06-20 12:13] VITALS: BP 109/57
[2019-06-20] MEDS ORDERED: predniSONE 20 MG TAB PO SCH (12:15)
[2019-06-20] MEDS ORDERED: CATHETER FLUSH 10 ML SYR IV PRN (12:15)
[2019-06-20] MEDS ORDERED: PRD10T PO (12:39)
[2019-06-20] MEDS: NS IV 1000 ML 1,000 ML IV SCH ×2 (13:00→22:37)
[2019-06-20] MEDS ORDERED: VANCOMYCIN 1250 MG/NS 250 ML IVPB IV NR ×2 (13:19)
[2019-06-20 13:26] VITALS: BP 137/79
--- NOTE | 2019-06-20 13:52 | NUR ---
VANCOMYCIN DOSING SCR 0.8 (USED 1.0); CRCL ~ 61; BOLUS VANC 20 MG/KG X 67 KG ~ 1250 MG THEN VANC 15 MG/KG ~ 1 GM Q12H NO TROUGH DUE TO 3 DAY DOSING
--- NOTE | 2019-06-20 14:08 | NUR ---
SPOKE WITH THE PATIENT ABOUT HIS MEDICATIONS. HE STATES FAMILY IN THE ROOM HAS A LIST AND IT IS UP TO DATE. HE DOES NOT KNOW HIS MEDICATIONS BY NAME AND WHEN I ASK HIM QUESTIONS HE GETS UPSET STATING HE FOLLOWS THAT LIST. HOWEVER THE LIST HE GAVE ME HAS TWO STRENGTHS OF METOPROLOL AND SEVERAL MEDICATION HE HAS NOT FILLED RECENTLY ACCORDING TO HIS PHARMACIES. HE STATES DR. FERREIRA IS WHO TELLS HIM WHAT TO TAKE AND IF I HAVE ANY QUESTIONS I NEED TO CALL HIM. I HAD A LIST FAXED OVER FROM DR. FERREIRA'S OFFICE, THEY REPORT THEY SAW THE PATIENT LAST IN JANUARY. I COMPARED THAT LIST WITH THE LIST THE PATIENT GAVE ME WELL WHAT HAS BEEN FILLED RECENTLY. PATIENT DOES VERIFY HE GETS ALL OF HIS MED FROM [facility] OR THROUGH [facility]. WHEN THE PATIENT WAS ADMITTED LAST IN DECEMBER I NOTED THEN HE WAS PAST DUE FOR SOME REFILLS. IT DOES NOT APPEAR HE HAS FILLED THEM SINCE THEN EITHER SO I HAVE REMOVED PAST DUE MEDICATIONS FROM THE MED REC AT THIS TIME. IN ADDITION TO WHAT IS SHOWN ON THE EXT MED HX LYUDMILA FILLED ALBUTEROL 0.083% Q6H NEBULIZER SOLUTION 06-18-19. HE FILLED BACTRIM DS #30 FOR A 70 DAY SUPPLY 03-16-19 -HE STATES HE WAS TO TAKE IT 3X A WEEK HOWEVER IS NOT CURRENTLY TAKING IT. HE ONLY TAKES THIS WHEN HE IS ON STEROIDS. I EXPLAINED IT LOOKS LIKE HE TAKES PREDNISONE 10MG DAILY HE STATES HE TAKES THE ANTIBIOTIC WHEN HE IS ON A HIGHER DOSE OF THE PREDNISONE. I DID NOT PUT THE BACTRIM ON THE MED REC AT THIS TIME. MEDICATIONS REMOVED FROM HIS LIST AT THIS TIME DUE TO BEING PAST DUE FOR REFILL: GABAPENTIN 300MG HS (CAN NOT FIND RECORD OF THIS EVER BEING FILLED AT [facility] OR [facility]) 12-06-18 SINGULAIR 10MG DAILY #90 09-16-18 BUPROPION SR 150MG BID #180 04-07-18 BROVANA 15MCG BID (THIS DATE WAS REPORTED PAST DUE AT HIS LAST VISIT- DR. AVILA'S OFFICE STATES THEY SHOW THIS A REPORTED MED IN THE PAST BUT DO NOT HAVE THAT THEY ARE CURRENTLY ORDERING IT FOR THE PATIENT) 03-17-19 ROSUVASTATIN 10MG HS #90 (THIS DATE WAS REPORTED LAST VISIT, [facility] DID NOT HAVE RECORD TODAY WHEN I CALLED THEM) 03-12-18 ALFUZOSIN 10MG DAILY #90 (I REPORTED THIS A LAST FILL DATE AT HIS LAST VISIT, WHEN I CALLED [facility] THIS TIME THEY DID NOT HAVE RECORD OF IT AT ALL)
[2019-06-20 14:40] LABS: BILIRUBIN,URINE NEGATIVE (NEGATIVE); CLARITY,URINE CLEAR; COLOR,URINE YELLOW; GLUCOSE, URINE (UA) 2+ (NEGATIVE); KETONES,URINE 3+ (NEGATIVE); LEUKOCYTE ESTERASE ,URINE NEGATIVE (NEGATIVE); NITRITE,URINE NEGATIVE (NEGATIVE); PH,URINE 5 (5-9); PROTEIN,URINE 2+ (NEGATIVE); UROBILINOGEN,URINE NORMAL (NORMAL)
[2019-06-20] MEDS: predniSONE 20 MG TAB PO SCH (14:45)
--- NOTE | 2019-06-20 14:47 | Pulmonary Consultation ---
History of Present Illness History of Present Illness Date of Consultation 06/20/19 14:41 Date of Admission Allergies and Home Medications Allergies Coded Allergies: atorvastatin calcium (Verified Allergy, Mild, RASH, 11/27/12) Home Medications Albuterol Sulfate 2.5 Mg/3 Ml Vial.neb, 2.5 MG NEB Q6H PRN for SHORTNESS OF BREATH, (Reported) Albuterol Sulfate 1 Puff Puff, 2 PUFF INH QID PRN for SHORTNESS OF BREATH, (Reported) Aspirin 81 Mg Tablet.dr, 81 MG PO DAILY, (Reported) Cetirizine HCl 10 Mg Tablet, 10 MG PO DAILY, (Reported) Doxazosin Mesylate 2 Mg Tablet, 2 MG PO DAILY, (Reported) Hydrocodone/Acetaminophen 1 Each Tablet, 1 TAB PO TID PRN for PAIN-MODERATE, (Reported) Metoprolol Succinate 200 Mg Tab, 200 MG PO DAILY, (Reported) Nitroglycerin 0.4 Mg Tab.subl, 0.4 MG SL UD PRN for CHEST PAIN, (Reported) Prednisone 10 Mg Tab, 10 MG PO DAILY, (Reported) Past Rsguycm-Lenygj-Vwuwlg Hx Past Med/Social Hx: Reviewed Nursing Past Med/Soc Hx Patient Social History Alcohol Use: Denies Use Recreational Drug Use: No Smoking Status: Current Everyday Smoker Type Used: Cigarettes Former Smoker, Quit: Aug 18, 2012 2nd Hand Smoke Exposure: No Recent Foreign Travel: No Contact w/Someone Who Travel: No Recent Infectious Disease Expo: No Recent Hopitalizations: No Immunizations Up To Date PED Vaccines UTD: Yes Date of Pneumonia Vaccine: Sep 17, 2015 Date of Influenza Vaccine: Nov 09, 2018 Seasonal Allergies Seasonal Allergies: No Past Medical History Surgeries: Yes (hernia) Respiratory: Yes (oxygen dependent) Asthma, COPD Currently Using CPAP: No Cardiac: Yes (STENTS X2, HEART CATH IN JANUARY 2015) Hypertension Neurological: No Reproductive Disorders: No Genitourinary: Yes Prostate Problems Gastrointestinal: Yes Gastroesophageal Reflux Musculoskeletal: No Arthritis Endocrine: No Cataract Hearing Impairment: Hard of Hearing Cancer: No Psychosocial: No Integumentary: No Blood Disorders: No Family Medical History Reviewed Nursing Family Hx Congestive heart failure 03 MOTHER Family history: Cardiovascular disease 03 MOTHER History of - respiratory disease 03 FATHER (EMPHYSEMA) Kidney disease 03 MOTHER No Pertinent Family Hx Review of Systems Time Seen by Provider: 12:45 Constitutional: Fever, Chills, Sweats, Weakness, Malaise, Other Eyes: No: Pain, Vision change, Conjunctivae inflammation, Eyelid inflammation, Other, Redness ENT: Nose congestion; No: Ear pain, Ear discharge, Nose pain, Nose discharge, Mouth pain, Mouth swelling, Throat pain, Throat swelling, Other Respiratory: Cough, Shortness of breath, SOB with excertion, Pleuritic Pain, Sputum, Wheezing Cardiovascular: Chest Pain, Palpitations, Orthopnea, Paroxysmal Noc. Dyspnea, Lt Headedness; No: Edema Gastrointestinal: Constipation; No: Nausea, Vomiting, Abdominal Pain, Diarrhea, Melena, Hematochezia, Other Genitourinary: No Dysuria, No Frequency, No Incontinence, No Hematuria, No Retention, No Other Musculoskeletal: back pain; No: other, neck pain, shoulder pain, arm pain, hand pain, leg pain, foot pain Skin: No: Rash, Lesions, Jaundice, Bruising, Other Neurological: Weakness, Incoordination, Confusion; No: Numbness, Change in speech, Seizures, Other Sepsis Event Evaluation Height, Weight, BMI Height: 5'2.00" Weight: 147lbs. 11.4oz. 67.540598ws; 23.12 BMI Method:Stated Exam Exam Vital Signs Date Time Temp Pulse Resp B/P (MAP) Pulse Ox O2 Delivery O2 Flow Rate FiO2 06/20/19 13:26 37.8 134 95 5 06/20/19 12:13 37.5 22 109/57 95 Nasal Cannula 5.00 06/20/19 09:03 37.8 134 38 137/79 (98) 95 Nasal Cannula Height & Weight Height: 5'2.00" Weight: 147lbs. 11.4oz. 67.293789bd; 23.12 BMI Method:Stated General Appearance: WD/WN, Moderate Distress HEENT: PERRL/EOMI, Pharynx Normal Neck: Non Tender, Supple Respiratory: Decreased Breath Sounds, Wheezing Cardiovascular: No Murmur, Tachycardia Capillary Refill: Less Than 3 Seconds Peripheral Pulses: 2+ Carotid (R), 2+ Radial Pulses (R), 2+ Radial Pulses (L) Gastrointestinal: normal bowel sounds, non tender, soft Extremity: Normal Range of Motion, Non Tender Neurologic/Psychiatric: Alert, Oriented x3 Skin: Warm/Dry, Pallor Lymphatic: No Adenopathy Results Lab Laboratory Tests 06/20/19 09:04 Assessment/Plan Assessment/Plan Infected pulmonary bleb with sepsis -Marina culture -Check MRSA nasal swab -IVF Vanco zosyn severe oxygen dependent COPD -Duonebs Q 4 -Prednisone Abdominal -Check amylase, lipase -Monitor LYNN AVILA DO Jun 20, 2019 14:46
[2019-06-20 14:58] LABS: AMYLASE 40 U/L (25-125); LIPASE < 4 U/L (8-78)
[2019-06-20 14:59] LABS: BACTERIA,URINE TRACE /HPF; RBC,URINE RARE /HPF
[2019-06-20 15:49] VITALS: BP 152/68
[2019-06-20] MEDS: RT-LEVALBUTEROL (XOPENEX) 1.25 MG/3 ML NEB NON-FORMULARY INH SCH ×3 (16:42→21:16)
[2019-06-20] MEDS: RT-IPRATROPIUM (ATROVENT) 0.5MG/2.5ML AMP IH SCH ×3 (16:42→21:17)
[2019-06-20] MEDS: PIPERACILLIN/TAZO 4.5 GM/NS 100 ML IV SCH ×2 (18:44)
[2019-06-20] MEDS ORDERED: POLYETHYLENE GLYCOL 17 GM (MIRALAX) PACK PO NR (19:00)
[2019-06-20 19:21] VITALS: BP 149/72
--- NOTE | 2019-06-20 19:40 | History & Physical ---
History of Present Illness History of Present Illness Reason for visit/HPI This is a 73 year old male with severe oxygen dependant COPD who presented to the emergency room with worsening shortness of air for at least 3 days. He reported worsening symptoms for the last few weeks. When he arrived in the emergency room he was hypoxic with respiratory distress. He was given IV solumedrol as well as SVNS with albuterol. His CXR showed an infiltrate in a known bleb. It was decided to admit him for treatment of pneumonia and COPD exacerbation. Date of Admission Jun 20, 2019 at 11:37 Date Seen by a Provider: Jun 20, 2019 Time Seen by a Provider: 13:00 I consulted on this patient on 06/20/19 19:35 Attending Physician Dalia Izquierdo DO Admitting Physician Dalia Izquierdo DO Consult Allergies and Home Medications Allergies Coded Allergies: atorvastatin calcium (Verified Allergy, Mild, RASH, 11/27/12) Home Medications Albuterol Sulfate 2.5 Mg/3 Ml Vial.neb, 2.5 MG NEB Q6H PRN for SHORTNESS OF BREATH, (Reported) Albuterol Sulfate 1 Puff Puff, 2 PUFF INH QID PRN for SHORTNESS OF BREATH, (Reported) Aspirin 81 Mg Tablet.dr, 81 MG PO DAILY, (Reported) Cetirizine HCl 10 Mg Tablet, 10 MG PO DAILY, (Reported) Doxazosin Mesylate 2 Mg Tablet, 2 MG PO DAILY, (Reported) Hydrocodone/Acetaminophen 1 Each Tablet, 1 TAB PO TID PRN for PAIN-MODERATE, (Reported) Metoprolol Succinate 200 Mg Tab, 200 MG PO DAILY, (Reported) Nitroglycerin 0.4 Mg Tab.subl, 0.4 MG SL UD PRN for CHEST PAIN, (Reported) Prednisone 10 Mg Tab, 10 MG PO DAILY, (Reported) Patient Home Medication List Home Medication List Reviewed: Yes Past Lcwismy-Wpigos-Mzidxz Hx Past Med/Social Hx: Reviewed Nursing Past Med/Soc Hx Patient Social History Alcohol Use: Denies Use Recreational Drug Use: No Smoking Status: Current Everyday Smoker Former Smoker, Quit: Aug 18, 2012 Type Used: Cigarettes 2nd Hand Smoke Exposure: No Recent Foreign Travel: No Contact w/other who traveled: No Recent Hopitalizations: No Recent Infectious Disease Expo: No Immunizations Up To Date Pediatric: Yes Date of Pneumonia Vaccine: Sep 17, 2015 Date of Influenza Vaccine: Nov 09, 2018 Seasonal Allergies Seasonal Allergies: No Past Medical History Currently Using CPAP: No Cardiac: Hypertension Reproductive: No Genitourinary: Prostate Problems Gastrointestinal: Gastroesophageal Reflux Musculoskeletal: Arthritis HEENT: Cataract Hearing Impairment: Hard of Hearing History of Blood Disorders: No Family History Reviewed Nursing Family Hx Congestive heart failure 03 MOTHER Family history: Cardiovascular disease 03 MOTHER History of - respiratory disease 03 FATHER (EMPHYSEMA) Kidney disease 03 MOTHER No Pertinent Family Hx Review of Systems Constitutional: weakness EENTM: No see HPI, No no symptoms reported, No ear discharge, No hearing loss, No ear pain, No blurred vision, No double vision, No eye pain, No tearing, No vision loss, No dental problems, No hoarseness, No mouth pain, No mouth swelling, No epistaxis, No nose congestion, No nose pain, No throat pain, No throat swelling, No other Respiratory: dyspnea on exertion, short of breath Cardiovascular: No no symptoms reported, No see HPI, No chest pain, No edema, No Hx of Intervention, No palpitations, No syncope, No vascular heart diseas, No other Gastrointestinal: No RUQ, No LUQ, No RLQ, No LLQ, No no symptoms reported, No see HPI, No abdominal pain, No constipation, No diarrhea, No dysphagia, No hematemesis, No heartburn, No jaundice, No loss of appetite, No melena, No nausea, No vomiting, No other Genitourinary: No no symptoms reported, No see HPI, No decreased output, No discharge, No dysuria, No frequency, No hematuria, No hesitancy, No incontinence, No nocturia, No pain, No other Musculoskeletal: back pain Skin: No no symptoms reported, No see HPI, No change in color, No change in hair/nails, No dryness, No hx of skin cancer, No lesions, No lumps, No pruritus, No rash, No other Psychiatric/Neurological: Weakness Physical Exam Vital Signs Vital Signs - First Documented 06/20/19 06/20/19 06/20/19 09:03 11:49 13:26 Temp 37.8 Pulse 134 Resp 38 B/P (MAP) 137/79 (98) Pulse Ox 95 O2 Delivery Nasal Cannula O2 Flow Rate 3.00 FiO2 5 Capillary Refill : Less Than 3 Seconds Height, Weight, BMI Height: 5'2.00" Weight: 147lbs. 11.4oz. 67.275727aa; 23.12 BMI Method:Stated General Appearance: Mild Distress HEENT: Normal ENT Inspection Neck: Supple Respiratory: Decreased Breath Sounds, Respiratory Distress Cardiovascular: Systolic Murmur, Tachycardia Gastrointestinal: Normal Bowel Sounds, Non Tender, Soft Rectal: Deferred Back: No CVA Tenderness Extremity: Non Tender, No Calf Tenderness, No Pedal Edema Neurologic/Psychiatric: Alert, Oriented x3 Skin: Warm/Dry Comments Laboratory Tests 06/20/19 09:04: White Blood Count 19.2H, Red Blood Count 3.97L, Hemoglobin 11.9L, Hematocrit 38L , Mean Corpuscular Volume 95, Mean Corpuscular Hemoglobin 30, Mean Corpuscular Hemoglobin Concent 32, Red Cell Distribution Width 13.1, Platelet Count 291, Mean Platelet Volume 9.5, Neutrophils (%) (Auto) 88H, Lymphocytes (%) (Auto) 4L, Monocytes (%) (Auto) 7, Eosinophils (%) (Auto) 0, Basophils (%) (Auto) 0, Neutrophils # (Auto) 16.9H, Lymphocytes # (Auto) 0.9L, Monocytes # (Auto) 1.3H, Eosinophils # (Auto) 0.1, Basophils # (Auto) 0.0, Neutrophils % (Manual) 91, Lymphocytes % (Manual) 3, Monocytes % (Manual) 6, Blood Morphology Comment NORMAL, Prothrombin Time 14.8H, INR Comment 1.1, Activated Partial Thromboplast Time 29, Sodium Level 135, Potassium Level 3.9, Chloride Level 96L, Carbon Dioxi de Level 27, Anion Gap 12, Blood Urea Nitrogen 19H, Creatinine 0.80, Estimat Glomerular Filtration Rate > 60, BUN/Creatinine Ratio 24, Glucose Level 140H, Calcium Level 9.8, Corrected Calcium 10.0, Total Bilirubin 0.7, Aspartate Amino Transf (AST/SGOT) 11, Alanine Aminotransferase (ALT/SGPT) 17, Alkaline Phosphatase 85, Troponin I < 0.028, Total Protein 7.3, Albumin 3.8, Amylase Level 40, Lipase < 4L 06/20/19 09:26: Lactic Acid Level 1.96 06/20/19 14:15: Urine Color YELLOW, Urine Clarity CLEAR, Urine pH 5, Urine Specific [place] 1.015L, Urine Protein 2+H, Urine Glucose (UA) 2+H, Urine Ketones 3+H, Urine Nitrite NEGATIVE, Urine Bilirubin NEGATIVE, Urine Urobilinogen NORMAL, Urine Leukocyte Esterase NEGATIVE, Urine RBC (Auto) 1+H, Urine RBC RARE, Urine WBC NONE, Urine Crystals NONE, Urine Bacteria TRACE, Urine Casts NONE, Urine Mucus NEGATIVE, Urine Culture Indicated CULTURE PENDING Microbiology 06/20/19 Influenza Types A,B Antigen (NEETU) - Final, Complete Assessment/Plan Assessment and Plan 1. Pneumonia in Bleb with SIRS--admit on IV zosyn/Vancomycin 2. COPD with acute exacerbation--prednisone and SVNs with xopenex/ipratroprium 3. Sinus Tachycardia--will use xopenex instead of albuterol and monitor Admission Diagnosis Admission Status: Inpatient Order (span 2 midnights) Reason for Inpatient Admission: Will need IV abx for at least 48hrs Clinical Quality Measures AMI/AHF: ASA po Prior to arrival: No DVT/VTE Risk/Contraindication: Risk Factor Score Per Nursin RFS Level Per Nursing on Admit: 4+=Very High DALIA IZQUIERDO DO Jun 20, 2019 19:40
[2019-06-21] VITALS (7 sets, daily range): BP systolic 124–170; BP diastolic 61–94
[2019-06-21] MEDS: RT-IPRATROPIUM (ATROVENT) 0.5MG/2.5ML AMP IH SCH ×6 (01:10→22:24)
[2019-06-21] MEDS: RT-LEVALBUTEROL (XOPENEX) 1.25 MG/3 ML NEB NON-FORMULARY INH SCH ×6 (01:10→22:24)
[2019-06-21] MEDS: VANCOMYCIN 1 GM/NS 250 ML IVPB IV SCH ×4 (01:15→17:17)
[2019-06-21] MEDS: PIPERACILLIN/TAZO 4.5 GM/NS 100 ML IV SCH ×6 (02:17→17:55)
[2019-06-21 06:26] LABS: BASOPHILS % (AUTO) 0 % (0-10); EOSINOPHILS % (AUTO) 0 % (0-10); HEMATOCRIT 29 % (40-54); HEMOGLOBIN 9.4 G/DL (13.3-17.7); LYMPHOCYTES # (AUTO) 0.2 X 10^3 (1.0-4.0); LYMPHOCYTES % (AUTO) 2 % (12-44); MEAN CORPUSCULAR HEMOGLOBIN 30 PG (25-34); MEAN CORPUSCULAR HGB CONC 32 G/DL (32-36); MEAN CORPUSCULAR VOLUME 94 FL (80-99); MEAN PLATELET VOLUME 9.3 FL (7.4-10.4); MONOCYTES # (AUTO) 0.7 X 10^3 (0.0-1.0); MONOCYTES % (AUTO) 5 % (0-12); NEUTROPHILS # (AUTO) 13.1 X 10^3 (1.8-7.8); NEUTROPHILS % (AUTO) 94 % (42-75); PLATELET COUNT 225 10^3/uL (130-400)
[2019-06-21] MEDS: predniSONE 20 MG TAB PO SCH (06:27)
--- NOTE | 2019-06-21 06:45 | NUR ---
DUE TO O2 SAT OF 94% O2 WAS DECREASED FROM 5 L TO 3 L AT THIS TIME PATIENT WAS VERY CRANKY DUE TO RT BOTHERING PATIENT WHEN HE WAS TRYING TO SLEEP.
[2019-06-21 06:57] LABS: ALANINE AMINOTRANSFERASE 11 U/L (0-55); ALKALINE PHOSPHATASE 56 U/L (40-136); BILIRUBIN,TOTAL 0.3 MG/DL (0.1-1.0); BUN/CREATININE RATIO 23; CALCIUM 8.6 MG/DL (8.5-10.1); CARBON DIOXIDE 23 MMOL/L (21-32); CHLORIDE 106 MMOL/L (98-107); GFR ESTIMATED > 60; GLUCOSE 177 MG/DL (70-105); POTASSIUM 3.8 MMOL/L (3.6-5.0); SODIUM 137 MMOL/L (135-145); TOTAL PROTEIN 5.6 GM/DL (6.4-8.2)
[2019-06-21] MEDS: ASPIRIN E.C. 81 MG (ECOTRIN) TAB PO SCH (09:38)
[2019-06-21] MEDS: doxAzosin 2 MG (CARDURA) TAB PO SCH (09:38)
[2019-06-21] MEDS: NS IV 1000 ML 1,000 ML IV SCH (09:39)
[2019-06-21] MEDS: LORATADINE (CLARITIN) 10 MG TAB PO SCH (09:39)
[2019-06-21] MEDS ORDERED: LIDOCAINE UROJET 2% GEL 10 ML PKG TOP NR (11:00)
--- NOTE | 2019-06-21 12:52 | Pulmonary Progress Note ---
Subjective Time Seen by a Provider: 12:54 Subjective/Events-last exam complains of persistent SOB. Sepsis Event Evaluation Height, Weight, BMI Height: 5'2.00" Weight: 151lbs. 14.4oz. 68.756262pf; 23.12 BMI Method:Stated Focused Exam Lactate Level 06/20/19 09:26: Lactic Acid Level 1.96 Exam Exam Vital Signs Date Time Temp Pulse Resp B/P (MAP) Pulse Ox O2 Delivery O2 Flow Rate FiO2 06/21/19 10:36 92 Nasal Cannula 5.00 06/21/19 10:10 37.0 06/21/19 08:00 37.0 104 20 145/75 (98) 94 Nasal Cannula 5.00 06/21/19 08:00 Nasal Cannula 5.00 06/21/19 07:00 78 06/21/19 06:38 94 Nasal Cannula 5.00 06/21/19 04:24 37.0 80 18 139/76 (97) 94 5.00 06/21/19 02:19 77 06/21/19 01:10 95 Nasal Cannula 5.00 06/21/19 00:27 37.2 80 18 124/61 (82) 94 5.00 06/20/19 21:18 96 Nasal Cannula 5.00 06/20/19 20:00 Nasal Cannula 5.00 06/20/19 19:30 96 Nasal Cannula 5.00 06/20/19 19:21 37.1 99 20 149/72 (97) 95 5.00 06/20/19 19:00 113 06/20/19 18:49 96 Nasal Cannula 5.00 06/20/19 15:49 37.0 112 20 152/68 (96) 96 5.00 06/20/19 13:26 37.8 134 95 5 I & O 06/21/19 07:00 Intake Total 2955 ml Output Total 1275 ml Balance 1680 ml Height & Weight Height: 5'2.00" Weight: 151lbs. 14.4oz. 68.971530sp; 23.12 BMI Method:Stated General Appearance: WD/WN, Moderate Distress HEENT: PERRL/EOMI, Pharynx Normal Neck: Non Tender, Supple Respiratory: Decreased Breath Sounds, Wheezing Cardiovascular: No Murmur, Tachycardia Capillary Refill: Less Than 3 Seconds Peripheral Pulses: 2+ Carotid (R), 2+ Radial Pulses (R), 2+ Radial Pulses (L) Gastrointestinal: normal bowel sounds, non tender, soft Extremity: Normal Range of Motion, Non Tender Neurologic/Psychiatric: Alert, Oriented x3 Skin: Warm/Dry, Pallor Lymphatic: No Adenopathy Results Lab Laboratory Tests 06/20/19 09:04 06/21/19 06:14 Assessment/Plan Assessment/Plan Infected pulmonary bleb with sepsis -Marina culture -Check MRSA nasal swab pending -IVF Vanco zosyn for now -Will probably need 4-6wks of total Abx severe oxygen dependent COPD -Duonebs Q 4 -Prednisone Abdominal pain -Monitor Anemia -Monitor LYNN AVILA DO Jun 21, 2019 12:52
[2019-06-21] MEDS ORDERED: meTOprolol TARTRATE 50 MG (LOPRESSOR) TAB PO ONE (20:30)
--- NOTE | 2019-06-21 20:40 | NUR ---
PT BP 171/93, HR 111. DR SOTO NOTIFIED AND NEW ORDER RECEIVED.
--- NOTE | 2019-06-21 21:09 | Progress Note ---
Subjective Date Seen by a Provider: Jun 21, 2019 Time Seen by a Provider: 12:45 Subjective/Events-last exam Fwup SIRS, Pneumonia in Bleb, COPD with acute exacerbation, sinus tachycardia, HTN. States had pain in back and chest overnight so did not sleep well but none today. Focused Exam Lactate Level 06/20/19 09:26: Lactic Acid Level 1.96 Objective Exam Vital Signs Date Time Temp Pulse Resp B/P (MAP) Pulse Ox O2 Delivery O2 Flow Rate FiO2 06/21/19 20:40 Nasal Cannula 5.00 06/21/19 19:35 37.1 104 24 170/94 (119) 94 Nasal Cannula 5.00 06/21/19 19:04 92 Nasal Cannula 5.00 06/21/19 19:00 100 06/21/19 18:59 92 Nasal Cannula 5.00 06/21/19 15:30 36.8 116 24 162/82 (108) 93 Nasal Cannula 5.00 06/21/19 14:46 93 Nasal Cannula 5.00 06/21/19 13:00 110 06/21/19 12:00 36.8 104 22 155/92 (113) 93 Nasal Cannula 5.00 06/21/19 10:36 92 Nasal Cannula 5.00 06/21/19 10:10 37.0 06/21/19 08:00 37.0 104 20 145/75 (98) 94 Nasal Cannula 5.00 06/21/19 08:00 Nasal Cannula 5.00 06/21/19 07:00 78 06/21/19 06:38 94 Nasal Cannula 5.00 06/21/19 04:24 37.0 80 18 139/76 (97) 94 5.00 06/21/19 02:19 77 06/21/19 01:10 95 Nasal Cannula 5.00 06/21/19 00:27 37.2 80 18 124/61 (82) 94 5.00 06/20/19 21:18 96 Nasal Cannula 5.00 I & O 06/21/19 07:00 Intake Total 2955 ml Output Total 1275 ml Balance 1680 ml Capillary Refill : Less Than 3 Seconds General Appearance: Mild Distress Neck: Supple Respiratory: Decreased Breath Sounds Cardiovascular: Systolic Murmur, Tachycardia Gastrointestinal: normal bowel sounds, non tender, soft Extremity: Non Tender, No Calf Tenderness, No Pedal Edema Neurologic/Psychiatric: Alert, Oriented x3 Skin: Warm/Dry Results Lab Laboratory Tests 06/21/19 06:14: White Blood Count 14.0H, Red Blood Count 3.11L, Hemoglobin 9.4#L, Hematocrit 29L , Mean Corpuscular Volume 94, Mean Corpuscular Hemoglobin 30, Mean Corpuscular Hemoglobin Concent 32, Red Cell Distribution Width 13.0, Platelet Count 225, Mean Platelet Volume 9.3, Neutrophils (%) (Auto) 94H, Lymphocytes (%) (Auto) 2L, Monocytes (%) (Auto) 5, Eosinophils (%) (Auto) 0, Basophils (%) (Auto) 0, Neutrophils # (Auto) 13.1H, Lymphocytes # (Auto) 0.2L, Monocytes # (Auto) 0.7, Eosinophils # (Auto) 0.0, Basophils # (Auto) 0.0, Sodium Level 137, Potassium Level 3.8, Chloride Level 106, Carbon Dioxide Level 23, Anion Gap 8, Blood Urea Nitrogen 16, Creatinine 0.70, Estimat Glomerular Filtration Rate > 60, BUN/Creatinine Ratio 23, Glucose Level 177H, Calcium Level 8.6, Corrected Calcium 9.4, Total Bilirubin 0.3, Aspartate Amino Transf (AST/SGOT) 9, Alanine Aminotransferase (ALT/SGPT) 11, Alkaline Phosphatase 56, Total Protein 5.6L, Albumin 3.0L Microbiology 06/20/19 Blood Culture - Preliminary, Resulted No growth 06/20/19 Influenza Types A,B Antigen (NEETU) - Final, Complete 06/20/19 Urine Culture - Final, Complete NO GROWTH Assessment/Plan Assessment/Plan Assess & Plan/Chief Complaint 1. SIRS--on zosyn, Vanc 2. Pneumonia in Bleb--on Vanc, Zosyn 3. COPD with acute exacerbation--on SVNS, oxygen, prednisone 4. Hypertension, Sinus Tachycardia-restart metoprolol Clinical Quality Measures Admission Status Admission Dx 1. Pneumonia in Bleb with SIRS--admit on IV zosyn/Vancomycin 2. COPD with acute exacerbation--prednisone and SVNs with xopenex/ipratroprium 3. Sinus Tachycardia--will use xopenex instead of albuterol and monitor AMI/AHF: ASA po Prior to arrival: No DVT/VTE Risk/Contraindication: Risk Factor Score Per Nursin RFS Level Per Nursing on Admit: 4+=Very High VICKI SOTO DO Jun 21, 2019 21:09
[2019-06-21] MEDS: HYDROcodone/APAP 7.5 MG/325 MG (LORTAB, LORCET PLUS) TABLET PO PRN (22:07)
[2019-06-22] VITALS (33 sets, daily range): BP systolic 66–172; BP diastolic 43–95
[2019-06-22] MEDS: RT-IPRATROPIUM (ATROVENT) 0.5MG/2.5ML AMP IH SCH ×6 (02:21→21:31)
[2019-06-22] MEDS: RT-LEVALBUTEROL (XOPENEX) 1.25 MG/3 ML NEB NON-FORMULARY INH SCH ×6 (02:21→21:32)
[2019-06-22] MEDS: HYDROcodone/APAP 7.5 MG/325 MG (LORTAB, LORCET PLUS) TABLET PO PRN ×3 (02:31→21:14)
[2019-06-22] MEDS ORDERED: DILTIAZEM 120 MG (CARDIZEM CD) CAP PO ONE (02:46)
[2019-06-22] MEDS ORDERED: ALPRAZolam 0.5 MG (XANAX) TAB ONE (02:47)
[2019-06-22] MEDS ORDERED: DILTIAZEM 60 MG (CARDIZEM) TAB PO ONE (03:00)
[2019-06-22] MEDS ORDERED: ALPRAZolam 1 MG (XANAX) TAB PO ONE (03:00)
[2019-06-22] MEDS ORDERED: FUROSEMIDE 40 MG/4 ML INJ (LASIX) IVP ONE (03:00)
[2019-06-22] MEDS: ENOXAPARIN 40 MG/0.4 ML (LOVENOX) SYR SC SCH (03:08)
[2019-06-22] MEDS: PIPERACILLIN/TAZO 4.5 GM/NS 100 ML IV SCH ×6 (04:00→18:20)
[2019-06-22] MEDS: VANCOMYCIN 1 GM/NS 250 ML IVPB IV SCH ×2 (04:01)
--- NOTE | 2019-06-22 04:15 | NUR ---
Pt to [facility] 5 from 4th floor r/t respiratory distress and tachycardia via bed, RT and RN at bedside. Monitors attached to pt. This RN received bedside report from MILLIE [place]. Assessment done, Theresa notified of transfer, orders received, see chart for details.
[2019-06-22] MEDS ORDERED: LACTATED RINGERS 1,000 ML IV ONE ×3 (04:44→07:15)
[2019-06-22] MEDS ORDERED: meTOprolol 5 MG/5 ML (LOPRESSOR) VIAL IV ONE (04:45)
[2019-06-22] MEDS ORDERED: methylPREDNISolone 125 MG (Solu-MEDROL) VIAL IVP ONE (05:00)
--- NOTE | 2019-06-22 05:00 | NUR ---
This RN to room, pt hypotensive, cuff repositioned, bp taken multiple times/ways to ensure accuracy. Dr Cardenas notified, fluid bolus ordered, lopressor held per Dr Cardenas.
[2019-06-22 05:12] LABS: BASOPHILS % (AUTO) 0 % (0-10); EOSINOPHILS % (AUTO) 0 % (0-10); HEMATOCRIT 32 % (40-54); HEMOGLOBIN 10.2 G/DL (13.3-17.7); LYMPHOCYTES # (AUTO) 0.3 X 10^3 (1.0-4.0); LYMPHOCYTES % (AUTO) 2 % (12-44); MEAN CORPUSCULAR HEMOGLOBIN 30 PG (25-34); MEAN CORPUSCULAR HGB CONC 32 G/DL (32-36); MEAN CORPUSCULAR VOLUME 95 FL (80-99); MEAN PLATELET VOLUME 9.6 FL (7.4-10.4); MONOCYTES # (AUTO) 0.9 X 10^3 (0.0-1.0); MONOCYTES % (AUTO) 5 % (0-12); NEUTROPHILS # (AUTO) 15.5 X 10^3 (1.8-7.8); NEUTROPHILS % (AUTO) 93 % (42-75); PLATELET COUNT 254 10^3/uL (130-400); RED CELL DISTRIBUTION WIDTH 13.2 % (10.0-14.5); WHITE BLOOD COUNT 16.8 10^3/uL (4.3-11.0)
--- NOTE | 2019-06-22 05:15 | NUR ---
0220- MILLIE HEREDIA INFORMED ME THAT PT WAS HAVING A HEART TIME BREATHING AND O2 SATS AT 80'S ON 5L O2. CALLED RT ABOUT PT CONDITION. UPON ASSESSMENT VITAL SINGS FOLLOW BP 167/128, HR 140'S, TEMP 36.9, AND O2 SATS 85% 0235- RT HERE TO SEE PT AND A BREATHING TX WAS GIVEN. O2 STATS STILL IN 80'S AFTER BREATHING TX AND INCREASED O2 TO 9L PER OXYMASK. DR SOTO INFORMED ABOUT PT CONDITION AND NEW ORDERS RECEIVED. PT LOOKING CLAMMY AND VERY ANXIOUS. PT C/O ABDOMINAL MUSCLE PAIN. PAIN PILL GIVEN 0245 PT INITIATED ON VAPOTHERM. HR 150'S. LABORED BREATHING 0257 DR SOTO CALLED BACK AND GAVE ORDERS TO GIVE LASIX 40MG X1 AND TO START PT ON LOVENOX. 0340 ICU CALLED AND INFORMED THE PT POSSIBLE ON AFIB AND HR 160'S. EGK DONE 0355 PT HR 150-160'S. PAROXYSMAL BREATHING. DR SOTO INFORMED ABOUT PT CONDITION. NEW ORDER TO START BIPAP AND TRANSFER TO ICU 0410 PT INITIATED ON BIPAP PER RT. PT TRANSFER TO ICU. REPORT GIVEN TO MILLIE FELIX.
[2019-06-22 05:31] LABS: BUN/CREATININE RATIO 20; CALCIUM 8.6 MG/DL (8.5-10.1); CARBON DIOXIDE 23 MMOL/L (21-32); CHLORIDE 105 MMOL/L (98-107); CREATININE SERUM 0.71 MG/DL (0.60-1.30); GFR ESTIMATED > 60; GLUCOSE 100 MG/DL (70-105); PHOSPHORUS 4.3 MG/DL (2.3-4.7); POTASSIUM 3.7 MMOL/L (3.6-5.0); SODIUM 139 MMOL/L (135-145)
[2019-06-22 05:33] LABS: EOSINOPHILS % (MANUAL) 1 %; LYMPHOCYTES % (MANUAL) 1 %; MONOCYTES % (MANUAL) 4 %; NEUTROPHILS % (MANUAL) 94 %; RBC MORPH NORMAL
[2019-06-22 05:34] LABS: ABG BASE EXCESS 0.3 MMOL/L (-2.5-2.5); ABG OXYGEN SATURATION 96 % (94-100); ABG PCO2 47 MMHG (35-45); ABG PH 7.35 (7.37-7.43); ABG PO2 78 MMHG (79-93); ABG TCO2 26.9 MMOL/L (21.0-31.0); VENTILATOR YES
[2019-06-22 05:35] LABS: INSPIRED O2 50; PATIENT TEMP 36.2
--- NOTE | 2019-06-22 05:56 | Diagnostic Imaging Report ---
Portable semierect AP chest at 0508 hours. INDICATION: Shortness of breath. FINDINGS: The heart size is within normal limits and stable when compared to 06/20/2019. The prior study did note increasing density in the left upper lung. The subsequent CT chest exam of 06/20/2019 revealed a large air-fluid level within one of bulla in the left upper lung. On this study, the density in the left upper lung does seem somewhat greater and suggested that there may be more fluid within the infected bulla. Furthermore, a diffuse alveolar/interstitial infiltrate has also now developed in the left lung base. The right lung is hyperexpanded but clear. The mediastinum is not widened. The osseous structures are intact. IMPRESSION: The appearance of the chest has worsened since the prior study as fluid in the infected bulla in the left apex does appear to have increased. There is also a new diffuse area of pneumonia/atelectasis in the left lung base. Dictated by: Dictated on workstation # [id number]
--- NOTE | 2019-06-22 07:00 | NUR ---
Pt with continued hypotension, Dr Cardenas notified, orders received for another fluid bolus and fluids started at 100 ml/hr, see orders.
[2019-06-22] MEDS: predniSONE 20 MG TAB PO SCH (07:17)
--- NOTE | 2019-06-22 07:52 | Pulmonary Progress Note ---
Subjective Time Seen by a Provider: 05:00 Subjective/Events-last exam Pt is in acute respiratory distress on BiPAP. Sepsis Event Evaluation Height, Weight, BMI Height: 5'2.00" Weight: 154lbs. 8.0oz. 70.694756ly; 23.12 BMI Method:Stated Focused Exam Lactate Level 06/20/19 09:26: Lactic Acid Level 1.96 Exam Exam Vital Signs Date Time Temp Pulse Resp B/P (MAP) Pulse Ox O2 Delivery O2 Flow Rate FiO2 06/22/19 07:20 115 43 98 50.00 50.00 06/22/19 06:45 98 17 74/49 (57) 98 NIV Bilevel 50.00 06/22/19 06:26 105 31 109/93 (98) 96 NIV Bilevel 50.00 06/22/19 06:11 102 19 87/62 (70) NIV Bilevel 50.00 06/22/19 06:00 97 20 66/43 (51) 97 NIV Bilevel 50.00 06/22/19 05:45 115 35 77/58 (64) 96 NIV Bilevel 50.00 06/22/19 05:30 113 19 99/68 (78) 95 NIV Bilevel 50.00 06/22/19 05:15 121 37 111/78 (89) 99 NIV Bilevel 50.00 06/22/19 05:00 123 36 88/47 (61) 95 NIV Bilevel 50.00 06/22/19 04:46 120 19 84/54 (64) 96 NIV Bilevel 50.00 06/22/19 04:30 138 110/84 (93) 96 NIV Bilevel 50.00 06/22/19 04:18 149 33 133/83 (100) 96 NIV Bilevel 50.00 06/22/19 04:17 148 06/22/19 04:15 96 NIV Bilevel 50.00 06/22/19 04:15 36.2 06/22/19 04:06 151 43 94 50.00 06/22/19 03:10 36.8 150 28 172/95 (120) 95 Vapotherm 06/22/19 02:27 90 Nasal Cannula 5.00 06/22/19 02:22 86 Nasal Cannula 5.00 06/22/19 01:00 72 06/22/19 00:00 37.1 87 24 156/72 (100) 95 Nasal Cannula 5.00 06/21/19 22:41 81 155/89 (111) 06/21/19 22:30 94 Nasal Cannula 5.00 06/21/19 22:24 94 Nasal Cannula 5.00 06/21/19 20:40 Nasal Cannula 5.00 06/21/19 19:35 37.1 104 24 170/94 (119) 94 Nasal Cannula 5.00 06/21/19 19:04 92 Nasal Cannula 5.00 06/21/19 19:00 100 06/21/19 18:59 92 Nasal Cannula 5.00 06/21/19 15:30 36.8 116 24 162/82 (108) 93 Nasal Cannula 5.00 06/21/19 14:46 93 Nasal Cannula 5.00 06/21/19 13:00 110 06/21/19 12:00 36.8 104 22 155/92 (113) 93 Nasal Cannula 5.00 06/21/19 10:36 92 Nasal Cannula 5.00 06/21/19 10:10 37.0 06/21/19 08:00 37.0 104 20 145/75 (98) 94 Nasal Cannula 5.00 06/21/19 08:00 Nasal Cannula 5.00 I & O 06/22/19 07:00 Intake Total 2810 ml Output Total 2550 ml Balance 260 ml Height & Weight Height: 5'2.00" Weight: 154lbs. 8.0oz. 70.530086at; 23.12 BMI Method:Stated General Appearance: WD/WN, Moderate Distress HEENT: PERRL/EOMI, Pharynx Normal Neck: Non Tender, Supple Respiratory: Decreased Breath Sounds, Wheezing Cardiovascular: No Murmur, Tachycardia Capillary Refill: Less Than 3 Seconds Peripheral Pulses: 2+ Carotid (R), 2+ Radial Pulses (R), 2+ Radial Pulses (L) Gastrointestinal: normal bowel sounds, non tender, soft Extremity: Normal Range of Motion, Non Tender Neurologic/Psychiatric: Alert, Oriented x3 Skin: Warm/Dry, Pallor Lymphatic: No Adenopathy Results Lab Laboratory Tests 06/20/19 09:04 06/21/19 06:14 06/22/19 05:00 Assessment/Plan Assessment/Plan Acute respiratory failure -PT was transferred to ICU last night secondary to worsening respiratory distress. -He is currently on BiPAP -PT is a DNR -I called and talked with family about patients current condition. They are on their way to the hospital Hypotension -Hold lasix -Give 1 liter IVF bolus -Check BNP Infected pulmonary bleb with sepsis -Marina culture -Check MRSA nasal swab pending -IVF Vanco zosyn for now -Will probably need 4-6wks of total Abx severe oxygen dependent COPD -Duonebs Q 4 -Prednisone Abdominal pain -Monitor Anemia -Monitor 60 min ICU time spent with patient and discussing plan of care/prognosis with medical staff and family. Overall prognosis is poor secondary to severe COPD. Currently a DNR. Pt does have very severe COPD. Will consult hospice for education. LYNN AVILA DO Jun 22, 2019 07:52
[2019-06-22] MEDS: morphine INJ 4 MG/ML 1 ML (VIAL/SYRINGE) IVP PRN ×2 (08:07→17:33)
[2019-06-22] MEDS: LACTATED RINGERS 1,000 ML IV SCH ×2 (08:07→18:20)
--- NOTE | 2019-06-22 08:48 | NUR ---
Initial visit with pt's significant other, Denise. She introduced herself as being with the pt for over 30 years, but did not clarify if related. She was tearful while sharing her concerns for the pt's health. She expressed stressors related to pt's delays in getting medical attention in acute situations. Her neighbor's adult child yesterday, and Denise said she spent time with her last evening providing support. Denise said she could empathize having had an adult child , too.
[2019-06-22] MEDS: meTOproloL SUCCINATE 50 MG (TOPROL XL) TAB PO SCH (09:07)
[2019-06-22] MEDS: LORATADINE (CLARITIN) 10 MG TAB PO SCH (09:22)
[2019-06-22] MEDS: ASPIRIN E.C. 81 MG (ECOTRIN) TAB PO SCH (09:22)
[2019-06-22] MEDS: doxAzosin 2 MG (CARDURA) TAB PO SCH (09:22)
--- NOTE | 2019-06-22 11:45 | NUR ---
Pastoral care visit, with pts daughter and SO, offered support and prayer
--- NOTE | 2019-06-22 12:55 | Progress Note ---
Subjective Date Seen by a Provider: Jun 22, 2019 Time Seen by a Provider: 09:55 Subjective/Events-last exam Fwup SIRS, Pneumonia in Bleb, COPD with acute exacerbation, tachycardia, hypertension. Had respiratory distress overnight with heart rate in 150s to 160s as well as hypertension so was given cardizem and transferred to ICU and placed on BIPAP. Back on Vapotherm this morning and pulse down to low 100s. Sleepy due to no rest overnight. Focused Exam Lactate Level 06/20/19 09:26: Lactic Acid Level 1.96 Objective Exam Vital Signs Date Time Temp Pulse Resp B/P (MAP) Pulse Ox O2 Delivery O2 Flow Rate FiO2 06/22/19 12:00 36.8 06/22/19 11:00 104 20 96/68 (77) 97 NIV Bilevel 50.00 06/22/19 10:43 NIV Bilevel 50.00 06/22/19 10:09 Vapotherm 30.00 50 06/22/19 10:00 84 36 122/84 (97) 92 Vapotherm 25.00 45.00 06/22/19 09:00 95 29 110/77 (88) 91 Vapotherm 25.00 45.00 06/22/19 08:50 Vapotherm 25.00 45.00 06/22/19 08:10 100 NIV Bilevel 50.00 06/22/19 08:00 91 18 78/56 (63) 97 NIV Bilevel 50.00 06/22/19 07:30 35.9 06/22/19 07:20 115 43 98 50.00 50.00 06/22/19 07:00 94 19 77/59 (65) 97 NIV Bilevel 50.00 06/22/19 07:00 105 06/22/19 06:45 98 17 74/49 (57) 98 NIV Bilevel 50.00 06/22/19 06:26 105 31 109/93 (98) 96 NIV Bilevel 50.00 06/22/19 06:11 102 19 87/62 (70) NIV Bilevel 50.00 06/22/19 06:00 97 20 66/43 (51) 97 NIV Bilevel 50.00 06/22/19 05:45 115 35 77/58 (64) 96 NIV Bilevel 50.00 06/22/19 05:30 113 19 99/68 (78) 95 NIV Bilevel 50.00 06/22/19 05:15 121 37 111/78 (89) 99 NIV Bilevel 50.00 06/22/19 05:00 123 36 88/47 (61) 95 NIV Bilevel 50.00 06/22/19 04:46 120 19 84/54 (64) 96 NIV Bilevel 50.00 06/22/19 04:30 138 110/84 (93) 96 NIV Bilevel 50.00 06/22/19 04:18 149 33 133/83 (100) 96 NIV Bilevel 50.00 06/22/19 04:17 148 06/22/19 04:15 96 NIV Bilevel 50.00 06/22/19 04:15 36.2 06/22/19 04:06 151 43 94 50.00 06/22/19 03:10 36.8 150 28 172/95 (120) 95 Vapotherm 06/22/19 02:27 90 Nasal Cannula 5.00 06/22/19 02:22 86 Nasal Cannula 5.00 06/22/19 01:00 72 06/22/19 00:00 37.1 87 24 156/72 (100) 95 Nasal Cannula 5.00 06/21/19 22:41 81 155/89 (111) 06/21/19 22:30 94 Nasal Cannula 5.00 06/21/19 22:24 94 Nasal Cannula 5.00 06/21/19 20:40 Nasal Cannula 5.00 06/21/19 19:35 37.1 104 24 170/94 (119) 94 Nasal Cannula 5.00 06/21/19 19:04 92 Nasal Cannula 5.00 06/21/19 19:00 100 06/21/19 18:59 92 Nasal Cannula 5.00 06/21/19 15:30 36.8 116 24 162/82 (108) 93 Nasal Cannula 5.00 06/21/19 14:46 93 Nasal Cannula 5.00 06/21/19 13:00 110 I & O 06/22/19 07:00 Intake Total 2810 ml Output Total 2550 ml Balance 260 ml Capillary Refill : Less Than 3 Seconds General Appearance: No Apparent Distress Neck: Supple Respiratory: Decreased Breath Sounds Cardiovascular: Systolic Murmur, Tachycardia Extremity: Non Tender, No Calf Tenderness, No Pedal Edema Neurologic/Psychiatric: Alert Skin: Warm/Dry Results Lab Laboratory Tests 06/22/19 05:00: White Blood Count 16.8H, Red Blood Count 3.36L, Hemoglobin 10.2L, Hematocrit 32L , Mean Corpuscular Volume 95, Mean Corpuscular Hemoglobin 30, Mean Corpuscular Hemoglobin Concent 32, Red Cell Distribution Width 13.2, Platelet Count 254, Mean Platelet Volume 9.6, Neutrophils (%) (Auto) 93H, Lymphocytes (%) (Auto) 2L, Monocytes (%) (Auto) 5, Eosinophils (%) (Auto) 0, Basophils (%) (Auto) 0, Neutrophils # (Auto) 15.5H, Lymphocytes # (Auto) 0.3L, Monocytes # (Auto) 0.9, Eosinophils # (Auto) 0.0, Basophils # (Auto) 0.0, Neutrophils % (Manual) 94, Lymphocytes % (Manual) 1, Monocytes % (Manual) 4, Eosinophils % (Manual) 1, Blood Morphology Comment NORMAL, Sodium Level 139, Potassium Level 3.7, Chloride Level 105, Carbon Dioxide Level 23, Anion Gap 11, Blood Urea Nitrogen 14, Creatinine 0.71, Estimat Glomerular Filtration Rate > 60, BUN/Creatinine Ratio 20, Glucose Level 100, Calcium Level 8.6, Phosphorus Level 4.3, Magnesium Level 2.0, B-Type Natriuretic Peptide 268.5H 06/22/19 05:15: Blood Gas Puncture Site UNK, Blood Gas Patient Temperature 36.2, Arterial Blood pH 7.35L, Arterial Blood Partial Pressure CO2 47H, Arterial Blood Partial Pressure O2 78L, Arterial Blood HCO3 25, Arterial Blood Total CO2 26.9, Arterial Blood Oxygen Saturation 96, Arterial Blood Base Excess 0.3, Oleg Test UNK, Blood Gas Ventilator Setting YES, Blood Gas Inspired Oxygen 50 Microbiology 06/20/19 Blood Culture - Preliminary, Resulted No growth 06/20/19 Influenza Types A,B Antigen (NEETU) - Final, Complete 06/20/19 Urine Culture - Final, Complete NO GROWTH Assessment/Plan Assessment/Plan Assess & Plan/Chief Complaint 1. SIRS--on zosyn, Vanc, repeat cultures done 2. Pneumonia in Bleb--on Vanc, Zosyn but CXR worsening 3. COPD with acute exacerbation--on SVNS, oxygen, prednisone 4. Hypertension, Sinus Tachycardia-restarted metoprolol but BP was low this morning 5. Acute on Chronic Respiratory failure--currently off BIPAP and on Vapotherm but COPD is severe and condition is guarded Clinical Quality Measures Admission Status Admission Dx 1. Pneumonia in Bleb with SIRS--admit on IV zosyn/Vancomycin 2. COPD with acute exacerbation--prednisone and SVNs with xopenex/ipratroprium 3. Sinus Tachycardia--will use xopenex instead of albuterol and monitor AMI/AHF: ASA po Prior to arrival: No DVT/VTE Risk/Contraindication: Risk Factor Score Per Nursin RFS Level Per Nursing on Admit: 4+=Very High VICKI SOTO DO Jun 22, 2019 12:55
--- NOTE | 2019-06-22 12:59 | NUR ---
PALLIATIVE CARE RN to room after hospice consult received. Children had arrived to the hospital. We talked for a long time about the patient and how hospice could benefit him, then we spoke to the patient for another long while about the benefits of hospice. I have given the hospice choices and the children would like to elect [facility] as their provider. I will initiate referral with hold on visit until after we see what the weekend brings.
[2019-06-22] MEDS: methylPREDNISolone 40 MG/ML (Solu-MEDROL) VIAL IV SCH ×3 (14:10→22:30)
[2019-06-23] VITALS (17 sets, daily range): BP systolic 102–152; BP diastolic 59–92
[2019-06-23] MEDS: RT-IPRATROPIUM (ATROVENT) 0.5MG/2.5ML AMP IH SCH ×2 (01:40→07:38)
[2019-06-23] MEDS: RT-LEVALBUTEROL (XOPENEX) 1.25 MG/3 ML NEB NON-FORMULARY INH SCH ×2 (01:41→07:38)
[2019-06-23] MEDS: PIPERACILLIN/TAZO 4.5 GM/NS 100 ML IV SCH ×6 (02:12→16:54)
[2019-06-23] MEDS: morphine INJ 4 MG/ML 1 ML (VIAL/SYRINGE) IVP PRN ×5 (02:12→20:55)
[2019-06-23] MEDS: LACTATED RINGERS 1,000 ML IV SCH (02:13)
[2019-06-23] MEDS: ENOXAPARIN 40 MG/0.4 ML (LOVENOX) SYR SC SCH (02:13)
[2019-06-23 03:45] LABS: BASOPHILS % (AUTO) 0 % (0-10); EOSINOPHILS % (AUTO) 0 % (0-10); HEMATOCRIT 29 % (40-54); HEMOGLOBIN 9.3 G/DL (13.3-17.7); LYMPHOCYTES # (AUTO) 0.2 X 10^3 (1.0-4.0); LYMPHOCYTES % (AUTO) 2 % (12-44); MEAN CORPUSCULAR HEMOGLOBIN 31 PG (25-34); MEAN CORPUSCULAR HGB CONC 33 G/DL (32-36); MEAN CORPUSCULAR VOLUME 95 FL (80-99); MEAN PLATELET VOLUME 10.1 FL (7.4-10.4); MONOCYTES # (AUTO) 0.3 X 10^3 (0.0-1.0); MONOCYTES % (AUTO) 4 % (0-12); NEUTROPHILS # (AUTO) 7.3 X 10^3 (1.8-7.8); NEUTROPHILS % (AUTO) 94 % (42-75); PLATELET COUNT 194 10^3/uL (130-400); RED CELL DISTRIBUTION WIDTH 12.8 % (10.0-14.5); WHITE BLOOD COUNT 7.8 10^3/uL (4.3-11.0)
[2019-06-23 04:05] LABS: BUN/CREATININE RATIO 26; CALCIUM 8.4 MG/DL (8.5-10.1); CARBON DIOXIDE 25 MMOL/L (21-32); CHLORIDE 101 MMOL/L (98-107); GFR ESTIMATED > 60; GLUCOSE 173 MG/DL (70-105); MAGNESIUM 1.9 MG/DL (1.6-2.4); PHOSPHORUS 3.2 MG/DL (2.3-4.7); POTASSIUM 3.8 MMOL/L (3.6-5.0); SODIUM 138 MMOL/L (135-145)
[2019-06-23] MEDS: methylPREDNISolone 40 MG/ML (Solu-MEDROL) VIAL IV SCH ×4 (05:25→22:53)
[2019-06-23] MEDS: HYDROcodone/APAP 7.5 MG/325 MG (LORTAB, LORCET PLUS) TABLET PO PRN ×2 (05:26→17:04)
[2019-06-23] MEDS ORDERED: KCL 20 MEQ TAB (K-DUR) PO SCH (06:00)
[2019-06-23] MEDS ORDERED: POTASSIUM CL 10MEQ/50ML IVPB 50 ML IV SCH (06:00)
[2019-06-23] MEDS ORDERED: MAGNESIUM 1 GM/100 ML IVPB 100 ML IV SCH (06:00)
--- NOTE | 2019-06-23 08:12 | Pulmonary Progress Note ---
Subjective Time Seen by a Provider: 08:04 Subjective/Events-last exam Pt slightly improved today however still very SOB. Sepsis Event Evaluation Height, Weight, BMI Height: 5'2.00" Weight: 158lbs. 5.0oz. 71.095467co; 23.12 BMI Method:Stated Focused Exam Lactate Level 06/20/19 09:26: Lactic Acid Level 1.96 Exam Exam Vital Signs Date Time Temp Pulse Resp B/P (MAP) Pulse Ox O2 Delivery O2 Flow Rate FiO2 06/23/19 07:38 76 21 97 40.00 06/23/19 07:00 36.1 06/23/19 07:00 62 14 123/70 (87) 96 NIV Bilevel 40.00 06/23/19 07:00 64 06/23/19 06:00 62 17 116/70 (85) 95 NIV Bilevel 40.00 06/23/19 05:00 67 17 134/76 (95) 95 NIV Bilevel 40.00 06/23/19 04:20 35.8 06/23/19 04:00 69 19 134/84 (101) 95 NIV Bilevel 40.00 06/23/19 03:00 99 17 152/88 (109) 95 NIV Bilevel 40.00 06/23/19 02:00 60 19 125/75 (92) 95 NIV Bilevel 40.00 06/23/19 01:41 85 19 97 45.00 06/23/19 01:00 65 06/23/19 01:00 65 16 119/64 (82) 96 NIV Bilevel 45.00 06/23/19 00:40 35.9 06/23/19 00:00 64 17 108/65 (79) 96 NIV Bilevel 45.00 06/22/19 23:00 37.3 06/22/19 23:00 80 20 122/73 (89) 98 NIV Bilevel 45.00 06/22/19 22:00 77 17 121/67 (85) 97 NIV Bilevel 45.00 06/22/19 21:39 78 24 95 45.00 06/22/19 21:00 99 18 129/89 (102) 97 NIV Bilevel 45.00 06/22/19 20:45 94 NIV Bilevel 50.00 06/22/19 20:00 108 18 119/64 (82) 96 NIV Bilevel 45.00 06/22/19 20:00 36.4 06/22/19 19:16 81 19 97 50.00 50.00 06/22/19 19:00 97 17 105/55 (72) 96 NIV Bilevel 45.00 06/22/19 19:00 98 06/22/19 18:00 108 58 128/93 (105) 91 NIV Bilevel 50.00 06/22/19 17:00 71 19 100/60 (73) 93 NIV Bilevel 50.00 06/22/19 16:00 36.6 06/22/19 16:00 76 16 100/58 (72) 95 NIV Bilevel 50.00 06/22/19 15:00 85 15 99/53 (68) 92 NIV Bilevel 50.00 06/22/19 14:20 Vapotherm 30.00 50 06/22/19 14:00 111 31 123/80 (94) 93 NIV Bilevel 50.00 06/22/19 13:00 122 40 141/90 (107) 95 NIV Bilevel 50.00 06/22/19 13:00 120 06/22/19 12:00 36.8 06/22/19 12:00 105 17 111/69 (83) 97 NIV Bilevel 50.00 06/22/19 11:00 104 20 96/68 (77) 97 NIV Bilevel 50.00 06/22/19 10:43 NIV Bilevel 50.00 06/22/19 10:09 Vapotherm 30.00 50 06/22/19 10:00 84 36 122/84 (97) 92 Vapotherm 25.00 45.00 06/22/19 09:00 95 29 110/77 (88) 91 Vapotherm 25.00 45.00 06/22/19 08:50 Vapotherm 25.00 45.00 06/22/19 08:10 100 NIV Bilevel 50.00 I & O 06/23/19 07:00 Intake Total 1840 ml Output Total 1325 ml Balance 515 ml Height & Weight Height: 5'2.00" Weight: 158lbs. 5.0oz. 71.897243vv; 23.12 BMI Method:Stated General Appearance: WD/WN, Moderate Distress HEENT: PERRL/EOMI, Pharynx Normal Neck: Non Tender, Supple Respiratory: Accessory Muscle Use, Decreased Breath Sounds, Wheezing Cardiovascular: No Murmur, Tachycardia Capillary Refill: Less Than 3 Seconds Peripheral Pulses: 2+ Carotid (R), 2+ Radial Pulses (R), 2+ Radial Pulses (L) Gastrointestinal: normal bowel sounds, non tender, soft Extremity: Normal Range of Motion, Non Tender Neurologic/Psychiatric: Alert, Oriented x3 Skin: Warm/Dry, Pallor Lymphatic: No Adenopathy Results Lab Laboratory Tests 06/22/19 05:00 06/23/19 03:06 Assessment/Plan Assessment/Plan Acute respiratory failure -He is currently on BiPAP -- Trial to Vapotherm -PT is a DNR -Will give lasix 40mg IV x 1 Infected pulmonary bleb with sepsis -Marina culture -Check MRSA nasal swab pending -IVF Vanco zosyn for now severe oxygen dependent COPD -Duonebs Q 4 -Prednisone Abdominal pain -Monitor Anemia -Monitor UPDATE: I talked with patient and family. They all agree to proceed with comfort care only. They do understand with HAND SPRING REPAIRER HELPER pt will not live as long however will be comfortable. Will proceed with HAND SPRING REPAIRER HELPER. LYNN AVILA DO Jun 23, 2019 08:12
[2019-06-23] MEDS ORDERED: FUROSEMIDE 40 MG/4 ML INJ (LASIX) IVP ONE (08:30)
[2019-06-23] MEDS ORDERED: KCL 20 MEQ TAB (K-DUR) PO ONE (08:30)
--- NOTE | 2019-06-23 09:03 | Diagnostic Imaging Report ---
INDICATION: Tachycardia, pneumonia. COMPARISON: 06/22/2019. TECHNIQUE: Two radiograph of chest dated 06/23/2019. FINDINGS: The cardiac silhouette is borderline enlarged, though stable. No significant pulmonary vascular congestion. Severe background chronic obstructive pulmonary disease with associated emphysematous changes again noted. Prominent bulla/cavitary lesion is again noted within the left upper lung with associated dense focal pulmonary opacities. Overall appearance of this region has not significantly changed from the prior exam. Left basilar infiltrate is present, slightly improved since the prior examination. The right lung remains clear of focal pulmonary opacity. No significant pleural effusion. No pneumothorax. No acute osseous abnormality. IMPRESSION: Improving left basilar infiltrate likely related to improving pneumonia. Severe background chronic obstructive pulmonary disease with advanced emphysematous changes. Superinfected bulla/cavitary lesion within the left upper lung appears unchanged from the prior exam. Dictated by: Dictated on workstation # [id number]
[2019-06-23] MEDS: doxAzosin 2 MG (CARDURA) TAB PO SCH (09:56)
[2019-06-23] MEDS: ASPIRIN E.C. 81 MG (ECOTRIN) TAB PO SCH (09:56)
[2019-06-23] MEDS: LORATADINE (CLARITIN) 10 MG TAB PO SCH (09:56)
[2019-06-23] MEDS: meTOproloL SUCCINATE 50 MG (TOPROL XL) TAB PO SCH (09:57)
--- NOTE | 2019-06-23 11:49 | Progress Note - Hospitalist ---
Subjective HPI/CC On Admission Date Seen by Provider: Jun 23, 2019 Time Seen by Provider: 09:30 Subjective/Events-last exam Dr. Cardenas spoke to patient and family and they wish to proceed on with comfort care protocol Patient will be transferred to fourth floor We'll change nebulizer to when necessary Patient denies any pain Review of Systems Cardiovascular: Orthopnea Objective Exam Vital Signs Vital Signs Date Time Temp Pulse Resp B/P (MAP) Pulse Ox O2 Delivery O2 Flow Rate FiO2 06/23/19 11:00 115 28 126/69 (88) 94 NIV Bilevel 40.00 06/23/19 07:00 36.1 06/22/19 14:20 50 Capillary Refill : Less Than 3 Seconds General Appearance: No Apparent Distress, WD/WN, Anxious, Chronically ill Respiratory: Accessory Muscle Use, Crackles, Decreased Breath Sounds, Wheezing Neurologic/Psychiatric: Alert, Oriented x3, No Motor/Sensory Deficits, Normal Mood/Affect Results/Procedures Lab Laboratory Tests 06/23/19 03:06 Patient resulted labs reviewed. Assessment/Plan Assessment and Plan Assess & Plan/Chief Complaint Assessment: Acute respiratory failure Infected pulmonary bleb with sepsis Severe oxygen dependent COPD Plan: Comfort Care protocol Nebulizer when necessary Diagnosis/Problems Diagnosis/Problems (1) COPD with acute exacerbation Status: Acute (2) Left upper lobe pneumonia Status: Acute Qualifiers: Pneumonia type: due to unspecified organism Qualified Codes: J18.1 - Lobar pneumonia, unspecified organism (3) COPD exacerbation Status: Acute (4) Oxygen dependent Status: Chronic (5) Respiratory insufficiency Status: Resolved Resolution Date/Time: 12/09/18 @ 14:08 (6) Anxiety Status: Acute Clinical Quality Measures AMI/AHF: ASA po Prior to arrival: No DVT/VTE Risk/Contraindication: Risk Factor Score Per Nursin RFS Level Per Nursing on Admit: 4+=Very High SUREKHA ALBERT DO Jun 23, 2019 11:48
[2019-06-23] MEDS: RT-IPRATROPIUM (ATROVENT) 0.5MG/2.5ML AMP IH PRN ×2 (12:34→20:52)
[2019-06-23] MEDS: RT-LEVALBUTEROL (XOPENEX) 1.25 MG/3 ML NEB NON-FORMULARY INH PRN ×2 (12:34→20:52)
--- NOTE | 2019-06-23 15:10 | NUR ---
PATIENT TRANSFERRED TO ROOM 421 AT THIS TIME WITH NO ISSUES. PERSONAL BELONGINGS SENT WITH PATIENT. REPORT GIVEN TO LINDSAY PINTO TO ASSUME CARE OF PATIENT.
--- NOTE | 2019-06-23 15:20 | NUR ---
Patient transferred to [facility] per accompanied by staff. Patient and family notified and understand transfer. Personal belongings with patient. Report given to this RN FROM SENIOR SQL SERVER DBA EZEQUIEL.
--- NOTE | 2019-06-23 20:30 | NUR ---
DISCUSSED PALLIATIVE CARE VS HOSPICE CARE WITH DAUGHTERS. DISCUSSED PT RESTLESSNESS AND NOT SLEEPING FOR VERY LONG. PT COMPLAINING OF FEELING AIR HUNGER. PT VERY AGITATED WITH ANYONE IN THE ROOM. ADMINISTERED 4 MG MORPHINE AND 2 MG ATIVAN AND REQUESTED BREATHING TX. ADVISED DAUGHTERS THAT HIS BREATHING TX ARE PRN AND NEED TO BE REQUESTED. ADVISED ATIVAN CAN BE GIVEN Q2H.
[2019-06-23] MEDS: LORazepam INJ 2 MG/ML (ATIVAN) VIAL IVP PRN (20:55)
--- NOTE | 2019-06-23 22:00 | NUR ---
VS COMPLETED PT IS ON COMFORT MEASURES.
--- NOTE | 2019-06-23 22:57 | NUR ---
PT IS RESTING WITH EYES CLOSED. RESPIRATIONS ARE EVEN AND UNLABORED.
[2019-06-24] MEDS: PIPERACILLIN/TAZO 4.5 GM/NS 100 ML IV SCH ×6 (01:26→17:36)
[2019-06-24] MEDS: LORazepam INJ 2 MG/ML (ATIVAN) VIAL IVP PRN ×4 (03:33→18:42)
[2019-06-24] MEDS: morphine INJ 4 MG/ML 1 ML (VIAL/SYRINGE) IVP PRN ×5 (03:33→21:39)
[2019-06-24] MEDS: methylPREDNISolone 40 MG/ML (Solu-MEDROL) VIAL IV SCH ×3 (05:06→17:36)
[2019-06-24] MEDS: meTOproloL SUCCINATE 50 MG (TOPROL XL) TAB PO SCH (09:05)
[2019-06-24] MEDS: RT-IPRATROPIUM (ATROVENT) 0.5MG/2.5ML AMP IH PRN (09:52)
[2019-06-24] MEDS: RT-LEVALBUTEROL (XOPENEX) 1.25 MG/3 ML NEB NON-FORMULARY INH PRN (09:52)
--- NOTE | 2019-06-24 10:55 | NUR ---
DR ALBERT ON FLOOR AND GOT ORDER TO INCREASE THE IV MORPHINE TO 8 MG Q2HR PRN
--- NOTE | 2019-06-24 11:21 | Progress Note - Hospitalist ---
Subjective HPI/CC On Admission Date Seen by Provider: Jun 24, 2019 Time Seen by Provider: 10:15 Subjective/Events-last exam Comfort care protocol maintained Increased morphine to 8 mg IV every 2 hours since it appears to be improving his respiratory distress Chest x-ray was obtained today so we will discontinue all chest x-rays since patient is comfort care Family at the bedside and they spent the night last night Patient very lethargic Objective Exam Vital Signs Vital Signs Date Time Temp Pulse Resp B/P (MAP) Pulse Ox O2 Delivery O2 Flow Rate FiO2 06/24/19 13:11 36.7 06/24/19 09:52 85 Nasal Cannula 10.00 06/23/19 14:00 75 26 132/70 (90) 06/22/19 14:20 50 Capillary Refill : Less Than 3 Seconds General Appearance: No Apparent Distress, WD/WN, Anxious, Chronically ill, Thin Respiratory: Accessory Muscle Use, Crackles, Decreased Breath Sounds Cardiovascular: Regular Rate, Rhythm Neurologic/Psychiatric: Disoriented Results/Procedures Lab Patient resulted labs reviewed. Assessment/Plan Assessment and Plan Assess & Plan/Chief Complaint Assessment: End of life care Acute respiratory failure Infected pulmonary bleb with sepsis Severe oxygen dependent COPD Plan: Comfort Care protocol Nebulizer when necessary Diagnosis/Problems Diagnosis/Problems (1) End of life care Status: Acute (2) COPD with acute exacerbation Status: Acute (3) Left upper lobe pneumonia Status: Acute Qualifiers: Pneumonia type: due to unspecified organism Qualified Codes: J18.1 - Lobar pneumonia, unspecified organism (4) COPD exacerbation Status: Acute (5) Oxygen dependent Status: Chronic (6) Respiratory insufficiency Status: Resolved Resolution Date/Time: 12/09/18 @ 14:08 (7) Anxiety Status: Acute Clinical Quality Measures AMI/AHF: ASA po Prior to arrival: No DVT/VTE Risk/Contraindication: Risk Factor Score Per Nursin RFS Level Per Nursing on Admit: 4+=Very High SUREKHA ALBERT DO Jun 24, 2019 11:21
--- NOTE | 2019-06-24 15:07 | Diagnostic Imaging Report ---
INDICATION: Pneumonia, tachycardia. TECHNIQUE: Single view chest 3:20 AM. CORRELATION STUDY: 06/23/2019 FINDINGS: Heart size and mediastinum are stable as is the vasculature. Severe fibroemphysematous changes about the lung apices. More superimposed infiltrate left lung base does persist but appears slightly improved. Cavitary lesion in the left upper lobe unchanged. IMPRESSION: 1. Marked chronic appearing change about the lung parenchyma. 2. Superimposed infiltrate left lung base does persist but appears slightly improved. 3. Cavitary process left lung apex stable. Dictated by: Dictated on workstation # [id number]
[2019-06-24] MEDS ORDERED: SCOPOLAMINE 1.5 MG (TRANSDERM-SCOP) PATCH TD SCH (16:30)
[2019-06-25] MEDS: LORazepam INJ 2 MG/ML (ATIVAN) VIAL IVP PRN ×4 (00:01→21:26)
[2019-06-25] MEDS: methylPREDNISolone 40 MG/ML (Solu-MEDROL) VIAL IV SCH ×3 (00:01→10:39)
[2019-06-25] MEDS: PIPERACILLIN/TAZO 4.5 GM/NS 100 ML IV SCH ×4 (02:05→10:35)
[2019-06-25] MEDS: morphine INJ 4 MG/ML 1 ML (VIAL/SYRINGE) IVP PRN ×5 (02:06→23:26)
--- NOTE | 2019-06-25 11:45 | NUR ---
Pastoral care visit, pts group home SO was at bedside, I offered prayer and support as she shared some of their story.
--- NOTE | 2019-06-25 12:02 | NUR ---
PALLIATIVE CARE RN in to see patient and family who are at bedside. Patient is not responsive this morning. With the only indication that he heard me when I spoke to him and touched his had was that his respirations increased. He is on NC 10L, getting Morphine and Ativan PRN for air hunger. It appears that he is finishing an antibiotic course but is otherwise COMFORT CARE only. Spoke with the family about discharge planning. They chose [facility] last week and I have called to have a commercial pest control representative come talk with them today. They plan to take the patient home with hospice.
[2019-06-25] MEDS ORDERED: ONDANSETRON 4 MG/2 ML (SDV) Z0FRAN IVP PRN (12:45)
--- NOTE | 2019-06-25 12:46 | Progress Note ---
Subjective Date Seen by a Provider: Jun 25, 2019 Time Seen by a Provider: 12:43 Subjective/Events-last exam Fwup acute on chronic respiratory failure, Sepsis with pneumonia in bleb, severe oxygen dependant COPD. On comfort care now and per family has been unresponsive since last pm. Objective Exam Vital Signs Date Time Temp Pulse Resp B/P (MAP) Pulse Ox O2 Delivery O2 Flow Rate FiO2 06/25/19 08:00 High Flow N/C 10.00 06/25/19 07:29 Nasal Cannula 10.00 06/24/19 20:30 Nasal Cannula 10.00 06/24/19 13:11 36.7 I & O 06/25/19 07:00 Intake Total 265 ml Output Total 625 ml Balance -360 ml Capillary Refill : Less Than 3 Seconds General Appearance: No Apparent Distress Respiratory: Decreased Breath Sounds, Respiratory Distress (respiratory pauses with accessory muscle use) Cardiovascular: Tachycardia Neurologic/Psychiatric: Other (unresponsive) Skin: Ecchymosis Results Lab Microbiology 06/20/19 Blood Culture - Preliminary, Resulted No growth 06/22/19 MRSA Screen - Final, Complete MRSA not isolated 06/20/19 Urine Culture - Final, Complete NO GROWTH Assessment/Plan Assessment/Plan Assess & Plan/Chief Complaint Comfort care so DC antibiotics, will continue oxygen for comfort, hospice coming today to evaluate but with respiratory pauses, patient may not make it past another 24-48hrs Clinical Quality Measures Admission Status Admission Dx 1. Pneumonia in Bleb with SIRS--admit on IV zosyn/Vancomycin 2. COPD with acute exacerbation--prednisone and SVNs with xopenex/ipratroprium 3. Sinus Tachycardia--will use xopenex instead of albuterol and monitor AMI/AHF: ASA po Prior to arrival: No DVT/VTE Risk/Contraindication: Risk Factor Score Per Nursin RFS Level Per Nursing on Admit: 4+=Very High VICKI SOTO DO Jun 25, 2019 12:45
--- NOTE | 2019-06-25 13:05 | NUR ---
Statistician Theoretical support provided to pt's , son, and extended family in the waiting room. They describe strong and meaningful relationships within their [facility]onna community at [facility]. They also shared that Rev. Willy Singletary has visited them frequently to provide spiritual and emotional support. The family shared the pt is now on comfort care and they are navigating placement for continued end of life care.
[2019-06-26] MEDS: LORazepam INJ 2 MG/ML (ATIVAN) VIAL IVP PRN ×5 (00:57→21:31)
[2019-06-26] MEDS: morphine INJ 4 MG/ML 1 ML (VIAL/SYRINGE) IVP PRN ×2 (04:21→09:05)
--- NOTE | 2019-06-26 09:33 | NUR ---
PALLIATIVE CARE RN in to see patient. He is resting, appears comfortable. Daughter, Jessica, reports that he had a bad night, but that they had let the timing between administrations of PRN comfort meds to go too long. Will see if Valdo MontagueD will calculate what the dosing would be for CADD Morphine administration. Will await his suggestion before talking with Felecia.
--- NOTE | 2019-06-26 10:29 | NUR ---
PALLIATIVE CARE RN spoke with Dr. Izquierdo's office who gave orders for CADD administration of Pharmacist calculated dose of Morphine of 1.5 Mg cont infusion and 1 mg demand dose q 10 min. Nurse notified of new order.
[2019-06-26] MEDS ORDERED: morphine PCA 100 MG/100 ML BAG IV PRN ×2 (10:30→11:15)
--- NOTE | 2019-06-26 12:58 | Progress Note ---
Subjective Date Seen by a Provider: Jun 26, 2019 Time Seen by a Provider: 12:49 Subjective/Events-last exam Fwup comfort care. Restless overnight and when tried to turn down oxygen. Objective Exam Vital Signs Date Time Temp Pulse Resp B/P (MAP) Pulse Ox O2 Delivery O2 Flow Rate FiO2 06/26/19 08:00 High Flow N/C 5.00 06/26/19 07:34 Nasal Cannula 5.00 06/25/19 20:00 High Flow N/C 8.00 06/25/19 19:21 8.00 I & O 06/26/19 07:00 Intake Total 0 ml Output Total 750 ml Balance -750 ml Capillary Refill : Less Than 3 Seconds General Appearance: No Apparent Distress Respiratory: Decreased Breath Sounds Cardiovascular: Regular Rate, Rhythm Neurologic/Psychiatric: Other (sedated) Skin: Warm/Dry Results Lab Microbiology 06/20/19 Blood Culture - Final, Complete No growth 06/22/19 MRSA Screen - Final, Complete MRSA not isolated 06/20/19 Urine Culture - Final, Complete NO GROWTH Assessment/Plan Assessment/Plan Assess & Plan/Chief Complaint Comfort care--started on morphine GYROSCOPIC ENGINEERING TECHNICIAN and will add routine ativan, will continue oxygen for comfort and try to decrease once more comfortable with GYROSCOPIC ENGINEERING TECHNICIAN and ativan, hospice evaluated yesterday Clinical Quality Measures Admission Status Admission Dx 1. Pneumonia in Bleb with SIRS--admit on IV zosyn/Vancomycin 2. COPD with acute exacerbation--prednisone and SVNs with xopenex/ipratroprium 3. Sinus Tachycardia--will use xopenex instead of albuterol and monitor AMI/AHF: ASA po Prior to arrival: No DVT/VTE Risk/Contraindication: Risk Factor Score Per Nursin RFS Level Per Nursing on Admit: 4+=Very High VICKI SOTO DO Jun 26, 2019 12:58
[2019-06-26] MEDS: LORazepam INJ 2 MG/ML (ATIVAN) VIAL IVP SCH (18:05)
[2019-06-27] MEDS: LORazepam INJ 2 MG/ML (ATIVAN) VIAL IVP SCH ×3 (00:34→12:13)
--- NOTE | 2019-06-27 08:50 | NUR ---
PALLIATIVE CARE RN in to see patient. family not in room upon arrival but arrived as I was leaving the room. Patient appears comfortable...he did rouse with voice and cold hand applied to forehead by moving head and arms. He did not attempt verbalization. Jessica, reports that she will be going back home today and likely will not return. Patient O2 is down to 2 L and he has retractions when breathing with an extended expiratory duration. No needs voiced at this time.
--- NOTE | 2019-06-27 10:11 | NUR ---
PLAN: Patient is expected to pass soon. Family has expressed that they wish for [facility] in [place] to take care of the remains through [facility]. The family is extremely grateful for the care given to the patient. [facility]: [phone]
--- NOTE | 2019-06-27 11:05 | NUR ---
This RN went to room and gave condolences to family. They were very happy with the care given to patient by all that wee involved in his care.
--- NOTE | 2019-06-27 11:56 | NUR ---
WAITING FOR [facility] TO CALL BACK -- THEY DID NOT GIVE THIS RN A REF NO. - BUT VOICED THEY WOULD CALL BACK AND NOT TO CALL THE HOME YET
--- NOTE | 2019-06-27 13:00 | NUR ---
[facility] CALLED THIS RN AND I WAS OFF FLOOR RETURNED THEIR CALL AND I WAS ASKED IF FAMIY OK AND IF STILL HERE -- FAMILY OK AND THEY ARE STILL HERE -- GOT REF NO.-- [id number] -- THEY WILL CALL BACK
--- NOTE | 2019-06-27 13:00 | NUR ---
wasted 40 ml of CADD MORPHINE WITH AMINA PINTO
--- NOTE | 2019-06-27 13:32 | NUR ---
TOD support: Offered active listening and encouraged healing storytelling and reflection. Pt's , ex-, three children and grandchildren present. All described that pt opened his eyes and briefly engaged before peacefully expiring. The family is [employer] and requested that I notify their pelletizer tender, Willy Singletary of pt's . Conveyor Belt Operator contacted.
--- NOTE | 2019-06-27 13:58 | NUR ---
THIS RN CALLED [facility] -- FAMILY HAVE LEFT - PER MID WET SALINE DROPS IN EYES AND LARGE ICE BAG OVER ABD AND UPPER LEGS --[facility] VOICED THEY HAD NOT TALKED TO THE FAMILY YET -- THEY WILL CALL BACK
--- NOTE | 2019-06-27 15:58 | NUR ---
JT FROM [facility] CALLED THIS RN THEY ARE STILL TRYING TO CONTACT THE PT'S FAMILY ABOUT ORGAN DONATION -- SHE WAS CALLING TO REMIND STFF TO ICE EYES AND ABD (W/ LG BAG OF ICE) THEY WILL GET BACK TO USE
[2019-06-27] MEDS ORDERED: PATCH REMOVAL TP SCH (16:45)
--- NOTE | 2019-06-27 17:27 | NUR ---
JT FROM [facility] WILL BE TO FLOOR T 191 FOR [facility] HARVESTING -- [facility] WILL BE HERE LATER TONIGHT -- AND [facility] WILL CALL [facility] IN [place] TO LET THEM KNOW -- AFTER THEY ARE DONE HARVESTING -- FLOOR STAFF CAN CALL HOME
--- NOTE | 2019-06-27 18:47 | NUR ---
[facility] CALLED AND ASKED THE RM NO FOR EYE HARVEST --
--- NOTE | 2019-06-27 21:14 | NUR ---
[facility] STATED THAT AFTER RECOVERING SKIN TISSUE THEY WILL RELEASE BODY TO [facility] IN [place], [place]
--- NOTE | 2019-06-27 21:14 | NUR ---
[facility] TEAM FINISHED COLLECTING PT CORNEA AT THIS TIME. [facility] NOTIFIED THIS NURSE THAT THEY ARRANGED FOR [facility] TO COLLECT THE BODY TO TRANSPORT PATIENT TO HOSPITAL IN [place] TO RECOVER SKIN TISSUE.
--- NOTE | 2019-06-27 22:45 | NUR ---
[facility] PICKED UP THE BODY ARRANGED BY [facility] AT THIS TIME. DENTURES WITH BODY. ICE ON EYES AND BODY.
--- NOTE | 2019-06-27 23:00 | NUR ---
PT PASSED DURING DAY SHIFT. DOCUMENTATION REGARDING CHARTED BY DAY NURSE.
== END 2019-06-27 11:00 | disposition expired | DRG 871 ==
LOC: EDUNIT# 09:03 → ER 09:04 → 4TH 11:37 → ICU 06-22 04:04 → 4TH 06-23 15:16
PROVIDERS: ADMIT Family Medicine; ATTEND Family Medicine
DX: A41.9 Sepsis, unspecified organism (principal); J18.1 Lobar pneumonia, unspecified organism; J43.9 Emphysema, unspecified; J96.21 Acute and chronic respiratory failure with hypoxia; I10 Essential (primary) hypertension; F17.210 Nicotine dependence, cigarettes, uncomplicated; Z99.81 Dependence on supplemental oxygen; Z66 Do not resuscitate; Z51.5 Encounter for palliative care; K21.9 Gastro-esophageal reflux disease without esophagitis; F41.9 Anxiety disorder, unspecified; Z95.5 Presence of coronary angioplasty implant and graft
CPT/HCPCS: 36415; 71045; 71260; 80048; 80053; 81000; 82150; 82805; 83605; 83690; 83735; 83880; 84100; 84484; 85007; 85025; 85027; 85610; 85730; 87040; 87081; 87088; 87804; 93005; 94640; 94660; 94760; 96374; 96375